=== PATIENT | male | born 1960 | race Caucasian/White ===

== ENCOUNTER 2017-08-19 10:26 | Emergency (ER) | payer OTHER ==
[2017-08-19] MEDS ORDERED: FENTANYL CITR 100 MCG/2 ML ONE (10:49)
[2017-08-19] MEDS ORDERED: ONDANSETRON 4 MG/2 ML VIAL ONE (10:49)
[2017-08-19 11:16] LABS: Absolute Lymphocytes (CBC) 3.3 K/uL (0.7-4.9); Absolute Monocytes 0.5 K/uL (0.1-1.3); Basophils % 1.3 % (0-1.3); Eosinophils % 0.5 % (0-4.4); Hematocrit 43.9 % (39.6-49.0); Lymphocytes % 37.1 % (15.3-44.8); MCH 33.6 pg (27.0-35.0); MCV 96.2 fL (80-100); MPV 9.9 fL (7.6-11.3); Monocytes % 5.8 % (3.3-12.3); RBC Red Blood Cell Count 4.57 M/uL (4.33-5.43)
--- NOTE | 2017-08-19 11:23 | RAD REPORT ---
EXAM DESCRIPTION: CT - Stone Protocol - 08/19/2017 11:12 am CLINICAL HISTORY: Flank pain. COMPARISON: 03/07/2017 TECHNIQUE: Axial images were obtained without oral or IV contrast. Lack of contrast limits solid org an and vascular assessment. The [id number] spans the entirety of the system partially obscuring uppermost abdomen and lung bases. Coronal reformatted images were obtained and reviewed. All CT scans are performed using dose optimization technique as appropriate and may include automated exposure control or mA/KV adjustment according to patient size. FINDINGS: The lower lung araujo are clear. Cholecystectomy clips. Mildly prominent liver size. No biliary dilatation. The spleen is normal The pancreas and adrenal gla nds are normal. No pathologic lymphadenopathy in the abdomen or pelvis. No urinary tract stones or obstructive uropathy. No bowel obstruction, free air, free fluid or abscess. Normal appendix noted. Moderate spondylosis at L4-5 and L5-S1. IMPRESSION: No urinary tract stones or obstructive uropathy. Moderate lower lumbar spondylosis.
[2017-08-19 11:31] LABS: Potassium 3.3 mEq/L (3.6-5.0)
[2017-08-19 11:37] LABS: Albumin 3.8 g/dL (3.2-5.5); Bilirubin Direct 0.7 mg/dL (0-0.2); Bilirubin Total 3.1 mg/dL (0.3-1.2); Protein, Total 7.6 g/dL (6.0-8.3)
[2017-08-19] MEDS ORDERED: NA CHLORIDE 0.9% 1,000 ML ONE (12:02)
--- NOTE | 2017-08-19 13:12 | ER ---
Nurse's Notes [facility] Name: Melchor Cisse III Age: 57 yrs Sex: Male : 1960 Arrival Date: 08/19/2017 Time: 10:28 Bed 5 Private MD: out of town, doctor Diagnosis: Generalized abdominal pain;Vomiting Presentation: 08/19 10:46 Presenting complaint: Patient states: abd cramping, vomiting and diarrhea that started iw yesterday, pt also states he is too weak to walk. Transition of care: patient was not received from another setting of care. Onset of symptoms was August 18, 2017. Risk Assessment: Do you want to hurt yourself or someone else? Patient reports no desire to harm self or others. Initial Sepsis Screen: Does the patient meet any 2 criteria? No. Patient's initial sepsis screen is negative. Does the patient have a suspected source of infection? No. Patient's initial sepsis screen is negative. Care prior to arrival: None. 10:46 Method Of Arrival: Wheelchair iw 10:46 Acuity: ANTONIA 2 iw Historical: - Allergies: 10:56 Iodine; ae1 10:56 Morphine; ae1 - Home Meds: 12:52 Descovy 200-25 mg Oral tab 1 tab once daily [Active]; Evotaz 300-150 mg Oral tab 1 tab ae1 once daily [Active]; - PMHx: 10:56 Hepatitis; HIV; ae1 - Immunization history:: Adult Immunizations not up to date. - Social history:: The patient lives at home, Smoking status: Patient uses tobacco products, smokes one-half pack cigarettes per day. Screenin:42 Nutritional screening: No deficits noted. ae1 12:51 Abuse screen: Denies threats or abuse. Tuberculosis screening: No symptoms or risk ae1 factors identified. Fall Risk None identified. Assessment: 10:58 General: Appears distressed, uncomfortable, unkempt, malnourished, Behavior is ae1 agitated, anxious, restless, Patient is yelling. Pain: Complains of pain in abdomen Pain currently is 10 out of 10 on a pain scale. Neuro: Level of Consciousness is awake, alert, Oriented to person, place, situation. Cardiovascular: skin cool and dry. Respiratory: Airway is patent Respiratory effort is even, unlabored, shallow, Respiratory pattern is regular, symmetrical. GI: Bowel sounds present X 4 quads. Abd is soft Abdomen is tender to palpation X 4 quads. in suprapubic area Reports constipation, nausea, vomiting. : No signs and/or symptoms were reported regarding the genitourinary system. Derm: Skin is pale, Patient has a dorado tint to his skin. 10:58 General:. Pain: Noted to be agitated, crying, grimacing, guarding, moaning, restless. ae1 11:32 Reassessment: Patient is more relaxed, still reports pain, is no longer restless. ae1 Patient states feeling better. Patient states symptoms have improved. 11:56 Reassessment: Patient and/or family updated on plan of care and expected duration. Pain ae1 level reassessed. Patient still report a "burning pain " to the suprapubic area of his abdomen and states it has improved. An additional warm blanket was provided. Patient states symptoms have improved. 12:47 Reassessment: Patient appears in no apparent distress at this time. Patient and/or ae1 family updated on plan of care and expected duration. Pain level reassessed. Patient is resting with eyes closed, respirations even and unlabored. Vital Signs: 10:47 BP 121 / 97; Pulse 84; Resp 18 S; Pulse Ox 100% on R/A; Weight 77.11 kg; Height 5 ft. iw 10 in. (177.80 cm); Pain 10/10; 11:37 BP 129 / 76; Pulse 70; Resp 19 S; Temp 97.8(O); Pulse Ox 100% on R/A; ae1 12:51 BP 111 / 79; Pulse 52; Resp 16; Pulse Ox 100% on R/A; ae1 13:15 BP 123 / 81; Pulse 62; Resp 17; Pulse Ox 100% on R/A; ae1 10:47 Body Mass Index 24.39 (77.11 kg, 177.80 cm) ED Course: 10:28 Patient arrived in ED. mr 10:28 out of town, doctor is Private Physician. mr 10:40 Karthikeyan Hill MD is Attending Physician. gs 10:46 Wilson Alexander, MARISELA is Primary Nurse. ae1 10:47 Triage completed. iw 10:56 Arm band placed on right wrist. ae1 10:56 Placed in gown. Bed in low position. Side rails up X 1. Pulse ox on. NIBP on. Warm ae1 blanket given. 10:58 Inserted saline lock: 20 gauge in right antecubital area, using aseptic technique. ag Blood collected. 11:12 CT Stone Protocol In Process Unspecified. EDMS 13:30 No provider procedures requiring assistance completed. IV discontinued, intact, ae1 bleeding controlled, No redness/swelling at site. Pressure dressing applied. Administered Medications: 10:48 Drug: Zofran 4 mg Route: IVP; Site: right antecubital; ae1 11:34 Follow up: Response: Nausea is decreased ae1 10:54 Drug: fentaNYL (PF) 50 mcg Route: IVP; Site: right antecubital; ae1 11:36 Follow up: Response: Pain is decreased ae1 12:05 Drug: NS 0.9% 1000 ml Route: IV; Rate: 1 bolus; Site: right antecubital; ae1 13:32 Follow up: IV Status: Completed infusion ae1 Outcome: 13:11 Discharge ordered by . 13:30 Discharged to home via wheelchair, with family. ae1 13:30 Condition: stable 13:30 Discharge instructions given to patient, Instructed on discharge instructions, follow up and referral plans. medication usage, Demonstrated understanding of instructions, Prescriptions given X 1. 13:31 Patient left the ED. ae1 Signatures: Dispatcher [employer] ANGECA Joyec Haas Irene, Tanvi Pires RN, Andrea, RN RN ae1 Karthikeyan Hill MD MD
--- NOTE | 2017-08-19 13:13 | EDPHYS ---
Physician Documentation [facility] Name: Melchor Cisse III Age: 57 yrs Sex: Male : 1960 Arrival Date: 08/19/2017 Time: 10:28 Bed 5 Private MD: out of town, doctor ED Physician Karthikeyan Hill HPI: 08/19 13:09 This 57 yrs old Male presents to ER via Wheelchair with complaints of gs Abdominal Pain, Vomiting. 13:09 The patient presents to the emergency department with nausea, vomiting, diarrhea, gs abdominal pain. Onset: The symptoms/episode began/occurred yesterday. Possible causes: unknown. The symptoms are aggravated by nothing. The symptoms are alleviated by nothing. Associated signs and symptoms: Pertinent negatives: GI bleeding. Severity of symptoms: At their worst the symptoms were moderate in the emergency department the symptoms are unchanged. The patient has experienced similar episodes in the past, a few times. The patient has not recently seen a physician. Historical: - Allergies: 10:56 Iodine; ae1 10:56 Morphine; ae1 - Home Meds: 12:52 Descovy 200-25 mg Oral tab 1 tab once daily [Active]; Evotaz 300-150 mg Oral tab 1 tab ae1 once daily [Active]; - PMHx: 10:56 Hepatitis; HIV; ae1 - Immunization history:: Adult Immunizations not up to date. - Social history:: The patient lives at home, Smoking status: Patient uses tobacco products, smokes one-half pack cigarettes per day. ROS: 13:09 All other systems are negative. gs Exam: 13:09 Head/Face: Normocephalic, atraumatic. Eyes: Pupils equal round and reactive to light, gs extra-ocular motions intact. Lids and lashes normal. Conjunctiva and sclera are non-icteric and not injected. Cornea within normal limits. Periorbital areas with no swelling, redness, or edema. ENT: Nares patent. No nasal discharge, no septal abnormalities noted. Tympanic membranes are normal and external auditory canals are clear. Oropharynx with no redness, swelling, or masses, exudates, or evidence of obstruction, uvula midline. Mucous membranes moist. Neck: Trachea midline, no thyromegaly or masses palpated, and no cervical lymphadenopathy. Supple, full range of motion without nuchal rigidity, or vertebral point tenderness. No Meningismus. Chest/axilla: Normal chest wall appearance and motion. Nontender with no deformity. No lesions are appreciated. Cardiovascular: Regular rate and rhythm with a normal S1 and S2. No gallops, murmurs, or rubs. Normal PMI, no JVD. No pulse deficits. Respiratory: Lungs have equal breath sounds bilaterally, clear to auscultation and percussion. No rales, rhonchi or wheezes noted. No increased work of breathing, no retractions or nasal flaring. Back: No spinal tenderness. No costovertebral tenderness. Full range of motion. Skin: Warm, dry with normal turgor. Normal color with no rashes, no lesions, and no evidence of cellulitis. MS/ Extremity: Pulses equal, no cyanosis. Neurovascular intact. Full, normal range of motion. Neuro: Awake and alert, GCS 15, oriented to person, place, time, and situation. Cranial nerves II-XII grossly intact. Motor strength 5/5 in all extremities. Sensory grossly intact. Cerebellar exam normal. Normal gait. 13:09 Constitutional: The patient appears alert, awake, uncomfortable. 13:09 Abdomen/GI: Palpation: moderate abdominal tenderness, in all quadrants, rebound tenderness, is not appreciated. Vital Signs: 10:47 BP 121 / 97; Pulse 84; Resp 18 S; Pulse Ox 100% on R/A; Weight 77.11 kg; Height 5 ft. iw 10 in. (177.80 cm); Pain 10/10; 11:37 BP 129 / 76; Pulse 70; Resp 19 S; Temp 97.8(O); Pulse Ox 100% on R/A; ae1 12:51 BP 111 / 79; Pulse 52; Resp 16; Pulse Ox 100% on R/A; ae1 13:15 BP 123 / 81; Pulse 62; Resp 17; Pulse Ox 100% on R/A; ae1 10:47 Body Mass Index 24.39 (77.11 kg, 177.80 cm) iw MDM: 10:44 Patient medically screened. gs 13:09 Differential diagnosis: Nonspecific abd pain, pancreatitis, diverticulitis, viral gs gastroenteritis. Data reviewed: vital signs, nurses notes. Response to treatment: the patient's symptoms have markedly improved after treatment, patient is well hydrated. and as a result, I will discharge patient. 08/19 10:45 Order name: Basic Metabolic Panel; Complete Time: 12:00 08/19 10:45 Order name: CBC with Diff; Complete Time: 11:26 08/19 10:45 Order name: Hepatic Function; Complete Time: 12:00 08/19 10:45 Order name: Lipase; Complete Time: 12:00 08/19 10:45 Order name: CT Stone Protocol; Complete Time: 11:26 08/19 10:45 Order name: IV Saline Lock; Complete Time: 10:47 08/19 10:45 Order name: Labs collected and sent; Complete Time: 10:58 08/19 10:45 Order name: Urine Dipstick-Ancillary (obtain specimen) Administered Medications: 10:48 Drug: Zofran 4 mg Route: IVP; Site: right antecubital; ae1 11:34 Follow up: Response: Nausea is decreased ae1 10:54 Drug: fentaNYL (PF) 50 mcg Route: IVP; Site: right antecubital; ae1 11:36 Follow up: Response: Pain is decreased ae1 12:05 Drug: NS 0.9% 1000 ml Route: IV; Rate: 1 bolus; Site: right antecubital; ae1 13:32 Follow up: IV Status: Completed infusion ae1 Disposition: 08/19/17 13:11 Discharged to Home. Impression: Generalized abdominal pain, Vomiting. - Condition is Stable. - Discharge Instructions: Abdominal Pain, Adult, Nausea and Vomiting. - Prescriptions for Zofran 4 mg Oral Tablet - take 1 tablet by ORAL route every 12 hours As needed; 10 tablet. - Medication Reconciliation Form, Thank You Letter, Antibiotic Education, Prescription Opioid Use form. - Follow up: Private Physician; When: 1 - 2 days; Reason: Re-evaluation by your physician. Signatures: Dispatcher [employer] EDWilson Lazo RN RN ae1 Karthikeyan Hill MD MD gs Corrections: (The following items were deleted from the chart) 13:31 13:11 08/19/2017 13:11 Discharged to Home. Impression: Generalized abdominal pain; ae1 Vomiting. Condition is Stable. Forms are Medication Reconciliation Form, Thank You Letter, Antibiotic Education, Prescription Opioid Use. Follow up: Private Physician; When: 1 - 2 days; Reason: Re-evaluation by your physician. 13:31 13:31 08/19/2017 13:11 Discharged to Home. Impression: Generalized abdominal pain; ae1 Vomiting. Condition is Stable. Discharge Instructions: Abdominal Pain, Adult, Nausea and Vomiting. Prescriptions for Zofran 4 mg Oral Tablet - take 1 tablet by ORAL route every 12 hours As needed; 10 tablet. and Forms are Medication Reconciliation Form, Thank You Letter, Antibiotic Education, Prescription Opioid Use. Follow up: Private Physician; When: 1 - 2 days; Reason: Re-evaluation by your physician. ae1
== END 2017-08-19 13:31 | disposition home or self-care (01) ==
LOC: ER 10:26
DX: R11.10 Vomiting, unspecified (principal); Z21 Asymptomatic human immunodeficiency virus [HIV] infection status; F17.210 Nicotine dependence, cigarettes, uncomplicated; Z88.5 Allergy status to narcotic agent; Z91.048 Other nonmedicinal substance allergy status
CPT/HCPCS: 36415; 74176; 76377; 80048; 80076; 83690; 85025; J2405; J3010; J7030; 96361; 96374; 96375; 99284

== ENCOUNTER 2017-09-13 09:37 | Emergency (ER) | payer OTHER ==
[2017-09-13] MEDS ORDERED: FENTANYL CITR 100 MCG/2 ML ONE (10:38)
[2017-09-13] MEDS ORDERED: ONDANSETRON 4 MG/2 ML VIAL ONE (10:38)
[2017-09-13] MEDS ORDERED: NA CHLORIDE 0.9% 1,000 ML ONE (10:38)
[2017-09-13 10:47] LABS: Absolute Lymphocytes (CBC) 1.4 K/uL (0.7-4.9); Absolute Monocytes 0.3 K/uL (0.1-1.3); Absolute Neutrophil 3.1 K/uL (1.8-8.0); Basophils % 1.2 % (0-1.3); Eosinophils % 0.5 % (0-4.4); Hematocrit 41.8 % (39.6-49.0); Lymphocytes % 28.4 % (15.3-44.8); MCH 33.4 pg (27.0-35.0); MCV 96.8 fL (80-100); MPV 9.8 fL (7.6-11.3); Monocytes % 6.2 % (3.3-12.3); RBC Red Blood Cell Count 4.31 M/uL (4.33-5.43)
[2017-09-13 10:59] LABS: Potassium 3.3 mEq/L (3.6-5.0)
[2017-09-13 11:08] LABS: Albumin 3.6 g/dL (3.2-5.5); Bilirubin Direct 0.6 mg/dL (0-0.2); Protein, Total 7.1 g/dL (6.0-8.3)
--- NOTE | 2017-09-13 11:18 | RAD REPORT ---
EXAM DESCRIPTION: CT - Stone Protocol - 09/13/2017 11:03 am CLINICAL HISTORY: Abdominal pain. COMPARISON: July 2017 TECHNIQUE: Computed axial tomography of the abdomen pelvis was obtained without oral or IV contrast. Lack of IV and oral contrast limits evaluation of solid organs, bowel, and vessels. Coronal reformat williams images were obtained and reviewed. All CT scans are performed using dose optimization technique as appropriate and may include automated exposure control or mA/KV adjustment according to patient size. FINDINGS: A renal calculus is not seen. An ureteral calculus is not noted. A bladder calculus is not present. The liver, spleen, pancreas and adrenals appear grossly normal There is no evidence of diverticulitis. The wall of most of the left and transverse colon appears mil dly thickened. The appendix is normal IMPRESSION: Negative for a genitourinary calculus The wall of the left and transverse colon appears mildly thickened. This may simply be secondary to i ncomplete distention. A mild colitis can also have this appearance
[2017-09-13 11:35] LABS: Blood Morphology Comment NOT SEEN (NOT SEEN); Platelet Estimate DECR; Urine White Blood Cell Casts OK
[2017-09-13] MEDS ORDERED: HALOPERIDOL LACT 5 MG/ML INJ ONE (11:46)
--- NOTE | 2017-09-13 12:17 | ER ---
Nurse's Notes [facility] Name: Melchor Cisse III Age: 57 yrs Sex: Male : 1960 Arrival Date: 09/13/2017 Time: 09:38 Bed 19 Private MD: Diagnosis: Generalized abdominal pain;Chronic pain syndrome Presentation: 09/13 09:45 Presenting complaint: Patient states: abd pain, N/V/D x "months" pt reports he was seen multiple times for this, but hasn't followed up with specialist. Transition of care: patient was not received from another setting of care. Onset of symptoms is unknown. Risk Assessment: Do you want to hurt yourself or someone else? Patient reports no desire to harm self or others. Initial Sepsis Screen: Does the patient meet any 2 criteria? No. Patient's initial sepsis screen is negative. Does the patient have a suspected source of infection? No. Patient's initial sepsis screen is negative. Note Sister reports, "It's his liver". Care prior to arrival: None. 09:45 Method Of Arrival: Wheelchair 09:45 Acuity: ANTONIA 3 Triage Assessment: 10:03 General: Appears in no apparent distress. uncomfortable, Behavior is cooperative, hj appropriate for age, anxious. Pain: Complains of pain in abdomen. GI: Reports lower abdominal pain, upper abdominal pain, nausea, vomiting. Historical: - Allergies: 09:47 Iodine; ss 09:47 Morphine; ss - Home Meds: 10:05 Descovy 200-25 mg Oral tab 1 tab once daily [Active]; Evotaz 300-150 mg Oral tab 1 tab hj once daily [Active]; - PMHx: 09:57 Hepatitis; HIV; ulcerative colitis; Crohn's; IBS; ss - PSHx: 10:05 Unable to obtain; hj - Immunization history:: Adult Immunizations up to date. - Social history:: Smoking status: Patient uses tobacco products, smokes one-half pack cigarettes per day. - Ebola Screening: : Patient negative for fever greater than or equal to 101.5 degrees Fahrenheit, and additional compatible Ebola Virus Disease symptoms Patient denies exposure to infectious person Patient denies travel to an Ebola-affected area in the 21 days before illness onset. Screenin:01 Abuse screen: Denies threats or abuse. Denies injuries from another. Nutritional hj screening: No deficits noted. Tuberculosis screening: No symptoms or risk factors identified. Fall Risk None identified. Assessment: 10:04 GI: Bowel sounds present X 4 quads. Abdomen is tender to palpation. hj 10:04 General: Appears in no apparent distress. uncomfortable, Behavior is cooperative, hj appropriate for age, anxious. Pain: Complains of pain in abdomen. Neuro: Level of Consciousness is awake, alert, obeys commands, Oriented to person, place, time, situation, Appropriate for age. Cardiovascular: Capillary refill < 3 seconds Patient's skin is warm and dry. Respiratory: Airway is patent Respiratory effort is even, unlabored, Respiratory pattern is regular, symmetrical. : No signs and/or symptoms were reported regarding the genitourinary system. EENT: No signs and/or symptoms were reported regarding the EENT system. Derm: No signs and/or symptoms reported regarding the dermatologic system. Musculoskeletal: No signs and/or symptoms reported regarding the musculoskeletal system. 11:05 Reassessment: Patient and/or family updated on plan of care and expected duration. Pain hj level reassessed. Patient is alert, oriented x 3, equal unlabored respirations, skin warm/dry/pink. awaiting results;. 12:23 Reassessment: Patient and/or family updated on plan of care and expected duration. Pain hj level reassessed. Patient is alert, oriented x 3, equal unlabored respirations, skin warm/dry/pink. awaiting POC;. Vital Signs: 09:55 BP 140 / 86; Pulse 88; Resp 30; Temp 97.4(TE); Pulse Ox 100% on R/A; Height 5 ft. 11 ss in. (180.34 cm); Pain 8/10; 10:30 BP 138 / 85; Pulse 84; Resp 18; Pulse Ox 100% on R/A; hj 11:30 BP 140 / 84; Pulse 85; Resp 18; Pulse Ox 100% on R/A; hj 12:25 BP 139 / 85; Pulse 89; Resp 18; Pulse Ox 100% on R/A; hj ED Course: 09:38 Patient arrived in ED. as 09:47 Triage completed. ss 09:47 Arm band placed on right wrist. ss 09:52 Karthikeyan Hill MD is Attending Physician. gs 10:01 Charles, Bienvenido, RN is Primary Nurse. hj 10:04 Patient has correct armband on for positive identification. Placed in gown. Bed in low hj position. Call light in reach. Side rails up X 1. 10:22 Initial lab(s) drawn, by me. Inserted saline lock: 22 gauge in left antecubital area, hj using aseptic technique. Blood collected. 11:03 CT Stone Protocol In Process Unspecified. EDMS 12:14 Immanuel Guerrero MD is Referral Physician. gs 13:15 No provider procedures requiring assistance completed. IV discontinued, intact, em bleeding controlled, No redness/swelling at site. Pressure dressing applied. Administered Medications: 10:29 Drug: NS 0.9% 1000 ml Route: IV; Rate: 1 bolus; Site: left antecubital; hj 10:29 Drug: Zofran 4 mg Route: IVP; Site: left antecubital; hj 11:38 Follow up: Response: No adverse reaction hj 10:29 Drug: fentaNYL (PF) 50 mcg Route: IVP; Site: left antecubital; hj 11:38 Follow up: Response: No adverse reaction; Pain is decreased hj 11:36 Drug: HALdol 2.5 mg Route: IVP; Site: left antecubital; hj 11:46 Follow up: Response: No adverse reaction hj Outcome: 12:16 Discharge ordered by . gs 13:16 Discharged to home ambulatory. em 13:16 Condition: good 13:16 Discharge instructions given to patient, Instructed on discharge instructions, follow up and referral plans. Demonstrated understanding of instructions, follow-up care. 13:16 Patient left the ED. em Signatures: Dispatcher [employer] EDTX Kofi Medina, DRAPERY ROD ASSEMBLER DRAPERY ROD ASSEMBLER Josselny Lemon Shelby, MARISELA ANTONIO ss Bienvenido Soto, Karthikeyan Montes RN, MD MD gs
--- NOTE | 2017-09-13 12:17 | EDPHYS ---
Physician Documentation [facility] Name: Melchor Cisse III Age: 57 yrs Sex: Male : 1960 Arrival Date: 09/13/2017 Time: 09:38 Bed 19 Private MD: ED Physician Karthikeyan Hill HPI: 09/13 12:08 This 57 yrs old Male presents to ER via Wheelchair with complaints of gs Abdominal Pain, Vomiting. 12:08 The patient presents to the emergency department with vomiting. Onset: The gs symptoms/episode began/occurred yesterday. Possible causes: flare up of bowel problem. The symptoms are aggravated by nothing. The symptoms are alleviated by nothing. Associated signs and symptoms: Pertinent negatives: constipation, dysuria, fever, GI bleeding, hematuria. Severity of symptoms: At their worst the symptoms were moderate in the emergency department the symptoms have improved mildly. The patient has experienced similar episodes in the past, chronically, and the symptoms today are exactly the same. Historical: - Allergies: 09:47 Iodine; ss 09:47 Morphine; ss - Home Meds: 10:05 Descovy 200-25 mg Oral tab 1 tab once daily [Active]; Evotaz 300-150 mg Oral tab 1 tab hj once daily [Active]; - PMHx: 09:57 Hepatitis; HIV; ulcerative colitis; Crohn's; IBS; ss - PSHx: 10:05 Unable to obtain; hj - Immunization history:: Adult Immunizations up to date. - Social history:: Smoking status: Patient uses tobacco products, smokes one-half pack cigarettes per day. - Ebola Screening: : Patient negative for fever greater than or equal to 101.5 degrees Fahrenheit, and additional compatible Ebola Virus Disease symptoms Patient denies exposure to infectious person Patient denies travel to an Ebola-affected area in the 21 days before illness onset. ROS: 12:08 All other systems are negative. gs Exam: 12:08 Head/Face: Normocephalic, atraumatic. Eyes: Pupils equal round and reactive to light, gs extra-ocular motions intact. Lids and lashes normal. Conjunctiva and sclera are non-icteric and not injected. Cornea within normal limits. Periorbital areas with no swelling, redness, or edema. ENT: Nares patent. No nasal discharge, no septal abnormalities noted. Tympanic membranes are normal and external auditory canals are clear. Oropharynx with no redness, swelling, or masses, exudates, or evidence of obstruction, uvula midline. Mucous membranes moist. Neck: Trachea midline, no thyromegaly or masses palpated, and no cervical lymphadenopathy. Supple, full range of motion without nuchal rigidity, or vertebral point tenderness. No Meningismus. Chest/axilla: Normal chest wall appearance and motion. Nontender with no deformity. No lesions are appreciated. Cardiovascular: Regular rate and rhythm with a normal S1 and S2. No gallops, murmurs, or rubs. Normal PMI, no JVD. No pulse deficits. Respiratory: Lungs have equal breath sounds bilaterally, clear to auscultation and percussion. No rales, rhonchi or wheezes noted. No increased work of breathing, no retractions or nasal flaring. Back: No spinal tenderness. No costovertebral tenderness. Full range of motion. Male : Normal genitalia with no discharge or lesions. Skin: Warm, dry with normal turgor. Normal color with no rashes, no lesions, and no evidence of cellulitis. MS/ Extremity: Pulses equal, no cyanosis. Neurovascular intact. Full, normal range of motion. Neuro: Awake and alert, GCS 15, oriented to person, place, time, and situation. Cranial nerves II-XII grossly intact. Motor strength 5/5 in all extremities. Sensory grossly intact. Cerebellar exam normal. Normal gait. 12:08 Constitutional: The patient appears alert, awake. 12:08 Abdomen/GI: Palpation: moderate abdominal tenderness, in all quadrants, rebound tenderness, is not appreciated. Vital Signs: 09:55 BP 140 / 86; Pulse 88; Resp 30; Temp 97.4(TE); Pulse Ox 100% on R/A; Height 5 ft. 11 ss in. (180.34 cm); Pain 8/10; 10:30 BP 138 / 85; Pulse 84; Resp 18; Pulse Ox 100% on R/A; hj 11:30 BP 140 / 84; Pulse 85; Resp 18; Pulse Ox 100% on R/A; hj 12:25 BP 139 / 85; Pulse 89; Resp 18; Pulse Ox 100% on R/A; hj MDM: 10:26 Patient medically screened. 12:08 Differential diagnosis: Nonspecific abd pain, pancreatitis, diverticulitis, gs gastroenteritis. Data reviewed: vital signs, nurses notes. Response to treatment: the patient's symptoms have markedly improved after treatment, and as a result, I will discharge patient. ED course: discussed chronic abdominal pain issues encouraged pt to follow up with dr schwartz. 09/13 10:29 Order name: Basic Metabolic Panel; Complete Time: 12:54 gs 09/13 10:29 Order name: CBC with Diff; Complete Time: 11:37 09/13 10:29 Order name: Hepatic Function; Complete Time: 12:54 09/13 10:29 Order name: Lipase; Complete Time: 12:54 09/13 10:50 Order name: CBC Smear Scan; Complete Time: 11:37 EDMS 09/13 10:29 Order name: IV Saline Lock; Complete Time: 10:33 09/13 10:29 Order name: Labs collected and sent; Complete Time: 10:43 gs 09/13 10:29 Order name: CT Stone Protocol; Complete Time: 11:22 gs Administered Medications: 10:29 Drug: NS 0.9% 1000 ml Route: IV; Rate: 1 bolus; Site: left antecubital; hj 10:29 Drug: Zofran 4 mg Route: IVP; Site: left antecubital; hj 11:38 Follow up: Response: No adverse reaction hj 10:29 Drug: fentaNYL (PF) 50 mcg Route: IVP; Site: left antecubital; hj 11:38 Follow up: Response: No adverse reaction; Pain is decreased hj 11:36 Drug: HALdol 2.5 mg Route: IVP; Site: left antecubital; hj 11:46 Follow up: Response: No adverse reaction Disposition: 09/13/17 12:16 Discharged to Home. Impression: Generalized abdominal pain, Chronic pain syndrome. - Condition is Stable. - Discharge Instructions: Abdominal Pain, Adult, Chronic Pain. - Medication Reconciliation Form, Thank You Letter, Antibiotic Education, Prescription Opioid Use form. - Follow up: Immanuel Schwartz MD; When: 2 - 3 days; Reason: Re-evaluation by your physician. Signatures: Dispatcher [employer] EDKofi Stafford, ACID DIPPER ACID DIPPER Baylee Dorado RN RN ss Joaquin, Henry, RN RN hj Starr, Gregory, MD MD Corrections: (The following items were deleted from the chart) 13:16 12:16 09/13/2017 12:16 Discharged to Home. Impression: Generalized abdominal pain; em Chronic pain syndrome. Condition is Stable. Forms are Medication Reconciliation Form, Thank You Letter, Antibiotic Education, Prescription Opioid Use. Follow up: Immanuel Schwartz; When: 2 - 3 days; Reason: Re-evaluation by your physician. gs
== END 2017-09-13 13:16 | disposition home or self-care (01) ==
LOC: ER 09:37
DX: R10.84 Generalized abdominal pain (principal); G89.4 Chronic pain syndrome; F17.210 Nicotine dependence, cigarettes, uncomplicated; Z21 Asymptomatic human immunodeficiency virus [HIV] infection status; Z88.5 Allergy status to narcotic agent; Z91.048 Other nonmedicinal substance allergy status
CPT/HCPCS: 36415; 74176; 76377; 80048; 80076; 83690; 85025; 96374; 96375; 99284; J1630; J2405; J3010; J7030

== ENCOUNTER 2017-09-23 08:57 | Day surgery (SDC) | payer OTHER | END 2017-09-23 10:30 | disposition home or self-care (01) | LOC: ENDO 08:57 | PROVIDERS: ATTEND Internal Medicine Gastroenterology | DX: R10.11 Right upper quadrant pain (principal); K92.0 Hematemesis; R11.2 Nausea with vomiting, unspecified; R63.4 Abnormal weight loss; J45.909 Unspecified asthma, uncomplicated; K50.90 Crohn's disease, unspecified, without complications; Z86.010 Personal history of colon polyps; F17.210 Nicotine dependence, cigarettes, uncomplicated; B20 Human immunodeficiency virus [HIV] disease; B19.20 Unspecified viral hepatitis C without hepatic coma; K59.00 Constipation, unspecified; Z53.21 Procedure and treatment not carried out due to patient leaving prior to being seen by health care provider ==

== ENCOUNTER 2017-11-21 07:17 | Day surgery (SDC) | payer OTHER ==
[2017-11-21] MEDS ORDERED: Ringers Lactate 1,000 ML IV ONE (07:37)
[2017-11-21] MEDS ORDERED: CEFAZOLIN/SWI 1gm 1 GM/10 ML SYR ONE (08:18)
[2017-11-21] MEDS ORDERED: PROPOFOL 200 MG/20 ML VIAL IV ONE (08:20)
[2017-11-21] MEDS ORDERED: FENTANYL CITR 100 MCG/2 ML ONE ×2 (08:20→09:03)
[2017-11-21] MEDS ORDERED: ONDANSETRON HCL 40 MG/20 ML VIAL ONE (08:21)
[2017-11-21] MEDS: SILVER SULFADIAZINE 1% 25 GM TOP ONE ×2 (08:34→08:40)
[2017-11-21] MEDS: BUPIVACA 0.25%/EPI 0.0005% MDV 50 ML VIAL ONE ×2 (08:34→08:40)
[2017-11-21] MEDS ORDERED: LIDOCAINE 1% MPF 5 ML VIAL ONE (08:36)
[2017-11-21] MEDS ORDERED: MIDAZOLAM HCL 2 MG/2 ML INJ ONE (08:36)
--- NOTE | 2017-11-21 09:24 | P.OP ---
Preoperative diagnosis: Anal Condyloma and Hemorhoids Postoperative diagnosis: Anal Condyloma and Hemorhoids Primary procedure: Excision of External Anal Condyloma and Hemorhoids Anesthesia: Gen + Local Estimated blood loss: <10cc Specimen: Anal Tissue - hemorrhoids, condyloma Findings: external anal condyloma and external hemorrhoids Complications: None Transferred to: Recovery Room Condition: Good
[2017-11-21] MEDS: MEPERIDINE HCL 50 MG/ML AMP ONE ×3 (09:48→09:58)
[2017-11-21] MEDS ORDERED: HYDROCODONE/APAP 7.5/325 MG TAB ONE (10:31)
--- NOTE | 2017-11-21 14:11 | OP ---
Date of Procedure: 11/21/2017 Surgeon: Williams Ruvalcaba MD, Preoperative Diagnoses: Anal condyloma, external anal hemorrhoids. Postoperative Diagnoses: Anal condyloma, external anal hemorrhoids. Procedure Performed: Excision of external anal condyloma and external anal hemorrhoids. Anesthesia: General endotracheal plus local with 0.25% Marcaine with epinephrine. Estimated Blood Loss: Less than 10 cc. Specimen: Anal tissue, hemorrhoids, and condyloma. Findings: External anal condyloma and external anal hemorrhoids. Complications: None. Disposition: Transferred to recovery room in good condition. Procedure In Detail: After informed consent was obtained, the patient brought to the operating room, prepped and draped in the usual sterile fashion. After adequate anesthesia was achieved, the patien t was placed in lithotomy position, and I anesthetized the area of the perianal ring. I then made a linear incision around the area of the external anal condyloma circumferentially around the anal ring using a 15-blade down through subcutaneous tissues. I then used both blunt dissection as well as th e LigaSure device to dissect and excise these large external anal condyloma and hemorrhoids, which we re intimally involved with each other. After removing the hemorrhoids from both the right and left a reas of the anal ring, I then inspected the area for hemostasis. Minimal hemostatic maneuvers were r equired in the form of electrocautery. The muscle was still intact at this time, and I then reapprox imated the skin to mucosa using interrupted mattress sutures using 2-0 chromic gut suture in an inter rupted fashion as described. I did it circumferentially around to reapproximate the skin to mucosa a ll the way around after irrigating the area copiously. I then placed Gel-Foam into the anal canal an d placed Silvadene cream over the top and a sterile dressing was placed over top. The patient tolera williams the procedure well without evidence of complication, transferred to PACU in good condition. All counts were correct at the end of the case. GODFREY/MUSA Voice ID: [id number] Report ID: [id number]
== END 2017-11-21 10:49 | disposition home or self-care (01) ==
LOC: OR 07:17
PROVIDERS: ATTEND Surgery
PROC: 0DBQXZZ Excision of Anus, External Approach (ICD-10-PCS; 2017-11-21)
PROC: 0HBAXZZ Excision of Inguinal Skin, External Approach (ICD-10-PCS; principal; 2017-11-21 08:15)
DX: A63.0 Anogenital (venereal) warts (principal); K64.4 Residual hemorrhoidal skin tags; B19.20 Unspecified viral hepatitis C without hepatic coma; Z21 Asymptomatic human immunodeficiency virus [HIV] infection status; K50.90 Crohn's disease, unspecified, without complications; K58.9 Irritable bowel syndrome, unspecified; N53.9 Unspecified male sexual dysfunction; F17.210 Nicotine dependence, cigarettes, uncomplicated; Z88.3 Allergy status to other anti-infective agents; Z90.49 Acquired absence of other specified parts of digestive tract
CPT/HCPCS: 46230; 46922; 88305; J0690; J2175; J2250; J2405; J3010 ×2; 88304

== ENCOUNTER 2017-11-21 23:03 | Emergency (ER) | payer OTHER ==
[2017-11-21] MEDS ORDERED: ONDANSETRON 4 MG/2 ML VIAL ONE (23:53)
[2017-11-21] MEDS ORDERED: NA CHLORIDE 0.9% 500 ML ONE (23:54)
[2017-11-22 00:16] LABS: Absolute Lymphocytes (CBC) 2.5 K/uL (0.7-4.9); Absolute Monocytes 0.4 K/uL (0.1-1.3); Absolute Neutrophil 4.4 K/uL (1.8-8.0); Basophils % 0.7 % (0-1.3); Eosinophils % 1.4 % (0-4.4); Hematocrit 35.9 % (39.6-49.0); MCH 35.1 pg (27.0-35.0); MCV 100.5 fL (80-100); MPV 10.1 fL (7.6-11.3); RBC Red Blood Cell Count 3.57 M/uL (4.33-5.43)
[2017-11-22] MEDS ORDERED: NA CHLORIDE 0.9% 1,000 ML ONE (00:18)
[2017-11-22] MEDS ORDERED: FAMOTIDINE 20 MG/2 ML VIAL IV ONE (00:18)
[2017-11-22 00:32] LABS: BUN Blood Urea Nitrogen 8 mg/dL (7-18); Bicarbonate 26 mmol/L (21-32); Glucose Level 103 mg/dL (74-106); Potassium 3.7 mmol/L (3.5-5.1); Sodium Level 134 mmol/L (136-145)
--- NOTE | 2017-11-22 01:44 | EDPHYS ---
Physician Documentation [facility] Name: Melchor Cisse III Age: 57 yrs Sex: Male : 1960 Arrival Date: 11/21/2017 Time: 23:06 Bed 5 Private MD: Jeffery Ruvalcaba ED Physician Oliver Mehta HPI: 11/21 23:25 This 57 yrs old Male presents to ER via Ambulatory with complaints of Post cp Surgical Pain, Urinary Retention. 23:25 The patient presents with urinary symptoms, unable to void. cp 23:25 Onset: The symptoms/episode began/occurred today. Associated signs and symptoms: cp Pertinent negatives: abdominal pain, constipation, diarrhea, fever, hematuria, vomiting. Severity of symptoms: in the emergency department the symptoms are unchanged, despite home interventions. Patient reports having surgery for hemorrhoids this morning and being able to urinate after surgery. Patient reports he hasn't urinated since being at home today and feels the urge but unable. Historical: - Allergies: 23:21 Iodine; tl2 23:21 Morphine; tl2 - Home Meds: 23:21 Descovy 200-25 mg Oral tab 1 tab once daily [Active]; Evotaz 300-150 mg Oral tab 1 tab tl2 once daily [Active]; - PMHx: 23:21 Crohn's; Hepatitis; HIV; ibs; ulcerative colitis; HPV; tl2 - PSHx: 23:21 Cholecystectomy; hemrrhoid; tl2 - Immunization history:: Adult Immunizations up to date. - Social history:: Smoking status: Patient uses tobacco products, smokes one pack cigarettes per day. - Ebola Screening: : No symptoms or risks identified at this time. ROS: 23:30 Constitutional: Negative for body aches, chills, fever, poor PO intake. cp 23:30 : Positive for difficulty urinating, Negative for hematuria, testicular pain 23:30 All other systems are negative. Exam: 23:40 Constitutional: The patient appears in no acute distress, alert, awake, non-toxic, well cp developed, well nourished. 23:40 Head/Face: Normocephalic, atraumatic. cp 23:40 Eyes: Periorbital structures: appear normal, Conjunctiva: normal, no exudate, no injection, Sclera: no appreciated abnormality, Lids and lashes: appear normal, bilaterally. 23:40 ENT: External ear(s): are unremarkable, Nose: is normal, Mouth: Lips: moist, Oral mucosa: moist, Posterior pharynx: is normal, airway is patent, no erythema, no exudate. 23:40 Chest/axilla: Inspection: normal, Palpation: is normal, no crepitus, no tenderness. 23:40 Cardiovascular: Rate: normal, Rhythm: regular. 23:40 Respiratory: the patient does not display signs of respiratory distress, Respirations: normal, no use of accessory muscles, no retractions, no splinting, no tachypnea, Breath sounds: are clear throughout, no decreased breath sounds, no stridor, no wheezing. 23:40 Abdomen/GI: Inspection: abdomen appears normal, Bowel sounds: active, all quadrants, Palpation: abdomen is soft and non-tender, in all quadrants, involuntary guarding, is not appreciated. 23:40 Back: CVA tenderness, is absent. 23:40 Skin: cellulitis, is not appreciated, no rash present. 23:40 Neuro: Orientation: to person, place \T\ time. Mentation: lucid, able to follow commands, Cerebellar function: is grossly normal, Motor: moves all fours, strength is normal, Sensation: no obvious gross deficits, Gait: is steady, at a normal pace, without difficulty. Vital Signs: 23:21 BP 135 / 88; Pulse 80; Resp 20; Temp 97.9(O); Pulse Ox 99% on R/A; Weight 78.02 kg; tl2 Height 5 ft. 11 in. (180.34 cm); Pain 7/10; 11/22 01:00 BP 126 / 82; Pulse 71; Resp 16; Pulse Ox 100% ; bp 02:00 BP 125 / 92; Pulse 71; Resp 16; Pulse Ox 99% ; bp 11/21 23:21 Body Mass Index 23.99 (78.02 kg, 180.34 cm) tl2 MDM: 11/21 23:18 Patient medically screened. cp 11/22 00:00 Differential diagnosis: UTI, urinary retention, prostatitis, urethritis. cp 02:05 Data reviewed: vital signs, nurses notes, lab test result(s). cp 02:05 Counseling: I had a detailed discussion with the patient and/or guardian regarding: the cp historical points, exam findings, and any diagnostic results supporting the discharge/admit diagnosis, lab results. ED course: VSS. Patient able to void successfully after administration of IV fluids. Will discharge to home for continued monitoring. 11/21 23:48 Order name: BMP; Complete Time: 00:38 cp 11/21 23:48 Order name: CBC with Diff; Complete Time: 00:38 cp 11/22 00:39 Interpretation: Normal except: RBC 3.57; HGB 12.5; HCT 35.9; MCV 100.5; MCH 35.1; PLT cp 78. 11/22 02:18 Order name: Urine Dipstick--Ancillary (enter results) mw2 11/21 23:22 Order name: Bladder Scanner: pre and post void; Complete Time: 23:26 cp 11/21 23:48 Order name: IV; Complete Time: 00:01 cp 11/22 01:42 Order name: Urine Dipstick-Ancillary (obtain specimen); Complete Time: 02:19 cp Administered Medications: 00:00 Drug: NS 0.9% 1000 ml Route: IV; Rate: 100 ml/hr; Site: right forearm; bp 02:22 Follow up: IV Status: Completed infusion; IV Intake: 300ml bp 00:01 Drug: Zofran 4 mg Route: IVP; Site: right forearm; bp 00:18 Follow up: Response: Nausea is decreased bp 00:01 Drug: NS 0.9% 500 ml Route: IV; Rate: bolus; Site: right forearm; bp 02:21 Follow up: IV Status: Completed infusion; IV Intake: 500ml bp 00:05 Drug: Pepcid 20 mg Route: IVP; Site: right forearm; bp 00:18 Follow up: Response: Nausea is decreased bp Disposition: 03:00 Chart complete. cp Disposition: 11/22/17 02:07 Discharged to Home. Impression: Encounter for examination and observation for other specified reasons - Difficulty Urinating. - Condition is Stable. - Discharge Instructions: Acute Urinary Retention, Male. - Medication Reconciliation Form, Thank You Letter, Antibiotic Education, Prescription Opioid Use form. - Follow up: Emergency Department; When: As needed; Reason: Worsening of condition. - Problem is new. - Symptoms have worsened. Addendum: 11/24/2017 06:34 Co-signature as Attending Physician, Oliver Mehta MD I agree with the assessment and c lilly plan of care. Signatures: Dispatcher [employer] EDOliver Vasquez MD MD cha Page, Corey, PA PA cp Shellie Powell, RN RN tl2 Venu Youssef, RN RN bp Corrections: (The following items were deleted from the chart) 11/22 02:03 01:44 11/22/2017 01:44 Discharged to Home. Impression: Retention of urine, unspecified. cp Condition is Stable. Forms are Medication Reconciliation Form, Thank You Letter, Antibiotic Education, Prescription Opioid Use. Follow up: Michelle Garcia; When: 2 - 3 days; Reason: Recheck today's complaints. Problem is new. Symptoms have improved. cp 02:19 01:42 Leg Bag ordered. cp bp 02:22 02:07 11/22/2017 02:07 Discharged to Home. Impression: Encounter for examination and bp observation for other specified reasons - Difficulty Urinating. Condition is Stable. Forms are Medication Reconciliation Form, Thank You Letter, Antibiotic Education, Prescription Opioid Use. Follow up: Emergency Department; When: As needed; Reason: Worsening of condition. Problem is new. Symptoms have worsened. cp
--- NOTE | 2017-11-22 01:44 | ER ---
Nurse's Notes [facility] Name: Melchor Cisse III Age: 57 yrs Sex: Male : 1960 Arrival Date: 11/21/2017 Time: 23:06 Bed 5 Private MD: Jeffery Ruvalcaba Diagnosis: Encounter for examination and observation for other specified reasons-Difficulty Urinating Presentation: 11/21 23:18 Presenting complaint: Patient states: "I had hemorrhoid surgery this morning at 0830 tl2 and I haven't been able to pee since then. I feel like I have to but nothing comes out. Transition of care: patient was not received from another setting of care. Onset of symptoms was November 21, 2017 at 12:00. Risk Assessment: Do you want to hurt yourself or someone else? Patient reports no desire to harm self or others. Initial Sepsis Screen: Does the patient meet any 2 criteria? No. Patient's initial sepsis screen is negative. Does the patient have a suspected source of infection? No. Patient's initial sepsis screen is negative. Care prior to arrival: None. 23:18 Method Of Arrival: Ambulatory tl2 23:18 Acuity: ANTONIA 3 tl2 Triage Assessment: 23:21 General: Appears in no apparent distress. uncomfortable, Behavior is calm, cooperative, tl2 appropriate for age. Pain: Complains of pain in suprapubic area Pain currently is 10 out of 10 on a pain scale. : Reports inability to void, urgency. Historical: - Allergies: 23:21 Iodine; tl2 23:21 Morphine; tl2 - Home Meds: 23:21 Descovy 200-25 mg Oral tab 1 tab once daily [Active]; Evotaz 300-150 mg Oral tab 1 tab tl2 once daily [Active]; - PMHx: 23:21 Crohn's; Hepatitis; HIV; ibs; ulcerative colitis; HPV; tl2 - PSHx: 23:21 Cholecystectomy; hemrrhoid; tl2 - Immunization history:: Adult Immunizations up to date. - Social history:: Smoking status: Patient uses tobacco products, smokes one pack cigarettes per day. - Ebola Screening: : No symptoms or risks identified at this time. Screenin:25 Abuse screen: Denies threats or abuse. Nutritional screening: No deficits noted. tl2 Tuberculosis screening: No symptoms or risk factors identified. Fall Risk None identified. Assessment: 23:25 General: Appears in no apparent distress. uncomfortable, slender, Behavior is bp cooperative, appropriate for age, anxious. Pain: Complains of pain in pelvis. Neuro: Level of Consciousness is awake, alert, obeys commands, Oriented to person, place, time, situation, Appropriate for age. Cardiovascular: No deficits noted. Respiratory: Airway is patent is compromised Respiratory effort is even, unlabored, Respiratory pattern is regular, symmetrical. GI: Reports nausea, vomiting. : Reports inability to void, 32ML ON BLADDER SCAN. EENT: No signs and/or symptoms were reported regarding the EENT system. Derm: No signs and/or symptoms reported regarding the dermatologic system. Musculoskeletal: Circulation, motion, and sensation intact. Range of motion: intact in all extremities. 23:26 Reassessment: Bladder scanner: 32 mL. tl2 11/22 01:01 Reassessment: IVF INFUSING. PT STATES STILL UNABLE TO VOID. bp 02:20 Reassessment: PT D/C HOME AMBULATORY, TO F/U WITH [facility]RO IF S/S RECUR. bp Vital Signs: 11/21 23:21 BP 135 / 88; Pulse 80; Resp 20; Temp 97.9(O); Pulse Ox 99% on R/A; Weight 78.02 kg; tl2 Height 5 ft. 11 in. (180.34 cm); Pain 10/07; 11/22 01:00 BP 126 / 82; Pulse 71; Resp 16; Pulse Ox 100% ; bp 02:00 BP 125 / 92; Pulse 71; Resp 16; Pulse Ox 99% ; bp 11/21 23:21 Body Mass Index 23.99 (78.02 kg, 180.34 cm) tl2 ED Course: 11/21 23:06 Patient arrived in ED. al2 23:06 Jeffery Ruvalcaba MD is Private Physician. al2 23:18 Oliver Tucker PA is PHCP. cp 23:18 Oliver Mehta MD is Attending Physician. cp 23:18 Triage completed. tl2 23:21 Arm band placed on right wrist. tl2 23:25 Venu Youssef, MARISELA is Primary Nurse. bp 23:25 Patient has correct armband on for positive identification. Bed in low position. Call bp light in reach. Side rails up X2. 11/22 00:02 Inserted saline lock: 20 gauge in right forearm, using aseptic technique. Blood bp collected. 01:36 Bladder scan completed. 451 ml. fc 01:43 Michelle Garcia MD is Referral Physician. cp 02:20 No provider procedures requiring assistance completed. IV discontinued, intact, bp bleeding controlled, No redness/swelling at site. Pressure dressing applied. Administered Medications: 00:00 Drug: NS 0.9% 1000 ml Route: IV; Rate: 100 ml/hr; Site: right forearm; bp 02:22 Follow up: IV Status: Completed infusion; IV Intake: 300ml bp 00:01 Drug: Zofran 4 mg Route: IVP; Site: right forearm; bp 00:18 Follow up: Response: Nausea is decreased bp 00:01 Drug: NS 0.9% 500 ml Route: IV; Rate: bolus; Site: right forearm; bp 02:21 Follow up: IV Status: Completed infusion; IV Intake: 500ml bp 00:05 Drug: Pepcid 20 mg Route: IVP; Site: right forearm; bp 00:18 Follow up: Response: Nausea is decreased bp Intake: 02:21 IV: 500ml; Total: 500ml. bp 02:22 IV: 300ml; Total: 800ml. bp Outcome: 01:44 Discharge ordered by MD. cp 02:07 Discharge ordered by MD. cp 02:21 Discharged to home ambulatory. bp 02:21 Condition: stable 02:21 Discharge instructions given to patient, Instructed on discharge instructions, follow up and referral plans. Demonstrated understanding of instructions, follow-up care. 02:22 Patient left the ED. bp Signatures: Afia Arellano RN RN fc Page, Corey, PA PA cp Knox, Taylor, RN RN tl2 Venu Youssef RN RN bp Love, Angelica al2
[2017-11-22 04:15] LABS: Urine Blood NEGATIVE (NEG); Urine Glucose NEGATIVE (NEG); Urine Protein NEGATIVE (NEG); Urine Specific Gravity 1.015 (1.005-1.030)
== END 2017-11-22 02:22 | disposition home or self-care (01) ==
LOC: ER 23:03
DX: R33.9 Retention of urine, unspecified (principal); Z88.5 Allergy status to narcotic agent; Z91.041 Radiographic dye allergy status; F17.210 Nicotine dependence, cigarettes, uncomplicated; Z21 Asymptomatic human immunodeficiency virus [HIV] infection status; K73.9 Chronic hepatitis, unspecified; K58.9 Irritable bowel syndrome, unspecified; K51.90 Ulcerative colitis, unspecified, without complications
CPT/HCPCS: 36415; 80048; 81003; 85025; 96361; 96374; 96375; 99283; J2405; J7030

== ENCOUNTER 2017-11-26 07:53 | Emergency (ER) | payer OTHER ==
--- OUTSIDE RECORDS SUMMARY | 2017-11-26 07:56 | XMS REPORT ---
:1960 Author Organization [employer] Care Team Providers Name Role Phone Jeffery Ruvalcaba Provider Role Unavailable Allergies, Adverse Reactions, Alerts Substance Reaction Event Type MORPHINE Info Not Available Drug Allergy Iodine Info Not Available Drug Allergy Problems Problem Type Condition Code Onset Dates Condition Status Problem Condyloma acuminatum due to human A63.0 Active papillomavirus (HPV) Problem Condyloma acuminata A63.0 Active Assessment Condyloma acuminata A63.0 Active Assessment Condyloma acuminatum due to human A63.0 Active papillomavirus (HPV) Medications Medication Code Code Instructions Start End Status Dosage System Date Date Hydrocodone-Acet [facility] 69234296741 7.5-325 MG Active 1 tablet aminophen Orally every 6 as needed hrs Triumeq [facility] 67298270605 600-50-300 MG Active 1 tablet Orally Once a day Esomeprazole [facility] 45039027800 40 MG Orally Active 1 capsule Magnesium Once a day Clozapine [facility] [id number] 100 MG Orally Active 1 tablet Once a day Results No Known Results Summary Purpose [employer] Submission
--- OUTSIDE RECORDS SUMMARY | 2017-11-26 07:56 | XMS REPORT ---
:1960 Author Organization [employer] Care Team Providers Name Role Phone Jordon Jeffery Provider Role Unavailable Allergies No Known Allergies Problems Problem Type Condition Code Onset Dates Condition Status Problem Condyloma acuminatum due to human A63.0 Active papillomavirus (HPV) Problem Condyloma acuminata A63.0 Active Medications Medication Code System Code Instructions Start Date End Date Status Dosage Bactrim DS ND 63540548634 800-160 MG Orally Nov 25, Dec 05, Active 1 tablet Every 8 hours 2017 2017 Levaquin ND 54291399673 500 MG Orally Nov 25Dec 05, Active 1 tablet Once a day 2017 2017 Results No Known Results Summary Purpose [employer] Submission
[2017-11-26] MEDS ORDERED: FENTANYL CITR 100 MCG/2 ML ONE (08:29)
[2017-11-26] MEDS ORDERED: CLINDAMYCIN 600MG/D5W 600 MG/50 ML BAG IV ONE (08:30)
[2017-11-26] MEDS ORDERED: ONDANSETRON 4 MG/2 ML VIAL ONE (08:30)
[2017-11-26 08:47] LABS: Absolute Lymphocytes (CBC) 2.9 K/uL (0.7-4.9); Absolute Monocytes 0.5 K/uL (0.1-1.3); Absolute Neutrophil 3.5 K/uL (1.8-8.0); Basophils % 1.6 % (0-1.3); Eosinophils % 3.3 % (0-4.4); Lymphocytes % 40.1 % (15.3-44.8); MCH 35.2 pg (27.0-35.0); MCV 100.9 fL (80-100); MPV 10.2 fL (7.6-11.3); Monocytes % 6.7 % (3.3-12.3); RBC Red Blood Cell Count 3.86 M/uL (4.33-5.43)
[2017-11-26 08:49] LABS: BUN Blood Urea Nitrogen 10 mg/dL (7-18); Bicarbonate 31 mmol/L (21-32); Glucose Level 108 mg/dL (74-106); Sodium Level 141 mmol/L (136-145)
--- NOTE | 2017-11-26 09:26 | ER ---
Nurse's Notes [facility] Name: Melchor Cisse III Age: 57 yrs Sex: Male : 1960 Arrival Date: 11/26/2017 Time: 07:56 Bed 16 Private MD: out of town, doctor Diagnosis: Constipation;Rectal pain s/p hemorrhoidectomy Presentation: 11/26 08:05 Presenting complaint: Patient states: Pain and constipation after rectal surgery on aj Friday. Transition of care: patient was not received from another setting of care. Onset of symptoms was November 21, 2017. Risk Assessment: Do you want to hurt yourself or someone else? Patient reports no desire to harm self or others. Initial Sepsis Screen: Does the patient meet any 2 criteria? No. Patient's initial sepsis screen is negative. Does the patient have a suspected source of infection? No. Patient's initial sepsis screen is negative. Care prior to arrival: None. 08:05 Method Of Arrival: Ambulatory 08:05 Acuity: ANTONIA 3 aj Triage Assessment: 08:08 General: Appears in no apparent distress. uncomfortable, Behavior is calm, cooperative, aj appropriate for age. Pain: Complains of pain in anus. Neuro: Level of Consciousness is awake, alert, obeys commands, Oriented to person, place, time, situation, Appropriate for age. Respiratory: Airway is patent Respiratory effort is even, unlabored, Respiratory pattern is regular, symmetrical. GI: Abdomen is flat, non-distended, Reports Rectal pain. Derm: Skin is intact, is healthy with good turgor, Skin is pink, warm \T\ dry. normal. Historical: - Allergies: 08:08 Iodine; aj 08:08 Morphine; aj - Home Meds: 08:08 Descovy 200-25 mg Oral tab 1 tab once daily [Active]; Evotaz 300-150 mg Oral tab 1 tab aj once daily [Active]; hydrocodone-acetaminophen 7.5-325 mg Oral tab 1 tab every 6 hours [Active]; Colace oral oral [Active]; Acyclovir Oral [Active]; Nexium Oral [Active]; - PMHx: 08:08 Crohn's; Hepatitis; HIV; HPV; ibs; ulcerative colitis; Herpes; aj - PSHx: 08:08 hemorrhoidectomy; aj - Immunization history:: Adult Immunizations up to date. - Social history:: Smoking status: Patient uses tobacco products, smokes one pack cigarettes per day. - Ebola Screening: : Patient negative for fever greater than or equal to 101.5 degrees Fahrenheit, and additional compatible Ebola Virus Disease symptoms Patient denies exposure to infectious person Patient denies travel to an Ebola-affected area in the 21 days before illness onset No symptoms or risks identified at this time. Screenin:24 Abuse screen: Denies threats or abuse. Denies injuries from another. Nutritional ph screening: No deficits noted. Tuberculosis screening: No symptoms or risk factors identified. Fall Risk None identified. Assessment: 08:10 General: Appears in no apparent distress. uncomfortable, slender, Behavior is calm, ph cooperative, appropriate for age, Denies fever, feeling ill. Pain: Complains of pain in anus. Neuro: Level of Consciousness is awake, alert, obeys commands, Oriented to person, place. Cardiovascular: Capillary refill < 3 seconds in bilateral fingers Patient's skin is warm and dry. Respiratory: Airway is patent Respiratory effort is even, unlabored. GI: Bowel sounds present X 4 quads. Abd is soft X 4 quads Abdomen is tender to palpation in right lower quadrant and left lower quadrant Reports lower abdominal pain, constipation, Patient currently denies nausea, vomiting. Derm: Skin is healthy with good turgor, Skin is pink, warm \T\ dry. Wound noted anus. Musculoskeletal: Circulation, motion, and sensation intact. Range of motion: intact in all extremities. 09:55 Reassessment: Patient appears in no apparent distress at this time. Patient and/or ph family updated on plan of care and expected duration. Pain level reassessed. Patient is alert, oriented x 3, equal unlabored respirations, skin warm/dry/pink. Pt instructed to follow up w/ Dr Ruvalcaba and d/c home. Vital Signs: 08:08 BP 137 / 99; Pulse 106; Resp 20; Temp 97.6; Pulse Ox 98% on R/A; Weight 78.02 kg; aj Height 5 ft. 11 in. (180.34 cm); 08:09 BP 137 / 99; Pulse 87; Resp 18; Pulse Ox 99% on R/A; ph 09:00 BP 114 / 85; Pulse 72; Resp 16; Pulse Ox 98% on R/A; ph 09:56 BP 117 / 82; Pulse 74; Resp 18; Temp 97.5; Pulse Ox 99% on R/A; ph 08:08 Body Mass Index 23.99 (78.02 kg, 180.34 cm) aj ED Course: 07:56 Patient arrived in ED. sb2 07:56 out of town, doctor is Private Physician. sb2 07:58 Jesi Mike F[facility]-C [facility]. kb 07:58 Irineo Aquino MD is Attending Physician. kb 08:05 Nancy Sousa, MARISELA is Primary Nurse. ph 08:07 Triage completed. aj 08:08 Arm band placed on left wrist. Patient placed in an exam room. aj 08:20 Initial lab(s) drawn, by me, sent to lab. Wound culture swab sent to lab. Inserted ph saline lock: 20 gauge in left antecubital area, using aseptic technique. Blood collected. 09:24 Patient has correct armband on for positive identification. Placed in gown. Bed in low ph position. Call light in reach. Side rails up X 1. Pulse ox on. NIBP on. Warm blanket given. 09:25 Jeffery Ruvalcaba MD is Referral Physician. kb 09:57 No provider procedures requiring assistance completed. IV discontinued, intact, ph bleeding controlled, No redness/swelling at site. Pressure dressing applied. Administered Medications: 08:30 Drug: Zofran 4 mg Route: IVP; Site: left antecubital; ph 09:21 Follow up: Response: No adverse reaction ph 08:30 Drug: fentaNYL (PF) 50 mcg Route: IVP; Site: left antecubital; ph 09:21 Follow up: Response: No adverse reaction; Pain is decreased ph 08:30 Drug: Clindamycin 600 mg Route: IVPB; Infused Over: 30 mins; Site: left antecubital; ph 09:00 Follow up: Response: No adverse reaction; IV Status: Completed infusion ph Outcome: 09:25 Discharge ordered by . kb 09:57 Discharged to home ambulatory. ph 09:57 Condition: good 09:57 Discharge instructions given to patient, Instructed on discharge instructions, follow up and referral plans. Demonstrated understanding of instructions, follow-up care. 09:58 Patient left the ED. ph Addendum: 11/29/2017 17:29 Addendum: Culture Results: Positive wound culture. Patient was not prescribed i w antibiotics at discharge. Report given to ADINA for further evaluation and then to saturator operator for follow up with patient. Phone call Attempt #1 pt did not answer, left voice mail with call back number. Signatures: Jesi Mike, ZAC NUNEZ-Kelly Cain RN Briana Olivas RN RN Nancy Sousa RN RN Sugey Lyman sb2
--- NOTE | 2017-11-26 09:26 | EDPHYS ---
Physician Documentation [facility] Name: Melchor Cisse III Age: 57 yrs Sex: Male : 1960 Arrival Date: 11/26/2017 Time: 07:56 Bed 16 Private MD: out of town, doctor ED Physician Irineo Aquino HPI: 11/26 09:15 This 57 yrs old Male presents to ER via Ambulatory with complaints of kb Constipation, INFECTION. 09:15 The patient presents to the emergency department with pain in the rectal area, that is kb severe. Onset: The symptoms/episode began/occurred 2 day(s) ago. Context: the patient is post surgical, hemorrhoidectomy, on November 21, 2017. Modifying factors: The symptoms are alleviated by nothing, The symptoms are aggravated by bowel movement, movement. Associate signs and symptoms: Pertinent positives: constipation, bleeding and drainage s/p surgical procedure, Pertinent negatives: abdominal pain, diarrhea, dysuria, fever, lower GI bleeding, vomiting. The patient has not experienced similar symptoms in the past. The patient has been recently seen by a physician: Dr. Sanderson. Historical: - Allergies: 08:08 Iodine; aj 08:08 Morphine; aj - Home Meds: 08:08 Descovy 200-25 mg Oral tab 1 tab once daily [Active]; Evotaz 300-150 mg Oral tab 1 tab aj once daily [Active]; hydrocodone-acetaminophen 7.5-325 mg Oral tab 1 tab every 6 hours [Active]; Colace oral oral [Active]; Acyclovir Oral [Active]; Nexium Oral [Active]; - PMHx: 08:08 Crohn's; Hepatitis; HIV; HPV; ibs; ulcerative colitis; Herpes; aj - PSHx: 08:08 hemorrhoidectomy; aj - Immunization history:: Adult Immunizations up to date. - Social history:: Smoking status: Patient uses tobacco products, smokes one pack cigarettes per day. - Ebola Screening: : Patient negative for fever greater than or equal to 101.5 degrees Fahrenheit, and additional compatible Ebola Virus Disease symptoms Patient denies exposure to infectious person Patient denies travel to an Ebola-affected area in the 21 days before illness onset No symptoms or risks identified at this time. ROS: 09:13 Constitutional: Negative for fever, chills, and weight loss, Cardiovascular: Negative kb for chest pain, palpitations, and edema, Respiratory: Negative for shortness of breath, cough, wheezing, and pleuritic chest pain, Back: Negative for injury and pain, : Negative for injury, bleeding, discharge, and swelling, MS/Extremity: Negative for injury and deformity, Skin: Negative for injury, rash, and discoloration, Neuro: Negative for headache, weakness, numbness, tingling, and seizure. 09:13 Abdomen/GI: Positive for abdominal pain, constipation, rectal pain, pain and discharge from rectal area s/p hemorrhoidectomy. Exam: 09:13 Constitutional: This is a well developed, well nourished patient who is awake, alert, kb and in no acute distress. Head/Face: Normocephalic, atraumatic. Chest/axilla: Normal chest wall appearance and motion. Nontender with no deformity. No lesions are appreciated. Cardiovascular: Regular rate and rhythm with a normal S1 and S2. No gallops, murmurs, or rubs. Normal PMI, no JVD. No pulse deficits. Respiratory: Lungs have equal breath sounds bilaterally, clear to auscultation and percussion. No rales, rhonchi or wheezes noted. No increased work of breathing, no retractions or nasal flaring. Skin: Warm, dry with normal turgor. Normal color with no rashes, no lesions, and no evidence of cellulitis. MS/ Extremity: Pulses equal, no cyanosis. Neurovascular intact. Full, normal range of motion. Neuro: Awake and alert, GCS 15, oriented to person, place, time, and situation. Cranial nerves II-XII grossly intact. Motor strength 5/5 in all extremities. Sensory grossly intact. Cerebellar exam normal. Normal gait. 09:13 Abdomen/GI: Inspection: abdomen appears normal, Bowel sounds: normal, in all quadrants, Palpation: soft, in all quadrants, mild abdominal tenderness, in all quadrants, Rectal exam: tenderness, that is moderate, the exam is chaperoned by the nurse, open wound s/p surgical procedure, feces noted and pt cleaned. Vital Signs: 08:08 BP 137 / 99; Pulse 106; Resp 20; Temp 97.6; Pulse Ox 98% on R/A; Weight 78.02 kg; aj Height 5 ft. 11 in. (180.34 cm); 08:09 BP 137 / 99; Pulse 87; Resp 18; Pulse Ox 99% on R/A; ph 09:00 BP 114 / 85; Pulse 72; Resp 16; Pulse Ox 98% on R/A; ph 09:56 BP 117 / 82; Pulse 74; Resp 18; Temp 97.5; Pulse Ox 99% on R/A; ph 08:08 Body Mass Index 23.99 (78.02 kg, 180.34 cm) aj MDM: 07:58 Patient medically screened. kb 09:09 Data reviewed: vital signs, nurses notes. Data interpreted: Pulse oximetry: on room air kb is 99 %. Interpretation: normal. Counseling: I had a detailed discussion with the patient and/or guardian regarding: the historical points, exam findings, and any diagnostic results supporting the discharge/admit diagnosis, lab results, the need for outpatient follow up, a general surgeon, to return to the emergency department if symptoms worsen or persist or if there are any questions or concerns that arise at home. Physician consultation: Jeffery Sanderson MD was contacted at 09:10, regarding consult, patient's condition, . ED course: Pt educated to increase pain medication to 2 tabs every 6 hours instead of 1, to spanish moss picker and take antibiotics previously prescribed and do sitz baths 4-6 times per day with betadine per dr sanderson. Instructed to continue stool softeners and increase fiber in diet. Pt to follow up in the office with dr sanderson. 11/26 08:09 Order name: CBC with Diff; Complete Time: 08:56 kb 11/26 08:09 Order name: Basic Metabolic Panel; Complete Time: 08:50 kb 11/26 08:09 Order name: Wound Culture kb 11/26 08:09 Order name: IV Start; Complete Time: 09:20 kb Administered Medications: 08:30 Drug: Zofran 4 mg Route: IVP; Site: left antecubital; ph 09:21 Follow up: Response: No adverse reaction ph 08:30 Drug: fentaNYL (PF) 50 mcg Route: IVP; Site: left antecubital; ph 09:21 Follow up: Response: No adverse reaction; Pain is decreased ph 08:30 Drug: Clindamycin 600 mg Route: IVPB; Infused Over: 30 mins; Site: left antecubital; ph 09:00 Follow up: Response: No adverse reaction; IV Status: Completed infusion ph Disposition: 10:15 Co-signature as Attending Physician, Irineo Aquino MD. rn Disposition: 11/26/17 09:25 Discharged to Home. Impression: Constipation, Rectal pain s/p hemorrhoidectomy. - Condition is Stable. - Discharge Instructions: Constipation, Adult, [id number]. - Medication Reconciliation Form, Thank You Letter, Antibiotic Education, Prescription Opioid Use form. - Follow up: Emergency Department; When: As needed; Reason: Worsening of condition. Follow up: Jeffery Sanderson MD; When: 2 - 3 days; Reason: Recheck today's complaints, Continuance of care, Re-evaluation by your physician. - Notes: May take 2 norco every 6 hours as needed for pain Start antibiotic prescribed by Dr Sanderson Increase sitz baths to 4-6 times per day Follow up with Dr Sanderson in office for continued pain or any other concerns. Signatures: Dispatcher [employer] EDMS Jesi Mike, ENRIQUE-C ENRIQUE-Kelly Cain RN RN aj Nieto, Roman, MD MD rn Hall, Patricia, RN RN ph Corrections: (The following items were deleted from the chart) 09:24 09:09 ED course: Pt educated to increase pain medication to 2 tabs every 6 hours kb instead of 1 and do sitz baths 4-6 times per day with betadine per dr sanderson. Instructed to continue stool softeners and increase fiber in diet. Pt to follow up in the office with dr sanderson. kb 09:58 09:25 11/26/2017 09:25 Discharged to Home. Impression: Constipation; Rectal pain s/p ph hemorrhoidectomy. Condition is Stable. Forms are Medication Reconciliation Form, Thank You Letter, Antibiotic Education, Prescription Opioid Use. Follow up: Emergency Department; When: As needed; Reason: Worsening of condition. Follow up: Jeffery Sanderson; When: 2 - 3 days; Reason: Recheck today's complaints, Continuance of care, Re-evaluation by your physician. kb
== END 2017-11-26 09:58 | disposition home or self-care (01) ==
LOC: ER 07:53
DX: K59.00 Constipation, unspecified (principal); G89.18 Other acute postprocedural pain; B20 Human immunodeficiency virus [HIV] disease; K75.9 Inflammatory liver disease, unspecified; B00.9 Herpesviral infection, unspecified; F17.210 Nicotine dependence, cigarettes, uncomplicated; Z88.6 Allergy status to analgesic agent; Z91.048 Other nonmedicinal substance allergy status
CPT/HCPCS: 36415; 80048; 85025; 87070; 87077 ×2; 87186 ×2; 87205; 96365; 96375; 99284; J2405; J3010

== ENCOUNTER 2018-03-02 10:29 | Emergency (ER) | payer OTHER ==
--- OUTSIDE RECORDS SUMMARY | 2018-03-02 10:31 | XMS REPORT ---
:1960 Author Organization [employer] Care Team Providers Name Role Phone JordonJeffery Provider Role Unavailable Allergies, Adverse Reactions, Alerts Substance Reaction Event Type MORPHINE Info Not Available Drug Allergy Iodine Info Not Available Drug Allergy Problems Problem Type Condition Code Onset Dates Condition Status Assessment Condyloma acuminata A63.0 Active Problem Condyloma acuminatum due to human A63.0 Active papillomavirus (HPV) Assessment Condyloma acuminatum due to human A63.0 Active papillomavirus (HPV) Medications Medication Code Code Instructions Start End Status Dosage System Date Date Esomeprazole [facility] 03995426579 40 MG Orally Active 1 capsule Magnesium Once a day Hydrocodone-Jomar [facility] [id number] 7.5-325 MG Active 1 tablet as taminophen Orally every 6 needed hrs Triumeq [facility] 69849527873 600-50-300 MG Active 1 tablet Orally Once a day Silvadene [facility] 47062030429 1 % Externally Dec 23, Dec Active 1 application Every other day 2017, to affected 2018 area Clozapine [facility] [id number] 100 MG Orally Active 1 tablet Once a day Results No Known Results Summary Purpose [employer] Submission
--- OUTSIDE RECORDS SUMMARY | 2018-03-02 10:31 | XMS REPORT ---
[...] End Date Status Dosage Bactrim DS ND [id number] 800-160 MG Orally Nov 25, Dec 05, Active 1 tablet Every 8 hours 2017 2017 Levaquin ND 74376029840 500 MG Orally Nov 25Dec 05, Active 1 tablet Once a day 2017 2017 Results No Known Results Summary Purpose [employer]ClinicalWorks Submission
--- OUTSIDE RECORDS SUMMARY | 2018-03-02 10:31 | XMS REPORT ---
[...] End Status Dosage System Date Date Hydrocodone-Acet [facility] 38041063942 7.5-325 MG Active 1 tablet aminophen Orally every 6 as needed hrs Triumeq [facility] 78025323187 600-50-300 MG Active 1 tablet Orally Once a day Esomeprazole [facility] 83772759761 40 MG Orally Active 1 capsule Magnesium Once a day Clozapine [facility] 55510787176 100 MG Orally Active 1 tablet Once a day Results No Known Results Summary Purpose [employer]ClinicalWorks Submission
--- NOTE | 2018-03-02 12:22 | RAD REPORT ---
EXAM DESCRIPTION: US - Extremity Venous Uni Ltd - 03/02/2018 12:04 pm CLINICAL HISTORY: PAIN Leg swelling and edema. COMPARISON: No comparisons FINDINGS: Right lower extremity venous system was interrogated with Doppler technique. Normal flow, compressibility and augmentation was noted. There is no DVT present. IMPRESSION: No evidence of right lower extremity deep venous thrombosis.
--- NOTE | 2018-03-02 12:42 | ER ---
Nurse's Notes [facility] Name: Melchor Cisse III Age: 57 yrs Sex: Male : 1960 Arrival Date: 03/02/2018 Time: 10:30 Bed 20 Private MD: Deep Julien Diagnosis: Pain in right lower leg Presentation: 03/02 11:12 Presenting complaint: Patient states: pain to back of R leg that began 2 weeks ago and ss has gotten worse over the past 3 days. Pt reports streaking up R leg and itching. Denies fever. Transition of care: patient was not received from another setting of care. Onset of symptoms was January 2018. Risk Assessment: Do you want to hurt yourself or someone else? Patient reports no desire to harm self or others. Initial Sepsis Screen: Does the patient meet any 2 criteria? No. Patient's initial sepsis screen is negative. Does the patient have a suspected source of infection? No. Patient's initial sepsis screen is negative. Care prior to arrival: None. 11:12 Method Of Arrival: Ambulatory ss 11:12 Acuity: ANTONIA 3 ss Historical: - Allergies: 11:14 Iodine; ss 11:14 Morphine; ss 11:28 shrimp; tw2 - Home Meds: 11:28 Acyclovir Oral [Active]; Colace Oral [Active]; Descovy 200-25 mg Oral tab 1 tab once tw2 daily [Active]; Evotaz 300-150 mg Oral tab 1 tab once daily [Active]; hydrocodone-acetaminophen 7.5-325 mg Oral tab 1 tab every 6 hours [Active]; Nexium Oral [Active]; - PMHx: 11:14 Crohn's; Hepatitis; HERPES; HIV; HPV; ulcerative colitis; ibs; ss - PSHx: 11:14 hemorrhoidectomy; Cholecystectomy; ss - Immunization history:: Adult Immunizations up to date, Flu vaccine is not up to date. - Social history:: Smoking status: Patient uses tobacco products, smokes one pack cigarettes per day. - Ebola Screening: : Patient denies exposure to infectious person Patient denies travel to an Ebola-affected area in the 21 days before illness onset. Screenin:27 Abuse screen: Denies threats or abuse. Nutritional screening: No deficits noted. tw2 Tuberculosis screening: No symptoms or risk factors identified. Fall Risk None identified. Assessment: 11:28 General: Appears in no apparent distress. Behavior is calm, cooperative, appropriate tw2 for age. Pain: Complains of pain in right leg. Neuro: Level of Consciousness is awake, alert, obeys commands, Oriented to person, place, time, situation. Cardiovascular: Denies chest pain, shortness of breath, Heart tones S1 S2 Patient's skin is warm and dry. Respiratory: Airway is patent Respiratory effort is even, unlabored, Respiratory pattern is regular, symmetrical. GI: No signs and/or symptoms were reported involving the gastrointestinal system. : No signs and/or symptoms were reported regarding the genitourinary system. EENT: No signs and/or symptoms were reported regarding the EENT system. Derm: No signs and/or symptoms reported regarding the dermatologic system. Musculoskeletal: Circulation, motion, and sensation intact. Range of motion: intact in all extremities, Reports pain in right leg. Vital Signs: 11:14 BP 103 / 84; Pulse 73; Resp 16; Temp 98.1(TE); Pulse Ox 100% on R/A; Weight 78.02 kg; ss Height 5 ft. 11 in. (180.34 cm); Pain 6/10; 11:14 Body Mass Index 23.99 (78.02 kg, 180.34 cm) ss ED Course: 10:30 Patient arrived in ED. rg4 10:30 Deep Julien MD is Private Physician. rg4 11:13 Triage completed. ss 11:14 Arm band placed on left wrist. ss 11:18 Karthikeyan Hill MD is Attending Physician. gs 11:20 Nata Perez RN is Primary Nurse. tw2 11:27 Placed in gown. Bed in low position. Call light in reach. Pulse ox on. NIBP on. tw2 12:22 US Extremity Venous Unilateral Ltd In Process Unspecified. EDMS 12:51 No provider procedures requiring assistance completed. Patient did not have IV access tw2 during this emergency room visit. Administered Medications: No medications were administered Outcome: 12:42 Discharge ordered by . gs 12:51 Discharged to home ambulatory, left prior to signing discharge papers tw2 12:51 Condition: stable 12:51 Instructed on discharge instructions, follow up and referral plans. 12:52 Patient left the ED. tw2 Signatures: Dispatcher [employer] EDMS Baylee Miller RN RN ss Nata Perez RN RN tw2 Brandy Franklin rg4 Karthikeyan Hill MD MD
--- NOTE | 2018-03-02 12:42 | EDPHYS ---
Physician Documentation [facility] Name: Melchor Cisse III Age: 57 yrs Sex: Male : 1960 Arrival Date: 03/02/2018 Time: 10:30 Bed 20 Private MD: Deep Julien ED Physician Karthikeyan Hill HPI: 03/02 12:35 This 57 yrs old Male presents to ER via Ambulatory with complaints of Leg gs Pain, Foot Pain. 12:35 The patient presents with pain, that is acute. The complaints affect the right rojo. gs Onset: The symptoms/episode began/occurred 2 week(s) ago. Modifying factors: The symptoms are alleviated by nothing. the symptoms are aggravated by movement. Associated signs and symptoms: Pertinent negatives fever, erythema or warmth. Severity of symptoms: At their worst the symptoms were mild, in the emergency department the symptoms are unchanged. The patient has not experienced similar symptoms in the past. Historical: - Allergies: 11:14 Iodine; ss 11:14 Morphine; ss 11:28 shrimp; tw2 - Home Meds: 11:28 Acyclovir Oral [Active]; Colace Oral [Active]; Descovy 200-25 mg Oral tab 1 tab once tw2 daily [Active]; Evotaz 300-150 mg Oral tab 1 tab once daily [Active]; hydrocodone-acetaminophen 7.5-325 mg Oral tab 1 tab every 6 hours [Active]; Nexium Oral [Active]; - PMHx: 11:14 Crohn's; Hepatitis; HERPES; HIV; HPV; ulcerative colitis; ibs; ss - PSHx: 11:14 hemorrhoidectomy; Cholecystectomy; ss - Immunization history:: Adult Immunizations up to date, Flu vaccine is not up to date. - Social history:: Smoking status: Patient uses tobacco products, smokes one pack cigarettes per day. - Ebola Screening: : Patient denies exposure to infectious person Patient denies travel to an Ebola-affected area in the 21 days before illness onset. ROS: 12:35 All other systems are negative. gs Exam: 12:35 Cardiovascular: Regular rate and rhythm with a normal S1 and S2. No gallops, murmurs, gs or rubs. Normal PMI, no JVD. No pulse deficits. Respiratory: Lungs have equal breath sounds bilaterally, clear to auscultation and percussion. No rales, rhonchi or wheezes noted. No increased work of breathing, no retractions or nasal flaring. Abdomen/GI: Soft, non-tender, with normal bowel sounds. No distension or tympany. No guarding or rebound. No evidence of tenderness throughout. Back: No spinal tenderness. No costovertebral tenderness. Full range of motion. Skin: Warm, dry with normal turgor. Normal color with no rashes, no lesions, and no evidence of cellulitis. Neuro: Awake and alert, GCS 15, oriented to person, place, time, and situation. Cranial nerves II-XII grossly intact. Motor strength 5/5 in all extremities. Sensory grossly intact. Cerebellar exam normal. Normal gait. 12:35 Constitutional: The patient appears alert, awake. 12:35 Musculoskeletal/extremity: DVT Exam: no swelling, negative Homans' sign noted on exam, no appreciated bluish discoloration, no erythema, no increased warmth, tenderness, that is moderate, of the right leg. Vital Signs: 11:14 BP 103 / 84; Pulse 73; Resp 16; Temp 98.1(TE); Pulse Ox 100% on R/A; Weight 78.02 kg; ss Height 5 ft. 11 in. (180.34 cm); Pain 6/10; 11:14 Body Mass Index 23.99 (78.02 kg, 180.34 cm) ss MDM: 11:40 Patient medically screened. gs 12:35 Differential diagnosis: tendonitis, dvt,svt. Data reviewed: vital signs, nurses notes. gs Counseling: I had a detailed discussion with the patient and/or guardian regarding: the historical points, exam findings, and any diagnostic results supporting the discharge/admit diagnosis. Response to treatment: the patient's symptoms have mildly improved after treatment, and as a result, I will discharge patient. 03/02 11:44 Order name: Extremity Venous Unilateral Ltd; Complete Time: 12:35 gs Administered Medications: No medications were administered Disposition: 03/02/18 12:42 Discharged to Home. Impression: Pain in right lower leg. - Condition is Stable. - Discharge Instructions: Musculoskeletal Pain. - Medication Reconciliation Form, Thank You Letter, Antibiotic Education, Prescription Opioid Use form. - Follow up: Private Physician; When: 2 - 3 days; Reason: Re-evaluation by your physician. Signatures: Dispatcher Skipo EDMS Baylee Miller RN RN ss Nata Perez RN RN tw2 Karthikeyan Hill MD MD gs Corrections: (The following items were deleted from the chart) 12:52 12:42 03/02/2018 12:42 Discharged to Home. Impression: Pain in right lower leg. tw2 Condition is Stable. Forms are Medication Reconciliation Form, Thank You Letter, Antibiotic Education, Prescription Opioid Use. Follow up: Private Physician; When: 2 - 3 days; Reason: Re-evaluation by your physician. gs
== END 2018-03-02 12:52 | disposition home or self-care (01) ==
LOC: ER 10:29
DX: M79.661 Pain in right lower leg (principal); F17.210 Nicotine dependence, cigarettes, uncomplicated; Z21 Asymptomatic human immunodeficiency virus [HIV] infection status; Z88.5 Allergy status to narcotic agent; Z91.013 Allergy to seafood; Z91.048 Other nonmedicinal substance allergy status
CPT/HCPCS: 93971; 99283

== ENCOUNTER 2019-05-17 08:20 | Day surgery (SDC) | payer OTHER ==
--- OUTSIDE RECORDS SUMMARY | 2019-05-17 08:24 | XMS REPORT ---
[...] End Status Dosage System Date Date Hydrocodone-Acet [facility] 96724058234 7.5-325 MG Active 1 tablet aminophen Orally every 6 as needed hrs Triumeq [facility] 73893722321 600-50-300 MG Active 1 tablet Orally Once a day Esomeprazole [facility] 43649868631 40 MG Orally Active 1 capsule Magnesium Once a day Clozapine [facility] 02650267334 100 MG Orally Active 1 tablet Once a day Results No Known Results Summary Purpose eClinicalWorks Submission
--- OUTSIDE RECORDS SUMMARY | 2019-05-17 08:24 | XMS REPORT ---
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
--- OUTSIDE RECORDS SUMMARY | 2019-05-17 08:24 | XMS REPORT ---
[...] End Status Dosage System Date Date Esomeprazole [facility] 33449402088 40 MG Orally Active 1 capsule Magnesium Once a day Hydrocodone-Jomar [facility] 44282041626 7.5-325 MG Active 1 tablet as taminophen Orally every 6 needed hrs Triumeq [facility] 32018559097 600-50-300 MG Active 1 tablet Orally Once a day Silvadene [facility] 23164644687 1 % Externally Dec 23, Dec Active 1 application Every other day 2017, to affected 2018 area Clozapine [facility] 04856474971 100 MG Orally Active 1 tablet Once a day Results No Known Results Summary Purpose eClinicalWorks Submission
--- OUTSIDE RECORDS SUMMARY | 2019-05-17 08:24 | XMS REPORT ---
:1960 [facility] Address [address] [place] [address] Dr. Valerio [address] [place] [id number] Care Team Providers Name Role Phone SHASHA MAZARIEGOS Unavailable Unavailable Problems This patient has no known problems. Allergies, Adverse Reactions, Alerts This patient has no known allergies or adverse reactions. Medications This patient has no known medications. Results Test Description Test Time Test Comments Text Results Atomic Results Result Comments ANTI-NUCLEAR ANTIBODY (BAHMAN) 2019-02-01 11:23:00 Test Item Value Reference Range Comments ANTI-NUCLEAR ANTIBODY (BAHMAN) (BEAKER) (test wcxl=891) Positive Negative Test performed by IFA method.BAHMAN TITER AND [id number] 11:23:00 Test Item Value Reference Range Comments BAHMAN TITER (BEAKER) (test czql=9674) :160 BAHMAN PATTERN (BEAKER) (test dsek=9351) Speckled HEPATITIS C PCR, [id number] 12:50:00 Test Item Value Reference Range Comments HCV RESULT COMPONENT (BEAKER) HCV RNA not detected HCV RNA not detected (test wpll=8366) This test uses a Real-Time Polymerase Chain Reaction (RT-PCR) methodology and was performed using [employer] Ampliprep/CLOVER TaqMan HCV test kit version 2.0 ( [employer]Reportable range for this assay is 15 - 100,000, 000 IU per mL (1.18 - 8.00 Log IU/mL).[id number] 11:58:00 Test Item Value Reference Range Comments FERRITIN (BEAKER) (test ufbk=847) 179 ng/mL 5-275 HEPATITIS A ANTIBODY, [id number] 11:19:00 Test Item Value Reference Range Comments HEPATITIS A IGG ANTIBODY (BEAKER) (test sejl=4979) Reactive Nonreactive ALPHA FETOPROTEIN (AFP), TUMOR [id number] 11:16:00 Test Item Value Reference Range Comments ALPHA-FETOPROTEIN (BEAKER) (test jvcn=7260) 7.0 ng/mL <10.0 [id number] 11:07:00 Test Item Value Reference Range Comments ALPHA-1 ANTITRYPSIN (BEAKER) (test lkdx=554) 205.10 mg/dL 90.00-200.00 COMPREHENSIVE METABOLIC [id number] 11:06:00 Test Item Value Reference Range Comments TOTAL PROTEIN (BEAKER) 8.1 gm/dL 6.0-8.3 (test phne=486) ALBUMIN (BEAKER) (test 4.2 g/dL 3.5-5.0 ustg=3208) ALKALINE PHOSPHATASE 104 U/L 40-150 (BEAKER) (test ttzy=605) BILIRUBIN TOTAL (BEAKER) 1.2 mg/dL 0.2-1.2 (test mech=658) SODIUM (BEAKER) (test 138 meq/L 136-145 xuho=924) POTASSIUM (BEAKER) (test 3.9 meq/L 3.5-5.1 olgh=106) CHLORIDE (BEAKER) (test 103 meq/L 98-107 ylnw=725) CO2 (BEAKER) (test 28 meq/L 22-29 tawu=693) BLOOD UREA NITROGEN 12 mg/dL 7-21 (BEAKER) (test xekw=123) CREATININE (BEAKER) (test 0.93 mg/dL 0.57-1.25 ohqy=923) GLUCOSE RANDOM (BEAKER) 91 mg/dL 70-105 (test bkge=444) CALCIUM (BEAKER) (test 9.5 mg/dL 8.4-10.2 djod=952) AST (SGOT) (BEAKER) (test 24 U/L 5-34 ntfh=440) ALT (SGPT) (BEAKER) (test 16 U/L 6-55 uekt=850) EGFR (BEAKER) (test 84 mL/min/1.73 sq m ESTIMATED GFR IS NOT gtyy=5230) ACCURATE CREATININE CLEARANCE IN PREDICTING GLOMERULAR FILTRATION RATE. ESTIMATED GFR IS NOT APPLICABLE FOR DIALYSIS PATIENTS. BILIRUBIN, [id number] 11:06:00 Test Item Value Reference Range Comments BILIRUBIN DIRECT (BEAKER) (test rjcx=417) 0.5 mg/dL 0.1-0.5 IRON, TIBC, % SAT. (WITHOUT FERRITIN)2019-01-27 10:55:00 Test Item Value Reference Range Comments IRON (BEAKER) (test xjcw=385) 170.0 ug/dL 40.0-160.0 TOTAL IRON BINDING CAPACITY (BEAKER) (test 329 ug/dL 250-450 mxqg=174) IRON % SATURATION (2) (BEAKER) (test yexp=9646) 52 % 20-55 CBC W/PLT COUNT & AUTO [id number] 10:47:00 Test Item Value Reference Range Comments WHITE BLOOD CELL COUNT (BEAKER) (test ydzb=246) 7.8 K/ L 3.5-10.5 RED BLOOD CELL COUNT (BEAKER) (test xsdp=458) 5.07 M/ L 4.63-6.08 HEMOGLOBIN (BEAKER) (test phtl=890) 16.4 GM/DL 13.7-17.5 HEMATOCRIT (BEAKER) (test jowh=368) 46.3 % 40.1-51.0 MEAN CORPUSCULAR VOLUME (BEAKER) (test rore=505) 91.3 fL 79.0-92.2 MEAN CORPUSCULAR HEMOGLOBIN (BEAKER) (test 32.3 pg 25.7-32.2 rywy=850) MEAN CORPUSCULAR HEMOGLOBIN CONC (BEAKER) (test 35.4 GM/DL 32.3-36.5 judy=982) RED CELL DISTRIBUTION WIDTH (BEAKER) (test 13.5 % 11.6-14.4 ujtq=269) PLATELET COUNT (BEAKER) (test scxx=800) 91 K/CU MM 150-450 MEAN PLATELET VOLUME (BEAKER) (test neex=795) 11.2 fL 9.4-12.4 NUCLEATED RED BLOOD CELLS (BEAKER) (test 0 /100 WBC 0-0 icvw=016) NEUTROPHILS RELATIVE PERCENT (BEAKER) (test 45 % jamp=246) LYMPHOCYTES RELATIVE PERCENT (BEAKER) (test 45 % lbrs=716) MONOCYTES RELATIVE PERCENT (BEAKER) (test 6 % bfsi=571) EOSINOPHILS RELATIVE PERCENT (BEAKER) (test 4 % yyav=843) BASOPHILS RELATIVE PERCENT (BEAKER) (test 1 % yvkd=354) NEUTROPHILS ABSOLUTE COUNT (BEAKER) (test 3.52 K/ L 1.78-5.38 lhii=832) LYMPHOCYTES ABSOLUTE COUNT (BEAKER) (test 3.48 K/ L 1.32-3.57 yghx=186) MONOCYTES ABSOLUTE COUNT (BEAKER) (test wmwr=785) 0.44 K/ L 0.30-0.82 EOSINOPHILS ABSOLUTE COUNT (BEAKER) (test 0.28 K/ L 0.04-0.54 dyra=763) BASOPHILS ABSOLUTE COUNT (BEAKER) (test zhry=561) 0.09 K/ L 0.01-0.08 IMMATURE GRANULOCYTES-RELATIVE PERCENT (BEAKER) 0 % 0-1 (test jvwf=7524) PROTHROMBIN TIME/[id number] 10:44:00 Test Item Value Reference Range Comments PROTIME (BEAKER) (test uequ=127) 14.1 seconds 11.9-14.2 INR (BEAKER) (test asmn=840) 1.2 <=5.9 Effective 08/26/2018: PT Reference Range ChangeNew: 11.9-14.2 Previous: 11.7- 14.7RECOMMENDED COUMADIN/WARFARIN INR THERAPY RANGESSTANDARD DOSE: 2.0-3.0 Includes: PROPHYLAXIS for venous thrombosis, systemic embolization; TREATMENT for venous thrombosis and/or pulmonary embolus.HIGH RISK: Target INR is2.5-3.5 for patients wiht mechanical heart valves.
--- OUTSIDE RECORDS SUMMARY | 2019-05-17 08:24 | XMS REPORT ---
[...] End Date Status Dosage Bactrim DS ND [id number] 800-160 MG Orally Nov 25, Dec 05, Active 1 tablet Every 8 hours 2017 2017 Levaquin ND 13749815076 500 MG Orally Nov 25Dec 05, Active 1 tablet Once a day 2017 2017 Results No Known Results Summary Purpose eClinicalWorks Submission
[2019-05-17] MEDS ORDERED: Ringers Lactate 1,000 ML IV ONE (08:45)
[2019-05-17] MEDS ORDERED: MIDAZOLAM HCL 2 MG/2 ML INJ ONE ×2 (08:48→11:35)
[2019-05-17] MEDS ORDERED: propofoL 200 MG/20 ML VIAL IV ONE (11:33)
[2019-05-17] MEDS ORDERED: FENTANYL CITR 100 MCG/2 ML ONE ×2 (11:33→12:17)
[2019-05-17] MEDS ORDERED: LIDOCAINE 2% MPF 5 ML VIAL ONE (11:34)
[2019-05-17] MEDS ORDERED: ONDANSETRON 4 MG/2 ML VIAL ONE ×2 (11:34→13:35)
[2019-05-17] MEDS: CEFAZOLIN/SWI 1gm 1 GM/10 ML SYR ONE ×3 (11:47→12:05)
[2019-05-17] MEDS ORDERED: BUPIVACA 0.5%/EPI 0.0005%/PF 10 ML VIAL ONE (11:56)
--- NOTE | 2019-05-17 12:39 | P.OP ---
Preoperative diagnosis: Grade III internal Hemorrhiods, Anal Condyloma Postoperative diagnosis: Grade III internal Hemorrhiods, Anal Condyloma Primary procedure: Exicsion of Grade III internal Hemorrhiods, Anal Condyloma Secondary procedure: Exam under anesthesia Anesthesia: GETA + Local Estimated blood loss: <5cc Specimen: Hemmorrhoids, anal condyloma Findings: Grade III internal Hemorrhiods, Anal Condyloma Complications: None Transferred to: Recovery Room Condition: Good
[2019-05-17] MEDS: MEPERIDINE HCL 50 MG/ML ONE ×2 (13:00→13:10)
[2019-05-17 13:20] VITALS: O2SAT 96
[2019-05-17] MEDS ORDERED: HYDROCODONE/APAP 7.5/325 MG TAB ONE (13:35)
[2019-05-17 14:21] VITALS: BP 162/93; TEMP 97.5
--- NOTE | 2019-05-17 20:58 | OP ---
Date of Procedure: 05/17/2019 Surgeon: Jeffery Ruvalcaba MD, Preoperative Diagnoses: Grade 3 internal hemorrhoids and anal condylomata. Postoperative Diagnoses: Grade 3 internal hemorrhoids and anal condylomata. Procedure Performed: 1.Excision of grade 3 internal hemorrhoids. 2.Excision of anal condyloma. 3.Exam under anesthesia. Anesthesia: General endotracheal plus local 0.5% Marcaine with epinephrine. Estimated Blood Loss: Less than 5 mL. Specimen: 1.Hemorrhoids. 2.Anal condyloma. Findings: 1.Grade 3 internal hemorrhoids. 2.Anal condyloma extending both anteriorly/external. Complications: None. Transferred to recovery room in good condition. Procedure In Detail: After informed consent was obtained, patient prepped and draped in the usual st erile fashion. After adequate anesthesia was achieved, the patient was in the lithotomy position. I performed exam under anesthesia by sequentially dilating up the anal canal with the bullet retractor . At this point, I examined the anal canal and found there to be internal anal condylomata along wit h grade 3 internal hemorrhoids. These were scored using electrocautery and dissected and ligated usi ng the LigaSure device. The LigaSure device was adequate in sealing these and good hemostasis was en sured throughout the entire procedure. Anal condyloma was taken in a similar fashion that were along the anal rim using the LigaSure device. All were sent off for pathologic examination. Hemorrhoids included both the right anterior-posterior cushions as well as the left lateral cushion. These were medium to large size and were all removed without evidence of complication. After these were removed , the area was cleansed. A Gel-Foam was packed into the anus at this point. There was some external anal condyloma which were somewhat fungating in appearance and on the skin surrounding the anal tiss ue. There were approximately 2 cm from the anal verge, but in a circumferential starburst pattern an d as such I removed a few of these kiosk sales representative specimen to confirm the diagnosis of external anal condylomata. Three sections were taken, 2 from the left anterior anus from approximately the 1 o'sabine ck and 2 o'clock positions and another from approximately the 7 o'clock position. There were approxi mately 0.5 cm specimens sent off for pathologic examination. Hemostasis was achieved at these areas easily with electrocautery with simple touch and a sterile dressing was then placed on top and mesh u nderwear with appropriate dressing was placed as well. The patient tolerated the procedure well with out evidence complication, transferred to PACU in good condition. All counts were correct at the end of case. GODFREY/MUSA Voice ID: [id number] Report ID: [id number]
== END 2019-05-17 14:15 | disposition home or self-care (01) ==
LOC: OR 08:20
PROVIDERS: ATTEND Surgery
PROC: 0HBAXZZ Excision of Inguinal Skin, External Approach (ICD-10-PCS; 2019-05-17)
PROC: 06BY0ZC Excision of Hemorrhoidal Plexus, Open Approach (ICD-10-PCS; principal; 2019-05-17 10:30)
DX: K64.2 Third degree hemorrhoids (principal); A63.0 Anogenital (venereal) warts; B97.7 Papillomavirus as the cause of diseases classified elsewhere; Z21 Asymptomatic human immunodeficiency virus [HIV] infection status; J44.9 Chronic obstructive pulmonary disease, unspecified; K21.9 Gastro-esophageal reflux disease without esophagitis; B19.20 Unspecified viral hepatitis C without hepatic coma; K74.60 Unspecified cirrhosis of liver; F17.200 Nicotine dependence, unspecified, uncomplicated; Z88.6 Allergy status to analgesic agent
CPT/HCPCS: 46260; 46922; 88305 ×2; J2704; J2250; J3010 ×2; J2175; J0690; J7120; J2405 ×2; 88304

== ENCOUNTER 2020-02-03 14:42 | Emergency (ER) | payer OTHER ==
--- OUTSIDE RECORDS SUMMARY | 2020-02-03 14:46 | XMS REPORT | Continuity of Care Document ---
:[address] [facility] [place], [place] t Address [address] [place] [address] Care Team Providers Name Role Phone Farzad Primary Care Physician Jordan Reveles MD Attending Clinician Rebekah Barbosa Attending Clinician America Mike Attending Clinician Unavailable Terrence JUAREZ Attending Clinician Unavailable Bradly Sinha MD Attending Clinician Nicolas JUAREZ Attending Clinician Unavailable JORDAN REVELES Attending Clinician Unavailable Payers Payer Name Policy Type Policy Effective Date Expiration Date Sour ce Number MEDICAREMEDICARE A [id number] 1994 MIKAYLA S yovani Fox [id number] 1994-P 00:00:00 - Medical resentMedicare Center ONEIL [id number] 2016 [facility] MEDICAIDMEDICAID 00:00:00 - Medica l [id number]/ Ce nter 7-Present Problems Condition Condition Condition Status Onset Resolution Last Treating Co mments Source Name Details Category Date Date Treatment Clinician Date Immunity Immunity Disease Active 2018-03 Last [facility] status status 0-30 Assessmen Ruddy - testing testing 00:00: t & Plan: Medic al 00 CDC Center recommend s that all patients with chronic liver disease, regardles s of etiology, should be immunized to prevent hepatitis A and hepatitis B if they are not already immune. This should be done in addition to other age-appro priate vaccines. We will test for immunity to both hepatitis A and B viruses; vaccine recommend ations will follow. Cirrhosis Cirrhosis Disease Active Last [facility] t & Plan: Medical 00 Diagnosis Center based on the constella tion of clinical findings, laborator y parameter s and imaging. Etiology is most likely due to hepatitis C. His has features of portal hypertens ion. We will get labs today to calculate the MELD score and complete a comprehen sive evaluatio n for other causes of cirrhosis . Cirrhosis guideline s were reviewed. Hepatitis Hepatitis Disease Active Last [facility] 03[facility]: t & Plan: Medical Patient Center was treated with Mavyret and achieved SVR in 2019. We will check HCV RNA PCR today. 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 These significa ntly increase the risk of . Gastric Gastric Disease Active Last [facility] St [facility] & Plan: Medical Because Center of the risk for upper GI bleeding, all patients with portal hypertens ion should be screened for gastroeso pahgeal varices and/or portal hypertens rigoberto gastropat hy. Patient had non-bleed ing gastric varices (IGV1) during the EGD done on 9. We recommend repeating EGD in 6 months for follow up and further intervent ion of the gastric varices will be planned based on the findings of the repeat EGD. Patient is also taking propranol ol. Elevated Elevated Disease Active [facility] liver liver [facility] - enzymes enzymes Medical Center Allergies, Adverse Reactions, Alerts Allergy Allergy Status Severity Reaction(s) Onset Inactive Treating Comm ents Source Name Type Date Date Clinician Iodine Propensi Active Other (See Vomiting [facility] to Comments) 11-18 [facility] - adverse 00:00: Medical reaction 00 Center s Morphine Propensi Active Itching Itching [facility] ty to 11-18 [facility] - adverse 00:00: vomiting Medical reaction 00 Center s MORPHINE Adverse Active Info Not [facility] t Reaction Available [facility] Iodine Adverse Active Info Not [facility] Reaction Available [facility] Family History Family Member Diagnosis Comments Start Date Stop Date Source Natural father No Known Problem [facility] Natural mother Cancer [facility] Natural sister No Known Problem [facility] Social History Social Habit Start Date Stop Date Quantity Comments Source History SDOH [facility] - Alcohol Std Drinks [facility] History SDOH [facility] St kes - Alcohol Binge Medical [facility] ter Sex Assigned At [facility] Cigarettes smoked 2019-01-27 2019-01-27 [facility] - current (pack per 00:00:00 00:00:00 [facility] day) - Reported Cigarette 2019-01-27 2019-01-27 [facility] - pack-years 00:00:00 00:00:00 [facility] Tobacco use and 2019-01-27 2019-01-27 Never used [facility] - exposure 00:00:00 00:00:00 [facility] Alcohol intake 2019-01-27 2019-01-27 Current [facility] - [facility] 00:00:00 non-drinker of Medical Ce nter alcohol (finding) History [facility] 2019-01-27 2019-01-27 [address] [facility] [address] [facility] - Alcohol Frequency 00:00:00 00:00:00 [facility] Smoking Status Start Date Stop Date Source Current every day smoker 2019-01-27 00:00:00 [facility] Medications Ordered Filled Start Stop Current Ordering Indication Dosage Frequency Signature Comments Components Source Medication Medication Date Date Medication? Clinician (SIG) Name Name abacavir-do 2019-03 Yes [address] lutegravir- 0-07 daily [facility] - lamivudine 12:29: Medical (TRIUMEQ) [address] [place] [address] 600-50-300 mg Tab esomeprazol 2019-03 Yes [address] e (NEXIUM) 0-07 twice [facility] - 40 MG 12:29: daily Medical capsule 10 Center clonazePAM 2018-03 Yes 1mg Q.5D Take [address] (KLONOPIN) 0-14 by mouth 2 Sal es - 1 MG tablet 00:00: (two) Medic al 00 times Center daily. propranolol 2018-03 Yes 20mg Q.5D Take [address] (INDERAL) 0-10 by mouth 2 Luke s - 20 MG 00:00: (two) Medical tablet 00 times Center daily . HYDROcodone 2018-03 Yes 1{tbl} Take [address] -acetaminop 0-01 tablet by Sal es - hen (NORCO 00:00: mouth Medica l 7.5-325) 00 every 8 Center 7.5-325 mg (eight) per tablet hours as needed for Pain . cyclobenzap Yes 10mg Take [address] rine 8-26 by mouth 3 [facility] - (FLEXERIL) 00:00: (three) Medi agatha 10 MG 00 times Center tablet daily as needed for Muscle spasms . Esomeprazol Esomeprazol Yes Benjamin [address] e Magnesium e Magnesium Kovacev [facility] - Memoria l [facility] Clinics Hydrocodone Hydrocodone Yes Benjamin [address] -Acetaminop -Acetaminop Kovacev as needed [facility]ukes - hen val Memoria l [facility] ent Clinics Triumeq Triumeq Yes Benjamin 1 tablet [facility] t Kovacev [facility] - [facility] Clinics Clozapine Clozapine Yes Benjamin [address] Kovacev [facility] - [facility] Clinics Vital Signs Vital Name Observation Time Observation Value Comments Source Body height 2019-04-28 14:35:00 180.3 cm [facility] Body weight 2019-04-28 14:35:00 86.637 kg [facility] BMI 2019-04-28 14:35:00 26.64 kg/m2 [facility] Procedures Procedure Date / Time Performed Performing Clinician Sourc e MR ABDOMEN WITH & 2019-11-09 09:15:[address] [facility] - WITHOUT IV CONTRAST Medical Cent er HEPATITIS B CORE 2019-11-04 07:34:[address] [facility] - ANTIBODY, TOTAL [facility] HEPATITIS B SURFACE 2019-11-04 07:34:00 Mj Reveles [facility] - ANTIBODY [facility] HEPATITIS B SURFACE 2019-11-04 07:34:00 Mj Reveles [facility] ANTIGEN [facility] ALPHA FETOPROTEIN (AFP), 2019-11-04 07:34:00 Mj Reveles [facility] - TUMOR MARKER [facility] PROTHROMBIN TIME/INR 2019-11-04 07:34:00 Mj Reveles [facility] CBC W/PLT COUNT & AUTO 2019-11-04 07:34:00 Mj Reveles [facility] DIFFERENTIAL [facility] HEPATIC FUNCTION PANEL 2019-11-04 07:34:00 Mj Reveles [facility] BASIC METABOLIC PANEL 2019-11-04 07:34:00 Mj Reveles I [facility] (7) [facility] Plan of Care Planned Activity Planned Date Details Comments Source Future Scheduled 2019-11-30 INFLUENZA VACCINE (#1) [facility] - Test 00:00:00 [code = INFLUENZA Medical Ce nter VACCINE (#1)] Future Scheduled [address] [facility] - Test 00:00:00 (procedure) [code = [facility] 28431630] Future Scheduled 1995-12-[address] [facility] - Test 00:00:00 WELLNESS (YEAR 2 or Medical Center FIRST YEAR if no IPPE) [code = MEDICARE ANNUAL WELLNESS (YEAR 2 or FIRST YEAR if no IPPE)] Future Scheduled [address] [facility] - Test 00:00:00 0-64 YRS (1 of 1 - Medical C enter PPSV23) [code = PNEUMOCOCCAL VACCINE 0-64 YRS (1 of 1 - PPSV23)] Future Scheduled [address] [facility] - Test 00:00:00 malignant neoplasm of Medica l Center colon (procedure) [code = 688448172] Encounters Start End Encounter Admission Attending Care Care Encounter Source Date/Time Date/Time Type Type Clinicians Facility Department ID 2019-10-08 2019-10-08 SUZIE May [id number] 11 10:19:10 10:47:58 Visit Carlos Norman [id number] Bradly Sellers [id number] [facility] [id number] [address] 2018-03-17 2018-03-17 Outpatient Jas Garnett [id number] 09:00:00 09:00:00 t Specialty/U Ellie kes - Specialty rology Memori a /Urology Clinic l [facility] 2017-12-23 2017-12-23 Outpatient Jas Fernandezosport [id number] 09:15:00 09:15:00 t Specialty/U Ellie kes - Specialty rology Memori a /Urology Clinic l [facility] 2017-11-25 2017-11-25 Outpatient Jas Markt [id number] 14:20:00 14:20:00 t Specialty/U Ellie kes - Specialty rology Memori a /Urology Clinic l [facility] ent [facility] 2017-11-18 2017-11-18 Outpatient Jas Markt [id number] 10:15:00 10:15:00 t Specialty/U Ellie kes - Specialty rology Memori a /Urology Clinic l [facility] ent [facility] Results Test Description Test Time Test Comments Results Result [facility] e Comments MR, ABDOMEN, WITH 2019-10-30 REFERRING: FINAL REPORT PATIENT 1 CLAUDIA ID: [id number] EXAM: 15:36:00 CHENG MRI of the abdomen WITHOUT and WITH intravenous contrast. TECHNIQUE: Multiplanar and multisequence MR images of the abdomen were obtained before and after the administration of intravenous contrast. Dynamic contrast enhanced sequences were obtained. INDICATION: K74.69,K76.6,B19.20,I 86.4,K75.9,K74.60. COMPARISON: MRI from 02/16/2019. FINDINGS: LOWER THORAX: Unremarkable. LIVER: Cirrhosis with periportal fibrosis. There are several wedge-shaped areas of arterial phase hyperenhancement the periphery the liver which are most likely perfusional. A single focus of more rounded arterial phase hyperenhancement in segment III measures 0.7 cm on axial arterial phase image 54. LI-RADS 3 BILIARY: Prior cholecystectomy. No biliary ductal dilatation or filling defect. SPLEEN: The spleen is enlarged to 14.3 cm with Gamna-Chisana bodies. PANCREAS: No focal masses or ductal dilatation. ADRENALS: No adrenal nodules. KIDNEYS/URETERS: No hydronephrosis or solid mass lesions. A right upper pole nonenhancing renal lesion measures 0.6 cm and is consistent with a simple renal cyst. No routine follow-up imaging is recommended. PERITONEUM/RETROPERIT ONEUM: No free fluid. LYMPH NODES: No lymphadenopathy. 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 Splenorenal shunt. The main portal vein is patent and measures 0.9 cm in diameter. Conventional hepatic arterial anatomy. GI TRACT: No distention or wall thickening. BONES AND SOFT TISSUES: Mild multilevel degenerative changes in the spine. Schmorl's nodes of the upper lumbar and lower thoracic spine are similar the prior. IMPRESSION: 1.No suspicious liver masses. 2.A single arterially enhancing lesion without washout or pseudocapsule formation measures 0.7 cm in segment III. LI-RADS 3. A follow-up MRI of the abdomen with and without intravenous contrast is recommended in six months to document stability. 3.Cirrhosis with sequelae of portal hypertension including moderate sized paraesophageal and gastric fundal varices. Signed: Yoseph Burns MDReport Verified Date/Time: 11/09/2019 15:36:50 Reading Location: [address] Transitional Reading Room abdomen 2019-10-30 Interface, External [facility] without & with IV 1 Ris In - 11/09/2019 - Medical contrast 15:36:00 3:38 PM CDTFINAL Center REPORT EXAM: MRI of the abdomen WITHOUT and WITH intravenous contrast. TECHNIQUE: Multiplanar and multisequence MR images of the abdomen were obtained before and after the administration of intravenous contrast. Dynamic contrast enhanced sequences were obtained. INDICATION: K74.69,K76.6,B19.20,I 86.4,K75.9,K74.60. COMPARISON: MRI from 02/16/2019. FINDINGS: LOWER THORAX: Unremarkable. LIVER: Cirrhosis with periportal fibrosis. There are several wedge-shaped areas of arterial phase hyperenhancement the periphery the liver which are most likely perfusional. A single focus of more rounded arterial phase hyperenhancement in segment III measures 0.7 cm on axial arterial phase image 54. LI-RADS 3 BILIARY: Prior cholecystectomy. No biliary ductal dilatation or filling defect. SPLEEN: The spleen is enlarged to 14.3 cm with Gamna-Aleks bodies. PANCREAS: No focal masses or ductal dilatation. ADRENALS: No adrenal nodules. KIDNEYS/URETERS: No hydronephrosis or solid mass lesions. A right upper pole nonenhancing renal lesion measures 0.6 cm and is consistent with a simple renal cyst. No routine follow-up imaging is recommended. PERITONEUM/RETROPERIT ONEUM: No free fluid. LYMPH NODES: No lymphadenopathy. 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 Splenorenal shunt. The main portal vein is patent and measures 0.9 cm in diameter. Conventional hepatic arterial anatomy. GI TRACT: No distention or wall thickening. BONES AND SOFT TISSUES: Mild multilevel degenerative changes in the spine. Schmorl's nodes of the upper lumbar and lower thoracic spine are similar the prior. IMPRESSION: 1.No suspicious liver masses. 2.A single arterially enhancing lesion without washout or pseudocapsule formation measures 0.7 cm in segment III. LI-RADS 3. A follow-up MRI of the abdomen with and without intravenous contrast is recommended in six months to document stability. 3.Cirrhosis with sequelae of portal hypertension including moderate sized paraesophageal and gastric fundal varices. Signed: Yoseph Burns MDReport Verified Date/Time: 11/09/2019 15:36:50 Reading Location: [address] Transitional Reading Room Basic Metabolic Panel 2019-11-05 10:29:00 Test Item Value Reference Range Interpretation Comme nts Glucose (test code = 95 mg/dL 65-99 Fasting ) reference inter bobbi BUN (test code = 11 mg/dL 7-25 20100801) Creatinine (test 0.90 mg/dL 0.7-1.33 For patient s >49 years of code = 8671694) age, the ref erence limitfor Creati nine is approximately 1 3% higher for peopleident ified as -[place] n. eGFR If NonAfricn Am 94 > OR = 60 (test code = mL/min/1.73m2 ) eGFR If Africn Am 109 > OR = 60 (test code = mL/min/1.73m2 2279746) BUN/Creatinine Ratio NOT APPLICABLE 6- 22 (calc) (test code = ) Sodium (test code = 137 mmol/L 135-468 1739738) Potassium, Serum 4.1 mmol/L 3.5-5.3 (test code = 5748690) Chloride (test code 103 mmol/L 98-110 = 8245110) Carbon Dioxide, 27 mmol/L 20-32 Total (test code = ) Calcium, Serum (test 9.4 mg/dL 8.6-10.3 code = 9350407) VERNELL (test code = FASTING:YESFASTING: VERNELL) YES RAC (test code = Performing RAC) Organization Information: Site ID: RGA Name: [facility] Address: [address] [place] [phone] Director: Loc Barreto [facility] [id number] 10:29:00 Test Item Value Reference Range Interpretation Comments Protein, Total, 6.8 g/dL 6.1-8.1 Serum (test code = 20100805) Albumin (test code 3.8 g/dL 3.6-5.1 = ) GLOBULIN (QUEST) 3.0 1.9- 3.7 g/dL (test code = (calc) 0439456) Albumin Globulin 1.3 1.0- 2.5 (calc) Ratio (test code = 1759-0) Bilirubin, Total 0.5 mg/dL 0.2-1.2 (test code = 20100807) Bilirubin, Direct 0.1 mg/dL < OR = 0.2 (test code = 2292844) Bilirubin, Indirect 0.4 0.2- 1.2 mg/dL (test code = (calc) ) Alkaline 97 U/L 35-144 Phosphatase, S (test code = 6768-6) AST (SGOT) (test 21 U/L 10-35 code = 3994986) ALT (SGPT) (test 10 U/L 9-46 code = 0624360) VERNELL (test code = FASTING:YESFASTING: YES VERNELL) RAC (test code = Performing Organization RAC) Information: Site ID: RGA Name: [facility] Address: [address] [place] [phone] Director: Loc Barreto [facility] with platelet count + automated [id number] 10:29:00 Test Item Value Reference Range Interpretation Comments WBC (test code = 9.1 3.8- 10.8 ) Thousand/uL RBC (test code = 789-8) 4.83 4.20- 5.80 Million/uL Hemoglobin (test code = 15.2 g/dL 13.2-17.1 ) Hematocrit (test code = 44.0 % 38.5-50 ) MCV (test code = 91.1 fL 80-553 6957318) MCH (test code = 31.5 pg 27-33 ) MCHC (test code = 34.5 g/dL 32-36 ) RDW (test code = 13.4 % 11-15 ) Platelets (test code = 138 140- 400 L ) Thousand/uL MPV (test code = 11.3 fL 7.5-12.5 ) # Neutros (test code = 3959 1,500 - 7,828 1395172) cells/uL # Lymphs (test code = 4195 850- 3,900 H 731-0) cells/uL # Monos (test code = 510 200- 950 cells/uL ) # Eos (test code = 337 15- 500 cells/uL 711-2) # Baso (test code = 100 0- 200 cells/uL 4-7) % Neutros (test code = 43.5 % ) % Lymphs (test code = 46.1 % 20191021) % Monos (test code = 5.6 % ) % Eos (test code = 3.7 % 20191019) % Baso (test code = 1.1 % 20191020) VERNELL (test code = VERNELL) FASTING:YESFASTING: YES RAC (test code = RAC) Performing Organization Information: Site ID: RGA Name: [facility] Address: [address] [place] [phone] Director: Loc Barreto Lab Interpretation Abnormal (test code = 46593-7) [facility] CenterPro-time/[id number] 10:29:00 Test Item Value Reference Range Interpretation Comments INR (test 1.0 Reference Range code = 3977557) 0.9-1.1Moderate -inte nsity Warfarin Therapy 2.0-3.0Higher-i ntens ity Warfarin Th erapy 3.0-4.0 PT (test code 10.6 9.0- 11.5 sec For more = 6729248) information on this test, go to:http://educa tion. [facility] /faq/ZCU788 VERNELL (test FASTING:YESFASTING: code = VERNELL) YES RAC (test Performing code = RAC) Organization Information: Site ID: RGA Name: [facility] Address: [address] [place] [phone] Director: Loc Barreto [facility] CenterHepatitis B surface [id number] 10:29:00 Test Item Value Reference Range Interpretation Comments Hepatitis B Surface NON-REACTIVE NON-REACTIVE Ag (test code = 5687594) VERNELL (test code = VERNELL) FASTING:YESFASTING: YES RAC (test code = RAC) Performing Organization Information: Site ID: RGA Name: [facility] Address: [address] [place] [phone] Director: Loc Barreto [facility] CenterHecal[facility] B surface [id number] 10:29:00 Test Item Value Reference Range Interpretation Comments Hep B S Ab (test code <5 > OR = 10 L Patie nt does = 01454-8) mIU/mL not have immunity to hepatitis B virus. For additional information, please refer tohttp://educat i on.[employer]/faq/FAQ 1 05(This link is being provided for informational/e d ucational purposes only). VERNELL (test code = VERNELL) FASTING:YESFASTING : YES RAC (test code = RAC) Performing Organization Information: Site ID: IG Name: [facility] Address: [address] [place] [phone] Director: Dr. Loc Barreto Lab Interpretation Abnormal (test code = 38217-4) [facility] CenterHepatitis B core antibody, [id number] 10:29:00 Test Item Value Reference Range Interpretation Comments Hep B Core Total Ab NON-REACTIVE NON-REACTIVE (test code = 95570-9) VERNELL (test code = FASTING:YESFASTING: YES VERNELL) RAC (test code = Performing Organization RAC) Information: Site ID: RGA Name: [facility] Address: [address] [place] [address] Director: Loc Barreto [facility] CenterAlpha fetoprotein (AFP), tumor [id number] 10:29:00 Test Item Value Reference Interpretation Comments Range Alpha-Fetoprotein 6.3 ng/mL <6.1 H This test was performed (test code = using the Beckm an 1834-1) Coulterchemilum inescent method. Values obtained fromdifferent a ssay methods cannot be usedinterchange ably. AFP levels, regardl ess ofvalue, should not be interpreted as absoluteevidenc e of the presence or abs ence of disease. VERNELL (test code = FASTING:YESFAST VERNELL) ING: YES RAC (test code = Performing RAC) Organization Information: Site ID: IG Name: [facility] Address: [address] [place] [address] Director: Dr. Loc Barreto Lab Abnormal Interpretation (test code = 13414-6) [facility] CenterANTI-NUCLEAR ANTIBODY (BAHMAN)2019-02-01 11:23:00 Test Item Value Reference Range Interpretation Comments ANTI-NUCLEAR ANTIBODY (BAHMAN) (BEAKER) Positive Negative A (test code = 418) Test performed by IFA method.BAHMAN TITER AND [id number] 11:23:00 Test Item Value Reference Range Interpretation Comments BAHMAN TITER (BEAKER) (test code = :160 1541) BAHMAN PATTERN (BEAKER) (test code = Speckled 1781) HEPATITIS C PCR, [id number] 12:50:00 Test Item Value Reference Range Interpretation Comments HCV RESULT COMPONENT HCV RNA not detected HCV RNA not detected (BEAKER) (test code = 2699) This test uses a Real-Time Polymerase Chain Reaction (RT-PCR) methodology and was performed using CLOVER Ampliprep/CLOVER TaqMan HCV test kit version 2.0 ([employer]).Reportable range for this assay is 15 - 100,000,000 IU per mL (1.18 - 8.00 Log IU/mL).[id number] 11:58:00 Test Item Value Reference Range Interpretation Comments FERRITIN (BEAKER) (test code = 361) 179 ng/mL 5-275 HEPATITIS A ANTIBODY, [id number] 11:19:00 Test Item Value Reference Range Interpretation Comments HEPATITIS A IGG ANTIBODY (BEAKER) Reactive Nonreactive A (test code = 2797) ALPHA FETOPROTEIN (AFP), TUMOR [id number] 11:16:00 Test Item Value Reference Range Interpretation Comments ALPHA-FETOPROTEIN (BEAKER) (test 7.0 ng/mL <10.0 code = 1094) [id number] 11:07:00 Test Item Value Reference Range Interpretation Comments ALPHA-1 ANTITRYPSIN (BEAKER) 205.10 mg/dL 90.00-200.00 H (test code = 502) COMPREHENSIVE METABOLIC [id number] 11:06:00 Test Item Value Reference Range Interpretation Comments TOTAL PROTEIN 8.1 gm/dL 6.0-8.3 (BEAKER) (test code = 770) ALBUMIN (BEAKER) 4.2 g/dL 3.5-5.0 (test code = 1145) ALKALINE PHOSPHATASE 104 U/L 40-150 (BEAKER) (test code = 346) BILIRUBIN TOTAL 1.2 mg/dL 0.2-1.2 (BEAKER) (test code = 377) SODIUM (BEAKER) (test 138 meq/L 136-145 code = 381) POTASSIUM (BEAKER) 3.9 meq/L 3.5-5.1 (test code = 379) CHLORIDE (BEAKER) 103 meq/L 98-107 (test code = 382) CO2 (BEAKER) (test 28 meq/L 22-29 code = 355) BLOOD UREA NITROGEN 12 mg/dL 7-21 (BEAKER) (test code = 354) CREATININE (BEAKER) 0.93 mg/dL 0.57-1.25 (test code = 358) GLUCOSE RANDOM 91 mg/dL 70-105 (BEAKER) (test code = 652) CALCIUM (BEAKER) 9.5 mg/dL 8.4-10.2 (test code = 697) AST (SGOT) (BEAKER) 24 U/L 5-34 (test code = 353) ALT (SGPT) (BEAKER) 16 U/L 6-55 (test code = 347) EGFR (BEAKER) (test 84 mL/min/1.73 ESTIMA BENJAMIN GFR IS code = 1092) sq m NOT ACCURATE CREATININE CLEARANCE IN PREDICTING GLOMERULAR FILTRATION RATE . ESTIMATED GFR I S NOT APPLICABLE FOR DIALYSIS PATIEN TS. BILIRUBIN, [id number] 11:06:00 Test Item Value Reference Range Interpretation Comments BILIRUBIN DIRECT (BEAKER) (test 0.5 mg/dL 0.1-0.5 code = 706) IRON, TIBC, % SAT. (WITHOUT FERRITIN)2019-01-27 10:55:00 Test Item Value Reference Range Interpretation Comments IRON (BEAKER) (test code = 547) 170.0 ug/dL 40.0-160.0 H TOTAL IRON BINDING CAPACITY 329 ug/dL 250-450 (BEAKER) (test code = 769) IRON % SATURATION (2) (BEAKER) 52 % 20-55 (test code = 2590) CBC W/PLT COUNT & AUTO [id number] 10:47:00 Test Item Value Reference Range Interpretation Comments WHITE BLOOD CELL COUNT (BEAKER) 7.8 K/ L 3.5-10.5 (test code = 775) RED BLOOD CELL COUNT (BEAKER) 5.07 M/ L 4.63-6.08 (test code = 761) HEMOGLOBIN (BEAKER) (test code = 16.4 GM/DL 13.7-17.5 410) HEMATOCRIT (BEAKER) (test code = 46.3 % 40.1-51.0 411) MEAN CORPUSCULAR VOLUME (BEAKER) 91.3 fL 79.0-92.2 (test code = 753) MEAN CORPUSCULAR HEMOGLOBIN 32.3 pg 25.7-32.2 H (BEAKER) (test code = 751) MEAN CORPUSCULAR HEMOGLOBIN CONC 35.4 GM/DL 32.3-36.5 (BEAKER) (test code = 752) RED CELL DISTRIBUTION WIDTH 13.5 % 11.6-14.4 (BEAKER) (test code = 412) PLATELET COUNT (BEAKER) (test code 91 K/CU MM 150-450 L = 756) MEAN PLATELET VOLUME (BEAKER) 11.2 fL 9.4-12.4 (test code = 754) NUCLEATED RED BLOOD CELLS (BEAKER) 0 /100 WBC 0-0 (test code = 413) NEUTROPHILS RELATIVE PERCENT 45 % (BEAKER) (test code = 429) LYMPHOCYTES RELATIVE PERCENT 45 % (BEAKER) (test code = 430) MONOCYTES RELATIVE PERCENT 6 % (BEAKER) (test code = 431) EOSINOPHILS RELATIVE PERCENT 4 % (BEAKER) (test code = 432) BASOPHILS RELATIVE PERCENT 1 % (BEAKER) (test code = 437) NEUTROPHILS ABSOLUTE COUNT 3.52 K/ L 1.78-5.38 (BEAKER) (test code = 670) LYMPHOCYTES ABSOLUTE COUNT 3.48 K/ L 1.32-3.57 (BEAKER) (test code = 414) MONOCYTES ABSOLUTE COUNT (BEAKER) 0.44 K/ L 0.30-0.82 (test code = 415) EOSINOPHILS ABSOLUTE COUNT 0.28 K/ L 0.04-0.54 (BEAKER) (test code = 416) BASOPHILS ABSOLUTE COUNT (BEAKER) 0.09 K/ L 0.01-0.08 H (test code = 417) IMMATURE GRANULOCYTES-RELATIVE 0 % 0-1 PERCENT (BEAKER) (test code = 2801) PROTHROMBIN [id number] 10:44:00 Test Item Value Reference Range Interpretation Comments PROTIME (BEAKER) (test code = 14.1 seconds 11.9-14.2 759) INR (BEAKER) (test code = 370) 1.2 <=5.9 Effective 08/26/2018: PT Reference Range ChangeNew: 11.9-14.2 Previous: 11.7- 14.7RECOMMENDED COUMADIN/WARFARIN INR THERAPY RANGESSTANDARD DOSE: 2.0-3.0 Includes: PROPHYLAXIS for venous thrombosis, systemic embolization; TREATMENT for venous thrombosis and/or pulmonary embolus.HIGH RISK: Target INR is2.5-3.5 for patients wiht mechanical heart valves.
--- OUTSIDE RECORDS SUMMARY | 2020-02-03 14:46 | XMS REPORT | Clinical Summary ---
:1960 Author Organization [facility] Address [address] [place] [address] Care Team Providers Name Role Phone Farzad Primary Care Provider Allergies Active Allergy Reactions Severity Noted Date Comments Iodine Other (See Comments) Medium 11/18/2017 Vomitin g Morphine Itching Medium 11/18/2017 Itching and vom iting Medications Medication Sig Dispensed Refills Start Date End Date Status wwrxacxn-jrbxiqclywig-cm 1 tablet daily 0 Active mivudine (TRIUMEQ) 600-50-300 mg Tab clonazePAM (KLONOPIN) 1 Take 1 mg by 0 01/11/2019 Active MG tablet mouth 2 (two) times daily. cyclobenzaprine Take 10 mg by 2 11/23/2018 Active (FLEXERIL) 10 MG tablet mouth 3 (three) times daily as needed for Muscle spasms . esomeprazole (NEXIUM) 40 1 capsule twice 0 Active MG capsule daily HYDROcodone-acetaminophe Take 1 tablet by 0 12/30/19 19 Active n (NORCO 7.5-325) mouth every 8 7.5-325 mg per tablet (eight) hours as needed for Pain . propranolol (INDERAL) 20 Take 20 mg by 0 01/07/2019 Active MG tablet mouth 2 (two) times daily . Active Problems Problem Noted Date Screening for malignant neoplasm 01/27/2019 Last Assessment & Plan: Cirrhosis, regardless of etiology, is a risk factor for development of hepatocellular carcinoma. Thus, we recommend surveillan ce imaging and alphafetoprotein every 6 months. We will get MRI abdomen with con trast and AFP. Immunity status testing 01/27/2019 Last Assessment & Plan: CDC recommends that all patients with ch ronic liver disease, regardless of etiology, should be immunized to prevent hepatitis A and hepatitis B if they are not already immune. This should be done in addition to other age-appropriate vaccines. We will test for immunity to both hepatitis A an d B viruses; vaccine recommendations will follow. Cirrhosis 03/31/2015 Last Assessment & Plan: Diagnosis based on the constellation of clinical findings, laboratory parameters and imaging. Etiology is most likely due to hepatitis C. His has features of portal hypertension. We will get labs today to calculate the MELD score and complete a comprehensive evaluation for other cause s of cirrhosis. Cirrhosis guidelines were reviewed. Hepatitis C 03/31/1998 Last Assessment & Plan: Patient was treated with Mavyret and ach ieved SVR in 2019. We will check HCV RNA PCR today. Portal hypertension Last Assessment & Plan: Complications of portal venous hypertens ion include gastroesophageal varices and hypersplenism indicate decompensation of cirrhosis. These significantly increase the risk of . Gastric varices Last Assessment & Plan: Because of the risk for upper GI bleedin g, all patients with portal hypertension should be screened for gastroesopahgeal varices and/or portal hypertensive gastropathy. Patient had non-bleeding ga stric varices (IGV1) during the EGD done on 01/07/2019. We recommend repeating EGD i n 6 months for follow up and further intervention of the gastric varices will be planned based on the findings of the repeat EGD. Patient is also taking propr anolol. Elevated liver enzymes Encounters Date Type Specialty Care Team Description 01/05/2020 Audio - Telemedicine Hepatology Mj Reveles Other cirrhosis of liver (HCC) (Primary Dx); MD Jordan Portal hypertension (HCC); Anastasia Arteaga Gastric varic es; [place], [employer]CH [employer]PARTMENT CHIEF LIBRARIAN Screening for m alignant neoplasm 01/05/2020 Documentation Hepatology Anastasia Arteaga [place], [employer]AN[employer] OR DEPARTMENT CHIEF LIBRARIAN 11/09/2019 Hospital Encounter Radiology Mj Reveles Other ci rrhosis of liver (HCC); MD Jordan Portal hyperten jay (HCC); Hepatitis C vir us infection without hepatic coma, unspecified chronicity; Gastric varices ; Radiation hepat itis 11/09/2019 Telephone Hepatology Natalia Mike Procedure ( EGD/TIVA) 11/09/2019 Outside Orders Mj Reveles Other cirrho sis of liver (HCC) (Primary Dx); MD Jordan Portal hyperten jay (HCC); Hepatitis C vir us infection without hepatic coma, unspecified chronicity; Gastric varices ; Radiation hepat itis 11/04/2019 Telephone Hepatology Natalia Mike Appointment (1st attempt to schedule) 11/03/2019 Audio - Telemedicine Hepatology Mj Reveles Other cirrhosis of liver (HCC) (Primary Dx); MD Jordan Portal hyperten jay (HCC); Hepatitis C vir us infection without hepatic coma, unspecified chronicity; Gastric varices ; Hepatitis; Screening for m alignant neoplasm 11/02/2019 Telephone Hepatology Raquel Ocampo MA Appointme nt 09/28/2019 Telephone Hepatology Swetha Valenzuela MA no answer 05/20/2019 Documentation Hepatology Swetha Valenzuela MA 04/28/2019 Office Visit Hepatology Mj Reveles Other cirrhosi s of liver (HCC) (Primary Dx); MD Jordan Portal hyperten jay (HCC); Hepatitis C vir us infection without hepatic coma, unspecified chronicity; Gastric varices after 02/02/2019 Family History Medical History Relation Name Comments No Known Problem Father Cancer Mother lung cancer No Known Problem Sister Relation Name Status Comments Father Alive Mother Sister Alive Social History Tobacco Use Types Packs/Day Years Used Date Current Every Day Smoker 1.5 30 Smokeless Tobacco: Never Used Alcohol Use Drinks/Week oz/Week Comments No Alcohol Habits Answer Date Recorded How often do you have a drink containing alcohol? Never 01/27/2019 How many drinks containing alcohol do you have on a typical Not asked day when you are drinking? How often do you have six or more drinks on one occasion? 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 Height 180.3 cm (5' 11") 04/28/2019 2:35 PM ETHANOL OPERATOR Body Mass Index 26.64 04/28/2019 2:35 PM ETHANOL OPERATOR Plan of Treatment Health Maintenance Due Date Last Done Comments COLON CANCER SCREENING COLONOSCOPY 1960 PNEUMOCOCCAL VACCINE 0-64 YRS (1 of 1 - PPSV23) 1968 MEDICARE ANNUAL WELLNESS (YEAR 2 or FIRST YEAR if no 12/01/1995 IPPE) LIPID PANEL 1997 INFLUENZA VACCINE (#1) 2019 Procedures Procedure Name Priority Date/Time Associated Diagnosis Comme nts MR ABDOMEN WITH & Routine 11/09/2019 9:15 Other cirrhosis of Results for this WITHOUT IV CONTRAST AM CDT liver (HCC) procedure are in Portal hypertension the resu lts (HCC) section. Hepatitis C virus infection without hepatic coma, unspecified chronicity Gastric varices Radiation hepatitis BASIC METABOLIC PANEL Routine 11/04/2019 7:34 Other cirrhosis of Results for this (7) AM CDT liver (HCC) procedure are in Portal hypertension the resu lts (HCC) section. Hepatitis C virus infection without hepatic coma, unspecified chronicity Gastric varices Hepatitis HEPATIC FUNCTION Routine 11/04/2019 7:34 Other cirrhosis of R esults for this PANEL AM CDT liver (HCC) procedure are in Portal hypertension the resu lts (HCC) section. Hepatitis C virus infection without hepatic coma, unspecified chronicity Gastric varices Hepatitis CBC W/PLT COUNT & Routine 11/04/2019 7:34 Other cirrhosis of Results for this AUTO DIFFERENTIAL AM CDT liver (HCC) procedure are in Portal hypertension the resu lts (HCC) section. Hepatitis C virus infection without hepatic coma, unspecified chronicity Gastric varices Hepatitis PROTHROMBIN TIME/INR Routine 11/04/2019 7:34 Other cirrhosis of Results for this AM CDT liver (HCC) procedure are in Portal hypertension the resu lts (HCC) section. Hepatitis C virus infection without hepatic coma, unspecified chronicity Gastric varices Hepatitis ALPHA FETOPROTEIN Routine 11/04/2019 7:34 Other cirrhosis of Results for this (AFP), TUMOR MARKER AM CDT liver (HCC) procedure are in Portal hypertension the resu lts (HCC) section. Hepatitis C virus infection without hepatic coma, unspecified chronicity Gastric varices Hepatitis HEPATITIS B SURFACE Routine 11/04/2019 7:34 Other cirrhosis o f Results for this ANTIGEN AM CDT liver (HCC) procedure are in Portal hypertension the resu lts (HCC) section. Hepatitis C virus infection without hepatic coma, unspecified chronicity Gastric varices Hepatitis HEPATITIS B SURFACE Routine 11/04/2019 7:34 Other cirrhosis o f Results for this ANTIBODY AM CDT liver (HCC) procedure are in Portal hypertension the resu lts (HCC) section. Hepatitis C virus infection without hepatic coma, unspecified chronicity Gastric varices Hepatitis HEPATITIS B CORE Routine 11/04/2019 7:34 Other cirrhosis of R esults for this ANTIBODY, TOTAL AM CDT liver (HCC) procedure are in Portal hypertension the resu lts (HCC) section. Hepatitis C virus infection without hepatic coma, unspecified chronicity Gastric varices Hepatitis after 02/02/2019 Results MR abdomen without & with IV contrast (11/09/2019 9:15 AM CDT) Specimen Narrative Performed At FINAL REPORT [facility] EXAM: MRI of the abdomen WITHOUT and WIT H intravenous contrast. TECHNIQUE: Multiplanar and multisequence MR images of the abdomen were obtained before and after the admin istration of intravenous contrast. Dynamic contrast enhanced sequ ences were obtained. INDICATION: K74.69,K76.6,B19.20,I86.4,K7 5.9,K74.60. COMPARISON: MRI from 02/16/2019. FINDINGS: LOWER THORAX: Unremarkable. LIVER: Cirrhosis with periportal fibrosi s. There are several wedge-shaped areas of arterial phase hyp erenhancement the periphery the liver which are most likely perfusio nal. A single focus of more rounded arterial phase hyperenhancement in segment III measures 0.7 cm on axial arterial phase image 54. LI- RADS 3 BILIARY: Prior cholecystectomy. No bilia ry ductal dilatation or filling defect. SPLEEN: The spleen is enlarged to 14.3 c m with Gamna-Aleks bodies. PANCREAS: No focal masses or ductal dila tation. ADRENALS: No adrenal nodules. KIDNEYS/URETERS: No hydronephrosis or so lid mass lesions. A right upper pole nonenhancing renal lesion antonio sures 0.6 cm and is consistent with a simple renal cyst. No routine follow-up imaging is recommended. PERITONEUM/RETROPERITONEUM: No free flui d. LYMPH NODES: No lymphadenopathy. VESSELS: Moderate sized paraesophageal a nd gastric fundal varices. Splenorenal shunt. The main portal vein is patent and measures 0.9 cm in diameter. Conventional hepatic arteri al anatomy. GI TRACT: No distention or wall thickeni ng. BONES AND SOFT TISSUES: Mild multilevel degenerative changes in the spine. Schmorl's nodes of the upper lumb ar and lower thoracic spine are similar the prior. IMPRESSION: 1.No suspicious liver masses. 2.A single arterially enhancing lesion w ithout washout or pseudocapsule formation measures 0.7 cm in segment III. LI-RADS 3. A follow-up MRI of the abdomen with and wi thout intravenous contrast is recommended in six months to document st ability. 3.Cirrhosis with sequelae of portal hype rtension including moderate sized paraesophageal and gastric fundal varices. Signed: Ysoeph Burns MD Report Verified Date/Time: 11/09/2019 15:36:50 Reading Location: [address] Reading Room Procedure Note Interface, External Ris In - 11/09/2019 3:38 PM CDT FINAL REPORT EXAM: MRI of the abdomen WITHOUT and WIT H intravenous contrast. TECHNIQUE: Multiplanar and multisequence MR images of the abdomen were obtained before and after the admin istration of intravenous contrast. Dynamic contrast enhanced sequ ences were obtained. INDICATION: K74.69,K76.6,B19.20,I86.4,K7 5.9,K74.60. COMPARISON: MRI from 02/16/2019. FINDINGS: LOWER THORAX: Unremarkable. LIVER: Cirrhosis with periportal fibrosi s. There are several wedge-shaped areas of arterial phase hyp erenhancement the periphery the liver which are most likely perfusio nal. A single focus of more rounded arterial phase hyperenhancement in segment III measures 0.7 cm on axial arterial phase image 54. LI- RADS 3 BILIARY: Prior cholecystectomy. No bilia ry ductal dilatation or filling defect. SPLEEN: The spleen is enlarged to 14.3 c m with [place] bodies. PANCREAS: No focal masses or ductal dila tation. ADRENALS: No adrenal nodules. KIDNEYS/URETERS: No hydronephrosis or so lid mass lesions. A right upper pole nonenhancing renal lesion antonio sures 0.6 cm and is consistent with a simple renal cyst. No routine follow-up imaging is recommended. PERITONEUM/RETROPERITONEUM: No free flui d. LYMPH NODES: No lymphadenopathy. VESSELS: Moderate sized paraesophageal a nd gastric fundal varices. Splenorenal shunt. The main portal vein is patent and measures 0.9 cm in diameter. Conventional hepatic arteri al anatomy. GI TRACT: No distention or wall thickeni ng. BONES AND SOFT TISSUES: Mild multilevel degenerative changes in the spine. Schmorl's nodes of the upper lumb ar and lower thoracic spine are similar the prior. IMPRESSION: 1.No suspicious liver masses. 2.A single arterially enhancing lesion w ithout washout or pseudocapsule formation measures 0.7 cm in segment III. LI-RADS 3. A follow-up MRI of the abdomen with and wi thout intravenous contrast is recommended in six months to document st ability. 3.Cirrhosis with sequelae of portal hype rtension including moderate sized paraesophageal and gastric fundal varices. Signed: Yoseph Burns MD Report Verified Date/Time: 11/09/2019 1 5:36:50 Reading Location: [address] Reading Room Performing Organization Address [facility] Phone Number [facility] Alpha fetoprotein (AFP), tumor marker (11/04/2019 7:34 AM CDT) Alpha-Fetoprotein 6.3 (H) <6.1 ng/mL [facility] Comment: This test was performed using the [place] chemiluminescent method. Values obtained from different assay methods cannot be used interchangeably. AFP levels, regardless of value, should not be interpreted as absolute evidence of the presence or absence of disease. Specimen Blood Narrative Performed At FASTING:YES [facility] FASTING: YES Resulting Agency Comment Performing Organization Information: Site ID: [id number] Name: [facility] Address: [address] [place] [phone] Director: Dr. Loc villanueva Performing Organization Address [facility] Phone Number [facility] [address] [place] [address] [facility] Hepatitis B core antibody, total (11/04/2019 7:34 AM CDT) Pathologist Sig nature Hep B Core Total Ab NON-REACTIVE NON-REACTIVE [facility] Specimen Blood Narrative Performed At FASTING:YES [facility] FASTING: YES Resulting Agency Comment Performing Organization Information: Site ID: RGA Name: [facility] Address: [address] [place] [address], [place] [address] Director: Loc Barreto Performing Organization Address [facility] Phone Number [facility] [address] [place] [address] [facility] Hepatitis B surface antibody (11/04/2019 7:34 AM CDT) Pathologist Sig nature Hep B S Ab <5 (L) > OR = 10 mIU/mL [facility] Comment: Patient does not have immunity to hepatitis B virus. For additional information, please refer to http://iPinYou.Postcron/faq/BUV846 (This link is being provided for informational/ educational purposes only). Specimen Blood Narrative Performed At FASTING:YES [facility] FASTING: YES Resulting Agency Comment Performing Organization Information: Site ID: IG Name: [facility] Address: [address] [place] [phone] Director: Dr. Loc villanueva Performing Organization Address [facility] Phone Number [place] [phone] [place] [address] [facility] Hepatitis B surface antigen (11/04/2019 7:34 AM CDT) Pathologist Sig [facility] Hepatitis B Surface Ag NON-REACTIVE NON-REACTIVE [facility] Specimen Blood Narrative Performed At FASTING:YES [facility] FASTING: YES Resulting Agency Comment Performing Organization Information: Site ID: RGA Name: [facility] Address: [address] [place] [phone] Director: oLc Barreto Performing Organization Address [facility] Phone Number [facility] [address] [place] [address] [facility] Pro-time/INR (11/04/2019 7:34 AM CDT) Pathologist Sig [facility] INR 1.0 [facility] Comment: Reference Range 0.9-1.1 Moderate-intensity Warfarin Therapy 2.0-3.0 Higher-intensity Warfarin Therapy 3.0-4.0 PT 10.6 9.0 - 11.5 sec [facility] Comment: For more information on this test, go to: http://education.Postcron/faq/ANT940 Specimen Blood Narrative Performed At FASTING:YES [facility] FASTING: YES Resulting Agency Comment Performing Organization Information: Site ID: RGA Name: [facility] Address: [address] [place] [phone] Director: Loc Barreto Performing Organization Address City/[facility]/Zipcode Phone Number [facility] [address] [place] [address] [facility] CBC with platelet count + automated diff (11/04/2019 7:34 AM CDT) Pathologist Sig nature WBC 9.1 3.8 - 10.8 Thousand/uL [facility] RBC 4.83 4.20 - 5.80 Million/uL [facility] Hemoglobin 15.2 13.2 - 17.1 g/dL [facility] Hematocrit 44.0 38.5 - 50.0 % [facility] MCV 91.1 80.0 - 100.0 fL [facility] MCH 31.5 27.0 - 33.0 pg [facility] MCHC 34.5 32.0 - 36.0 g/dL [facility] RDW 13.4 11.0 - 15.0 % [facility] Platelets 138 (L) 140 - 400 Thousand/uL [facility] MPV 11.3 7.5 - 12.5 fL [facility] # Neutros 3,959 1,500 - 7,800 cells/uL [facility] # Lymphs 4,195 (H) 850 - 3,900 cells/uL [facility] # Monos 510 200 - 950 cells/uL [facility] # Eos 337 15 - 500 cells/uL [facility] # Baso 100 0 - 200 cells/uL [facility] % Neutros 43.5 % [facility] % Lymphs 46.1 % [facility] % Monos 5.6 % [facility] % Eos 3.7 % [facility] % Baso 1.1 % [facility] Specimen Blood Narrative Performed At FASTING:YES [facility] FASTING: YES Resulting Agency Comment Performing Organization Information: Site ID: RGA Name: [facility] Address: [address] [place] [address], [place] [address] Director: Loc Barreto Performing Organization Address City/[facility]/Zipcode Phone Number [facility] [address] [place] [address] [facility] Hepatic function panel (11/04/2019 7:34 AM CDT) Pathologist Sig nature Protein, Total, Serum 6.8 6.1 - 8.1 g/dL [facility] Albumin 3.8 3.6 - 5.1 g/dL [facility] GLOBULIN ([facility]) 3.0 1.9 - 3.7 g/dL [facility] (calc) Albumin Globulin Ratio 1.3 1.0 - 2.5 (calc) [facility] Bilirubin, Total 0.5 0.2 - 1.2 mg/dL [facility] Bilirubin, Direct 0.1 < OR = 0.2 mg/dL [facility] Bilirubin, Indirect 0.4 0.2 - 1.2 mg/dL [facility] (calc) Alkaline Phosphatase, S 97 35 - 144 U/L [facility] AST (SGOT) 21 10 - 35 U/L [facility] ALT (SGPT) 10 9 - 46 U/L [facility] Specimen Blood Narrative Performed At FASTING:YES [facility] FASTING: YES Resulting Agency Comment Performing Organization Information: Site ID: RGA Name: [facility] Address: [address] [place] [phone] Director: Loc Barreto Performing Organization Address City/State/Zipcode Phone Number [facility] [address] [place] [address] [facility] Basic Metabolic Panel (11/04/2019 7:34 AM CDT) [facility] Signature Glucose 95 65 - 99 mg/dL [facility] Comment: Fasting reference interval BUN 11 7 - 25 mg/dL [facility] Creatinine 0.90 0.70 - 1.33 [facility] Comment: mg/dL For patients >49 years of age, the reference limit for Creatinine is approximately 13% higher for people identified as -[place]. eGFR If NonAfricn 94 > OR = 60 [facility] Am mL/min/1.73m2 eGFR If Africn Am 109 > OR = 60 [facility] mL/min/1.73m2 BUN/Creatinine NOT APPLICABLE 6 - 22 (calc) [facility] Ratio Sodium 137 135 - 146 [facility] mmol/L Potassium, Serum 4.1 3.5 - 5.3 [facility] mmol/L Chloride 103 98 - 110 [facility] mmol/L Carbon Dioxide, 27 20 - 32 [facility] Total mmol/L Calcium, Serum 9.4 8.6 - 10.3 [facility] mg/dL Specimen Blood Narrative Performed At FASTING:YES [facility] FASTING: YES Resulting Agency Comment Performing Organization Information: Site ID: RGA Name: [facility] Address: [address] [facility] [address] Director: Loc Barreto Performing Organization Address City/State/Zipcode Phone Number [facility] [address] [place] [address] [facility] after 02/02/2019 Insurance Payer Benefit Plan / Subscriber ID Effective Dates Phone Addre ss Type Group MEDICARE MEDICARE A B [id number] 1994-Present Medicare [place] MED[place] MED[place] [id number] 2016-Present (Home) [address] [place] [address] [address] [place] [address]
[2020-02-03] MEDS ORDERED: KETOROLAC 30 MG/ML INJ ONE (15:36)
[2020-02-03] MEDS ORDERED: ASPIRIN 81 MG CHEWABLE TABLET ONE (15:36)
[2020-02-03 16:00] LABS: Absolute Lymphocytes (CBC) 3.3 K/uL (0.7-4.9); Basophils % 0.9 % (0-1.3); Hematocrit 46.7 % (39.6-49.0); Lymphocytes % 27.7 % (15.3-44.8); MPV 9.2 fL (7.6-11.3); Protime INR 1.15; RBC Red Blood Cell Count 5.23 M/uL (4.33-5.43)
[2020-02-03 16:14] LABS: ALT/SGPT 20 U/L (12-78); AST/SGOT 20 U/L (15-37); Albumin 4.2 g/dL (3.4-5.0); Alkaline Phosphatase 101 U/L (45-117); BUN Blood Urea Nitrogen 6 mg/dL (7-18); Bicarbonate 27 mmol/L (21-32); Bilirubin Direct 0.2 mg/dL (0-0.2); Bilirubin Total 0.8 mg/dL (0.2-1.0); Glucose Level 98 mg/dL (74-106); Magnesium 2.2 mg/dL (1.8-2.4); NT PRO-BNP 123 pg/mL (<125); Potassium 3.5 mmol/L (3.5-5.1); Protein, Total 8.5 g/dL (6.4-8.2); Sodium Level 142 mmol/L (136-145); Troponin (Emerg Dept Use Only) < 0.02 ng/mL (0.0-0.045)
--- NOTE | 2020-02-03 16:35 | RAD REPORT ---
EXAM DESCRIPTION: RAD - Chest Single View - 02/03/2020 3:52 pm CLINICAL HISTORY: CHEST PAIN Chest pain. COMPARISON: CHEST PA AND LAT 2 VIEW dated 03/12/2013; CHEST SINGLE VIEW dated 09/10/2006 FINDINGS: Portable technique limits examination quality. The lungs are grossly clear. The heart is normal in size. No displaced fractures. IMPRESSION: No acute intrathoracic process suspected.
[2020-02-03] MEDS ORDERED: NA CHLORIDE 0.9% 1,000 ML ONE (16:51)
--- NOTE | 2020-02-03 19:39 | EDPHYS ---
Physician Documentation [facility] Name: Melchor Cisse III Age: 59 yrs Sex: Male : 1960 Arrival Date: 02/03/2020 Time: 14:44 Bed 17 Private MD: ED Physician Omar Iniguez HPI: 02/02 15:20 This 59 yrs old Male presents to ER via Ambulatory with complaints of Chest cp Pain, Neck Pain, <24hrs Old, Blood Pressure Problem. 15:20 The patient or guardian reports chest pain that is located primarily in the anterior cp chest wall, right. 15:20 The pain radiates to right back. Associated signs and symptoms: Pertinent negatives: cp cough, diaphoresis, lower extremity pain, lower extremity swelling, syncope, fever. 15:20 Duration: The patient or guardian reports a single episode, that is still ongoing, and cp unchanged. 15:20 Onset: 3 day(s) ago. The chest pain is described as sharp. Modifying factors: the cp symptoms are aggravated by deep breath, movement, palpation of area. Historical: - Allergies: 14:49 Iodine; jd3 14:49 Morphine; jd3 14:49 shrimp; jd3 - PMHx: 14:49 HERPES; Crohn's; Hepatitis; HIV; HPV; ibs; ulcerative colitis; Cirrhosis; jd3 - PSHx: 14:49 hemorrhoidectomy; Cholecystectomy; jd3 - Immunization history:: Adult Immunizations up to date. - Social history:: Smoking status: Patient reports the use of cigarette tobacco products, smokes one pack cigarettes per day. ROS: 15:25 Eyes: Negative for injury, pain, redness, and discharge. cp 15:25 Constitutional: Negative for body aches, chills, fever, poor PO intake. 15:25 ENT: Negative for drainage from ear(s), ear pain, sore throat, difficulty swallowing, cp difficulty handling secretions. 15:25 Cardiovascular: Positive for chest pain, Negative for edema, palpitations. 15:25 Respiratory: Negative for cough, shortness of breath, wheezing. 15:25 Abdomen/GI: Negative for abdominal pain, nausea, vomiting, and diarrhea. 15:25 Back: Positive for pain at rest, pain with movement, of the right trapezius and right scapular area. 15:25 Skin: Negative for cellulitis, rash. cp 15:25 Neuro: Negative for altered mental status, headache, syncope, weakness. 15:25 All other systems are negative. Exam: 15:05 ECG was reviewed by the Attending Physician. cp 15:30 Constitutional: The patient appears in no acute distress, alert, awake, comfortable, cp non-diaphoretic, non-toxic, well developed, well nourished. 15:30 Head/Face: Normocephalic, atraumatic. cp 15:30 Eyes: Periorbital structures: appear normal, Conjunctiva: normal, no exudate, no injection, Sclera: no appreciated abnormality, Lids and lashes: appear normal, bilaterally. 15:30 ENT: External ear(s): are unremarkable, Nose: is normal, Mouth: Lips: moist, Oral mucosa: moist, Posterior pharynx: Airway: no evidence of obstruction, patent. 15:30 Neck: C-spine: vertebral tenderness, is not appreciated, crepitus, is not appreciated, ROM/movement: is normal, is supple, without pain, no range of motions limitations. 15:30 Chest/axilla: Inspection: normal, Palpation: crepitus, is not appreciated, tenderness, that is moderate, of the anterior aspect of right upper chest, right lateral anterior chest and right breast, that partially reproduces the patient's complaints. 15:30 Cardiovascular: Rate: normal, Rhythm: regular, Edema: is not appreciated, JVD: is not appreciated. 15:30 Respiratory: the patient does not display signs of respiratory distress, Respirations: normal, no use of accessory muscles, no retractions, labored breathing, is not present, Breath sounds: are clear throughout, no decreased breath sounds, no stridor, no wheezing. 15:30 Abdomen/GI: Inspection: abdomen appears normal, Bowel sounds: active, all quadrants, Palpation: abdomen is soft and non-tender, in all quadrants. 15:30 Back: pain, that is moderate, of the right scapular area and right subscapular area. 15:30 Musculoskeletal/extremity: Extremities: grossly normal except: noted in the anterior aspect of right upper chest and right upper back: pain with ROM of right arm. 15:30 Skin: no rash present. 15:30 Neuro: Orientation: to person, place \T\ time. Mentation: is normal, Motor: moves all fours, strength is normal, Sensation: is normal. Vital Signs: 14:49 BP 140 / 100; Pulse 109; Resp 17 S; Temp 98.2(O); Pulse Ox 97% on R/A; Weight 78.93 kg jd3 (R); Height 5 ft. 11 in. (180.34 cm) (R); Pain 3/10; 16:44 BP 146 / 99; Pulse 92; Resp 17; Pulse Ox 98% ; rb3 17:30 BP 132 / 108; Pulse 78; Resp 19; Pulse Ox 99% ; rb3 18:30 BP 152 / 109; Pulse 75; Resp 18; Pulse Ox 97% ; rb3 19:50 BP 141 / 70; Pulse 70; Resp 19; Pulse Ox 99% ; rr5 14:49 Body Mass Index 24.27 (78.93 kg, 180.34 cm) jd3 MDM: 15:20 Patient medically screened. cp 16:00 Differential diagnosis: abnormal EKG, acute myocardial infarction, acute pericarditis, cp chest wall pain, cholecystitis, Cholelithiasis costochondritis, pneumonia, pneumothorax, pulmonary embolus, stable angina, unstable angina. 19:35 The patient was given aspirin in the Emergency Department. cp 19:35 Data reviewed: vital signs, nurses notes, lab test result(s), EKG, radiologic studies, cp plain films, and as a result, I will discharge patient. Special discussion: Based on the patient's history, exam, and Dx evaluation, there is no indication for emergent intervention or inpatient Tx. It is understood by the patient/guardian that if the Sx's persist or worsen they need to return immediately for re-evaluation. 02/02 15:20 Order name: Basic Metabolic Panel cp 02/02 15:20 Order name: CBC with Diff; Complete Time: 16:06 cp 02/02 16:06 Interpretation: Normal except: WBC 11.8; MCV 89.5; MCH 32.0. cp 02/02 15:20 Order name: LFT's; Complete Time: 16:18 cp 02/02 16:21 Interpretation: Normal except: TP 8.5; GLOB 4.3; A/G 1.0. cp 02/02 15:20 Order name: Magnesium; Complete Time: 16:18 cp 02/02 15:20 Order name: NT PRO-BNP; Complete Time: 16:18 cp 02/02 15:20 Order name: PT-INR; Complete Time: 16:06 cp 02/02 15:20 Order name: Troponin (emerg Dept Use Only); Complete Time: 16:18 cp 02/02 16:19 Interpretation: Within normal limits: TROPED < 0.02. 02/02 15:20 Order name: XRAY Chest (1 view); Complete Time: 16:38 02/02 16:38 Interpretation: Report review. 02/02 15:20 Order name: EKG; Complete Time: 15:21 02/02 15:20 Order name: Basic Metabolic Panel; Complete Time: 16:18 EDMS 02/02 16:18 Interpretation: Normal except: CL 108; BUN 6; GFR 76. 02/02 18:00 Order name: Troponin I 02/02 15:20 Order name: Cardiac monitoring; Complete Time: 15:35 02/02 15:20 Order name: EKG - Nurse/Tech; Complete Time: 15:35 02/02 15:20 Order name: IV Saline Lock; Complete Time: 15:35 02/02 15:20 Order name: Labs collected and sent; Complete Time: 15:35 02/02 15:20 Order name: O2 Per Protocol; Complete Time: 15:35 02/02 15:20 Order name: O2 Sat Monitoring; Complete Time: 15:35 cp EC:05 Rate is 104 beats/min. Rhythm is regular. IL interval is normal. QRS interval is cp normal. QT interval is normal. T waves are Inverted in lead aVL. Interpreted by me. Reviewed by me. Administered Medications: 15:23 Drug: Aspirin Chewable Tablet 324 mg Route: PO; rb3 15:40 Follow up: Response: No adverse reaction rb3 15:32 Drug: TORadol - Ketorolac 15 mg Route: IVP; Site: left antecubital; rb3 15:40 Follow up: Response: No adverse reaction rb3 16:43 Drug: NS 0.9% 1000 ml Route: IV; Rate: 1 bolus; Site: left antecubital; rb3 Disposition: 02/03 07:14 Co-signature as Attending Physician, Omar Iniguez MD I agree with the assessment and kdr plan of care. Disposition: 02/03/20 19:38 Discharged to Home. Impression: Chest pain, unspecified, Elevated blood-pressure reading, without diagnosis of hypertension. - Condition is Stable. - Discharge Instructions: Nonspecific Chest Pain, How to Take Your Blood Pressure, Zjof-gv-Nium, Aspirin and Your Heart, DASH Eating Plan, Form - Blood Pressure Record Sheet. - Prescriptions for Diclofenac Sodium 75 mg Oral Tablet, Delayed Release (E.C.) - take 1 tablet by ORAL route 2 times per day; 20 tablet. Pepcid 20 mg Oral Tablet - take 1 tablet by ORAL route every 12 hours for 10 days; 20 tablet. - Medication Reconciliation Form, Thank You Letter, Antibiotic Education, Prescription Opioid Use form. - Follow up: Javier Shirley MD; When: 1 - 2 days; Reason: Recheck today's complaints. - Problem is new. - Symptoms have improved. Signatures: Dispatcher [employer] EDMS Omar Iniguez MD MD kdr Oliver Tucker PA PA Osvaldo Connelly RN RN jd3 Bimal Pizarro RN RN rr5 Elma De Oliveira, RN RN rb3 Corrections: (The following items were deleted from the chart) 02/02 19:59 19:38 02/03/2020 19:38 Discharged to Home. Impression: Chest pain, unspecified; rr5 Elevated blood-pressure reading, without diagnosis of hypertension. Condition is Stable. Forms are Medication Reconciliation Form, Thank You Letter, Antibiotic Education, Prescription Opioid Use. Follow up: Javier Shirley; When: 1 - 2 days; Reason: Recheck today's complaints. Problem is new. Symptoms have improved. cp
--- NOTE | 2020-02-03 19:39 | ER ---
Nurse's Notes [facility] Name: Melchor Cisse III Age: 59 yrs Sex: Male : 1960 Arrival Date: 02/03/2020 Time: 14:44 Bed 17 Private MD: Diagnosis: Chest pain, unspecified;Elevated blood-pressure reading, without diagnosis of hypertension Presentation: 02/02 14:45 Chief complaint: Patient states: "I was trying to get a GP setup and I have been having jd3 chest pain and right should pain a right neck pain. the doctor over there told me to come to the ER because of my chest discomfort.". Coronavirus screen: At this time, the client does not indicate any symptoms associated with coronavirus-19. Ebola Screen: Patient negative for fever greater than or equal to 101.5 degrees Fahrenheit, and additional compatible Ebola Virus Disease symptoms. Initial Sepsis Screen: Does the patient meet any 2 criteria? No. Patient's initial sepsis screen is negative. Does the patient have a suspected source of infection? No. Patient's initial sepsis screen is negative. Risk Assessment: Do you want to hurt yourself or someone else? Patient reports no desire to harm self or others. Onset of symptoms was February 01, 2020. 14:45 Method Of Arrival: Ambulatory jd3 14:45 Acuity: ANTONIA 3 jd3 Historical: - Allergies: 14:49 Iodine; jd3 14:49 Morphine; jd3 14:49 shrimp; jd3 - PMHx: 14:49 HERPES; Crohn's; Hepatitis; HIV; HPV; ibs; ulcerative colitis; Cirrhosis; jd3 - PSHx: 14:49 hemorrhoidectomy; Cholecystectomy; jd3 - Immunization history:: Adult Immunizations up to date. - Social history:: Smoking status: Patient reports the use of cigarette tobacco products, smokes one pack cigarettes per day. Screenin:36 Abuse screen: Denies threats or abuse. Nutritional screening: No deficits noted. rb3 Tuberculosis screening: No symptoms or risk factors identified. Fall Risk None identified. Assessment: 15:36 General: Appears in no apparent distress. comfortable, Behavior is calm, cooperative, rb3 Denies fever. Pain: Complains of pain in anterior aspect of right upper chest Pain radiates to right neck Pain currently is 3 out of 10 on a pain scale. at worst was 6 out of 10 on a pain scale. Pain began x 3 days. Neuro: Level of Consciousness is awake, alert, obeys commands, Oriented to person, place, time, situation. Cardiovascular: Capillary refill < 3 seconds Patient's skin is warm and dry. Respiratory: Airway is patent Respiratory effort is even, unlabored, Respiratory pattern is regular, symmetrical. GI: No signs and/or symptoms were reported involving the gastrointestinal system. : No signs and/or symptoms were reported regarding the genitourinary system. 16:30 Reassessment: Patient appears in no apparent distress at this time. No changes from rb3 previously documented assessment. 17:30 Reassessment: Patient appears in no apparent distress at this time. Patient and/or rb3 family updated on plan of care and expected duration. Pain level reassessed. Patient is alert, oriented x 3, equal unlabored respirations, skin warm/dry/pink. 18:30 Reassessment: Patient appears in no apparent distress at this time. No changes from rb3 previously documented assessment. 19:55 Reassessment: Patient appears in no apparent distress at this time. Patient is alert, rr5 oriented x 3, equal unlabored respirations, skin warm/dry/pink. discharge instruction given and explained without complaints made. Patient states feeling better. Patient states symptoms have improved. Vital Signs: 14:49 BP 140 / 100; Pulse 109; Resp 17 S; Temp 98.2(O); Pulse Ox 97% on R/A; Weight 78.93 kg jd3 (R); Height 5 ft. 11 in. (180.34 cm) (R); Pain 3/10; 16:44 BP 146 / 99; Pulse 92; Resp 17; Pulse Ox 98% ; rb3 17:30 BP 132 / 108; Pulse 78; Resp 19; Pulse Ox 99% ; rb3 18:30 BP 152 / 109; Pulse 75; Resp 18; Pulse Ox 97% ; rb3 19:50 BP 141 / 70; Pulse 70; Resp 19; Pulse Ox 99% ; rr5 14:49 Body Mass Index 24.27 (78.93 kg, 180.34 cm) d3 ED Course: 14:44 Patient arrived in ED. ag5 14:47 Triage completed. jd3 14:57 Oliver Tucker PA is PHCP. cp 14:57 Omar Iniguez MD is Attending Physician. cp 14:57 Arm band placed on. jd3 15:01 EKG completed in triage. Results shown to MD. jd3 15:32 Inserted saline lock: 20 gauge in left antecubital area, using aseptic technique. Blood rb3 collected. Patient maintains SpO2 saturation greater than 95% on room air. 15:36 Patient has correct armband on for positive identification. Bed in low position. Call rb3 light in reach. Side rails up X 1. hospital monitor on. Pulse ox on. NIBP on. 15:52 XRAY Chest (1 view) In Process Unspecified. EDMS 19:37 Javier Shirley MD is Referral Physician. cp 19:50 No provider procedures requiring assistance completed. IV discontinued, intact, rr5 bleeding controlled, No redness/swelling at site. Pressure dressing applied. Administered Medications: 15:23 Drug: Aspirin Chewable Tablet 324 mg Route: PO; rb3 15:40 Follow up: Response: No adverse reaction rb3 15:32 Drug: TORadol - Ketorolac 15 mg Route: IVP; Site: left antecubital; rb3 15:40 Follow up: Response: No adverse reaction rb3 16:43 Drug: NS 0.9% 1000 ml Route: IV; Rate: 1 bolus; Site: left antecubital; rb3 Outcome: 19:38 Discharge ordered by MD. cp 19:50 Discharged to home ambulatory. rr5 19:50 Condition: stable 19:50 Discharge instructions given to patient, Instructed on discharge instructions, follow up and referral plans. medication usage, Demonstrated understanding of instructions, follow-up care, medications, Prescriptions given X 2. 19:59 Patient left the ED. rr5 Signatures: Dispatcher [employer] EDAZ Oliver Tucker PA PA cp Davies, Jonathon, RN RN jd3 Bimal Pizarro RN RN rr5 Beth Davidson Rebecca, RN RN rb3
[2020-02-03 22:41] VITALS: TEMP 98.2
[2020-02-03 22:57] VITALS: BP 152/109; O2SAT 97
== END 2020-02-03 19:59 | disposition home or self-care (01) ==
LOC: ER 14:42
DX: R03.0 Elevated blood-pressure reading, without diagnosis of hypertension (principal); F17.210 Nicotine dependence, cigarettes, uncomplicated; Z21 Asymptomatic human immunodeficiency virus [HIV] infection status; Z88.5 Allergy status to narcotic agent; Z91.013 Allergy to seafood; Z91.048 Other nonmedicinal substance allergy status
CPT/HCPCS: 93005; 85025; 80048; 36415; 83735; 85610; 80076; 84484 ×2; 83880; 71045; 96374; 99285; J7030

== ENCOUNTER 2020-02-07 01:17 | Emergency (ER) | payer OTHER ==
--- OUTSIDE RECORDS SUMMARY | 2020-02-07 01:19 | XMS REPORT | Clinical Summary ---
:1960 Author Organization [facility] Address [address] [place] [address] Care Team Providers Name Role Phone Farzad Primary Care Provider Allergies Active Allergy Reactions Severity Noted Date Comments Iodine Other (See Comments) Medium 11/18/2017 Vomitin g Morphine Itching Medium 11/18/2017 Itching and vom iting Medications Medication Sig Dispensed Refills Start Date End Date Status bdchhyxn-lfardygapcwo-uh 1 tablet daily 0 Active mivudine (TRIUMEQ) [...] (HCC); Anastasia Arteaga Gastric varic es; Kastrup, GLOBAL IMPLEMENTATION MANAGER Screening for m alignant neoplasm 01/05/2020 Documentation Hepatology Anastasia Arteaga Kastrup, GLOBAL IMPLEMENTATION MANAGER 11/09/2019 Hospital Encounter Radiology Mj Reveles Other [...] hepatic coma, unspecified chronicity; Gastric varices after 02/06/2019 Family History Medical History Relation Name Comments [...] 86.6 kg (191 lb) 04/28/2019 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 Height 180.3 cm (5' 11") 04/28/2019 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 Body Mass Index 26.64 04/28/2019 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 Plan of Treatment Health Maintenance Due Date [...] coma, unspecified chronicity Gastric varices Hepatitis after 02/06/2019 Results MR abdomen without & with IV contrast (11/09/2019 9:15 AM CDT) Specimen Narrative Performed At FINAL REPORT [facility] EXAM: MRI of the abdomen WITHOUT [...] Yoseph Burns MD Report Verified Date/Time: 11/09/2019 15:36:50 Reading Location: [address] Reading Room Procedure Note Interface, External [...] is enlarged to 14.3 c m with Gamna-Mangum bodies. PANCREAS: No focal masses or ductal [...] Verified Date/Time: 11/09/2019 1 5:36:50 Reading Location: [address] Reading Room Performing Organization Address [facility] Phone Number [facility] Alpha fetoprotein (AFP), tumor marker (11/04/2019 [...] Performing Organization Information: Site ID: [id number] Name: [facility] Address: [address] [place] [id number] Director: Dr. Loc villanueva Performing Organization Address [facility] Phone Number [facility] [address] [place] [address] [facility] Hepatitis B core antibody, total (11/04/2019 7:34 AM CDT) Pathologist Sig nature Hep B Core Total Ab NON-REACTIVE NON-REACTIVE [facility] Specimen Blood Narrative Performed At FASTING:YES [facility] FASTING: YES Resulting Agency Comment Performing Organization Information: Site ID: RGA Name: [facility] Address: [address] [place] [address], [place] [address] Director: Loc Barreto Performing Organization Address [facility] Phone Number [facility] [address] [place] [address] [facility] Hepatitis B surface antibody (11/04/2019 7:34 AM CDT) Pathologist Sig nature Hep B S Ab <5 (L) > OR = 10 mIU/mL [facility] Comment: Patient does not have immunity to hepatitis B virus. For additional information, please refer to http://[employer].SENSIMED/faq/ANE304 (This link is being provided for informational/ educational purposes only). Specimen Blood Narrative Performed At FASTING:YES [facility] FASTING: YES Resulting Agency Comment Performing Organization Information: Site ID: [id number] Name: [facility] Address: [address] [place] [phone] Director: Dr. Loc villanueva Performing Organization Address [facility] Phone Number [place] [phone] [place] [address] [facility] Hepatitis B surface antigen (11/04/2019 7:34 AM CDT) Pathologist Sig count includes the [facility] Hepatitis B Surface Ag NON-REACTIVE NON-REACTIVE [facility] Specimen Blood Narrative Performed At FASTING:YES [facility] FASTING: YES Resulting Agency Comment Performing Organization Information: Site ID: [id number] [facility]: [facility] Address: [address] [place] [phone] Director: Loc Barreto Performing Organization Address [facility] Phone Number [facility] [address] [place] [address] [facility] Pro-time/INR (11/04/2019 7:34 AM CDT) Pathologist Sig count includes the [facility] INR 1.0 [facility] Comment: Reference Range 0.9-1.1 Moderate-intensity Warfarin Therapy 2.0-3.0 Higher-intensity Warfarin Therapy 3.0-4.0 PT 10.6 9.0 - 11.5 sec [facility] Comment: For more information on this test, go to: http://education.SENSIMED/faq/MAZ601 Specimen Blood Narrative Performed At FASTING:YES [facility] FASTING: YES Resulting Agency Comment Performing Organization Information: Site ID: [id number] Name: [facility] Address: [address] [place] [phone] Director: Loc Barreto Performing Organization Address City/[facility]/Zipcode Phone Number [facility] [address] [place] [address] [facility] CBC with platelet count + automated [...] Performing Organization Information: Site ID: [facility]GA [facility]: [facility] Address: [address] [place] [address], [place] [address] Director: Loc Barreto Performing Organization Address City/[facility]/Zipcode Phone Number [facility] [address] [place] [address] [facility] Hepatic function panel (11/04/2019 7:34 AM [...] Performing Organization Information: Site ID: RGA Name: [facility] Address: [address] [place] [phone] Director: Loc Barreto Performing Organization Address City/State/Zipcode Phone Number [facility] [address] [place] [address] [facility] Basic Metabolic Panel (11/04/2019 7:34 AM CDT) [facility] Signature Glucose 95 65 - 99 mg/dL [facility] Comment: Fasting reference interval BUN 11 7 - 25 mg/dL [facility] Creatinine 0.90 0.70 - 1.33 [facility] Comment: mg/dL For patients >49 years of age, the reference limit for Creatinine is approximately 13% higher for people identified as -Monegasque. eGFR If NonAfricn 94 > OR = [...] RGA Name: [facility] Address: [address] [facility] [place] [address] Director: Loc Barreto Performing Organization Address City/State/Zipcode Phone Number [facility] [address] [place] [address] [facility] after 02/06/2019 Insurance Payer Benefit Plan / Subscriber ID Effective Dates Phone Addre ss Type Group MEDICARE MEDICARE A B [id number] 1994-Present Medicare [place] MED[place] MED[place]ID [place] [id number] 2016-Present (Home) [address] [facility] [address] [place] [address]
--- OUTSIDE RECORDS SUMMARY | 2020-02-07 01:21 | XMS REPORT | Continuity of Care Document ---
:[address] [facility] t Address [address] [place] [address] Care Team Providers Name Role Phone Farzad Primary Care Physician Jordan Reveles MD Attending Clinician Rebekah Barbosa Attending Clinician Unavailable America Mike Attending Clinician Unavailable Terrence JUAREZ Attending Clinician Unavailable Bradly Sinha MD Attending Clinician Nicolas JUAREZ Attending Clinician Unavailable JORDAN REVELES Attending Clinician Unavailable Payers Payer Name Policy Type Policy Effective Date Expiration Date Sour ce Number MEDICAREMEDICARE A [id number] 1994 MIKAYLA Fox [id number] 1994-P 00:00:00 - [facility] ONE[facility] [id number] 2016 [facility] MEDICAIDMEDICAID 00:00:00 - Medica l [id number] Ce nter 7-Present Problems Condition Condition Condition Status Onset Resolution Last Treating Co mments Source Name Details Category Date Date Treatment Clinician Date Immunity Immunity Disease Active 2018-03 [facility] status status 0-30 [facility] [place] - testing testing 00:00: t & Plan: [...] Cirrhosis Disease [facility] 00 [facility] [...] were reviewed. Hepatitis Hepatitis Disease Active [facility] & Plan[facility] Patient [facility] was [...] ent Clinics Portal Portal Disease Active Last [facility] on t & Plan: Medical Complicat Center ions of portal venous hypertens ion include gastroeso phageal varices and hypersple nism indicate decompens ation of cirrhosis . These significa ntly increase the risk of . Gastric Gastric Disease Active Last [facility] St varices varices [facility] & Plan: Medical [...] Info Not [facility] Reaction Available [facility] Clinics Iodine Adverse Active Info Not [facility] Reaction Available [facility] Family History Family Member Diagnosis Comments Start Date Stop Date Source Natural father No Known Problem [facility] Natural mother Cancer [facility] Natural sister No Known Problem [facility] Social History Social Habit Start Date Stop Date Quantity Comments Source History SDOH [facility] - Alcohol Std Drinks [facility] Binge Medical [facility] ter Sex Assigned At [facility] Cigarettes smoked 2019-01-27 2019-01-27 [facility] - current (pack per 00:00:00 00:00:00 [facility] day) - Reported Cigarette 2019-01-27 2019-01-27 [facility] - pack-years 00:00:00 00:00:00 [facility] Tobacco use and 2019-01-27 2019-01-27 Never used [facility] - exposure 00:00:00 00:00:00 [facility] Alcohol intake 2019-01-27 2019-01-[address] [facility] [address] Sal es - 00:00:00 00:00:00 non-drinker of Medical Ce nter alcohol (finding) History [facility] 2019-01-27 2019-01-[address] [facility] - Alcohol Frequency 00:00:00 00:00:00 [facility] Smoking Status Start Date Stop Date Source Current every day smoker 2019-01-27 00:00:00 [facility] Medications Ordered Filled Start Stop Current Ordering Indication Dosage Frequency Signature Comments Components Source Medication Medication Date Date Medication? Clinician (SIG) Name Name abacavir-do 2019-03 Yes [address] lutegravir- 0-07 daily [facility] - lamivudine 12:29: Medical (TRIUMEQ) [address] [place] [address] [id number] mg Tab esomeprazol 2019-03 Yes 1 [...] e Magnesium Kovacev [facility] Hydrocodone Hydrocodone Yes Benjamin [address] -Acetaminop -Acetaminop Kovacev as needed [facility] Triumeq Triumeq Yes Benjamin 1 tablet [facility] Kovacev [facility] Clinics Clozapine Clozapine Yes Benjamin [address] Kovacev [facility] Clinics Vital Signs Vital Name Observation Time Observation Value Comments Source Body height 2019-04-28 14:35:00 180.3 cm [facility] Body weight 2019-04-28 14:35:00 86.637 kg [facility] BMI 2019-04-28 14:35:00 26.64 kg/m2 [facility] Procedures Procedure Date / Time Performed Performing Clinician Sour e MR ABDOMEN WITH & 2019-11-09 09:15:[address] [facility] - WITHOUT IV CONTRAST Medical Cent er HEPATITIS B CORE 2019-11-04 07:34:[address] [facility] - ANTIBODY, TOTAL [facility] HEPATITIS B SURFACE 2019-11-04 07:34:00 Mj Reveles [facility] ANTIBODY [facility] HEPATITIS B SURFACE 2019-11-04 07:34:[address] [facility] ANTIGEN [facility] ALPHA FETOPROTEIN (AFP), 2019-11-04 07:34:00 Mj Reveles [facility] TUMOR MARKER [facility] PROTHROMBIN TIME/INR 2019-11-04 07:34:00 Mj Reveles [facility] CBC W/PLT COUNT & AUTO 2019-11-04 07:34:[address] [facility] DIFFERENTIAL [facility] HEPATIC FUNCTION PANEL 2019-11-04 07:34:00 Mj Reveles [facility] BASIC METABOLIC PANEL 2019-11-04 07:34:00 M[address] Revel[address] [facility] (7) [facility] Plan of Care Planned Activity Planned Date Details Comments Source Future Scheduled 2019-11-30 INFLUENZA VACCINE (#1) [facility] Test 00:00:00 [code = INFLUENZA Medical Ce nter VACCINE (#1)] Future Scheduled [address] [facility] Test 00:00:00 (procedure) [code = [facility] 86373642] Future Scheduled 1995-12-[address] [...] Medica l Center colon (procedure) [code = 484708233] Encounters Start End Encounter Admission Attending Care Care Encounter Source Date/Time Date/Time Type Type Clinicians Facility Department ID 2019-10-08 2019-10-08 Office SUZIE Sinha [id number] 11 10:19:10 10:47:58 Visit Carlos Norman [id number] Bradly Sellers [id number] [facility] [id number] [address] 2018-03-17 2018-03-17 Outpatient Jas Markt [id number] 09:00:00 09:00:00 t Specialty/U Ellie kes - Specialty rology Memori a /Urology Clinic l [facility] 2017-12-23 2017-12-23 Outpatient [facility] [id number] 09:15:00 09:15:00 t Specialty/U Ellie kes - Specialty rology Memori a /Urology Clinic l [facility] 2017-11-25 2017-11-25 Outpatient [facility] [id number] 14:20:00 14:20:00 t Specialty/U Ellie kes - Specialty rology Memori a /Urology Clinic l [facility] 2017-11-18 2017-11-18 Outpatient [facility] [id number] 10:15:00 10:15:00 t Specialty/U Ellie kes - Specialty rology Memori a /Urology Clinic l [facility] Results Test Description Test Time Test Comments Results Result [facility] e Comments MR, ABDOMEN, WITH 2019-10-30 REFERRING: FINAL REPORT PATIENT 1 CLAUDIA ID: [id number] EXAM: 15:36:00 CHENG MRI of the abdomen [...] spleen is enlarged to 14.3 cm with [place] bodies. PANCREAS: No focal masses or ductal [...] MDReport Verified Date/Time: 11/09/2019 15:36:50 Reading Location: [address] Transitional Reading Room abdomen 1 Interface, External [facility] & with IV 1 Ris In - 11/09/2019 - Medical contrast 15:36:00 3:38 PM [facility]AL Center REPORT EXAM: MRI of the abdomen [...] spleen is enlarged to 14.3 cm with [place] bodies. PANCREAS: No focal masses or ductal [...] MDReport Verified Date/Time: 11/09/2019 15:36:50 Reading Location: [address] Transitional Reading Room Basic Metabolic Panel 2019-11-05 10:29:00 Test Item Value Reference Range Interpretation Comme nts Glucose (test code = 95 mg/dL 65-99 Fasting ) reference inter bobbi BUN (test code = 11 mg/dL 7-25 20100801) Creatinine (test 0.90 mg/dL 0.7-1.33 For patient s >49 years of code = 7893155) age, the ref erence limitfor Creati nine is approximately 1 3% higher for peopleident ified as -[place] n. eGFR If NonAfricn Am 94 > OR = 60 (test code = mL/min/1.73m2 ) eGFR If Africn Am 109 > OR = 60 (test code = mL/min/1.73m2 3930378) BUN/Creatinine Ratio NOT APPLICABLE 6- 22 (calc) (test code = ) Sodium (test code = 137 mmol/L 135-302 7897525) Potassium, Serum 4.1 mmol/L 3.5-5.3 (test code = 7930432) Chloride (test code 103 mmol/L 98-110 = 9902667) Carbon Dioxide, 27 mmol/L 20-32 Total (test code = ) Calcium, Serum (test 9.4 mg/dL 8.6-10.3 code = 0020344) VERNELL (test code = FASTING:YESFASTING: VERNELL) YES RAC (test code = Performing RAC) Organization Information: Site ID: RGA Name: [facility] Address: [address] [place] [phone] Director: Loc Barreto [facility] [id number] 10:29:00 Test Item Value Reference Range Interpretation Comments Protein, Total, 6.8 g/dL 6.1-8.1 Serum (test code = 20100805) Albumin (test code 3.8 g/dL 3.6-5.1 = ) GLOBULIN (QUEST) 3.0 1.9- 3.7 g/dL (test code = (calc) 3858956) Albumin Globulin 1.3 1.0- 2.5 (calc) Ratio (test code = 1759-0) Bilirubin, Total 0.5 mg/dL 0.2-1.2 (test code = 20100807) Bilirubin, Direct 0.1 mg/dL < OR = 0.2 (test code = 1716147) Bilirubin, Indirect 0.4 0.2- 1.2 mg/dL (test code = (calc) ) Alkaline 97 U/L 35-144 Phosphatase, S (test code = 6768-6) AST (SGOT) (test 21 U/L 10-35 code = 20100811) ALT (SGPT) (test 10 U/L 9-46 code = ) VERNELL (test code = FASTING:YESFASTING: YES VERNELL) RAC (test code = Performing Organization RAC) Information: Site ID: RGA Name: [facility] Address: [address] [place] [phone] Director: Loc Barreto [facility] + automated [id number] 10:29:00 Test Item Value Reference Range Interpretation Comments WBC (test code = 9.1 3.8- 10.8 ) Thousand/uL RBC (test code = 789-8) 4.83 4.20- 5.80 Million/uL Hemoglobin (test code = 15.2 g/dL 13.2-17.1 ) Hematocrit (test code = 44.0 % 38.5-50 ) MCV (test code = 91.1 fL 80-540 4461010) MCH (test code = 31.5 pg 27-33 ) MCHC (test code = 34.5 g/dL 32-36 ) RDW (test code = 13.4 % 11-15 ) Platelets (test code = 138 140- 400 L ) Thousand/uL MPV (test code = 11.3 fL 7.5-12.5 ) # Neutros (test code = 3959 1,500 - 7,289 1327780) cells/uL # Lymphs (test code = 4195 850- 3,900 H 731-0) cells/uL # Monos (test code = 510 200- 950 cells/uL ) # Eos (test code = 337 15- 500 cells/uL 711-2) # Baso (test code = 100 0- 200 cells/uL 704-7) % Neutros (test code = 43.5 % ) % Lymphs (test code = 46.1 % 20191021) % Monos (test code = 5.6 % ) % Eos (test code = 3.7 % 20191019) % Baso (test code = 1.1 % 20191020) VERNELL (test code = VERNELL) FASTING:YESFASTING: YES RAC (test code = RAC) Performing Organization Information: Site ID: RGA [facility]: [facility] Address: [address] [place] [address] Director: Loc Barreto Lab Interpretation Abnormal (test code = 92804-6) [facility]-time/[id number] 10:29:00 Test Item Value Reference Range Interpretation Comments INR (test 1.0 Reference Range code = 6767443) 0.9-1.1Moderate -inte nsity Warfarin Therapy 2.0-3.0Higher-i ntens ity Warfarin Th erapy 3.0-4.0 PT (test code 10.6 9.0- 11.5 sec For more = 5503687) information on this test, go to:http://educa tion. [employer] /faq/QGZ758 VERNELL (test FASTING:YESFASTING: code = VERNELL) YES RAC (test Performing code = RAC) Organization Information: Site ID: RGA [facility]: [facility] Address: [address] [place] [phone] Director: Loc Barreto [facility] B surface [id number] 10:29:00 Test Item Value Reference Range Interpretation Comments Hepatitis B Surface NON-REACTIVE NON-REACTIVE Ag (test code = 0619577) VERNELL (test code = VERNELL) FASTING:YESFASTING: YES RAC (test code = RAC) Performing Organization Information: Site ID: RGA [facility]: [facility] Address: [address] [place] [phone] Director: Loc Barreto [facility] B surface [id number] 10:29:00 Test Item Value Reference Range Interpretation Comments Hep B S Ab (test code <5 > OR = 10 L Patie nt does = 94285-1) mIU/mL not have immunity to hepatitis B virus. For additional information, please refer tohttp://educat i on.[employer]/faq/FAQ 1 05(This link is being provided for informational/e d ucational purposes only). VERNELL (test code = VERNELL) FASTING:YESFASTING : YES RAC (test code = RAC) Performing Organization Information: Site ID: IG [facility]: [facility] Address: [address] [place] [address] Director: Dr. Loc Barreto Lab Interpretation Abnormal (test code = 16819-9) [facility] B core antibody, [id number] 10:29:00 Test Item Value Reference Range Interpretation Comments Hep B Core Total Ab NON-REACTIVE NON-REACTIVE (test code = 47420-2) VERNELL (test code = FASTING:YESFASTING: YES VERNELL) RAC (test code = Performing Organization RAC) Information: Site ID: RGA [facility]: [facility] Address: [address] [place] [address] Director: Loc Barreto [facility] Hospital[facility] fetoprotein (AFP), tumor [id number] 10:29:00 Test Item Value Reference Interpretation Comments [...] RAC) Organization Information: Site ID: IG [facility]: [facility] Address: [address] [place] [address] Director: Dr. Loc Barreto Lab Abnormal Interpretation (test code = 69186-6) [facility] Hospital[facility]I-NUCLEAR ANTIBODY (BAHMAN)2019-02-01 11:23:00 Test Item Value Reference Range Interpretation Comments ANTI-NUCLEAR ANTIBODY (BAHMAN) (BEAKER) Positive Negative A (test code = 418) Test performed by IFA method.BAHMAN TITER AND [id number] 11:23:00 Test Item Value Reference Range Interpretation Comments BAHMAN TITER (BEAKER) (test code = :160 1541) BAHMAN PATTERN (BEAKER) (test code = Speckled 1781) HEPATITIS C PCR, [id number] 12:50:00 Test Item Value Reference Range Interpretation Comments HCV RESULT COMPONENT HCV RNA not detected HCV RNA not detected (BEAKER) (test code = 2699) This test uses a Real-Time Polymerase Chain Reaction (RT-PCR) methodology and was performed using CLOVER Ampliprep/CLOVER TaqMan HCV test kit version 2.0 ([employer]).Reportable range for this assay is 15 - 100,000,000 IU per mL (1.18 - 8.00 Log IU/mL).[id number] 11:58:00 Test Item Value Reference Range Interpretation Comments FERRITIN (BEAKER) (test code = 361) 179 ng/mL 5-275 HEPATITIS A ANTIBODY, [id number] 11:19:00 Test Item Value Reference Range Interpretation Comments HEPATITIS A IGG ANTIBODY (BEAKER) Reactive Nonreactive A (test code = 2797) ALPHA FETOPROTEIN (AFP), TUMOR [id number] 11:16:00 Test Item Value Reference Range Interpretation Comments ALPHA-FETOPROTEIN (BEAKER) (test 7.0 ng/mL <10.0 code = 1094) [id number] 11:07:00 Test Item Value Reference Range Interpretation Comments ALPHA-1 ANTITRYPSIN (BEAKER) 205.10 mg/dL 90.00-200.00 H (test code = 502) COMPREHENSIVE METABOLIC [id number] 11:06:00 Test Item Value Reference Range Interpretation [...] NOT APPLICABLE FOR DIALYSIS PATIEN TS. BILIRUBIN, [id number] 11:06:00 Test Item Value Reference Range Interpretation [...] = 2590) CBC W/PLT COUNT & AUTO [id number] 10:47:00 Test Item Value Reference Range Interpretation [...] PERCENT (BEAKER) (test code = 2801) PROTHROMBIN TIME/[id number] 10:44:00 Test Item Value Reference Range Interpretation [...]
[2020-02-07] MEDS ORDERED: KETOROLAC 30 MG/ML INJ ONE (02:05)
[2020-02-07 02:06] LABS: Absolute Lymphocytes (CBC) 3.9 K/uL (0.7-4.9); Basophils % 1.2 % (0-1.3); Hematocrit 43.7 % (39.6-49.0); MPV 8.8 fL (7.6-11.3); RBC Red Blood Cell Count 4.82 M/uL (4.33-5.43)
[2020-02-07 02:08] LABS: Protime INR 0.97
[2020-02-07] MEDS ORDERED: METHYLPREDNISOLONE 125 MG INJ ONE (02:16)
[2020-02-07] MEDS ORDERED: FAMOTIDINE 20 MG/2 ML VIAL IV ONE (02:16)
[2020-02-07] MEDS ORDERED: DIPHENHYDRAMINE 50 MG/ML VIAL ONE (02:16)
[2020-02-07] MEDS ORDERED: ONDANSETRON 4 MG/2 ML VIAL ONE (02:16)
[2020-02-07 02:26] LABS: ALT/SGPT 24 U/L (12-78); AST/SGOT 25 U/L (15-37); Albumin 3.7 g/dL (3.4-5.0); Alkaline Phosphatase 116 U/L (45-117); BUN Blood Urea Nitrogen 7 mg/dL (7-18); Bicarbonate 28 mmol/L (21-32); Bilirubin Direct 0.2 mg/dL (0-0.2); Bilirubin Total 0.5 mg/dL (0.2-1.0); Ferritin 142.6 ng/mL (26-388); Glucose Level 96 mg/dL (74-106); Lipase 348 U/L (73-393); Potassium 3.4 mmol/L (3.5-5.1); Sodium Level 140 mmol/L (136-145); Troponin (Emerg Dept Use Only) < 0.02 ng/mL (0.0-0.045)
[2020-02-07 02:30] LABS: C-Reactive Protein < 2.90 mg/L (<3.00)
[2020-02-07 03:40] LABS: Urine Blood NEGATIVE (NEG); Urine Glucose NEGATIVE (NEG); Urine Protein NEGATIVE (NEG); Urine Specific Gravity 1.015 (1.005-1.030); Urine pH 6.5 (5.0-7.0)
[2020-02-07 03:44] LABS: Urine Bacteria <20 /HPF (NONE SEEN); Urine Culture Reflex Order NOT NEEDED; Urine RBC NONE SEEN /HPF (NONE SEEN)
--- NOTE | 2020-02-07 06:41 | ER ---
Nurse's Notes [facility] Name: Melchor Cisse III Age: 59 yrs Sex: Male : 1960 Arrival Date: 02/07/2020 Time: 01:18 Bed 3 Private MD: Diagnosis: Other chest pain Presentation: 02/06 01:30 Chief complaint: Patient states: I am having chest pain that has been going on for a jb4 week. I was here on Friday and told to follow up with the configuration management consultant. It hurts when I take a deep breath and when I cough. 01:30 Coronavirus screen: Client denies travel out of the [place] in the last 14 days. Client jb4 presents with at least one sign or symptom that may indicate coronavirus-19. Ebola Screen: No symptoms or risks identified at this time. Initial Sepsis Screen: Does the patient meet any 2 criteria? No. Patient's initial sepsis screen is negative. Does the patient have a suspected source of infection? No. Patient's initial sepsis screen is negative. Risk Assessment: Do you want to hurt yourself or someone else? Patient reports no desire to harm self or others. Onset of symptoms was January 31, 2020. Transition of care: patient was not received from another setting of care. 01:30 Method Of Arrival: Wheelchair jb4 01:30 Acuity: ANTONIA 2 jb4 Historical: - Allergies: 01:30 Iodine; jb4 01:30 Morphine; jb4 01:30 shrimp; jb4 - Home Meds: 01:30 Acyclovir Oral [Active]; Colace Oral [Active]; Evotaz 300-150 mg Oral tab 1 tab once jb4 daily [Active]; Descovy 200-25 mg Oral tab 1 tab once daily [Active]; hydrocodone-acetaminophen 7.5-325 mg Oral tab 1 tab every 6 hours [Active]; Nexium Oral [Active]; - PMHx: 01:30 Cirrhosis; Crohn's; Hepatitis; HERPES; HIV; HPV; ibs; ulcerative colitis; jb4 - PSHx: 01:30 hemorrhoidectomy; Cholecystectomy; jb4 - Immunization history:: Adult Immunizations up to date. - Social history:: Smoking status: Patient reports the use of cigarette tobacco products, smokes one pack cigarettes per day. Patient/guardian denies using alcohol, street drugs. Screenin:30 Abuse screen: Denies threats or abuse. Nutritional screening: No deficits noted. jb4 Tuberculosis screening: No symptoms or risk factors identified. Fall Risk None identified. Assessment: 01:35 General: Appears distressed, uncomfortable, Behavior is cooperative, anxious. Pain: jb4 Complains of pain in chest Pain does not radiate. Pain currently is 7 out of 10 on a pain scale. Quality of pain is described as stabbing, Pain began 1 week ago Is continuous. Neuro: Level of Consciousness is awake, alert, obeys commands, Oriented to person, place, time, situation. Cardiovascular: Patient's skin is warm and dry. Respiratory: Airway is patent Respiratory effort is even, labored, Respiratory pattern is regular, symmetrical, Breath sounds are clear bilaterally. GI: No signs and/or symptoms were reported involving the gastrointestinal system. : No signs and/or symptoms were reported regarding the genitourinary system. EENT: No signs and/or symptoms were reported regarding the EENT system. Derm: Skin is intact, Skin is pink, warm \T\ dry. Musculoskeletal: Circulation, motion, and sensation intact. Range of motion: intact in all extremities. 02:30 Reassessment: Patient appears in no apparent distress at this time. Patient and/or jb4 family updated on plan of care and expected duration. Pain level reassessed. Patient is alert, oriented x 3, equal unlabored respirations, skin warm/dry/pink. Patient states feeling better. 03:32 Reassessment: Patient appears in no apparent distress at this time. Patient and/or jb4 family updated on plan of care and expected duration. Pain level reassessed. Patient is alert, oriented x 3, equal unlabored respirations, skin warm/dry/pink. 04:30 Reassessment: Patient appears in no apparent distress at this time. Patient and/or jb4 family updated on plan of care and expected duration. Pain level reassessed. Patient is alert, oriented x 3, equal unlabored respirations, skin warm/dry/pink. 05:30 Reassessment: Patient appears in no apparent distress at this time. Patient and/or jb4 family updated on plan of care and expected duration. Pain level reassessed. PT resting in bed with eyes closed, respirations even and unlabored. No s/s of pain or distress noted. 06:30 Reassessment: Patient appears in no apparent distress at this time. No changes from jb4 previously documented assessment. Patient and/or family updated on plan of care and expected duration. Pain level reassessed. Vital Signs: 01:30 BP 178 / 117; Pulse 87; Resp 14; Temp 98.5(TE); Pulse Ox 100% on R/A; Weight 78.02 kg jb4 (R); Height 5 ft. 11 in. (180.34 cm) (R); Pain 7/10; 02:30 BP 174 / 98; Pulse 70; Resp 16; Pulse Ox 100% on R/A; jb4 03:30 BP 159 / 89; Pulse 58; Resp 15; Pulse Ox 98% on R/A; jb4 04:45 BP 149 / 108; Pulse 55; Resp 16; Pulse Ox 98% on R/A; jb4 05:30 BP 140 / 92; Pulse 55; Resp 16; Pulse Ox 98% on R/A; jb4 06:30 BP 149 / 98; Pulse 63; Resp 16; Pulse Ox 99% on R/A; jb4 01:30 Body Mass Index 23.99 (78.02 kg, 180.34 cm) jb4 ED Course: 01:18 Patient arrived in ED. cl3 01:27 Edwin Felix MD is Attending Physician. tw4 01:30 Arm band placed on right wrist. jb4 01:30 Patient has correct armband on for positive identification. youth nutritional monitor on. Pulse jb4 ox on. NIBP on. 01:33 Cecelia Olivarez is Primary Nurse. wh 01:46 Chon Barclay, RN is Primary Nurse. jb4 01:47 Inserted saline lock: 18 gauge in right antecubital area, using aseptic technique. rv Blood collected. 01:47 Initial lab(s) drawn, by oh, sent to lab. First set of blood cultures drawn by me. rv 01:49 Triage completed. jb4 02:00 CXR XRAY In Process Unspecified. EDMS 02:00 Second set of blood cultures drawn by me. Patient maintains SpO2 saturation greater rv than 95% on room air. 02:19 Notified ED physician of a critical lab result(s). D-dimer 877. lp1 02:46 CT Chest For PE Angio In Process Unspecified. EDMS 07:09 No provider procedures requiring assistance completed. IV discontinued, intact, jb4 bleeding controlled, No redness/swelling at site. Pressure dressing applied. Administered Medications: 01:55 Drug: TORadol 30 mg Route: IVP; Site: right antecubital; jb4 02:30 Follow up: Response: No adverse reaction; Pain is decreased jb4 02:06 Drug: Benadryl 25 mg Route: IVP; Site: right antecubital; jb4 02:40 Follow up: Response: No adverse reaction jb4 02:06 Drug: Pepcid 20 mg Route: IVP; Site: right antecubital; jb4 02:40 Follow up: Response: No adverse reaction jb4 02:07 Drug: SOLU-Medrol 125 mg Route: IVP; Site: right antecubital; jb4 02:40 Follow up: Response: No adverse reaction jb4 02:10 Drug: Zofran (Ondansetron) 4 mg Route: IVP; Site: right antecubital; jb4 02:40 Follow up: Response: No adverse reaction jb4 Outcome: 06:40 Discharge ordered by . tw4 07:09 Discharged to home ambulatory. jb4 07:09 Condition: stable 07:09 Discharge instructions given to patient, Instructed on discharge instructions, follow up and referral plans. medication usage, Demonstrated understanding of instructions, follow-up care, medications, Prescriptions given X 2. 07:09 Patient left the ED. jb4 Addendum: 02/10/2020 12:36 Addendum: COVID-19 Result: Negative result given to RN to notify pt. Attempted to k l contact pt regarding negative COVID-19 swab results. Signatures: Dispatcher [employer] EDMS Yulisa Moore RN Jo Ann Sutton RN RN lp1 Chon Barclay RN RN jb4 Cecelia Oilvarez Terrence, MD MD tw4 John Paul Jeffers RN Marcie Paul cl3
--- NOTE | 2020-02-07 06:41 | EDPHYS ---
Physician Documentation [facility] Name: Melchor Cisse III Age: 59 yrs Sex: Male : 1960 Arrival Date: 02/07/2020 Time: 01:18 Bed 3 Private MD: ED Physician Edwin Felix HPI: 02/06 01:36 This 59 yrs old Male presents to ER via Unassigned with complaints of Chest tw4 Pain, Shortness Of Breath. 01:36 The patient or guardian reports chest pain that is located primarily in the anterior tw4 chest wall, right. Onset: 2 day(s) ago. The pain does not radiate. Associated signs and symptoms: The patient has no apparent associated signs or symptoms. The chest pain is described as dull. Duration: The patient or guardian reports a single episode. Severity of pain: At its worst the pain was moderate in the emergency department the pain is unchanged. Historical: - Allergies: 01:30 Iodine; jb4 01:30 Morphine; jb4 01:30 shrimp; jb4 - Home Meds: 01:30 Acyclovir Oral [Active]; Colace Oral [Active]; Evotaz 300-150 mg Oral tab 1 tab once jb4 daily [Active]; Descovy 200-25 mg Oral tab 1 tab once daily [Active]; hydrocodone-acetaminophen 7.5-325 mg Oral tab 1 tab every 6 hours [Active]; Nexium Oral [Active]; - PMHx: 01:30 Cirrhosis; Crohn's; Hepatitis; HERPES; HIV; HPV; ibs; ulcerative colitis; jb4 - PSHx: 01:30 hemorrhoidectomy; Cholecystectomy; jb4 - Immunization history:: Adult Immunizations up to date. - Social history:: Smoking status: Patient reports the use of cigarette tobacco products, smokes one pack cigarettes per day. Patient/guardian denies using alcohol, street drugs. ROS: 01:36 Constitutional: Negative for fever, chills, and weight loss, Eyes: Negative for injury, tw4 pain, redness, and discharge, Neck: Negative for injury, pain, and swelling, Respiratory: Negative for shortness of breath, cough, wheezing, and pleuritic chest pain, Abdomen/GI: Negative for abdominal pain, nausea, vomiting, diarrhea, and constipation, Back: Negative for injury and pain, MS/Extremity: Negative for injury and deformity, Skin: Negative for injury, rash, and discoloration, Neuro: Negative for headache, weakness, numbness, tingling, and seizure. 01:36 Cardiovascular: Positive for chest pain. Exam: 01:36 Constitutional: This is a well developed, well nourished patient who is awake, alert, tw4 and in no acute distress. Head/Face: Normocephalic, atraumatic. Chest/axilla: Normal chest wall appearance and motion. Nontender with no deformity. No lesions are appreciated. Cardiovascular: Regular rate and rhythm with a normal S1 and S2. No gallops, murmurs, or rubs. Normal PMI, no JVD. No pulse deficits. Respiratory: Lungs have equal breath sounds bilaterally, clear to auscultation and percussion. No rales, rhonchi or wheezes noted. No increased work of breathing, no retractions or nasal flaring. Abdomen/GI: Soft, non-tender, with normal bowel sounds. No distension or tympany. No guarding or rebound. No evidence of tenderness throughout. Back: No spinal tenderness. No costovertebral tenderness. Full range of motion. MS/ Extremity: Pulses equal, no cyanosis. Neurovascular intact. Full, normal range of motion. Neuro: Awake and alert, GCS 15, oriented to person, place, time, and situation. Cranial nerves II-XII grossly intact. Motor strength 5/5 in all extremities. Sensory grossly intact. Cerebellar exam normal. Normal gait. Vital Signs: 01:30 BP 178 / 117; Pulse 87; Resp 14; Temp 98.5(TE); Pulse Ox 100% on R/A; Weight 78.02 kg jb4 (R); Height 5 ft. 11 in. (180.34 cm) (R); Pain 7/10; 02:30 BP 174 / 98; Pulse 70; Resp 16; Pulse Ox 100% on R/A; jb4 03:30 BP 159 / 89; Pulse 58; Resp 15; Pulse Ox 98% on R/A; jb4 04:45 BP 149 / 108; Pulse 55; Resp 16; Pulse Ox 98% on R/A; jb4 05:30 BP 140 / 92; Pulse 55; Resp 16; Pulse Ox 98% on R/A; jb4 06:30 BP 149 / 98; Pulse 63; Resp 16; Pulse Ox 99% on R/A; jb4 01:30 Body Mass Index 23.99 (78.02 kg, 180.34 cm) jb4 MDM: 01:32 Patient medically screened. tw4 06:29 Differential diagnosis: costochondritis, pancreatitis, peptic ulcer disease, tw4 pericarditis, pulmonary embolus. Data reviewed: vital signs, nurses notes. Data reviewed: lab test result(s), CBC, electrolytes, radiologic studies, CT scan. Data interpreted: Pulse oximetry: Interpretation:. Counseling: I had a detailed discussion with the patient and/or guardian regarding: the historical points, exam findings, and any diagnostic results supporting the discharge/admit diagnosis, lab results, radiology results. Medical screen evaluation completed. EMTALA emergency medical condition absent. Medication response: Toradol relieved patient's pain. The symptoms have resolved. Response to treatment: and as a result, I will discharge patient. Special discussion: I discussed with the patient/guardian in detail that at this point there is no indication for admission to the hospital. It is understood, however, that if the symptoms persist or worsen the patient needs to return immediately for re-evaluation. 02/06 01:32 Order name: Blood Culture Adult (2) 02/06 01:32 Order name: BMP 02/06 01:32 Order name: C-Reactive Protein 02/06 01:32 Order name: CBC with Diff 02/06 01:32 Order name: COVID-19 02/06 01:32 Order name: D-Dimer 02/06 01:32 Order name: Ferritin 02/06 01:32 Order name: Flu; Complete Time: 06:19 02/06 06:21 Interpretation: Within normal limits. 02/06 01:32 Order name: Lactate; Complete Time: 06:19 02/06 06:21 Interpretation: Within normal limits: LAC 1.7. 02/06 01:32 Order name: LFT's; Complete Time: 06:19 02/06 06:20 Interpretation: Normal except: GLOB 4.3; A/G 0.9. 02/06 01:32 Order name: Lipase; Complete Time: 06:19 02/06 06:21 Interpretation: Within normal limits: LIP 348. tw4 02/06 01:32 Order name: Procalcitonin; Complete Time: 06:19 rust 02/06 06:21 Interpretation: Within normal limits: Procalcitonin < 0.05. tw4 02/06 01:32 Order name: PT-INR; Complete Time: 06:19 rust 02/06 06:22 Interpretation: Within normal limits: PT 11.4. tw 02/06 01:32 Order name: Ptt, Activated; Complete Time: 06:19 rust 02/06 06:22 Interpretation: Within normal limits: PTT 31.1. tw4 02/06 01:32 Order name: Strep; Complete Time: 06:19 rust 02/06 01:32 Order name: Troponin (emerg Dept Use Only); Complete Time: 06:19 rust 02/06 01:32 Order name: Urine Microscopic Only; Complete Time: 06:19 rust 02/06 01:32 Order name: CXR XRAY rust 02/06 01:32 Order name: Blood Culture [facility] 02/06 01:32 Order name: Basic Metabolic Panel; Complete Time: 06:19 [facility] 02/06 06:20 Interpretation: Normal except: K 3.4; GFR 80. tw 02/06 01:32 Order name: C-Reactive Protein; Complete Time: 06:19 [facility] 02/06 01:32 Order name: CBC with Automated Diff; Complete Time: 06:19 [facility] 02/06 06:21 Interpretation: Normal except: WBC 8.8; PLT 147. rust 02/06 01:32 Order name: D-Dimer; Complete Time: 06:19 [facility] 02/06 06:21 Interpretation: Abnormal: D-DIMER 877. tw 02/06 01:32 Order name: Ferritin; Complete Time: 06:19 EDAK 02/06 01:37 Order name: CT Chest For PE Angio 4 02/06 03:27 Order name: Urine Dipstick--Ancillary (enter results); Complete Time: 06:19 tt3 02/06 04:54 Order name: Troponin (emerg Dept Use Only); Complete Time: 06:19 tw4 02/06 05:54 Order name: Throat Culture EDAK 02/06 01:32 Order name: EKG; Complete Time: 01:33 tw4 02/06 01:32 Order name: Cardiac monitoring; Complete Time: 02:51 02/06 01:32 Order name: Document PUI#; Complete Time: 02:51 02/06 01:32 Order name: Droplet/Contact Precautions; Complete Time: :53 02/06 01:32 Order name: EKG - Nurse/Tech; Complete Time: 01:53 02/06 01:32 Order name: IV Start; Complete Time: :53 02/06 01:32 Order name: Labs collected and sent; Complete Time: 02:00 02/06 01:32 Order name: Notify Health Dept [phone]/ ; Complete Time: :53 02/06 01:32 Order name: O2 Per Protocol; Complete Time: :53 02/06 01:32 Order name: O2 Sat Monitoring; Complete Time: :53 02/06 01:32 Order name: Urine Dipstick-Ancillary (obtain specimen); Complete Time: 03:57 EC:05 Rate is 62 beats/min. Rhythm is regular, Sinus arrythmia. QRS [place] is Normal. HI tw4 interval is normal. QRS interval is normal. QT interval is normal. No Q waves. T waves are Normal. No ST changes noted. Clinical impression: Sinus arrythmia. Interpreted by me. Reviewed by me. Administered Medications: 01:55 Drug: TORadol 30 mg Route: IVP; Site: right antecubital; jb4 02:30 Follow up: Response: No adverse reaction; Pain is decreased jb4 02:06 Drug: Benadryl 25 mg Route: IVP; Site: right antecubital; jb4 02:40 Follow up: Response: No adverse reaction jb4 02:06 Drug: Pepcid 20 mg Route: IVP; Site: right antecubital; jb4 02:40 Follow up: Response: No adverse reaction jb4 02:07 Drug: SOLU-Medrol 125 mg Route: IVP; Site: right antecubital; jb4 02:40 Follow up: Response: No adverse reaction jb4 02:10 Drug: Zofran (Ondansetron) 4 mg Route: IVP; Site: right antecubital; jb4 02:40 Follow up: Response: No adverse reaction jb4 Disposition: 02/07/20 06:40 Discharged to Home. Impression: Other chest pain. - Condition is Stable. - Discharge Instructions: Nonspecific Chest Pain, Chest Pain Observation. - Prescriptions for Ibuprofen 800 mg Oral Tablet - take 1 tablet by ORAL route every 12 hours As needed take with food; 20 tablet. Tramadol 50 mg Oral Tablet - take 1 tablet by ORAL route every 8 hours as needed; 12 tablet. - Medication Reconciliation Form, Thank You Letter, Antibiotic Education, Prescription Opioid Use form. - Follow up: Private Physician; When: Upon discharge from the Emergency Department; Reason: Recheck today's complaints, Continuance of care, Re-evaluation by your physician. - Problem is new. - Symptoms have improved. Signatures: Dispatcher [employer] [facility] Chon Barclay RN RN jb4 Edwin Felix MD MD tw4 Corrections: (The following items were deleted from the chart) 02:51 01:32 Rendon ordered. tw4 jb4 05:39 01:32 CORONAVIRUS ordered. EDAK EDAK 07:09 06:40 02/07/2020 06:40 Discharged to Home. Impression: Other chest pain. Condition is jb4 Stable. Forms are Medication Reconciliation Form, Thank You Letter, Antibiotic Education, Prescription Opioid Use. Follow up: Private Physician; When: Upon discharge from the Emergency Department; Reason: Recheck today's complaints, Continuance of care, Re-evaluation by your physician. Problem is new. Symptoms have improved. tw4
[2020-02-07 07:17] VITALS: TEMP 98.5
--- NOTE | 2020-02-07 07:23 | EKG ---
Test Date: 2020-02-07 Test Time: 01:26:57 Long Term Care Phlebotomist: DONNELL MEASUREMENT RESULTS: Intervals: Rate: 62 AR: 162 QRSD: 84 QT: 422 QTc: 428 [place]: P: 68 AR: 162 QRS: 83 T: 70 INTERPRETIVE STATEMENTS: Normal sinus rhythm with sinus arrhythmia Normal ECG Compared to ECG 02/03/2020 14:53:26 Sinus tachycardia no longer present Atrial abnormality no longer present Right-axis deviation no longer present Electronically Signed On 02-07-20 07:22:19 [employer]ERN [employer]ANCER by Javier Shirley
[2020-02-07 07:24] VITALS: BP 149/98; O2SAT 99
--- NOTE | 2020-02-07 07:54 | RAD REPORT ---
EXAM DESCRIPTION: Nicholas Single View02/07/2020 1:59 am CLINICAL HISTORY: Chest pain COMPARISON: February 03, 2020 FINDINGS: Lungs are hyperaerated. The lungs appear clear of acute infiltrate. The heart is normal size IMPRESSION: No acute abnormalities displayed
--- NOTE | 2020-02-07 11:48 | RAD REPORT ---
EXAM DESCRIPTION: CT - Chest For Pe Angio - 02/07/2020 5:00 am CLINICAL HISTORY: The patient is 59 years old and is Male; CHEST PAIN TECHNIQUE: Axial computed tomographic angiography images of the chest with intravenous contrast. S agittal and coronal reformatted images were created and reviewed. This CT exam was performed using one or more of the following dose reduction techniques: automated exposure control, adjustment of t he mA and/or kV according to patient size, and/or use of iterative reconstruction technique. MIP reconstructed images were created and reviewed. COMPARISON: No relevant prior studies available. FINDINGS: PULMONARY ARTERIES: There are no obvious filling defects identified within the pulmonary arteries to suggest pulmonary embolism. AORTA: No acute findings. No thoracic aortic aneurysm. LUNGS: Unremarkable. No mass. No consolidation. PLEURAL SPACE: Unremarkable. No significant effusion. No pneumothorax. HEART: Unremarkable. No cardiomegaly. No significant pericardial effusion. No evidence of RV dysfunction. BONES/JOINTS: Minimal degenerative change of the spine is present. Schmorl's node at the superio r endplate of T11 is noted. No acute fracture. No dislocation. SOFT TISSUES: Unremarkable. LYMPH NODES: Unremarkable. No enlarged lymph nodes. LIVER: The liver has a slightly lobular contour. LIVER: The liver has a slightly lobular contour. IMPRESSION: No evidence of pulmonary embolism. Electronically signed by: Phyllis Wilburn MD 02/07/2020 2:57 AM EXPORT AGENT Due to temporary technical issues with the PACS/Fluency reporting system, reports are being signed by the in house radiologist without review as a courtesy to ensure prompt reporting. The interpreting r adiologist is fully responsible for the content of the report.
== END 2020-02-07 07:09 | disposition home or self-care (01) ==
LOC: ER 01:17
DX: R07.89 Other chest pain (principal); Z20.828 Contact with and (suspected) exposure to other viral communicable diseases; K74.60 Unspecified cirrhosis of liver; F17.210 Nicotine dependence, cigarettes, uncomplicated; Z21 Asymptomatic human immunodeficiency virus [HIV] infection status; Z88.5 Allergy status to narcotic agent; Z91.013 Allergy to seafood; Z91.048 Other nonmedicinal substance allergy status
CPT/HCPCS: 93005; 87040 ×2; 87070; 85025; 80048; 36415; 85610; 85379; 80076; 87081; 83605; 85730; 84484 ×2; 82728; 83690; 84145; 86140; 87804 ×2; 71275; 71045; 96375; 96374; 99285; U0002; Q9967; J1200; J2930; J2405; 81003; 81015

== ENCOUNTER 2021-06-30 07:34 | Emergency (ER) | payer OTHER ==
--- OUTSIDE RECORDS SUMMARY | 2021-06-30 07:36 | XMS REPORT | Continuity of Care Document ---
:1960 Author Organization [facility] t Address [address] [place] [address] Care Team Providers Name Role Phone ISABEL Primary Care Physician Unavailable NESTOR REVELES Attending Clinician Unavailable KRIS GUPTA Attending Clinician Unavailable BRADLY DORANTES Attending Clinician Unavailable Bradly Dorantes MD Attending Clinician NESTOR REVELES Admitting Clinician Unavailable Payers Payer Name Policy Type Policy Number Effective Date Expiration Date S khalif MEDICARE A B [id number] 1994 00:00:00 [place]ICAID [place] [id number] 2020 00:00:00 MEDICAID [place] [id number] 2016 00:00:00 MEDICARE PART A \\T\\ [id number] 1994 B 00:00:00 [facility] [id number] 2016 MEDICAID 00:00:00 Problems Condition Condition Condition Status Onset Resolution Last Treating Co mments Source Name Details Category Date Date Treatment Clinician Date Condyloma Condyloma Problem Active [facility] Ellie kes - due to due to [facility] 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 11-18 00:00: 00 MORPHINE Allergy Active Med Itching [facility] 11-18 00:00: 00 MORPHINE Adverse Active Info Not [facility] Reaction Available [facility] Iodine Adverse Active Info Not [facility] Reaction Available [facility] NO KNOWN Drug Active Univers ALLERGIE Class [facility] Social History Social Habit Start Date Stop Date Quantity Comments Source Sex [facility] to SARS-CoV-2 Not sure [facility] Smoking Status Start Date Stop Date Source Unknown if ever smoked [facility] Medications Ordered Filled Start Stop Current Ordering Indication Dosage Frequency Signature Comments Components Source Medication Medication Date Date Medication? Clinician (SIG) Name Name Esomeprazol Esomeprazol Yes Benjamin [address] [facility] Magnesium e Magnesium Kov[facility]v [facility] Hydrocodone Hydrocodone Yes Benjamin [address] [facility] -Acetaminop -Acetaminop Kovacev as needed [facility] Triumeq Triumeq Yes Benjamin 1 tablet [facility] Clozapine Clozapine Yes Benjamin [address] Kovacev [facility] No known No Univers medications [facility] No known No Univers medications [facility] Vital Signs Vital Name Observation Time Observation Value Comments Source HEIGHT 2020-11-02 13:16:00 180.3 cm WEIGHT 2020-11-02 13:16:00 84.278 kg HEIGHT 2020-11-02 13:16:00 180.3 cm WEIGHT 2020-11-02 13:16:00 84.278 kg Body weight 2019-10-08 15:26:00 83.371 kg [facility] Systolic blood 2019-10-08 15:26:00 144 mm[Hg] Univer sity [facility] Diastolic blood 2019-10-08 15:26:00 96 mm[Hg] [facility] Heart rate 2019-10-08 15:26:00 88 /min [facility] Body temperature 2019-10-08 15:26:00 36.5 Flor [facility] Respiratory rate 2019-10-08 15:26:00 18 /min [facility] Body weight 2019-10-08 15:26:00 83.371 kg [facility] Systolic blood 2019-10-08 15:26:00 144 mm[Hg] Univer sity of pressure [facility] Diastolic blood 2019-10-08 15:26:00 96 mm[Hg] Unive rsity of pressure [facility] Heart rate 2019-10-08 15:26:00 88 /min [facility] Body temperature 2019-10-08 15:26:00 36.5 Flor Univ [facility] Respiratory rate 2019-10-08 15:26:00 18 /min [facility] Procedures This patient has no known procedures. Encounters Start End Encounter Admission Attending Care Care Encounter Source Date/Time Date/Time Type Type Clinicians Facility Department ID 2021-04-25 Outpatient [facility] [id number] [facility] 12:05:40 [id number] 2021-04-25 [facility] [id number] [facility] 12:03:07 [id number] 2021-01-07 Outpatient EL TACOL, [facility] Surgery [id number] [facility] 14:40:44 [facility] 2021-01-04 Outpatient TACOL, [facility] Surgery [id number] [facility] 11:57:49 PRASUN 2021-05-07 2021-05-07 Outpatient EL [facility] [id number] [facility] 00:00:00 00:00:00 2020-11-24 2020-11-24 Outpatient LEENA ALONSO [facility] [id number] [facility] 00:00:00 00:00:00 LINE 2020-11-14 2020-11-14 Outpatient LEENA ALONSO [facility] [id number] [facility] 00:00:00 00:00:00 LINE 2020-11-02 2020-11-02 Outpatient EL [facility] [id number] [facility] 00:00:00 00:00:00 2020-04-07 2020-04-07 Outpatient Ana DORANTES [facility] [id number] Univers 09:30:00 09:30:00 SACHIN [id number] [facility] 2020-04-07 2020-04-07 Outpatient Ana DORANTES, [facility] [id number] Univers 09:30:00 09:30:00 SACHIN alvarado [facility] 2020-01-14 2020-01-14 Outpatient Ana DORANTES, [facility] [id number] [facility] 09:30:00 09:30:00 SACHIN [id number] [facility] 2020-01-14 2020-01-14 Outpatient Ana DORANTES, [facility] [id number] Univers 09:30:00 09:30:00 SACHIN paulino [facility] 2020-01-05 2020-01-05 Outpatient EL [facility] [id number] [facility] 00:00:00 00:00:00 2019-11-09 2019-11-09 Outpatient EL JALAL, [facility] [id number] [facility] 00:00:00 00:00:00 PRASUN 2019-11-03 2019-11-03 Outpatient EL LUCIANOLAL, [facility] [id number] [facility] 00:00:00 00:00:00 PRASUN 2019-10-08 2019-10-08 [facility] [id number] 10:19:10 10:47:58 Visit Sachin Norman [id number] Bradly Sellers [id number] Professio [id number] 2019-10-08 2019-10-08 [facility] [id number] [facility] 10:19:10 10:47:58 Visit Sachin Norman [id number] i ty of [place]ly [place] [id number] Profess[place] [id number] Me dical [address] 2019-10-08 2019-10-08 Outpatient Ana DORANTES, [facility] [id number] Univers 10:45:00 10:45:00 SACHIN paulino [facility] 2019-09-29 2019-09-29 Outpatient [facility] [id number] [facility] 00:00:00 00:00:00 [id number] 2019-09-29 2019-09-29 Outpatient EL TACOL, [facility] [id number] [facility] 00:00:00 00:00:00 MJ 2019-07-29 2019-07-29 Outpatient [facility] [id number] SLE 00:00:00 00:00:00 [id number] 2018-03-17 2018-03-17 Outpatient Jas Garnett [id number] 09:00:00 09:00:00 t Specialty/U Ellie kes - Specialty rology [facility] 2017-12-23 2017-12-23 Outpatient Jas Markt [id number] 09:15:00 09:15:00 t Specialty/U Ellie kes - Specialty rology Mem[facility]Urology Clinic l [facility] 2017-11-25 2017-11-25 Outpatient Jas Markt [id number] [facility] 14:20:00 14:20:00 t Specialty/U Ellie kes - Specialty rology Memori [facility]Urology Clinic l [facility] 2017-11-18 2017-11-18 Outpatient Jas Markt [id number] 10:15:00 10:15:00 t Specialty/U Ellie kes - Specialty rology [facility] Results Test Description Test Time Test Comments Results Result Comments Source TISSUE EXAM 2021-05-15 Surgical Pathology 18:28:39 Report Case: [id number] Authorizing Provider: Mj Reveles MD Collected: 05/14/2021 11:10 AM Ordering Location: [facility] Endoscopy Received: 05/14/2021 02:17 PM Services Pathologist: Zulay Castro MD Specimen: Biopsy, Gastric, random biopsies A. STOMACH, SITE NOT SPECIFIED, BIOPSY: - ANTRAL AND OXYNTIC MUCOSA WITH NO PATHOLOGIC ALTERATION - NEGATIVE FOR HELICOBACTER MICROORGANISMS ON ROUTINE STAINS Signing Pathologist Direct Phone Line: [phone] rimma signed by Zulay Castro MD on 05/15/2021 at 6:28 [id number] varicesA. Biopsy, gastric, randomA. Received in formalin labeled with the patient's name, medical record number and "gastric BX" and consists of 3 pieces of allison-white soft tissue ranging in size from 0.3 x 0.2 x 0.1 cm to 0.5 x 0.3 x 0.2 cm. The specimen measures 0.9 x 0.4 x 0.2 cm aggregate. The specimen is submitted in toto in A1.KHHNo significant inflammation, intestinal metaplasia, dysplasia or malignancy is seen. No Helicobacter microorganisms are seen on routine stains. [facility], Department of Pathology, [address] [place] [id number], [facility], Department of Pathology, [address] [place] [address] 28[address], [facility], Department of Pathology, [address] [place] [address], ALPHA FETOPROTEIN (AFP), TUMOR MARKER 2020-11-02 14:50:00 Test Item Value Reference Range Interpretation Comme nts ALPHA-FETOPROTEIN (BEAKER) (test code = 1094) 5.6 ng/mL <10.0 Double Reamer Operator ID - BETH MPROTHROMBIN TIME/[id number] 14:30:00 Test Item Value Reference Range Interpretation Comments PROTIME (BEAKER) 13.8 seconds 11.9-14.2 (test code = 759) INR (BEAKER) (test 1.08 See_Comment [Automat ed message] code = 370) The system Darby Smart generated this result transmitted ref erence range: <=5.90. The reference range was not used to int erpret this result as normal/abnormal . RECOMMENDED COUMADIN/WARFARIN INR THERAPY RANGESSTANDARD DOSE: 2.0 - 3.0 Includes: PROPHYLAXIS forvenous thrombosis, systemic embolization; TREATMENT for venous thrombosis and/or pulmonary embolus.HIGH RISK: Target INR is 2.5-3.5 for patients with mechanical heart valves.MR, ABDOMEN, [id number] 15:36:00 REFERRING: DR CLAUDIA BOURNEINAL REPORT EXAM: MRI of the abdomen WITHOUT and WITH intravenous contrast. TECHNIQUE: Multiplanar and multisequence MR images of the abdomen were obtained before and after the a dministration of intravenous contrast. Dynamic contrast enhanced sequences were obtained. INDICATION: K74.69,K76.6,B19.20,I86.4,K75.9,K74.60. COMPARISON: MRI from 02/16/2019. FINDINGS: LOWER THORAX: Unremarkable. LIVER: Cirrhosis with periportal fibrosis. There are several wedge-shaped areas of arterial phase hyperenhancement the periphery the liver which are most likely perfusional. A single focusof more rounded arterial phase hyperenhancement in segment III measures 0.7 cm on axial arterial phase image 54. LI-RADS 3 BILIARY: Prior cholecystectomy. No biliary ductal dilatation or filling defect. SPLEEN: The spleen is enlarged to 14.3 cm with [place] bodies. PANCREAS: No focal masses or ductal dilatation. ADRENALS: No adrenal nodules. KIDNEYS/URETERS: No hydronephrosis or solid mass lesions. A right upper pole nonenhancing renal lesion measures 0.6 cm and is consistent with a simple renalcyst. No routine follow-up imaging is recommended. PERITONEUM/RETROPERITONEUM: No free fluid. LYMPH NODES: No lymphadenopathy. 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 Splenorenal shunt. The main portal vein is patent and measures 0.9 cm in diameter. Conventional hepatic arterial anatomy. GI TRACT: No distention or wall thickening. BONES AND SOFT TISSUES: Mild multilevel dege nerative changes in the spine. Schmorl's nodes of the upper lumbar and lower thoracic spine are similar the prior. IMPRESSION: 1.No suspicious liver masses. 2.A single arterially enhancing lesion without washout or pseudocapsule formation measures 0.7 cm in segment III. LI-RADS 3. A follow-up MRI of the abdomen with and without intravenous contrast is recommended in six months to document stability.3.Cirrhosis with sequelae of portal hypertension including moderate sized paraesophageal and gastricfundal varices. Signed: Yoseph Burns MDReport Verified Date/Time: 11/09/2019 15:36:50 Reading Location: [facility] C0[facility] Transitional Reading Room ANTI-NUCLEAR ANTIBODY (BAHMAN)2019-02-01 11:23:00 Test Item Value Reference Range Interpretation Comments ANTI-NUCLEAR ANTIBODY (BAHMAN) (BEAKER) Positive Negative A (test code = 418) Test performed by IFA method.BAHMAN TITER AND [id number] 11:23:00 Test Item Value Reference Range Interpretation Comments BAHMAN TITER (BEAKER) (test code = :160 1541) BAHMAN PATTERN (BEAKER) (test code = Speckled 1781) HEPATITIS C PCR, [id number] 12:50:00 Test Item Value Reference Range Interpretation Comments HCV RESULT COMPONENT HCV RNA not detected HCV RNA not detected (BEAKER) (test code = 2699) This test uses a Real-Time Polymerase Chain Reaction (RT-PCR) methodology and was performed using [employer] Ampliprep/CLOVER TaqMan HCV test kit version 2.0 ([employer] Inc).Reportable range for this assay is 15 - 100,000,000 IU per mL (1.18 - 8.00 Log IU/mL).[id number] 11:58:00 Test Item Value Reference Range Interpretation Comments FERRITIN (BEAKER) (test code = 361) 179 ng/mL 5-275 HEPATITIS A ANTIBODY, [id number] 11:19:00 Test Item Value Reference Range Interpretation Comments HEPATITIS A IGG ANTIBODY (BEAKER) Reactive Nonreactive A (test code = 2797) ALPHA FETOPROTEIN (AFP), TUMOR [id number] 11:16:00 Test Item Value Reference Range Interpretation Comments ALPHA-FETOPROTEIN (BEAKER) (test 7.0 ng/mL <10.0 code = 1094) [id number] 11:07:00 Test Item Value Reference Range Interpretation Comments ALPHA-1 ANTITRYPSIN (BEAKER) 205.10 mg/dL 90.00-200.00 H (test code = 502) COMPREHENSIVE METABOLIC [id number] 11:06:00 Test Item Value Reference Range Interpretation [...] NOT APPLICABLE FOR DIALYSIS PATIEN TS. BILIRUBIN, [id number] 11:06:00 Test Item Value Reference Range Interpretation [...] = 2590) CBC W/PLT COUNT & AUTO [id number] 10:47:00 Test Item Value Reference Range Interpretation [...] PERCENT (BEAKER) (test code = 2801) PROTHROMBIN [id number] 10:44:00 Test Item Value Reference Range Interpretation [...]
[2021-06-30 08:04] LABS: Absolute Lymphocytes (CBC) 3.7 K/uL (0.7-4.9); Hematocrit 50.3 % (39.6-49.0); Lymphocytes % 43.6 % (15.3-44.8); MPV 8.2 fL (7.6-11.3); RBC Red Blood Cell Count 5.72 M/uL (4.33-5.43)
[2021-06-30] MEDS ORDERED: NA CHLORIDE 0.9% 1,000 ML ONE (08:04)
[2021-06-30] MEDS ORDERED: MAGNESIUM SULFATE 1 gm IVPB 1 GM/100 ML BAG IV ONE (08:04)
[2021-06-30] MEDS ORDERED: METOPROLOL TARTRATE 5 MG/5 ML INJ IV ONE (08:04)
[2021-06-30 08:22] LABS: Potassium 3.7 mmol/L (3.5-5.1); Troponin High Sensitivity 10.3 pg/mL (<58.9)
--- NOTE | 2021-06-30 08:52 | EDPHYS ---
Physician Documentation [facility] Name: Melchor Cisse III Age: 61 yrs Sex: Male : 1960 Arrival Date: 06/30/2021 Time: 07:35 Bed 20 Private MD: Alf Cam ED Physician Irineo Aquino HPI: 06/30 08:11 This 61 yrs old Male presents to ER via Ambulatory with complaints of heart racing, rn Dizziness, General Weakness. 08:11 The patient presents with a history of irregular heart beat, heart racing. Context: The rn symptoms occur with light activity. Onset: The symptoms/episode began/occurred just prior to arrival. Duration: The patient or guardian reports a single episode, that is still ongoing. Modifying factors: The symptoms are aggravated by nothing. The symptoms are alleviated by nothing. Severity of symptoms: At their worst the symptoms were moderate in the emergency department the symptoms are unchanged. The patient has experienced similar episodes in the past. The patient has not recently seen a physician. Pt reports at [facility] [place], felt palpitations and heart racing, has hx of tachycardia but never defined beyond that. NO fever. No vomiting/diarrhea/chest pain. Takes metoprolol. No blood thinners. . Historical: - Allergies: 07:44 Iodine; ss 07:44 Morphine; ss 07:44 shrimp; ss - PMHx: 07:44 Cirrhosis; Crohn's; Hepatitis; HERPES; HIV; HPV; ibs; ulcerative colitis; ss - Immunization history:: Client reports receiving the 2nd dose of the Covid vaccine. - Social history:: Smoking status: Patient reports the use of cigarette tobacco products, smokes one pack cigarettes per day. - Family history:: not pertinent. - Hospitalizations: : No recent hospitalization is reported. ROS: 08:11 Constitutional: Negative for fever, chills, and weight loss, Eyes: Negative for injury, rn pain, redness, and discharge, ENT: Negative for injury, pain, and discharge, Neck: Negative for injury, pain, and swelling, Cardiovascular: + palpitations, negative for chest pain Respiratory: Negative for shortness of breath, cough, wheezing, and pleuritic chest pain, Abdomen/GI: Negative for abdominal pain, nausea, vomiting, diarrhea, and constipation, Back: Negative for injury and pain, MS/Extremity: Negative for injury and deformity, Skin: Negative for injury, rash, and discoloration, Neuro: Negative for weakness, numbness, tingling, and seizure. Exam: 08:11 Constitutional: This is a well developed, well nourished patient who is awake, alert, rn appears anxious Head/Face: Normocephalic, atraumatic. Eyes: Periorbital areas with no swelling, redness, or edema. Cardiovascular: Tachycardic, irregular Respiratory: No increased work of breathing, no retractions or nasal flaring. Abdomen/GI: soft, non-tender Skin: Warm, dry MS/ Extremity: Pulses equal, no cyanosis. Neuro: Awake and alert, GCS 15, oriented to person, place, time, and situation. Cranial nerves II-XII grossly intact. Motor strength 5/5 in all extremities. Sensory grossly intact. Cerebellar exam normal. Normal gait. 08:44 ECG was reviewed by the Attending Physician. rn Vital Signs: 07:42 Pulse 154; Resp 18; Temp 98.4(TE); Pulse Ox 98% on R/A; Weight 82.55 kg; Height 5 ft. ss 11 in. (180.34 cm); Pain 0/10; 07:44 BP 129 / 93; ss 08:20 BP 117 / 87; Pulse 85; Resp 18 S; Pulse Ox 98% on R/A; jd3 08:52 BP 127 / 96; Pulse 77; Resp 17 S; Pulse Ox 100% on R/A; jd3 07:42 Body Mass Index 25.38 (82.55 kg, 180.34 cm) MDM: 07:45 Patient medically screened. rn 08:44 ED course: Pt now in sinus rhythm, asymptomatic, normal vitals. Already on metoprolol, rn trop neg, no ischemia on ecg, will dc home with continuation of metoprolol and aspirin with cardiology f/u. . 08:50 Differential diagnosis: arrythmia, dehydration, stress disorder. Data reviewed: vital rn signs, nurses notes, lab test result(s), EKG, radiologic studies, plain films, and as a result, I will discharge patient. Data interpreted: night monitor: rate is 85 beats/min, rhythm is normal sinus rhythm, regular, with no ectopy, Interpretation: normal rate, normal rhythm. Counseling: I had a detailed discussion with the patient and/or guardian regarding: the historical points, exam findings, and any diagnostic results supporting the discharge/admit diagnosis, lab results, radiology results, the need for outpatient follow up, to return to the emergency department if symptoms worsen or persist or if there are any questions or concerns that arise at home. Response to treatment: the patient's symptoms have markedly improved after treatment, the patient's symptoms have resolved after treatment, the patient's condition has returned to base line, the patient is now symptom free, and as a result, I will discharge patient. Special discussion: I discussed with the patient/guardian in detail that at this point there is no indication for admission to the hospital. It is understood, however, that if the symptoms persist or worsen the patient needs to return immediately for re-evaluation. 06/30 07:53 Order name: Basic Metabolic Panel; Complete Time: 08:26 06/30 07:53 Order name: CBC with Diff 06/30 07:53 Order name: NT PRO-BNP; Complete Time: 08:06/30 07:53 Order name: Troponin HS; Complete Time: 08:06/30 07:53 Order name: XRAY Chest (1 view) 06/30 07:53 Order name: EKG; Complete Time: 07:53 06/30 07:53 Order name: Cardiac monitoring; Complete Time: 07:58 06/30 07:53 Order name: EKG - Nurse/Tech; Complete Time: 07:58 06/30 07:53 Order name: IV Saline Lock; Complete Time: 07:58 06/30 07:53 Order name: Labs collected and sent; Complete Time: 07:58 06/30 07:53 Order name: O2 Per Protocol; Complete Time: 07:06/30 07:53 Order name: O2 Sat Monitoring; Complete Time: 07:59 rn EC:44 Rate is 132 beats/min. Rhythm is irregular. QRS [place] is Normal. QRS interval is normal. rn QT interval is normal. No Q waves. T waves are Normal. No ST changes noted. Clinical impression: Atrial Flutter. Interpreted by me. Reviewed by me. Administered Medications: 08:10 Drug: Metoprolol 5 mg Route: IVP; Site: left forearm; jd3 08:52 Follow up: Response: No adverse reaction jd3 08:10 Drug: NS 0.9% 1000 ml Route: IV; Rate: 1000 ml; Site: left forearm; jd3 09:12 Follow up: Response: No adverse reaction; IV Status: Completed infusion; IV Intake: jd3 1000ml 08:11 Drug: Magnesium Sulfate 1 grams Route: IVPB; Infused Over: 1 hrs; Site: left forearm; jd3 09:12 Follow up: Response: No adverse reaction; IV Status: Completed infusion; IV Intake: jd3 100ml Disposition Summary: 06/30/21 08:51 Discharge Ordered Location: Home rn Problem: an acute exacerbation rn Symptoms: have improved rn Condition: Stable rn Diagnosis - Unspecified atrial flutter rn - Paroxysmal tachycardia, unspecified rn Followup: rn - With: Javier Shirley MD - When: As needed - Reason: Recheck today's complaints, Re-evaluation by your physician Discharge Instructions: - Discharge Summary Sheet rn - Atrial Flutter rn Forms: - Medication Reconciliation Form rn - Thank You Letter rn - Antibiotic professor of journalism - Prescription Opioid Use rn Signatures: Dispatcher [employer] Irineo Larios MD MD rn Smirch, Shelby, RN RN ss Davies, Jonathon, RN RN jd3
--- NOTE | 2021-06-30 08:52 | ER ---
Nurse's Notes [facility] Name: Melchor Cisse III Age: 61 yrs Sex: Male : 1960 Arrival Date: 06/30/2021 Time: 07:35 Bed 20 Private MD: Alf Cam Diagnosis: Unspecified atrial flutter;Paroxysmal tachycardia, unspecified Presentation: 06/30 07:42 Chief complaint: Patient states: heart racing, dizziness and headache that began 30-45 ss minutes ago. Pt reports this happened in the past, was told it was tachycardia and was given a beta isaac which helped. Coronavirus screen: Client denies travel out of the [place] in the last 14 days. Ebola Screen: Patient denies exposure to infectious person. Patient denies travel to an Ebola-affected area in the 21 days before illness onset. Initial Sepsis Screen: Does the patient meet any 2 criteria? HR > 90 bpm. Does the patient have a suspected source of infection? No. Patient's initial sepsis screen is negative. Risk Assessment: Do you want to hurt yourself or someone else? Patient reports no desire to harm self or others. Onset of symptoms was June 30, 2021. 07:42 Method Of Arrival: Ambulatory ss 07:42 Acuity: ANTONIA 2 ss Triage Assessment: 07:44 General: Appears in no apparent distress. comfortable, Behavior is calm, cooperative. ss Neuro: Level of Consciousness is awake, alert. Historical: - Allergies: 07:44 Iodine; ss 07:44 Morphine; ss 07:44 shrimp; ss - PMHx: 07:44 Cirrhosis; Crohn's; Hepatitis; HERPES; HIV; HPV; ibs; ulcerative colitis; ss - Immunization history:: Client reports receiving the 2nd dose of the Covid vaccine. - Social history:: Smoking status: Patient reports the use of cigarette tobacco products, smokes one pack cigarettes per day. - Family history:: not pertinent. - Hospitalizations: : No recent hospitalization is reported. Screenin:20 Abuse screen: Denies threats or abuse. Nutritional screening: No deficits noted. jd3 Tuberculosis screening: No symptoms or risk factors identified. Fall Risk Ambulatory Aid- None/Bed Rest/Nurse Assist (0 pts). Gait- Normal/Bed Rest/Wheelchair (0 pts) Mental Status- Oriented to own ability (0 pts). Total Berger Fall Scale indicates No Risk (0-24 pts). Assessment: 08:00 General: Appears in no apparent distress. comfortable, Behavior is calm, cooperative, jd3 appropriate for age, anxious. Pain: Complains of pain in head Quality of pain is described as aching, pressure. Neuro: Level of Consciousness is awake, alert, obeys commands, Oriented to person, place, time, situation. Cardiovascular: Denies chest pain, Capillary refill < 3 seconds Patient's skin is warm and dry. Rhythm is irregular. Respiratory: Airway is patent Respiratory effort is even, unlabored, Respiratory pattern is regular, symmetrical, Denies cough, shortness of breath. GI: No signs and/or symptoms were reported involving the gastrointestinal system. : No signs and/or symptoms were reported regarding the genitourinary system. EENT: No signs and/or symptoms were reported regarding the EENT system. Derm: Skin is intact, Skin is dry, Skin is normal, Skin temperature is warm. Musculoskeletal: Circulation, motion, and sensation intact. Range of motion: intact in all extremities. 08:15 Cardiovascular: Rhythm is sinus rhythm. jd3 08:51 Reassessment: Patient appears in no apparent distress at this time. Patient and/or jd3 family updated on plan of care and expected duration. Pain level reassessed. Patient is alert, oriented x 3, equal unlabored respirations, skin warm/dry/pink. Patient states feeling better. Vital Signs: 07:42 Pulse 154; Resp 18; Temp 98.4(TE); Pulse Ox 98% on R/A; Weight 82.55 kg; Height 5 ft. ss 11 in. (180.34 cm); Pain 0/10; 07:44 BP 129 / 93; ss 08:20 BP 117 / 87; Pulse 85; Resp 18 S; Pulse Ox 98% on R/A; jd3 08:52 BP 127 / 96; Pulse 77; Resp 17 S; Pulse Ox 100% on R/A; jd3 07:42 Body Mass Index 25.38 (82.55 kg, 180.34 cm) ED Course: 07:35 Patient arrived in ED. am2 07:35 Alf Cam MD is Private Physician. am2 07:44 Triage completed. ss 07:44 Arm band placed on right wrist. ss 07:45 Irineo Aquino MD is Attending Physician. rn 07:48 Osvaldo Song RN is Primary Nurse. jd3 07:52 EKG done, by ED staff, reviewed by Irineo Aquino MD. 3 08:20 Patient has correct armband on for positive identification. Placed in gown. Bed in low jd3 position. Call light in reach. Side rails up X 1. vehicle monitor technician on. Pulse ox on. NIBP on. 08:51 Javier Shirley MD is Referral Physician. rn 08:56 XRAY Chest (1 view) In Process Unspecified. EDMS 09:12 No provider procedures requiring assistance completed. IV discontinued, intact, jd3 bleeding controlled, No redness/swelling at site. Pressure dressing applied. Administered Medications: 08:10 Drug: Metoprolol 5 mg Route: IVP; Site: left forearm; jd3 08:52 Follow up: Response: No adverse reaction jd3 08:10 Drug: NS 0.9% 1000 ml Route: IV; Rate: 1000 ml; Site: left forearm; jd3 09:12 Follow up: Response: No adverse reaction; IV Status: Completed infusion; IV Intake: jd3 1000ml 08:11 Drug: Magnesium Sulfate 1 grams Route: IVPB; Infused Over: 1 hrs; Site: left forearm; jd3 09:12 Follow up: Response: No adverse reaction; IV Status: Completed infusion; IV Intake: jd3 100ml Intake: 09:12 IV: 1000ml; Total: 1000ml. jd3 09:12 IV: 100ml; Total: 1100ml. jd3 Outcome: 08:51 Discharge ordered by . rn 09:12 Discharged to home ambulatory. jd3 09:12 Condition: stable 09:12 Discharge instructions given to patient, Instructed on discharge instructions, follow up and referral plans. Demonstrated understanding of instructions, follow-up care. 09:13 Patient left the ED. jd3 Signatures: Dispatcher [employer] EDNE Irineo Aquino MD MD rn Smirch, Shelby, RN RN ss Moreno, Amanda am2 Herrera, Deanna [facility] Osvaldo Song RN RN jd3
--- NOTE | 2021-06-30 09:01 | RAD REPORT ---
EXAM DESCRIPTION: RAD - Chest Single View - 06/30/2021 8:54 am CLINICAL HISTORY: PALPITATIONS COMPARISON: Portable 02/07/2020 TECHNIQUE: AP portable chest image was obtained 06/30/2021 8:54 am . FINDINGS: Lungs are clear. Interstitial pattern matches comparison. No failure or volume overload fi ndings. Heart and vasculature are normal. Hilar regions are similar to comparison. No measurable pleural effu jay and no pneumothorax. No acute bony abnormality seen. No acute aortic findings suspected. IMPRESSION: No acute cardiopulmonary process.
[2021-06-30 09:21] VITALS: TEMP 98.4
[2021-06-30 09:24] VITALS: BP 127/96; O2SAT 100
[2021-06-30 10:42] LABS: Blood Morphology Comment NOT SEEN (NOT SEEN); Platelet Estimate ADEQ
--- NOTE | 2021-07-02 11:17 | EKG ---
Test Date: 2021-06-30 Test Time: 07:46:57 [employer] Manufacturing Tech: HINA MEASUREMENT RESULTS: Intervals: Rate: 132 MD: QRSD: 78 QT: 304 QTc: 450 [place]: P: MD: QRS: 83 T: 65 INTERPRETIVE STATEMENTS: Atrial flutter with variable AV block Abnormal ECG Compared to ECG 02/07/2020 01:26:57 Sinus rhythm no longer present Sinus arrhythmia no longer present Electronically Signed On 07-02-21 11:12:55 CDT by Javier Shirley
--- NOTE | 2021-07-03 08:34 | EKG ---
Test Date: 2021-06-30 Test Time: 08:10:16 Access Services Librarian: KELLY MEASUREMENT RESULTS: Intervals: Rate: 81 CT: 190 QRSD: 86 QT: 380 QTc: 441 [place]: P: 66 CT: 190 QRS: 78 T: 69 INTERPRETIVE STATEMENTS: Normal sinus rhythm Normal ECG Compared to ECG 06/30/2021 07:46:57 Atrial flutter no longer present Electronically Signed On 07-03-21 08:28:29 CDT by Javier Shirley
== END 2021-06-30 09:13 | disposition home or self-care (01) ==
LOC: ER 07:34
DX: I48.92 Unspecified atrial flutter (principal); I47.9 Paroxysmal tachycardia, unspecified; F17.210 Nicotine dependence, cigarettes, uncomplicated; Z21 Asymptomatic human immunodeficiency virus [HIV] infection status; K74.60 Unspecified cirrhosis of liver; K50.90 Crohn's disease, unspecified, without complications; Z88.5 Allergy status to narcotic agent; Z91.013 Allergy to seafood; Z91.048 Other nonmedicinal substance allergy status
CPT/HCPCS: 96365; 93005 ×2; 85025; 80048; 36415; 84484; 83880; 71045; 96375; 99284; J3475; J7030

== ENCOUNTER 2022-05-08 16:17 | Emergency (ER) | payer OTHER ==
--- OUTSIDE RECORDS SUMMARY | 2022-05-08 16:19 | XMS REPORT | Continuity of Care Document ---
:1960 Author Organization [facility] t Address [address] [place] [address] Dr. [address]. [address] [place] [address] Care Team Providers Name Role Phone ISABEL ASIF Primary Care Physician Unavailable MJ REVELES Attending Clinician Unavailable Mj Reveles MD Attending Clinician Jeaneth Darby MD Attending Clinician [phone] Saba Avina CRNA Attending Clinician QUETA GUPTA Attending Clinician Unavailable SACHIN SINHA Attending Clinician Unavailable Sachin Sinha MD Attending Clinician MJ REVELES Admitting Clinician Unavailable Payers Payer Name Policy Type Policy Number Effective Date Expiration Date S khalif MEDICARE A B [id number] 1994 00:00:00 [place] [id number] 2020 00:00:00 [place] [id number] 2016 00:00:00 MEDICARE PART A \\T\\ [id number] 1994 B 00:00:00 [facility] [id number] 2016 MEDICAID 00:00:00 Problems Condition Condition Condition Status Onset Resolution Last Treating Co mments Source Name Details Category Date Date Treatment Clinician Date Screening Screening Disease Active 2018-[address] [facility] [facility] malignant malignant 00:[facility]: t & Plan: M edical neoplasm neoplasm 00 [facility] g of this note might be different from the original. Cirrhosis , regardles s of etiology, is a risk factor for developme nt of hepatocel lular carcinoma . Thus, we recommend surveilla nce imaging and alphafeto protein every 6 months. We will get MRI abdomen with contrast and AFP. Cirrhosis Cirrhosis Disease Active [facility] St 03-31 [facility] 00:[facility]: t & Plan: [address] g of this note might be different from the original. Diagnosis based on the constella tion of clinical findings, laborator y parameter s and imaging. Etiology is most likely due to hepatitis C. His has features of portal hypertens ion. We will get labs today to calculate the MELD score and complete a comprehen sive evaluatio n for other causes of cirrhosis . Cirrhosis guideline s were reviewed. Hepatitis Hepatitis Disease Active [facility] C C 03-31 [facility] 00:[facility]: t & Plan: [address] g of this note might be different from the original. Patient was treated with Mavyret and achieved SVR in 2019. We will check HCV RNA PCR today. Portal Portal Disease Active Last [facility] hypertensi hypertensi [facility] on on t & Plan: [facility] g of this note might be different from the original. Complicat ions of portal venous hypertens ion include gastroeso phageal varices and hypersple nism indicate decompens ation of cirrhosis . These significa ntly increase the risk of . Gastric Gastric Disease Active Last [facility] varices varices [facility] t & Plan: [facility] g of this note might be different from the original. Because of the risk for upper GI bleeding, [...] Disease Active [facility] liver liver [facility] enzymes enzymes [facility] Condyloma Condyloma Problem Active Com mon acuminatum acuminatum Sp ger due to due to - [facility] papillomav papillomav Ellie kes irus (HPV) irus (HPV) [facility] Follow up [facility] Allergies, Adverse Reactions, Alerts Allergy Allergy Status Severity Reaction(s) Onset Inactive Treating Comm ents Source Name Type Date Date Clinician Iodine Propensi Active Other (See Vomiting [facility] to Comments) 11-18 [facility] adverse 00:00: Medical reaction 00 [place] Morphine Propensi Active Itching Itching [facility] to 11-18 and [facility] adverse 00:00: vomiting Medical reaction 00 [place] IODINE Allergy Active Med Other [facility] 11-18 00:00: 00 MORPHINE Allergy Active Med Itching SLE 11-18 00:00: 00 MORPHINE Adverse Active Info Not Commo n Reaction Available [facility] Iodine Adverse Active Info Not Common Reaction Available [facility] NO KNOWN Drug Active Univers ALLERGIE Class ity of S [facility] Family History Family Member Diagnosis Comments Start Date Stop Date Source Natural mother Cancer [facility] Social History Social Habit Start Date Stop Date Quantity Comments Source History SDOH [facility] Alcohol Std Drinks Medica l Center History SDOH [facility] Alcohol Binge Medical Rianna [facility] History SDOH [facility] Alcohol Comment Medical C enter Exposure to Not sure University of SARS-CoV-2 (event) [facility] Alcohol intake 2021-05-14 2021-05-[address] [facility] es 00:00:00 00:00:00 non-drinker of Medical Ce nter alcohol (finding) Cigarette 2019-01-27 2019-01-[address] [facility] pack-years 00:00:00 00:00:00 [facility] Tobacco use and 2019-01-27 2019-01-[address] Ellie kes exposure 00:00:00 00:00:00 [facility] History SDOH 2019-01-27 2019-01-[address] [facility] Alcohol Frequency 00:00:00 00:00:00 [facility] Cigarettes smoked 2019-01-27 2019-01-[address] [facility] current (pack per 00:00:00 00:00:00 Medical Center day) - Reported Sex Assigned At [birth year] [facility] rayo 00:00:00 00:00:00 Medical Center Smoking Status Start Date Stop Date Source Unknown if ever smoked [facility] Current every day smoker 2019-01-27 00:00:00 [facility] Medications Ordered Filled Start Stop Current Ordering Indication Dosage Frequency Signature Comments Components Source Medication Medication Date Date Medication? Clinician (SIG) Name Name abacavir-do Yes [address] lutegravir- 2-14 daily [facility] lamivudine 12:05: Medical (TRIUMEQ) 24 Center 600-50-300 mg Tab esomeprazol Yes [address] e (NEXIUM) 2-14 twice [facility] 40 MG 12:05: daily Medical capsule 24 Center clonazePAM 2018-03 Yes 1mg Q.5D Take [address] (KLONOPIN) 0-14 by mouth 2 Sal es 1 MG tablet 00:00: (two) Medic al 00 times Center daily. propranolol 2018-03 Yes 20mg Q.5D Take [address] (INDERAL) 0-10 by mouth 2 Luke s 20 MG 00:00: (two) Medical tablet 00 times Center daily . HYDROcodone 2018-03 Yes 1{tbl} Take [address] -acetaminop 0-01 tablet by Sal es hen (NORCO 00:00: mouth Medica l 7.5-325) 00 every 8 Center 7.5-325 mg (eight) per tablet hours as needed for Pain . cyclobenzap Yes 10mg Take [address] rine 8-26 by mouth 3 [facility] (FLEXERIL) 00:00: (three) Medi agatha 10 MG 00 times Center tablet daily as needed for Muscle spasms . Esomeprazol Esomeprazol Yes Benjamin 1 capsule Common e Magnesium e Magnesium Kovacev [facility] Hydrocodone Hydrocodone Yes Benjamin 1 tablet Common -Acetaminop -Acetaminop Kovacev as needed Spirit hen hen [facility] Triumeq Triumeq Yes Benjamin 1 tablet Commo n Kovacev [facility] Clozapine Clozapine Yes Benjamin 1 tablet C abdulaziz Lujuan Spirit - [facility] No known No Univers medications ity of [facility] No known No Univers medications it of [facility] Vital Signs Vital Name Observation Time Observation Value Comments Source HEIGHT 2020-11-02 13:16:00 180.3 cm WEIGHT 2020-11-02 13:16:00 84.278 kg HEIGHT 2020-11-02 13:16:00 180.3 cm WEIGHT 2020-11-02 13:16:00 84.278 kg Systolic blood 2019-10-08 15:26:00 144 mm[Hg] Univer sity of pressure [facility] Diastolic blood 2019-10-08 15:26:00 96 mm[Hg] Unive rsity of [facility] Heart rate 2019-10-08 15:26:00 88 /min Universi ty of [facility] Body temperature 2019-10-08 15:26:00 36.5 Flor Univ ersity of [facility] Respiratory rate 2019-10-08 15:26:00 18 /min Univ ersity [facility] Body weight 2019-10-08 15:26:00 83.371 kg Universi ty of [facility] Systolic blood 2019-10-08 15:26:00 144 mm[Hg] Univer sity of pressure [facility] Diastolic blood 2019-10-08 15:26:00 96 mm[Hg] Unive rsity of pressure [facility] Heart rate 2019-10-08 15:26:00 88 /min [facility]i [facility] Body temperature 2019-10-08 15:26:00 36.5 Flor Univ ersity of [facility] Respiratory rate 2019-10-08 15:26:00 18 /min Univ [facility] Body weight 2019-10-08 15:26:00 83.371 kg Universi ty of [facility] Systolic blood 2021-05-14 11:47:00 133 mm[Hg] [facility] Diastolic blood 2021-05-14 11:47:00 81 mm[Hg] [facility] Heart rate 2021-05-14 11:47:00 66 /min [facility] Body temperature 2021-05-14 11:47:00 36.67 Flor [facility] Respiratory rate 2021-05-14 11:47:00 17 /min [facility] Oxygen saturation in 2021-05-14 11:47:00 99 /min [facility] Arterial blood by Medical Ce nter Pulse oximetry Body height 2021-05-14 09:15:00 180.3 cm [facility] Body weight 2021-05-14 09:15:00 77.701 kg [facility] BMI 2021-05-14 09:15:00 23.89 kg/m2 [facility] Procedures Procedure Date / Time Performed Performing Clinician [facility] e REPORT OF PROCEDURE - 2021-05-14 11:18:23 Mj Reveles [facility] ENDOSCOPY [facility] Center TISSUE EXAM 2021-05-14 11:10:00 Mj Reveles [facility] EGD, WITH VARICEAL 2021-05-14 10:46:00 Mj Reveles [facility] Plan of Care Planned Activity Planned Date Details Comments Source Future Scheduled 2022-03-[address] [facility] Test 00:00:00 (12+) [code = [facility] DEPRESSION SCREENING (12+)] Future Scheduled 2021-11-29 INFLUENZA VACCINE (#1) [facility] Test 00:00:00 [code = INFLUENZA Medical Ce nter VACCINE (#1)] Future Scheduled 2012 Screening for malignant [facility] Test 00:00:00 neoplasm of lung Medical Rianna ter (procedure) [code = 762996768] Future Scheduled 2012 SHINGLES VACCINES ([address] [facility] Test 00:00:00 2) [code = SHINGLES [facility] VACCINES (1 of 2)] Future Scheduled 1997 Lipid panel (procedure) [facility] Test 00:00:00 [code = 99767119] Medical Ce nter Future Scheduled 1995-12-[address] [facility] Test 00:00:00 WELLNESS (YEAR 2 or Medical Center FIRST YEAR if no IPPE) [code = MEDICARE ANNUAL WELLNESS (YEAR 2 or FIRST YEAR if no IPPE)] Future Scheduled 1981 DTAP/TDAP/TD VACCINES [facility] Test 00:00:00 (1 - Tdap) [code = Medical C enter DTAP/TDAP/TD VACCINES (1 - Tdap)] Future Scheduled [address] [facility] Test 00:00:00 Counseling and Medical Cente r Screening (12+) [code = Tobacco Cessation Counseling and Screening (12+)] Future Scheduled [address] [facility] Test 00:00:00 0-64 YRS (1 - PCV) Medical C enter [code = PNEUMOCOCCAL VACCINE 0-64 YRS (1 - PCV)] Future Scheduled 1960 COVID-19 VACCINE (#1) [facility] Test 00:00:00 [code = COVID-[address] VACCINE (#1)] Future Scheduled 1962 CT Colonography (combo) [facility] Test 00:00:00 [code = CT Colonography [facility] (combo)] Future Scheduled 1962 Screening for malignant [facility] Test 00:00:00 neoplasm of colon Medical Ce nter (procedure) [code = 930833327] Future Scheduled 1962 Screening for malignant [facility] Test 00:00:00 neoplasm of colon Medical Ce nter (procedure) [code = 339598446] Future Scheduled 1962 Screening for malignant [facility] Test 00:00:00 neoplasm of colon Medical Ce nter (procedure) [code = 627202260] Future Scheduled 1962 Screening for malignant [facility] Test 00:00:00 neoplasm of colon Medical Ce nter (procedure) [code = 580953986] Future Scheduled 1960 Sigmoidoscopy [code = [facility] Test 00:00:00 Sigmoidoscopy] Medical Cente r Encounters Start End Encounter Admission Attending Care Care Encounter Source Date/Time Date/Time Type Type Clinicians Facility Department ID 2021-04-25 [facility] [id number] Common 12:05:40 [id number] [facility] 2021-04-25 [facility] [id number] Common 12:03:07 [id number] [facility] 2021-01-07 Outpatient LEENA REVELES [facility] Surgery [id number] [facility] 14:40:44 PRASUN 2021-01-04 Outpatient VAIBHAV REVELES Surgery [id number] [facility] 11:57:49 [facility] 2021-05-14 2021-05-14 Hospital Abdirizak [facility] [id number] 08:51:00 12:04:[address] [facility] 2021-05-14 2021-05-14 Anesthesia Jeaneth Darby [facility] [id number] [facility] 10:51:00 11:22:00 Event Saba Avina [facility] 2021-05-14 2021-05-14 Surgery Abdirizak, [facility] [id number] 10:00:00 10:30:00 [facility] 2021-05-14 2021-05-14 Travel [facility] [id number] [facility] 00:[facility]00 00:00:00 [facility] 2021-05-07 2021-05-07 Outpatient EL [facility] [id number] [facility] 00:00:00 00:00:00 2020-11-24 2020-11-24 Outpatient LEENA GUPTA, [facility] SLE [id number] [facility] 00:00:00 00:00:00 LINE 2020-11-14 2020-11-14 Outpatient EL ALONSO, [facility] SLE [id number] [facility] 00:00:00 00:00:00 LINE 2020-11-02 2020-11-02 Outpatient EL [facility] [id number] [facility] 00:00:00 00:00:00 2020-04-07 2020-04-07 Outpatient Ana SINHA [facility] [id number] Univers 09:30:00 09:30:00 [facility] 2020-01-14 2020-01-14 Outpatient Ana SINHA [facility] [id number] Univers 09:30:00 09:30:00 [facility] 2020-01-05 2020-01-05 Outpatient LEENA [facility] [id number] [facility] 00:00:00 00:00:00 2019-11-09 2019-11-09 Outpatient LEENA REVELES [facility] SLE [id number] [facility] 00:00:00 00:00:00 [facility] 2019-11-03 2019-11-03 Outpatient VAIBHAV ANGEL [facility] [id number] [facility] 00:00:00 00:00:00 [facility] 2019-10-08 2019-10-08 [facility] [id number] 10:19:10 10:47:58 Visit Sachin Norman [id number] Bradly Sellers [id number] Professio [phone] [address] 2019-10-08 2019-10-08 [facility] [id number] Univers 10:19:10 10:47:58 Visit Sachin Norman [id number] i ty of [place] [id number] [phone] Me dical [address] 2019-10-08 2019-10-08 [facility] [id number] Univers 10:45:00 10:45:00 SACHIN reyespaulino [facility] 2019-09-29 2019-09-29 Outpatient SLE SLE [id number] [facility] 00:00:00 00:00:00 [id number] 2019-09-29 2019-09-29 Outpatient LEENA REVELES [facility] [id number] [facility] 00:00:00 00:00:00 [facility] 2019-07-29 2019-07-29 Outpatient [facility] [id number] [facility] 00:00:00 00:00:00 [id number] 2018-03-17 2018-03-17 [facility] [id number] Common 09:00:00 09:00:00 t Specialty/U Sp ger Specialty rology - [facility]rology Clinic [facility] 2017-12-23 2017-12-23 [facility] [id number] Common 09:15:00 09:15:00 t Specialty/U Sp ger Specialty rology - [facility]I [facility]rology Clinic [facility] 2017-11-25 2017-11-25 [facility] [id number] Common 14:20:00 14:20:00 t Specialty/U Sp ger Specialty rology - [facility]Urology Clinic [facility] 2017-11-18 2017-11-18 Outpatient Jas Garnett [id number] Common 10:15:00 10:15:00 t Specialty/U Sp ger Specialty rology - [facility] Clinic [facility] Results Test Description Test Time Test Comments Results Result Comments Source Tissue Exam 2021-05-15 18:28:39 Test Item Value Reference Range Interpretation Comme nts Case Report (test code = 104) Surgical Pathology Report Case: [id number] Authorizing Provider: Mj Reveles MD Collected: 05/14/2021 11:10 AM Ordering Location: [facility] Endoscopy Received: 05/14/2021 02:17 PM Services Pathologist: Zulay Castro MD Specimen: Biopsy, Gastric, random biopsies DIAGNOSIS (test code = 3220) d4hlxFEkZEYgr7jfJUKtoCTsPgQcEmYnPiPhGv p cdWMxIHtccnRmMVxlcGljOTYwMVxhbnNpXHNwbH AdA6ViyllfSTqxZW5oBO7naUihtAOubZEgBKAuL kEhr1lhe907qVRxe1zhQRVZlqbzvNt8mMbeI80b t9G9NxzxL87eeSPhVHM7WWYzUJDtvXSyFWEzDTC 9UAWujGKrB4krXEWgIH8iejlmZAnhFJfeNAGgzU V0EWQrlFKyU4CvZGVlXCghBOOrpcm2SkKgTg0yz TBiaDsdHEmnEBPgRPPlJUoqNFQwWaSmSA7uS3JG FKORHHwlS1vIXERUU1CcR0YYW8fAIPQRMUYZKB3 QX5f5WDZghud7YFWvXCIOMkAWZZveBW3NTD5IIP 4ICPDgRGIMB1AMUVcKYRxzXf5cPTPXKG9IX5nLG mGPQCABJvBLQR5QGGLnxky8HPEwNROSOJjLACgU LNGJF3OkPFGAZZJFZlDWOMJFMD6CE7IHQ5RLZO3 OG02OSC1ASBXJKVNCQmNiW3UVIW7OPSvzEWZ4g5 xydGYxXHNzdGUxODAwMFxhbnNpXGRlZmxhbmcxM HKpHWZ1suTtAJBoVXooXTIkBIcxEq5qwYCkaHtl HfJgFZFkj9rpmjCIrgbjhBa8s9djFPQuHcR9yGN nOFoeK3hbvbKcrXRxBGDfMDf3sS59RKYfcK6bfJ YbVHbfrzTnUzR1GWhzNORuYtH5HJOykFTqIGBfY 9txMIYhWOqwUKNfYLowbJPfTVL9mMcqw4U8eKFk zZLmgInrEtMeTfNuOcLYp8KoIBq1gWuiL4VsUXO aUuC0xUToOYBhBYtgHDLwPRBqynZ6zH62UVcfkp R8nCCad6Ipi01xr917eA7cwJAyESZ0NZAkYZIfv AKdPDXuKVR6ZMDezJUwH4xbHASxWI2azjpnFPsu VWlfPTFnbMF3CAHbcZEwX3DkOOMtYEuiWVCquxj 4WbOrBu1svMSmnJqvTZcui0ppp6iluUYaFgj0ZV ZqDwEuKcciJNowa5Bib1btUOHtlz7yJYI9jVRyc Kiet9N8fENjUTFjkIPpNBXcDX0rsFBpXZOsgO8c hbomZKAqZjQosxntZKZofYwlstKaMq9jzXqrZNF 6XPuzS3lkdQ5eUfB8FYntO1uofX1uQAt8SGbvCN JxcFH0gzZ5QNYorYXqP8DtuI0mMBAmHR4eikb6z 8kdSLU0BRgxCRFaQrE1sjE5AKBecEVfPNPiqCcg WIjrv538EVC4DzDrFAEup4HpS5CnmZlkE58xzXl uA66cAAUcwUhetT2viDlelG5rKcHpQwAkEQxkoZ sjQB8pWZPjH1fswBQkHVUoOUHvY9xkWgIrgW4cg LdeDLaiwlCsBNZxQmo0ISLnyZXpGQVwFop4MMDo TOTzZ63uvfcdFBV0cC5wh6tzq9PnPEguLXG2UHI dp81mBBtjfeD0TGvpSh59BJyvJMV8ZOmrTND7qC == CPT Code(s) (test code = 3357) x8bfkDOxEZZyuJN1AwLyFPWpz8ulm2XfhVYg cGF qBZeljFIejdDlkq65rOL0pJ69OO9mQCWrVhC5UH CccnB7Lxw2SIEvYFDejTLmP667o3zxy2uzsaQkk IM4kDkcMOSetgatQeJ0THknUAHfmufrUEz9HJij EPKoqND9JGPduVGpI9CpQHFqUQ5cpzj3JMK6NGr vNWJcFzC1TZIqzOHpJZGcqAgfHYifd263NJH7Dt OpSYXlfxOehPjcyE5cPeDfMWA3RVWkUJmqFDB5 CLINICAL HISTORY (test code = 3356) z5edsKBqMNKikKF2NlNkECDqs3bkq6F sdHBncGF eMAzauKHnecFcdj91wYZ6hX56HM0vKOHsGhI2LJ UcngS6Msm4BBJrTSPruKHxC226o1uku3shvtIad CR5jZovKCJtytwxSfI7LSzgKNYphmkxZQq2RZyf OJEzwWY3GKMtzFRoN7MhEMNhWK1tqcw0MXX4DFk pFZHzVrG8CSVlzDEeGEKarLugUFfvx388XBO5Ac YcNJVdwjLcqLgglY3cTpHfJPDRGTJ6grzpPMUev mljZXNccGFyfQ== SPECIMEN SOURCE (test code = 3377) p1xlhTDfCVEcmYM7TeIbQHXzd1zlm3Oz dHBncGF pBBlbvQGljcMkqs68wGG8xU51VV1gRUKgCmS6KJ GslfI6Ugl9SDObEDUolUPtG318u4fuc1gybsCgh IP2cIucDBNolmwsXvJ0ONakCXBoqlaiBPj7LEik MIRqlPU4MVUwzOUsX7MbMAQcOS9gekk9SLG0EVo wFFKzLtF6OMNqtDBlWKNwtQqjREmdt985KZM0Ww SuJDJatcEftCzfxX2pZhXqHEBBRoYyNtastHG3Z WOdVST7dfcvVKCvDN1af50paMWjpA== GROSS DESCRIPTION (test code = 3366) z7ulrAWjPSDnsCM0DbHrSIZil0htw2 BsdHBncGF yGKesoZJuhpUwxb09lKH0fN44LO0vABFaEwO2GW RejhC0Tei6DYYzAAIweUMaX694r2srs4uyxvWag VC1xKelTSCnbbkqVlJ8NFofDRIjqftcVFf1XBgw GTHckAH3OZThsVSnY2XhBBQjDB0rtjr7OOZ4YXe cMHDtKtC9XVYcaYSmKEQcsCviDSgza262RXT0Pw YeHCMvrmHfzRbfsW2oUkTsRQSXJqLTZXTdlZPjQ ZGiptJew3MkWIutfeMpWAJafKNzHOavlOgyxMei YZNcsKyowzQgJ4C7akVmQN7pUAHcRKGvQ5QyJPQ mE24pEIIwvX6mWKGrAB3fNSZyNEU1rqdmLQEMYe WmbzBaN88qm6nlqSUqf5JgByVdtHVmSZMpi5Hoa HXnJKrwnHVfFDJpBwCjfJbxi5HxOZPbfgagtrdr vJ6jl4v2GVJpvq5rUQFnYqB3SEInSiE1BZGdJWS trIK8kzOoYiXejQMiGdXsdNJbSxRzG37fJAVYwE Mrp2ZjL7ylTM1xmHSmu2WfCHWsOY92RYxoGC63U MtiDD9nDPAqKAPcW6GxZ7B3WP8lRUizIERgSVTy fYGiHMomFWX4Jh9lgDWgXSKvjiS6b0ZeXNhdCZM eGfrayM1lVMdeqzShM6qMQCKxoh2= MICROSCOPIC DESCRIPTION (test code = b0ftnKPkQISwgQC4YoBjXVLrs3yuf9 [facility] [address]) hRLtxmXWiqqJjie92tDY6oF00JR8jDNClPjR8OR KqzmL1Shx6MCQaNLFkoEZgU242i2lbx9daxbKlh UJ6iSyvSMYnljzeByZ4TNltBLGlokgqLBy6JKzp HQNkfTQ5EGWjiREsP6JxQDVkZK4dllf3SNZ3YFl rZLUhOfL8UUKuuLUxNKAfgKswGOwjs529VEZ4Zd XkSIWmxpHvnFmvhZ0pDaMnWUOCtlMsuEqqbLCyM 3NksSAidkCvLQ7qDHLeb60zSGaxkAFrxTpdTIri yUI8CSZaCTIhNEccGUerfEglv3ztTE3kCS7lvMw xkaFuF4myhXRah7Prav3xLg8qKFTigAVoZxQjrJ WqLD4eR2Nql2RoEM3yk80jGRVlKQCqQQNyPQ9pY LJjeIJnrzChq5HkuJ0wJdGqXHDaqn8= Gross assessment was performed at (test [facility] C enter, code = 2777) Department of Pathology, [address] [place] [address], Technical component was performed at [facility] er, (test code = 2778) Department of Pathology, [address] [place] [address], Professional component was performed at [facility] enter, (test code = 2779) Department of Pathology, [address] [place] [address], [id number] 18:28:39Surgical Pathology Report Case: [id number] Authorizing Provider: Mj Reveles MD Collected: 05/14/2021 11:10 AM Ordering Location: [facility] Endoscopy Received: 05/14/2021 02:17 PM Services Pathologist: Zulay Castro MD Specimen: Biopsy, Gastric, random biopsies A. STOMACH, SITE NOT SPECIFIED, BIOPSY: - ANTRAL AND OXYNTIC MUCOSA WITH NO PATHOLOGIC ALTERATION - NEGATIVE FOR HELICOBACTER MICROORGANISMS ON ROUTINE STAINS Signing Pathologist Direct Phone Line: [phone] signed by Zulay Castro MD on 05/15/2021 at 6:28 [id number] varicesA. Biopsy, gastric, randomA. Received in formalin labeled with the patient's name, medical record number and "gastric BX" and consists of 3 pieces of allison-white soft tissue ranging in size from 0.3 x 0.2 x 0.1 cm to 0.5 x 0.3 x 0.2 cm.The specimen measures 0.9 x 0.4 x 0.2 cm aggregate. The specimen is submitted in toto in A1.KHHNo significant inflammation, intestinal metaplasia, dysplasia or malignancy is seen. No Helicobacter microorganisms are seen on routine stains. [facility], Department of Pathology, [address] [place] [id number], [facility], [facility] of [facility]ology, [address] [place] [address], [facility], Department of Pathology, [address] [place] [address], [place] [address], PYKJO FETOPROTEIN (AFP), TUMOR [id number] 14:50:00 Test Item Value Reference Range Interpretation Comments ALPHA-FETOPROTEIN (BEAKER) (test 5.6 ng/mL <10.0 code = 1094) Tank Worker ID - BETH MPROTHROMBIN TIME/[id number] 14:30:00 Test Item Value Reference Range Interpretation Comments PROTIME (BEAKER) 13.8 seconds 11.9-14.2 (test code = 759) INR (BEAKER) (test 1.08 See_Comment [Automat ed message] code = 370) The system [employer] generated this result transmitted ref erence range: <=5.90. The reference range was not used to int erpret this result as normal/abnormal . RECOMMENDED COUMADIN/WARFARIN INR THERAPY RANGESSTANDARD DOSE: 2.0 - 3.0 Includes: PROPHYLAXIS for venous thrombosis, systemic embolization; TREATMENT for venous thrombosis and/or pulmonary embolus.HIGH RISK: Target INR is 2.5-3.5 for patients with mechanical heart valves.MR, ABDOMEN, [id number] 15:36:00 REFERRING: DR CLAUDIA LOPEZ REPORT EXAM: MRI of the abdomen WITHOUT and WITH intravenous contrast. TECHNIQUE: Multiplanar and multisequence MR images of the abdomen were obtained before and after the adm inistration of intravenous contrast. Dynamic contrast enhanced sequences were obtained. INDICATION: K74.69,K76.6,B19.20,I86.4,K75.9,K74.60. COMPARISON: MRI from 02/16/2019. FINDINGS: LOWER THORAX: Unremarkable. LIVER: Cirrhosis with periportal fibrosis. There are several wedge-shaped areas of arterialphase hyperenhancement the periphery the liver which are [...] KIDNEYS/URETERS: No hydronephrosis or solid mass lesions. Aright upper pole nonenhancing renal lesion measures 0.6 cm and is consistent with a simple renal cyst. No routine follow-up imaging is recommended. PERITONEUM/RETROPERITONEUM: No free fluid. LYMPH NODES: No lymphadenopathy. 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 Splenorenalshunt. The main portal vein is patent and measures 0.9 cm in diameter. Conventional hepatic arterialanatomy. GI TRACT: No distention or wall thickening. BONES AND SOFT TISSUES: Mild multilevel degenera tive changes in the spine. Schmorl's nodes of the upper lumbar and lower thoracic spine are similar the prior. IMPRESSION: 1.No suspicious liver masses. 2.A single arterially enhancing lesion without washout or pseudocapsule formation measures 0.7 cm in segment III. LI-RADS 3. A follow-up MRI of the ab domen with and without intravenous contrast is recommended in six months to document stability. 3.Cirrhosis with sequelae of portal hypertension including moderate sized paraesophageal and gastric fundal varices. Signed: Yoseph Burns MDReport Verified Date/Time: 11/09/2019 15:36:50 Reading Location: [address] Reading Room ANTI-NUCLEAR ANTIBODY (BAHMAN)2019-02-01 11:23:00 Test Item Value Reference Range Interpretation Comments ANTI-NUCLEAR ANTIBODY (BAHMAN) (BEAKER) Positive Negative A (test code = 418) Test performed by IFA method.BAHMAN TITER AND [id number] 11:23:00 Test Item Value Reference Range Interpretation Comments BAHMAN TITER (BEAKER) (test code = :160 1541) BAHMAN PATTERN (BEAKER) (test code = Speckled 1781) HEPATITIS C PCR, [id number] 12:50:00 Test Item Value Reference Range Interpretation Comments HCV RESULT COMPONENT HCV RNA not detected HCV RNA not detected (BEAKER) (test code = 2699) This test uses a Real-Time Polymerase Chain Reaction (RT-PCR) methodology and was performed using [employer]OVER Ampliprep/CLOVER TaqMan HCV test kit version 2.0 ([employer]).Reportable range for this assay is 15 - 100,000,000 IU per mL (1.18 - 8.00 Log IU/mL).[id number] 11:58:00 Test Item Value Reference Range Interpretation Comments FERRITIN (BEAKER) (test code = 361) 179 ng/mL 5-275 HEPATITIS A ANTIBODY, [id number] 11:19:00 Test Item Value Reference Range Interpretation Comments HEPATITIS A IGG ANTIBODY (BEAKER) Reactive Nonreactive A (test code = 2797) ALPHA FETOPROTEIN (AFP), TUMOR [id number] 11:16:00 Test Item Value Reference Range Interpretation Comments ALPHA-FETOPROTEIN (BEAKER) (test 7.0 ng/mL <10.0 code = 1094) [id number] 11:07:00 Test Item Value Reference Range Interpretation Comments ALPHA-1 ANTITRYPSIN (BEAKER) 205.10 mg/dL 90.00-200.00 H (test code = 502) COMPREHENSIVE METABOLIC [id number] 11:06:00 Test Item Value Reference Range Interpretation [...] NOT APPLICABLE FOR DIALYSIS PATIEN TS. BILIRUBIN, [id number] 11:06:00 Test Item Value Reference Range Interpretation [...] = 2590) CBC W/PLT COUNT & AUTO [id number] 10:47:00 Test Item Value Reference Range Interpretation [...] PERCENT (BEAKER) (test code = 2801) PROTHROMBIN TIME/[id number] 10:44:00 Test Item Value Reference Range Interpretation Comments PROTIME (BEAKER) (test code = 14.1 seconds 11.9-14.2 759) INR (BEAKER) (test code = 370) 1.2 <=5.9 Effective 08/26/2018: PT Reference Range ChangeNew: 11.9-14.2 Previous: 11.7- 14.7RECOMMENDED COUMADIN/WARFARIN INR THERAPY RANGESSTANDARD DOSE: 2.0-3.0 Includes: PROPHYLAXIS for venous thrombosis, systemic embolization; TREATMENT for venous thrombosis and/or pulmonary embolus.HIGH RISK: Target INR is 2.5-3.5 for patients wiht mechanical heart valves.
[2022-05-08] MEDS ORDERED: ONDANSETRON 4 MG/2 ML VIAL ONE ×2 (17:17→20:28)
[2022-05-08] MEDS ORDERED: PANTOPRAZOLE 40 MG INJ ONE (17:17)
[2022-05-08 17:31] LABS: Absolute Lymphocytes (CBC) 1.3 K/uL (0.7-4.9); Hematocrit 48.3 % (39.6-49.0); Lymphocytes % 17.9 % (15.3-44.8); MCV 89.7 fL (80-100); MPV 8.2 fL (7.6-11.3); RBC Red Blood Cell Count 5.38 M/uL (4.33-5.43)
[2022-05-08 17:38] LABS: Bilirubin Total 1.4 mg/dL (0.2-1.0); Potassium 3.7 mmol/L (3.5-5.1); Protein, Total 8.4 g/dL (6.4-8.2)
[2022-05-08] MEDS ORDERED: PANTOPRAZOLE INJ 80 MG in NA CHLORIDE 0.9% 250 ML IV SCH (18:00)
[2022-05-08] MEDS ORDERED: OCTREOTIDE 500 MCG in NA CHLORIDE 0.9% 500 ML IV SCH (18:00)
--- NOTE | 2022-05-08 18:21 | EDPHYS ---
Physician Documentation [facility] Name: Melchor Cisse III Age: 62 yrs Sex: Male : 1960 Arrival Date: 05/08/2022 Time: 16:17 Bed 13 Private MD: Alf Cam ED Physician Oliver Mehta HPI: 05/08 18:21 This 62 yrs old Male presents to ER via Ambulatory with complaints of Abdominal Pain, ms3 Vomiting - blood, Fever, Cough. 18:21 62-year-old male with past medical history of cirrhosis, Crohn's, hepatitis, herpes, ms3 HIV, ulcerative colitis presents with his for hematemesis to begin at 9 AM. Patient states his abdominal pain is a 7/10. Patient denies alleviating or inciting factors.. Historical: - Allergies: 16:36 Iodine; aa5 16:36 Morphine; aa5 16:36 shrimp; aa5 - PMHx: 16:36 Cirrhosis; Crohn's; Hepatitis; HERPES; HIV; HPV; ibs; ulcerative colitis; aa5 - PSHx: 16:36 Cholecystectomy; aa5 - Immunization history:: Adult Immunizations unknown. - Social history:: Smoking status: Patient reports the use of cigarette tobacco products. ROS: 18:21 Constitutional: Negative for fever, and chills. Neck: Negative for injury, pain, and ms3 swelling, Cardiovascular: Negative for chest pain, and palpitations. Respiratory: Negative for shortness of breath, cough, wheezing, and pleuritic chest pain. 18:21 Abdomen/GI: Positive for abdominal pain, nausea and vomiting, hematemesis. 18:21 All other systems are negative. Exam: 18:21 Constitutional: This is a well developed, well nourished patient who is awake, alert, ms3 and in no acute distress. Head/Face: Normocephalic, atraumatic. Neck: Trachea midline, no cervical lymphadenopathy. Supple, full range of motion without nuchal rigidity, or vertebral point tenderness. No Meningismus. Chest/axilla: Normal chest wall appearance and motion. Nontender with no deformity. Cardiovascular: Regular rate and rhythm with a normal S1 and S2. No gallops, murmurs, or rubs. Normal PMI, no JVD. No pulse deficits. Respiratory: Lungs have equal breath sounds bilaterally, clear to auscultation and percussion. No rales, rhonchi or wheezes noted. No increased work of breathing, no retractions or nasal flaring. Skin: Warm, dry with normal turgor. Normal color with no rashes, no lesions, and no evidence of cellulitis. MS/ Extremity: Pulses equal, no cyanosis. Neurovascular intact. Full, normal range of motion. 18:21 Abdomen/GI: Inspection: abdomen appears normal, Bowel sounds: normal, Palpation: soft, nontender. Vital Signs: 16:34 BP 169 / 103; Pulse 64; Resp 20 S; Pulse Ox 100% on R/A; Weight 81.65 kg (R); Height 5 aa5 ft. 11 in. (180.34 cm) (R); 17:00 BP 169 / 108; Pulse 49; Resp 18; Pulse Ox 98% ; ko1 17:30 BP 186 / 106; Pulse 56; Pulse Ox 99% ; ko1 17:45 BP 183 / 97; Pulse 54; Pulse Ox 98% ; ko1 18:00 BP 163 / 88; Pulse 50; Resp 16; Pulse Ox 99% ; ko1 18:15 BP 179 / 87; Pulse 52; Pulse Ox 98% ; ko1 20:00 BP 174 / 98; Pulse 82; Resp 18; Temp 98.7(TE); Pulse Ox 100% on R/A; jb4 21:00 BP 102 / 77; Pulse 81; Resp 16; Pulse Ox 97% on R/A; jb4 16:34 Body Mass Index 25.10 (81.65 kg, 180.34 cm) aa5 MDM: 16:49 Patient medically screened. ms3 17:42 Management of patient was discussed with the following: Duplex Trimmer: Discussed case with ms3 AUTO [employer] CONDITION[employer] APPRENTICE with Dr Kaminski and either Dr Kaminski or she will call me back.. 18:21 Differential diagnosis: Nonspecific abd pain, gastritis, Esophageal varices. ms3 18:23 Management of patient was discussed with the following: Duplex Trimmer: Discussed case with ms3 [employer] CONDITIONING APPRENTICE for for Dr Kaminski and patient will require transfer to [facility]. Patient see's Dr Reveles at [facility] for his liver.. 18:25 Data reviewed: vital signs, nurses notes, lab test result(s), and as a result, I will ms3 transfer. Consideration of Admission/Observation Patient to be transferred. I considered the following discharge prescriptions or medication management in the emergency department Medications were administered in the Emergency Department. See MAR. Care significantly affected by the following chronic conditions: Liver Disease. Counseling: I had a detailed discussion with the patient and/or guardian regarding: the historical points, exam findings, and any diagnostic results supporting the discharge/admit diagnosis, lab results, the need to transfer to another facility. 19:30 ED course: Discussed case with Dr Joseph at [facility]. He will consult on patient.. ms3 05/08 16:50 Order name: CBC with Diff; Complete Time: 17:41 ms3 05/08 16:50 Order name: CMP; Complete Time: 17:38 ms3 05/08 16:50 Order name: Lipase; Complete Time: 17:38 ms3 05/08 16:50 Order name: Urine Microscopic Only; Complete Time: 19:25 ms3 05/08 16:50 Order name: Type And Screen ms3 05/08 18:29 Order name: SARS-COV-2 Antigen Rapid; Complete Time: 19:38 bd 05/08 19:04 Order name: Urine Dipstick-Ancillary; Complete Time: 19:25 EDMS 05/08 19:30 Order name: PT-INR ms3 05/08 16:50 Order name: IV Saline Lock; Complete Time: 17:11 ms3 05/08 16:50 Order name: Labs collected and sent; Complete Time: 17:13 ms3 05/08 16:50 Order name: Urine Dipstick-Ancillary (obtain specimen); Complete Time: 18:49 ms3 05/08 17:19 Order name: Labs - recollect needed: recollect type and screen; Complete Time: 20:11 bd Administered Medications: 17:19 Drug: Zofran (Ondansetron) 4 mg Route: IVP; Site: left antecubital; ko1 17:19 Drug: ProTONIX (pantoprazole) 80 mg Route: IVP; Site: left antecubital; ko1 17:41 Drug: ProTONIX (pantoprazole) 8 mg/hr Route: IV; Rate: 25 ml/hr; Site: left antecubital;ko1 21:38 Follow up: Response: No adverse reaction; IV Status: Infusion continued upon transfer jb4 17:41 Drug: Octreotide Infusion (50 mcg/hr) - (Octreotide 500 mcg, NS 0.9% 500 ml) Route: IV; ko1 Rate: 50 ml/hr; Site: left antecubital; 21:37 Follow up: Response: No adverse reaction; IV Status: Infusion continued upon transfer jb4 20:19 Drug: Rocephin (cefTRIAXone) 1 grams Route: IV; Rate: per protocol; Site: left jb4 antecubital; 21:37 Follow up: Response: No adverse reaction; IV Status: Completed infusion jb4 20:33 Drug: Dilaudid (HYDROmorphone) 1 mg Route: IVP; Site: left antecubital; jb4 21:37 Follow up: Response: No adverse reaction; Marked relief of symptoms jb4 20:33 Drug: Zofran (Ondansetron) 4 mg Route: IVP; Site: left antecubital; jb4 21:37 Follow up: Response: No adverse reaction; Marked relief of symptoms jb4 Disposition Summary: 05/08/22 18:21 Transfer Ordered Transfer Location: [facility] ms3 Reason: Higher level of care ms3 Condition: Stable ms3 Problem: new ms3 Symptoms: are unchanged ms3 Accepting Physician: (05/08/22 21:38) jb4 Diagnosis - Upper GI bleed ms3 - Hematemesis ms3 - Unspecified cirrhosis of liver ms3 Forms: - Medication Reconciliation Form ms3 - SBAR form ms3 Critical care time excluding procedures: 18:25 Critical care time: Bedside Care: 40 minutes, Consultation: 10 minutes, Family ms3 Intervention: 10 minutes. Total time: 60 minutes Signatures: Dispatcher [employer] Karen James Corey, MD MD cha Calderon, Audri, RN RN aa5 Chon Barclay RN RN jb4 Akshat Benton DO DO ms3 Grecia Choi, RN RN ko1 Corrections: (The following items were deleted from the chart) 21:38 18:21 Dr [email or web address] jb4
--- NOTE | 2022-05-08 18:21 | ER ---
Nurse's Notes [facility] Name: Melchor Cisse III Age: 62 yrs Sex: Male : 1960 Arrival Date: 05/08/2022 Time: 16:17 Bed 13 Private MD: Alf Cam Diagnosis: Upper GI bleed;Hematemesis;Unspecified cirrhosis of liver Presentation: 05/08 16:34 Chief complaint: Patient states: abd pain, vomiting dark blood, and chills that began aa5 this morning. Pt also reports cough. Pt actively vomiting in triage. Coronavirus screen: cough unrelated to allergies. Ebola Screen: No symptoms or risks identified at this time. Initial Sepsis Screen: Does the patient meet any 2 criteria? No. Patient's initial sepsis screen is negative. Does the patient have a suspected source of infection? No. Patient's initial sepsis screen is negative. Risk Assessment: Do you want to hurt yourself or someone else? Patient reports no desire to harm self or others. Onset of symptoms was May 08, 2022. 16:34 Method Of Arrival: Ambulatory aa5 16:34 Acuity: ANTONIA 3 aa5 Historical: - Allergies: 16:36 Iodine; aa5 16:36 Morphine; aa5 16:36 shrimp; aa5 - PMHx: 16:36 Cirrhosis; Crohn's; Hepatitis; HERPES; HIV; HPV; ibs; ulcerative colitis; aa5 - PSHx: 16:36 Cholecystectomy; aa5 - Immunization history:: Adult Immunizations unknown. - Social history:: Smoking status: Patient reports the use of cigarette tobacco products. Screenin:15 [facility] ED Fall Risk Assessment (Adult) History of falling in the last 3 months, ko1 including since admission No falls in past 3 months (0 pts) Confusion or Disorientation No (0 pts) Intoxicated or Sedated No (0 pts) Impaired Gait No (0 pts) Mobility Assist Device Used No (0 pt) Altered Elimination No (0 pt) Score/Fall Risk Level 0 - 2 = Low Risk Oriented to surroundings, Maintained a safe environment, Educated pt \T\ family on fall prevention, incl call for assistance when getting out of bed, Assessed \T\ reinforced patient's understanding of fall precautions, Provided non-skid footwear, Hourly rounding (assess needs \T\ fall precautionary measures) done, Used ambulatory aids as needed (educated on \T\ assisted with), Used gait belt as appropriate. Abuse screen: Denies threats or abuse. Denies injuries from another. Nutritional screening: No deficits noted. Tuberculosis screening: No symptoms or risk factors identified. Assessment: 17:00 General: Appears distressed, uncomfortable, ill, Behavior is cooperative, appropriate ko1 for age, anxious, restless. Pain: Complains of pain in abdomen. Neuro: No deficits noted. Cardiovascular: No deficits noted. Respiratory: No deficits noted. GI: Pt is actively vomiting Bowel sounds present X 4 quads. Abd is soft X 4 quads Abdomen is tender to palpation X 4 quads. : No deficits noted. EENT: No deficits noted. Derm: No deficits noted. Musculoskeletal: No deficits noted. 19:00 Reassessment: Patient appears in no apparent distress at this time. Patient and/or jb4 family updated on plan of care and expected duration. Pain level reassessed. Patient is alert, oriented x 3, equal unlabored respirations, skin warm/dry/pink. 20:00 Reassessment: Patient appears in no apparent distress at this time. Patient and/or jb4 family updated on plan of care and expected duration. Pain level reassessed. Patient is alert, oriented x 3, equal unlabored respirations, skin warm/dry/pink. 21:00 Reassessment: Patient appears in no apparent distress at this time. Patient and/or jb4 family updated on plan of care and expected duration. Pain level reassessed. Patient is alert, oriented x 3, equal unlabored respirations, skin warm/dry/pink. Vital Signs: 16:34 BP 169 / 103; Pulse 64; Resp 20 S; Pulse Ox 100% on R/A; Weight 81.65 kg (R); Height 5 aa5 ft. 11 in. (180.34 cm) (R); 17:00 BP 169 / 108; Pulse 49; Resp 18; Pulse Ox 98% ; ko1 17:30 BP 186 / 106; Pulse 56; Pulse Ox 99% ; ko1 17:45 BP 183 / 97; Pulse 54; Pulse Ox 98% ; ko1 18:00 BP 163 / 88; Pulse 50; Resp 16; Pulse Ox 99% ; ko1 18:15 BP 179 / 87; Pulse 52; Pulse Ox 98% ; ko1 20:00 BP 174 / 98; Pulse 82; Resp 18; Temp 98.7(TE); Pulse Ox 100% on R/A; jb4 21:00 BP 102 / 77; Pulse 81; Resp 16; Pulse Ox 97% on R/A; jb4 16:34 Body Mass Index 25.10 (81.65 kg, 180.34 cm) aa5 ED Course: 16:17 Patient arrived in ED. am2 16:18 Alf Cam MD is Private Physician. am2 16:34 Arm band placed on. aa5 16:35 Triage completed. aa5 16:43 Akshat Benton DO is Attending Physician. ms3 16:55 Grecia Choi, MARISELA is Primary Nurse. ko1 17:00 Inserted saline lock: 20 gauge in left antecubital area, using aseptic technique. Blood ko1 collected. 17:11 CBC with Diff Sent. ko1 17:11 CMP Sent. ko1 17:11 Lipase Sent. ko1 17:11 Type And Screen Sent. ko1 18:15 Patient has correct armband on for positive identification. Placed in gown. Bed in low ko1 position. Call light in reach. Side rails up X 1. Pulse ox on. NIBP on. Door closed. Noise minimized. Lights dimmed. Warm blanket given. Pillow given. 18:20 attempted to contact transfer center to initiated transfer to [facility], bd phone rang for 3 min then hung up. 18:22 2nd attempt to contact transfer center. bd 18:23 pt denied at [facility] by JERSEY Wong due to no tele beds at [facility]. bd 18:27 initiated transfer to [facility]. bd 18:49 SARS-COV-2 Antigen Rapid Sent. ko1 18:49 Urine Microscopic Only Sent. ko1 19:37 Attending Physician role handed off by Akshat Benton DO shawn 19:37 Oliver Mehta MD is Attending Physician. shawn 21:36 No provider procedures requiring assistance completed. Patient transferred, IV remains jb4 in place. Administered Medications: 17:19 Drug: Zofran (Ondansetron) 4 mg Route: IVP; Site: left antecubital; ko1 17:19 Drug: ProTONIX (pantoprazole) 80 mg Route: IVP; Site: left antecubital; ko1 17:41 Drug: ProTONIX (pantoprazole) 8 mg/hr Route: IV; Rate: 25 ml/hr; Site: left antecubital;ko1 21:38 Follow up: Response: No adverse reaction; IV Status: Infusion continued upon transfer jb4 17:41 Drug: Octreotide Infusion (50 mcg/hr) - (Octreotide 500 mcg, NS 0.9% 500 ml) Route: IV; ko1 Rate: 50 ml/hr; Site: left antecubital; 21:37 Follow up: Response: No adverse reaction; IV Status: Infusion continued upon transfer jb4 20:19 Drug: Rocephin (cefTRIAXone) 1 grams Route: IV; Rate: per protocol; Site: left jb4 antecubital; 21:37 Follow up: Response: No adverse reaction; IV Status: Completed infusion jb4 20:33 Drug: Dilaudid (HYDROmorphone) 1 mg Route: IVP; Site: left antecubital; jb4 21:37 Follow up: Response: No adverse reaction; Marked relief of symptoms jb4 20:33 Drug: Zofran (Ondansetron) 4 mg Route: IVP; Site: left antecubital; jb4 21:37 Follow up: Response: No adverse reaction; Marked relief of symptoms jb4 Outcome: 18:21 ER care complete, transfer ordered by ms3 21:36 Transferred by [facility] to [facility], Transfer form completed. jb4 X-rays sent w/ patient. 21:36 Condition: stable 21:36 Discharge instructions given to patient, family, Instructed on the need for transfer, Demonstrated understanding of instructions. 21:38 Patient left the ED. jb4 Signatures: Karen Pettit Corey, MD MD cha Calderon, Audri, RN RN aa5 Chon Barclay, RN RN jb4 Kelly Mosqueda am2 Akshat Benton DO DO ms3 Grecia Choi, MARISELA RN ko1 Corrections: (The following items were deleted from the chart) 16:36 16:34 Chief complaint: Patient states: abd pain, vomiting dark blood, and chills that aa5 began this morning. Pt also reports cough. aa5 16:36 16:34 Acuity: ANTONIA 3 aa5 aa5
[2022-05-08 19:03] LABS: Urine Blood Trace-intact (Negative); Urine Glucose Negative (Negative); Urine Protein 2+ (Negative); Urine Specific Gravity 1.015 (1.005-1.030); Urine pH 7.5 (5.0-7.0)
[2022-05-08 19:13] LABS: Urine Bacteria <20 /HPF (<20); Urine Mucus Slight /HPF (None Seen); Urine Sperm Present (None Seen)
[2022-05-08 19:30] LABS: SARS-CoV-2 Antigen Rapid Res Negative (Negative)
[2022-05-08] MEDS ORDERED: CEFTRIAXONE 1000 MG/VIAL ONE (19:55)
[2022-05-08] MEDS ORDERED: HYDROMORPHONE HCL 1 MG/ML INJ ONE (20:28)
[2022-05-08 20:30] LABS: Protime INR 1.2
[2022-05-08 22:09] VITALS: TEMP 98.7
[2022-05-08 22:10] VITALS: BP 102/77; O2SAT 97
== END 2022-05-08 21:38 | disposition short-term general hospital (02) ==
LOC: ER 16:17
DX: K92.0 Hematemesis (principal); K74.60 Unspecified cirrhosis of liver; Z20.822 Contact with and (suspected) exposure to COVID-19; Z21 Asymptomatic human immunodeficiency virus [HIV] infection status; Z88.5 Allergy status to narcotic agent; Z91.013 Allergy to seafood; Z91.048 Other nonmedicinal substance allergy status; Z72.0 Tobacco use
CPT/HCPCS: 85025; 36415; 86900; 86850; 85610; 86901; 83690; 80053; 87811; J2354; C9113; J1170; J7050; J7040; J2405 ×2; 81003; 81015

== ENCOUNTER 2022-08-01 09:28 | Inpatient (IN) | payer OTHER ==
--- OUTSIDE RECORDS SUMMARY | 2022-08-01 09:35 | XMS REPORT | Continuity of Care Document ---
:1960 Author Organization [facility] t Address [address] [place] [address]. [address] [place] [address] Care Team Providers Name Role Phone ISABEL ASIF Primary Care Physician Unavailable CHERYL KRUEGER Attending Clinician Unavailable SHASHA REVELES Attending Clinician Unavailable Irais Vo MD Attending Clinician Derek Donaldson MD Attending Clinician Cheryl Krueger MD Attending Clinician Chasidy HUNTLEY, Jeremie Lanza Attending Clinician Caleb Harris MD Attending Clinician IRAIS VO Attending Clinician Unavailable Shasha Reveles MD Attending Clinician Jeaneth Darby MD Attending Clinician [phone] Saba Avina CRNA Attending Clinician QUETA GUPTA Attending Clinician Unavailable SACHIN SINHA Attending Clinician Unavailable Sachin Sinha MD Attending Clinician IRAIS VO Admitting Clinician Unavailable SHASHA REVELES Admitting Clinician Unavailable Payers Payer Name Policy Type Policy Number Effective Date Expiration Date S khalif MEDICARE A B [id number] 1994 00:00:00 MEDICAID [facility] [id number] 2020 00:00:00 MEDICAID THAD [id number] 2016 00:00:00 MEDICARE PART A \\T\\ [id number] 1994 B 00:00:00 [facility] [id number] 2016 MEDICAID 00:00:00 Problems Condition Condition Condition Status Onset Resolution Last Treating Co mments Source Name Details Category Date Date Treatment Clinician Date Asymptomat Asymptomat Disease Recurre [facility] infection, infection, 00:00: Me dical with no with no 00 Center history of history of HIV-relate HIV-relate d illness d illness GIB GIB Disease Active [facility] (gastroint (gastroint 2-08 Ellie kes estinal estinal 00:00: Medical bleeding) bleeding) 00 Cent er Screening Screening Disease Active 2018-03 Last [facility] St for for 0-30 [facility] malignant malignant 00:00: t & Plan: M edical neoplasm neoplasm [address] g of this note might be different from the original. Cirrhosis , regardles s of etiology, is a risk factor for developme nt of hepatocel lular carcinoma . Thus, we recommend surveilla nce imaging and alphafeto protein every 6 months. We will get MRI abdomen with contrast and AFP. Cirrhosis Cirrhosis Disease Recurre Last I St nce 03-31 [facility]men [facility] 00:00: t & Plan: Medical 00 Formattin Center g of this note might be different [...] were reviewed. Hepatitis Hepatitis Disease Active Last [facility] St C C 03-31 [facility]men [facility] 00:00: t & Plan: Medical 00 Formattin Center g of this note might be different from the original. Patient was treated with Mavyret and achieved SVR in 2019. We will check HCV RNA PCR today. Portal Portal Disease Recurre Last [facility] & Plan: [facility] g of this note might be different from the original. Complicat ions of portal venous hypertens ion include gastroeso phageal varices and hypersple nism indicate decompens ation of cirrhosis . These significa ntly increase the risk of . Gastric Gastric Disease Active Last [facility] St varices [facility]ices [facility] t & Plan[facility] g of this note might be different [...] Disease Active [facility] t liver liver [facility] enzymes enzymes [facility] Condyloma Condyloma Problem Active Com mon acuminatum acuminatum Sp ger due to due to - [facility] human human St papillomav papillomav [facility] irus (HPV) irus (HPV) [facility] Follow up Follow up Diagnosis Active [facility] Allergies, Adverse Reactions, Alerts Allergy Allergy Status Severity Reaction(s) Onset Inactive Treating Comm ents Source Name Type Date Date Clinician Iodine Propensi Active Other (See Vomiting [facility] ty to Comments) 11-18 [facility] adverse 00:00: Medical reaction 00 [place] [facility] Morphine Propensi Active Itching Itching [facility] ty to 11-18 and [facility] adverse 00:00: vomiting Medical reaction 00 [place] IODINE Allergy Active Med Other [facility] 11-18 00:00: 00 MORPHINE Allergy Active Med Itching [facility] 11-18 00:00: 00 MORPHINE Adverse Active Info Not Commo n Reaction Available [facility] Iodine Adverse Active Info Not Common Reaction Available [facility] NO KNOWN Drug Active Univers ALLERGIE Class ity of S [facility] Family History Family Member Diagnosis Comments Start Date Stop Date Source Natural father Hearing loss [facility] Natural father Stroke [facility] Natural mother Cancer [facility] Natural sister Heart disease [facility] Natural sister Hypertension [facility] Social History Social Habit Start Date Stop Date Quantity Comments Source Exposure to Not sure University of SARS-CoV-2 (event) [facility] History of tobacco Cigarette Smoker [facility] use Medical Center History [facility] Alcohol Std Drinks Medica l Center History SDAR [facility] Alcohol Binge Medical Rianna ter History [facility] Transport Non-Med Medical Center Alcohol intake 2022-05-10 2022-05-[address] [facility] es 00:00:00 00:00:00 non-drinker of Medical Ce nter alcohol (finding) Cigarettes smoked 2022-05-09 2022-05-[address] [facility] current (pack per 00:00:00 00:00:00 Medical Center day) - Reported Cigarette 2022-05-09 2022-05-[address] [facility] pack-years 00:00:00 00:00:00 Medical Center Tobacco use and 2022-05-09 2022-05-[address] Ellie kes exposure 00:00:00 00:00:00 tobacco non-user Medical Center History [facility] 2022-05-09 2022-05-[address] Transport Med 00:00:00 00:00:[address] [facility] 2022-05-09 2022-05-[address] [facility] Housing Unable to 00:00:00 00:00:00 Medical Center Pay History [facility] 2022-05-09 2022-05-[address] [facility] Housing Places 00:00:00 00:00:00 Medical Ce nter Lived History [facility] 2022-05-09 2022-05-[address] [facility] Housing Homeless 00:00:00 00:00:00 Medical Center Last Year Tobacco Comment 2022-05-09 2022-05-09 tapered 2-3mos; [facility] 00:00:00 00:00:00 totally stopped Medical C enter smoking 1 week ago Alcohol Comment 2022-05-09 2022-05-09 quit drinking [facility] 00:00:00 00:00:00 1995 Medical Center History SDOH 2019-01-27 2019-01-[address] [facility] Alcohol Frequency 00:00:00 00:00:00 [facility] Center Sex Assigned At [birth year] [facility] St Ellie cade 00:00:00 00:00:00 Medical Center Smoking Status Start Date Stop Date Source Unknown if ever smoked [facility] Smokes tobacco daily 2022-05-09 00:00:00 [facility] Medications Ordered Filled Start Stop Current Ordering Indication Dosage Frequency Signature Comments Components Source Medication Medication Date Date Medication? Clinician (SIG) Name Name abacavir-do Yes [address] lutegravir- 2-10 daily [facility] lamivudine 16:02: Medical (TRIUMEQ) 51 Center 600-50-300 mg Tab metoprolol 2022- No 50mg Q.5D Take [address] tartrate 2-10 02-10 by mouth 2 Luke s (LOPRESSOR) 09:21: 00:00 (two) Medi agatha 50 MG 50 :00 times Center tablet daily. esomeprazol 2022- No [address] e (NEXIUM) 2-10 02-10 twice [facility]ukes 40 MG 09:16: 00:00 daily Medical capsule 37 :00 Center propranoloL Yes 20mg Q.5D Take [address] (INDERAL) 2-10 tablet (20 Luke s 20 MG 00:00: mg total) Medical tablet 00 by mouth 2 Center (two) times daily. ondansetron Yes 4mg Take [address] (ZOFRAN-ODT 2-10 tablet (4 Sal es ) 4 MG 00:00: mg total) Medica l disintegrat 00 by mouth Cent er ing tablet every 8 (eight) hours as needed for Nausea. pantoprazol Yes 40mg QD Take [address] e 2-10 tablet (40 [facility] (PROTONIX) 00:00: mg total) Me dical 40 MG 00 by mouth Center tablet daily. abacavir-do Yes [address] [...] (two) Medic al 00 times Center daily. clonazePAM 2018-03 No 1mg Q.5D Take [address] (KLONOPIN) 0-14 02-10 by mouth 2 Ellie kes 1 MG tablet 00:00: 00:00 (two) Medi agatha 00 :00 times Center daily. propranolol 2018-03 Yes 20mg Q.5D Take [address] (INDERAL) 0-10 by mouth 2 Luke s 20 MG 00:00: (two) Medical tablet 00 times Center daily . propranolol 2018-03 No 20mg Q.5D Take [address] (INDERAL) 0-10 02-10 by mouth 2 Sal es 20 MG 00:00: 00:00 (two) Medical tablet 00 :00 times Center daily . HYDROcodone 2018-03 Yes 1{tbl} Take [address] -acetaminop 0-01 tablet by Sal es hen (NORCO 00:00: mouth Medica l 7.5-325) 00 every 8 Center 7.5-325 mg (eight) per tablet hours as needed for Pain . HYDROcodone 2018-03- No 1{tbl} Take [address] -acetaminop 0-01 02-10 tablet by Ellie kes hen (NORCO 00:00: 00:00 mouth Medic al 7.5-325) 00 :00 every 8 Center 7.5-325 mg (eight) per tablet hours as needed for Pain . cyclobenzap Yes 10mg Take [address] rine 8-26 by mouth 3 [facility] (FLEXERIL) 00:00: (three) Medi agatha 10 MG 00 times Center tablet daily as needed for Muscle spasms . cyclobenzap 2022- No 10mg Take [address] rine 8-26 02-10 by mouth 3 [facility] (FLEXERIL) 00:00: 00:00 (three) Med ical 10 MG 00 :00 times Center tablet daily as needed for Muscle spasms . No known No Univers medications ity [facility] No known No Univers medications [facility] Esomeprazol Esomeprazol Yes Williams 1 capsule Common e Magnesium e Magnesium Alyvacev [facility] Hydrocodone Hydrocodone Yes Williams 1 tablet Common -Acetaminop -Acetaminop Kovacev as needed [facility] Triumeq Triumeq Yes Williams 1 tablet [facility] n [facility] Clozapine Clozapine Yes Williams 1 tablet C ommon [facility] Vital Signs Vital Name Observation Time Observation Value Comments Source HEIGHT 2022-05-08 23:00:00 180.3 cm WEIGHT 2022-05-08 23:00:00 80.1 kg HEIGHT 2022-05-08 23:00:00 180.3 cm WEIGHT 2022-05-08 23:00:00 80.1 kg HEIGHT 2022-05-08 23:00:00 180.3 cm WEIGHT 2022-05-08 23:00:00 80.1 kg HEIGHT 2020-11-02 13:16:00 180.3 cm WEIGHT 2020-11-02 13:16:00 84.278 kg HEIGHT 2020-11-02 13:16:00 180.3 cm WEIGHT 2020-11-02 13:16:00 84.278 kg Systolic blood 2019-10-08 15:26:00 144 mm[Hg] [facility] Diastolic blood 2019-10-08 15:26:00 96 mm[Hg] [facility] Heart rate 2019-10-08 15:26:00 88 /min [facility] Body temperature 2019-10-08 15:26:00 36.5 Flor [facility] Respiratory rate 2019-10-08 15:26:00 18 /min [facility] Body weight 2019-10-08 15:26:00 83.371 kg [facility] Systolic blood 2019-10-08 15:26:00 144 mm[Hg] Univer [facility]ity [facility] Diastolic blood 2019-10-08 15:26:00 96 mm[Hg] [facility] Heart rate 2019-10-08 15:26:00 88 /min [facility] Body temperature 2019-10-08 15:26:00 36.5 Flor [facility] Respiratory rate 2019-10-08 15:26:00 18 /min [facility] Body weight 2019-10-08 15:26:00 83.371 kg [facility] Heart rate 2022-05-10 09:00:00 74 /min [facility] Respiratory rate 2022-05-10 09:00:00 18 /min [facility] Oxygen saturation in 2022-05-10 09:00:00 96 /min [facility] Arterial blood by Medical Ce nter Pulse oximetry Systolic blood 2022-05-10 08:40:00 134 mm[Hg] [facility] Diastolic blood 2022-05-10 08:40:00 84 mm[Hg] [facility] Body temperature 2022-05-10 08:40:00 35.72 Flor [facility] Body weight 2022-05-10 05:35:00 81.012 kg [facility] BMI 2022-05-10 05:35:00 24.91 kg/m2 [facility] Body height 2022-05-08 23:00:00 180.3 cm [facility] Systolic blood 2021-05-14 11:47:00 133 mm[Hg] [facility] Diastolic blood 2021-05-14 11:47:00 81 mm[Hg] [facility] Heart rate 2021-05-14 11:47:00 66 /min [facility] Body temperature 2021-05-14 11:47:00 36.67 Flor [facility] Respiratory rate 2021-05-14 11:47:00 17 /min [facility] Oxygen saturation in 2021-05-14 11:47:00 99 /min [facility] Arterial blood by Medical Ce nter Pulse oximetry Body height 2021-05-14 09:15:00 180.3 cm [facility] Body weight 2021-05-14 09:15:00 77.701 kg [facility] BMI 2021-05-14 09:15:00 23.89 kg/m2 [facility] Procedures Procedure Date / Time Performed Performing Clinician Souroneida e POCT-GLUCOSE METER 2022-05-10 07:47:00 Cheryl Krueger [facility] CBC W/PLT COUNT & AUTO 2022-05-10 02:54:00 Escudero [facility] COMPREHENSIVE METABOLIC 2022-05-10 02:54[facility] 2022-05-10 02:54:00 [facility]OS[facility]US 2022-05-10 02:54:00 [facility] CBC W/PLT COUNT & AUTO 2022-05-10 02:54:00 Escudero [facility] POCT-GLUCOSE METER 2022-05-09 21:17:00 Cheryl Krueger [facility] EGD 2022-05-09 13:29:00 Jeremie Umaña [facility] (ESOPHAGOGASTRODUODENOSCO [facility]) HEMOGLOBIN AND HEMATOCRIT 2022-05-09 11:34:00 [facility] HEMOGLOBIN AND HEMATOCRIT 2022-05-09 09:15:00 Zachary reggie [facility] COMPREHENSIVE METABOLIC 2022-05-09 03:22:00 Escudero, [facility] MAGNESIUM 2022-05-09 03:22:00 [facility] [place] PHOSPH[facility]US 2022-05-09 03:22:00 [facility] [place] CALCIUM, IONIZED 2022-05-09 03:22:00 Zachary [facility]VA [facility] PT/APTT 2022-05-09 03:22:00 [facility] ABORH, MANUAL 2022-05-09 03:22:00 Josephine Blakely [facility] SARS-COV2/RT-PCR ([facility] & 2022-05-09 00:47:00 Afaq, [facility] Tasneem alexis [facility] REF LABS) Medical Center HEPATITIS C PCR, 2022-05-08 23:56:00 Afaq, [facility] QUANTITATIVE [facility] HIV-1 PCR, QUANTITATIVE 2022-05-08 23:56:00 Afaq, [facility] Tasneemkay figueroa [facility] TYPE AND SCREEN, 2022-05-08 23:55:00 Afaq, [facility] AUTOMATED [facility] POCT-GLUCOSE METER 2022-05-08 23:50:00 Afaq, [facility] BASIC METABOLIC PANEL 2022-05-08 23:27:00 Afaq, [facility] CBC W/PLT COUNT & AUTO 2022-05-08 23:27:00 Afaq, [facility] PROTHROMBIN TIME/INR 2022-05-08 23:27:00 Afaq, [facility] Jonah C [facility] APTT 2022-05-08 23:27:00 Afaq, [facility] FIBRINOGEN 2022-05-08 23:27:00 Afaq, [facility] HEPATIC FUNCTION PANEL 2022-05-08 23:27:00 Afaq, [facility] CBC W/PLT COUNT & AUTO 2022-05-08 23:27:00 Afaq, [facility] REPORT OF PROCEDURE - 2021-05-14 11:18:[address] [facility] ENDOSCOPY [facility] TISSUE EXAM 2021-05-14 11:10:00 Shasha Reveles [facility] EGD, WITH VARICEAL 2021-05-14 10:46:00 Shasha Reveles [facility] BANDING [facility] Plan of Care Planned Activity Planned Date Details Comments Source Future Scheduled 2023-05-[address] [facility] Test 00:00:00 Counseling and Medical Cente r Screening (12+) [code = Tobacco Cessation Counseling and Screening (12+)] Future Scheduled 2022-11-[address] [facility] Test 00:00:00 (Season Ended) [code = Medic fl Center INFLUENZA VACCINE (Season Ended)] Future Scheduled 2022-03-[address] [facility] Test 00:00:00 (12+) [code = Medical Center DEPRESSION SCREENING (12+)] Future Scheduled 2022-03-[address] [facility] Test 00:00:00 (12+) [code = Medical Center DEPRESSION SCREENING (12+)] Future Scheduled 2021-11-29 INFLUENZA VACCINE (#1) [facility] 00:00:00 [code = INFLUENZA Medical Ce nter VACCINE (#1)] Future Scheduled 2012 Screening for malignant [facility] Test 00:00:00 neoplasm of lung Medical Rianna ter (procedure) [code = 763049728] Future Scheduled 2012 SHINGLES VACCINES ([address] [facility] Test 00:00:00 2) [code = SHINGLES Medical Center VACCINES (1 of 2)] Future Scheduled 2012 Screening for malignant [facility] Test 00:00:00 neoplasm of lung Medical Rianna ter (procedure) [code = 547767153] Future Scheduled 1997 Lipid panel (procedure) [facility] Test 00:00:00 [code = 30348389] Medical Ce nter Future Scheduled 1997 Lipid panel (procedure) [facility] Test 00:00:00 [code = 98581436] Medical Ce nter Future Scheduled 1995-12-[address] [facility] Test 00:00:00 WELLNESS (YEAR 2 or Medical Center FIRST YEAR if no IPPE) [code = MEDICARE ANNUAL WELLNESS (YEAR 2 or FIRST YEAR if no IPPE)] Future Scheduled 1995-12-[address] [facility] Test 00:00:00 WELLNESS (YEAR 2 or Medical Center FIRST YEAR if no IPPE) [code = MEDICARE ANNUAL WELLNESS (YEAR 2 or FIRST YEAR if no IPPE)] Future Scheduled 1981 DTAP/TDAP/TD VACCINES [facility] 00:00:00 (1 - Tdap) [code = Medical C enter DTAP/TDAP/TD VACCINES (1 - Tdap)] Future Scheduled 1981 SHINGLES VACCINES ([address] [facility] Test 00:00:00 2) [code = [facility] VACCINES (1 of 2)] Future Scheduled 1981 DTAP/TDAP/TD VACCINES CH I [...] 0-64 YRS (1 - PCV)] Future Scheduled [address] [facility] Test 00:00:00 0-64 YRS (1 - PCV) Medical C enter [code = PNEUMOCOCCAL VACCINE 0-64 YRS (1 - PCV)] Future Scheduled 1960 COVID-19 VACCINE (#1) [facility] 00:00:00 [code = COVID-[address] VACCINE (#1)] Future Scheduled 1960 COVID-19 VACCINE (#1) [facility] 00:00:00 [code = COVID-[address] VACCINE (#1)] Future Scheduled 1962 CT Colonography (combo) [facility] Test 00:00:00 [code = CT Colonography [facility] (combo)] Future Scheduled 1962 Screening for malignant [facility] Test 00:00:00 neoplasm of colon Medical Ce nter (procedure) [code = 658956418] Future Scheduled 1962 Screening for malignant [facility] Test 00:00:00 neoplasm of colon Medical Ce nter (procedure) [code = 393893643] Future Scheduled 1962 Screening for malignant [facility] Test 00:00:00 neoplasm of colon Medical Ce nter (procedure) [code = 397150477] Future Scheduled 1962 Screening for malignant [facility] Test 00:00:00 neoplasm of colon Medical Ce nter (procedure) [code = 356257510] Future Scheduled 1960 Sigmoidoscopy [code = [facility] Test 00:00:00 Sigmoidoscopy] Medical Cente r Future Scheduled 1962 CT Colonography (combo) [facility] Test 00:00:00 [code = CT Colonography [facility] (combo)] Future Scheduled 1962 Screening for malignant [facility] Test 00:00:00 neoplasm of colon Medical Ce nter (procedure) [code = 557067314] Future Scheduled 1962 Screening for malignant [facility] Test 00:00:00 neoplasm of colon Medical Ce nter (procedure) [code = 450826757] Future Scheduled 1962 Screening for malignant [facility] Test 00:00:00 neoplasm of colon Medical Ce nter (procedure) [code = 350171373] Future Scheduled 1962 Screening for malignant [facility] Test 00:00:00 neoplasm of colon Medical Ce nter (procedure) [code = 961942500] Future Scheduled 1960 Sigmoidoscopy [code = [facility] Test 00:00:00 Sigmoidoscopy] Medical Cente r Encounters Start End Encounter Admission Attending Care Care Encounter Source Date/Time Date/Time Type Type Clinicians Facility Department ID 2022-05-08 Inpatient ER PAGE KRUEGER Medical ICU [id number] [facility] 22:52:00 CHERYL 2021-04-25 Outpatient [facility] [id number] Common 12:05:40 [id number] [facility] 2021-04-25 Outpatient [facility] [id number] Common 12:03:07 [id number] [facility] 2021-01-07 Outpatient EL TACOL, [facility] Surgery [id number] SLE 14:40:44 PRASUN 2021-01-04 Outpatient JALAL, SLE Surgery [id number] [facility] 11:57:49 PRASUN 2022-05-08 2022-05-10 [facility] [id number] 22:52:00 16:02:00 Encounter Derek Donaldson [facility] 2022-05-09 2022-05-09 Surgery Chasidy, [facility] [id number] 13:30:00 14:00:00 [facility] 2022-05-09 2022-05-09 Anesthesia Caleb Harris [facility] [id number] [facility] 13:31:00 13:53:00 Event Mendez [facility] 2022-05-09 2022-05-09 Travel [facility] [id number] [facility] 00:[facility]:00 00:00:00 [facility] 2021-05-14 2021-05-14 Hospital EL Abdirizak, [facility] [id number] 08:51:00 12:04:00 Encounter [facility] 2021-05-14 2021-05-14 Anesthesia MarioJeaneth childers [facility] [id number] [facility] 10:51:00 11:22:00 Event Saba Avina [facility] 2021-05-14 2021-05-14 [facility] [id number] 10:00:00 10:30:00 [facility] 2021-05-14 2021-05-14 Travel [facility] [id number] [facility] 00:[facility]:00 00:00:00 [facility] 2021-05-07 2021-05-07 [id number] [facility] 00:00:00 00:00:00 2020-11-24 2020-11-24 Outpatient EL GUPTA, SLE SLE [id number] [facility] 00:00:00 00:00:00 LINE 2020-11-14 2020-11-14 Outpatient EL GUPTA, [facility]H SLE [id number] [facility] 00:00:00 00:00:00 LINE 2020-11-02 2020-11-02 Outpatient EL SLE SLE [id number] [facility] 00:00:00 00:00:00 2020-04-07 2020-04-07 Outpatient Ana SINHA [facility] [id number] Univers 09:30:00 09:30:00 SACHIN paulino [facility] 2020-01-14 2020-01-14 Outpatient Ana SINHA, [facility] [id number] Univers 09:30:00 09:30:00 SACHIN paulino [facility] 2020-01-05 2020-01-05 Outpatient LEENA [facility] SLE [id number] [facility] 00:00:00 00:00:00 2019-11-09 2019-11-09 Outpatient LEENA REVELES [facility] [id number] [facility] 00:00:00 00:00:00 PRASUN 2019-11-03 2019-11-03 Outpatient LEENA REVELES SLE SLE [id number] [facility] 00:00:00 00:00:00 [facility] 2019-10-08 2019-10-08 [facility] [id number] 10:19:10 10:47:58 Visit Sachin Norman [id number] Bradly Sellers [id number] Professio [id number] [address] 2019-10-08 2019-10-08 [facility] [id number] [facility] 10:19:10 10:47:58 Visit Sachin Norman [id number] i ty of Bradly S[place] [id number] [place] Profess[place] [id number] Me dical [address] 2019-10-08 2019-10-08 Outpatient Ana JAYNA [facility] [id number] Univers 10:45:00 10:45:00 SACHIN alvarado [facility] 2019-09-29 2019-09-29 Outpatient SLEH [facility] [id number] SLEH 00:00:00 00:00:00 [id number] 2019-09-29 2019-09-29 Outpatient LEENA REVELES [facility] [id number] [facility] 00:00:00 00:00:00 PRASUN 2019-07-29 2019-07-29 Outpatient SLEH [facility] [id number] [facility] 00:00:00 00:00:00 [id number] 2018-03-17 2018-03-17 Out[facility] [id number] Common 09:00:00 09:00:00 t Specialty/U Sp ger Specialty rology - [facility]Urology Clinic [facility] 2017-12-23 2017-12-23 Outpatient Jas Garnett [id number] Common 09:15:00 09:15:00 t Specialty/U Sp ger Specialty rology - [facility]I [facility]Urology Clinic [facility] 2017-11-25 2017-11-25 Outpatient Jas Garnett [id number] Common 14:20:00 14:20:00 t Specialty/U Sp ger Specialty rology - [facility] /Urology Clinic [facility] 2017-11-18 2017-11-18 Outpatient Jas Garnett 15 [id number] Common 10:15:00 10:15:00 t Specialty/U Sp ger Specialty rology - [facility] Results Test Description Test Time Test Comments Results Result Comments Source HIV-1 PCR, QUANTITATIVE 2022-05-10 15:54:56 Test Item Value Reference Range Interpretation Comme nts HIV-1 NUMERIC RESULT (RADHA) (test code = 2704) 157 Cp/mL <20 H This test uses a Real-Time Polymerase Chain Reaction (RT-PCR) methodology to detect a highly conserved region of the HIV-1 gag gene and was performed using the CLOVER AmpliPrep/CLOVER TaqMan HIV-1 test kit version 2.0 ([employer]Reportable range for this assay is 20 - 10,000,000 copies per mL (1.3 - 7.0 Log copies/mL).HEPATITIS C PCR, [id number] 11:12:02 Test Item Value Reference Range Interpretation Comments HCV RESULT COMPONENT HCV RNA not detected HCV RNA not detected (RADHA) (test code = 2699) This test uses a Real-Time Polymerase Chain Reaction (RT-PCR) methodology and was performed using CLOVER Ampliprep/CLOVER TaqMan HCV test kit version 2.0 ([employer]Reportable range for this assay is 15 - 100,000,000 IU per mL (1.18 - 8.00 Log IU/mL).POC-Glucose [id number] 07:59:18 Test Item Value Reference Range Interpretation Comments POC-Glucose Meter (test 72 mg/dL 70-110 : TE STED AT [facility] code = 1538) [address], [facility] [place] [address]: Cooky Machine Operator/Techni nirav ID = [id number] for Andrew Babb Lab Interpretation (test Normal code = 23236-4) [id number] 07:59:18 Test Item Value Reference Range Interpretation Comments POC-GLUCOSE METER 72 mg/dL 70-110 : TESTED A T [facility] [address] (BEAKER) (test code = [address], [address]) [facility] [place] [address]: Cooky Machine Operator/Techni nirav ID = [id number] for Kym Jordan COMPREHENSIVE METABOLIC [id number] 04:42:58 Test Item Value Reference Range Interpretation Comments TOTAL PROTEIN 6.4 gm/dL 6.0-8.5 (BEAKER) (test code = 770) ALBUMIN (BEAKER) 3.6 g/dL 3.5-5.0 (test code = 1145) ALKALINE 55 U/L 30-115 PHOSPHATASE (BEAKER) (test code = 346) BILIRUBIN TOTAL 0.9 mg/dL 0.1-1.2 (BEAKER) (test code = 377) SODIUM (BEAKER) 136 meq/L 135-148 (test code = 381) POTASSIUM (BEAKER) 4.0 meq/L 3.6-5.5 (test code = 379) CHLORIDE (BEAKER) 106 meq/L 98-106 (test code = 382) CO2 (BEAKER) (test 21 meq/L 20-29 code = 355) BLOOD UREA 17 mg/dL 10-26 NITROGEN (BEAKER) (test code = 354) CREATININE 0.90 mg/dL 0.50-1.20 (BEAKER) (test code = 358) GLUCOSE RANDOM 74 mg/dL 70-110 (BEAKER) (test code = 652) CALCIUM (BEAKER) 8.4 mg/dL 8.5-10.5 L (test code = 697) AST (SGOT) 47 U/L 5-40 H (BEAKER) (test code = 353) ALT (SGPT) 23 U/L 5-50 (BEAKER) (test code = 347) EGFR (BEAKER) 99 Interpretatio n of eGFR (test code = 1092) mL/min/1.[address] age Description sq m Result G1 Norm al or high >=90 G2 Mildly decreased 60-89 G3a Mildl y to moderately 45-5 9 G3b Moderately to s everely 30-44 G4 Severl y decreased 15-29 G5 Kidney failure <15Reported eGF R is based on the CKD-EPI 2020 equation that d oes not use a race coefficientEsti mated GFR is not as accur ate as Creatinine Kimmie veronique in predicting glom erular filtration rate . Estimated GFR is not appl icable for dialysis patien ts Cooky Machine Operator ID - LITOOperator ID - LITOOperator ID - LITOOperator ID - LITOOperator ID - LITOOperator ID - LITOOperator ID - LITOOperator ID - LITOOperator ID - LITOOperator ID - LITOOperator ID - LITOOperator ID - LITOOperator ID - LITOOperator ID - LITOOperator ID - LITOOperator ID - [id number] 04:42:58 Test Item Value Reference Range Interpretation Comments MAGNESIUM (BEAKER) (test code = 1.9 mg/dL 1.5-3.0 627) Cooky Machine Operator ID - LITOOperator ID - LITOOperator ID - LITOOperator ID - LEONELA [id number] 04:39:15 Test Item Value Reference Range Interpretation Comments PHOSPHORUS (BEAKER) (test code = 2.6 mg/dL 2.5-4.5 604) Cooky Machine Operator ID - LITOCBC W/PLT COUNT & AUTO [id number] 04:20:03 Test Item Value Reference Range Interpretation Comments WHITE BLOOD CELL COUNT (BEAKER) 7.3 K/ L 4.0-10.0 (test code = 775) RED BLOOD CELL COUNT (BEAKER) 4.95 M/ L 4.20-5.80 (test code = 761) HEMOGLOBIN (BEAKER) (test code = 15.5 GM/DL 13.0-16.8 410) HEMATOCRIT (BEAKER) (test code = 44.0 % 36.0-50.0 411) MEAN CORPUSCULAR VOLUME (BEAKER) 89 fL 82-99 (test code = 753) MEAN CORPUSCULAR HEMOGLOBIN 31.3 pg 27.0-33.0 (BEAKER) (test code = 751) MEAN CORPUSCULAR HEMOGLOBIN CONC 35.2 GM/DL 32.0-36.0 (BEAKER) (test code = 752) RED CELL DISTRIBUTION WIDTH 12.6 % 12.0-15.0 (BEAKER) (test code = 412) PLATELET COUNT (BEAKER) (test 134 K/CU MM 150-430 L code = 756) MEAN PLATELET VOLUME (BEAKER) 10.3 fL 6.0-11.5 (test code = 754) NUCLEATED RED BLOOD CELLS 0 /100 WBC 0-0 (BEAKER) (test code = 413) NEUTROPHILS RELATIVE PERCENT 53 % (BEAKER) (test code = 429) LYMPHOCYTES RELATIVE PERCENT 33 % (BEAKER) (test code = 430) MONOCYTES RELATIVE PERCENT 10 % (BEAKER) (test code = 431) EOSINOPHILS RELATIVE PERCENT 4 % (BEAKER) (test code = 432) BASOPHILS RELATIVE PERCENT 1 % (BEAKER) (test code = 437) NEUTROPHILS ABSOLUTE COUNT 3.87 K/ L 1.80-8.00 (BEAKER) (test code = 670) LYMPHOCYTES ABSOLUTE COUNT 2.40 K/ L 1.48-4.50 (BEAKER) (test code = 414) MONOCYTES ABSOLUTE COUNT (BEAKER) 0.69 K/ L 0.00-1.30 (test code = 415) EOSINOPHILS ABSOLUTE COUNT 0.27 K/ L 0.00-0.50 (BEAKER) (test code = 416) BASOPHILS ABSOLUTE COUNT (BEAKER) 0.06 K/ L 0.00-0.20 (test code = 417) IMMATURE GRANULOCYTES-RELATIVE 0.10 % 0.00-0.00 H PERCENT (BEAKER) (test code = 2801) POCT-GLUCOSE [id number] 21:29:36 Test Item Value Reference Range Interpretation Comments POC-GLUCOSE METER 94 mg/dL 70-110 : TESTED A T [facility] (BEAKER) (test code = [address], [address]) [facility] [address]: Cooky Machine Operator/Techni nirav ID = [id number] for Gracia Melendez HEMOGLOBIN AND [id number] 12:03:22 Test Item Value Reference Range Interpretation Comments HEMOGLOBIN (BEAKER) (test code = 14.4 GM/DL 13.0-16.8 410) HEMATOCRIT (BEAKER) (test code = 40.9 % 36.0-50.0 411) HEMOGLOBIN AND [id number] 09:30:37 Test Item Value Reference Range Interpretation Comments HEMOGLOBIN (BEAKER) (test code = 14.5 GM/DL 13.0-16.8 410) HEMATOCRIT (BEAKER) (test code = 40.8 % 36.0-50.0 411) COMPREHENSIVE METABOLIC [id number] 04:41:38 Test Item Value Reference Range Interpretation Comments TOTAL PROTEIN 6.7 gm/dL 6.0-8.5 (BEAKER) (test code = 770) ALBUMIN (BEAKER) 3.7 g/dL 3.5-5.0 (test code = 1145) ALKALINE 61 U/L 30-115 PHOSPHATASE (BEAKER) (test code = 346) BILIRUBIN TOTAL 0.7 mg/dL 0.1-1.2 (BEAKER) (test code = 377) SODIUM (BEAKER) 138 meq/L 135-148 (test code = 381) POTASSIUM (BEAKER) 4.0 meq/L 3.6-5.5 (test code = 379) CHLORIDE (BEAKER) 105 meq/L 98-106 (test code = 382) CO2 (BEAKER) (test 23 meq/L 20-29 code = 355) BLOOD UREA 15 mg/dL 10-26 NITROGEN (BEAKER) (test code = 354) CREATININE 0.95 mg/dL 0.50-1.20 (BEAKER) (test code = 358) GLUCOSE RANDOM 138 mg/dL 70-110 H (BEAKER) (test code = 652) CALCIUM (BEAKER) 8.8 mg/dL 8.5-10.5 (test code = 697) AST (SGOT) 21 U/L 5-40 (BEAKER) (test code = 353) ALT (SGPT) 14 U/L 5-50 (BEAKER) (test code = 347) EGFR (BEAKER) 93 Interpretatio n of eGFR (test code = 1092) mL/min/1.[address] age Description sq m Result G1 Bree l or high >=90 G2 Mildly decreased 60-89 G3a Mildl y to moderately 45-5 9 G3b Moderately to s everely 30-44 G4 Severl y decreased 15-29 G5 Kidney failure <15Reported eGF R is based on the CKD-EPI 2020 equation that d oes not use a race coefficientEsti mated GFR is not as accur ate as Creatinine Kimmie veronique in predicting glom erular filtration rate . Estimated GFR is not appl icable for dialysis patien ts Cooky Machine Operator ID - [id number] ID - LPGJ98Nxtjhysh ID - FNCN96Pdfrvtat ID - QICW97Uspwxxca ID - YSDO33Veexksbe ID - XQVU60Pctfwrqn ID - DRYJ72Vaeqbhej ID - HPAW47Fkjpwglt ID - XPMO57Tkhberex ID - KOHC10Ninmgzjd ID - ORZF28Zegbsibq ID - EBVP78Pewoatxs ID - AEXY93Xmeprfvl ID - KEQT18Fzmykcgx ID - VSOF12Tghyohuj ID - [id number] 04:25:13 Test Item Value Reference Range Interpretation Comments MAGNESIUM (BEAKER) (test code = 1.9 mg/dL 1.5-3.0 627) Cooky Machine Operator ID - VSUK63Ocauiban ID - WVXD78Tgcscrsb ID - BTHH53Meyldlfi ID - [id number] 04:21:54 Test Item Value Reference Range Interpretation Comments PHOSPHORUS (BEAKER) (test code = 4.4 mg/dL 2.5-4.5 604) Cooky Machine Operator ID - [id number]/[id number] 03:45:10 Test Item Value Reference Range Interpretation Comments PROTIME (BEAKER) (test code = 11.1 seconds 9.3-12.0 759) INR (BEAKER) (test code = 370) 1.01 <=5.90 PARTIAL THROMBOPLASTIN TIME 27.6 seconds 23.0-35.0 (BEAKER) (test code = 760) RECOMMENDED COUMADIN/WARFARIN INR THERAPY RANGESSTANDARD DOSE: 2.0 - 3.0 Includes: PROPHYLAXIS for venous thrombosis, systemic embolization; TREATMENT for venous thrombosis and/or pulmonary embolus.HIGH RISK: Target INR is 2.5-3.5 for patients with mechanical heart valves.CALCIUM, [id number] 03:29:37 Test Item Value Reference Range Interpretation Comments CALCIUM IONIZED (BEAKER) (test 1.15 mmol/L 1.12-1.27 code = 698) PH, BLOOD (BEAKER) (test code = 7.37 1810) SARS-CoV2/RT-PCR (Asymptomatic ONLY)2022-05-09 01:35:46 Test Item Value Reference Interpretation Comments Range SARS-COV2/RT-PCR Negative Negative The SARS-Co V-2 (test code = target nucleic 71635-7) acids are not detected in thi s specimen. Negat rigoberto results do not preclude SARS-C oV-2 infection and should not be u sed as the sole bas is for patient management decisions. Nega tive results must be combined with clinical observations, patient history , and epidemiolog ical information. A false negative result may occu r if a specimen is improperly collected, transported or handled. This S ARS CoV-2 test is a rapid, real-duke e RT-PCR test intended for th e qualitative detection of nucleic acid fr om SARS-CoV-2 in a nasopharyngeal swab specimen collec williams from individual s suspected of COVID-19 by the ir healthcare provider. VERNELL (test code = This test has been VERNELL) authorized by FDA under an EUA for use by authorized laboratories. This test is only authorized for the duration of the declaration that circumstances exist justifying the authorization of emergency use of in vitro diagnostic tests for detection and/or diagnosis of COVID-19 under Section 564(b)(1) of the Federal Food, Drug and Cosmetic Act, 21 U.S.C. 360bbb-3(b)(1), unless the authorization is terminated or revoked sooner. Fact Sheet for Healthcare Providers: https://www.[employer]/Documents/Xp ert%20Xpress%20SAR S%20CoV-2/Fact%20S heets/3023802%20S ARS-COV-2%20HEALTH CARE%20PROVIDERS%2 0FACT%20SHEET.pdf Fact Sheet for Healthcare Patients: https://www.[employer]/Documents/Xp ert%20Xpress%20SAR S%20CoV-2/Fact%20S heets/3023801%20S ARS-COV-2%20PATIEN T%20FACT%20SHEET.p df Lab Interpretation Normal (test code = 81291-8) [facility])2022-05-09 01:35:46 Test Item Value Reference Range Interpretation Comments SARS-COV2/RT-PCR Negative Negative The SARS-Co V-2 target (test code = nucleic acids a re not 3634470) detected in thi s specimen. Negative result s do not preclude SARS-C oV-2 infection and s hould not be used as the fabiola e basis for patient managem ent decisions. Nega tive results must be combine d with clinical observ ations, patient history , and epidemiological information. A false negativ e result may occur if a spec imen is improperly amandeep ected, transported or handled. This SARS CoV-2 test is a rapid, real-time RT-PC R test intended for th e qualitative detection of nu cleic acid from SARS-CoV-2 in a nasopharyngeal swab specimen collected from individuals suspected of CO VID-19 by their healthcar e provider. This test has been authorized by FDA under an EUA for use by authorized laboratories. This test is only authorized for the duration of the declaration that circumstances exist justifying the authorization of emergency use of in vitro diagnostic tests for detection and/or diagnosis of COVID-19 under Section 564(b)(1) of the Federal Food, Drug and Cosmetic Act, 21 U.S.C. 360bbb-3(b)(1), unless the authorization is terminated or revoked sooner. Fact Sheet for Healthcare Providers: https://www.[employer].co m/Documents/Xpert%20Xpress%20SARS%20CoV-2/Fact%20Sheets/302-0222%62ZJQA-MXC-2%20 HEALTHCARE%20PROVIDERS%20FACT%20SHEET.pdf Fact Sheet for Healthcare Patients: https://www.[employer]/Documents/Xpert%20Xp ress%20SARS%20CoV-2/Fact%20Sheets/302-6211%54BEXV-CBL-3%20PATIENT%20FACT%20SHEET .pdfHEPATIC FUNCTION [id number] 00:28:50 Test Item Value Reference Range Interpretation Comments TOTAL PROTEIN (BEAKER) (test code = 7.7 gm/dL 6.0-8.5 770) ALBUMIN (BEAKER) (test code = 1145) 4.2 g/dL 3.5-5.0 BILIRUBIN TOTAL (BEAKER) (test code 0.9 mg/dL 0.1-1.2 = 377) BILIRUBIN DIRECT (BEAKER) (test 0.4 mg/dL 0.0-0.4 code = 706) ALKALINE PHOSPHATASE (BEAKER) (test 69 U/L 30-115 code = 346) AST (SGOT) (BEAKER) (test code = 20 U/L 5-40 353) ALT (SGPT) (BEAKER) (test code = 15 U/L 5-50 347) Cooky Machine Operator ID - PUIW15Wexrneil ID - FOPU57Wavrmwhe ID - FWSK71Vttpwuwn ID - YVUQ41Zdroeyem ID - BTIM86Yctyytyq ID - QMYY16Hgwatdid ID - SGDC82Zjsasbcz ID - VXKB16Dalpyykl ID - JCMF39Cpsfbpdh ID - [id number] METABOLIC [id number] 00:28:45 Test Item Value Reference Range Interpretation Comments SODIUM (BEAKER) 139 meq/L 135-148 (test code = 381) POTASSIUM 4.2 meq/L 3.6-5.5 (BEAKER) (test code = 379) CHLORIDE (BEAKER) 106 meq/L 98-106 (test code = 382) CO2 (BEAKER) 19 meq/L 20-29 L (test code = 355) BLOOD UREA 15 mg/dL 10-26 NITROGEN (BEAKER) (test code = 354) CREATININE 1.01 mg/dL 0.50-1.20 (BEAKER) (test code = 358) GLUCOSE RANDOM 136 mg/dL 70-110 H (BEAKER) (test code = 652) CALCIUM (BEAKER) 9.1 mg/dL 8.5-10.5 (test code = 697) EGFR (BEAKER) 86 Interpretatio n of eGFR (test code = mL/min/1.73 values Stage D escription 1092) sq m Result G1 Bree l or high >=90 G2 Mildly decreased 60-89 G3a Mildl y to moderately 45-5 9 G3b Moderately to s everely 30-44 G4 Severl y decreased 15-29 G5 Kidney failure <15Reported eGF R is based on the CKD-EPI 2021 equation that d oes not use a race coefficientEsti mated GFR is not as accur ate as Creatinine Kimmie piper in predicting glom erular filtration rate . Estimated GFR is not appl icable for dialysis patien ts Cooky Machine Operator ID - [id number] ID - NRNY91Mjylitmm ID - SZTU95Rfduwrjv ID - UEMK80Gxvjkjca ID - LCGP98Ktjxattg ID - HDMK56Uyqvzpgz ID - DMTW06Ylmownty ID - WPVE76Rnxonryf ID - GDSQ38Eqispira ID - [id number] 00:07:06 Test Item Value Reference Range Interpretation Comments FIBRINOGEN LEVEL 325 mg/dl 200-400 Final Infor mation (BEAKER) (test code = (Auto Output) 658) PROTHROMBIN TIME/[id number] 00:07:06 Test Item Value Reference Range Interpretation Comments PROTIME (BEAKER) 11.9 seconds 9.3-12.0 Final Infor mation (test code = 759) (Auto Outp ut) INR (BEAKER) (test 1.09 <=5.90 Final Inf ormation code = 370) (Auto Output) RECOMMENDED COUMADIN/WARFARIN INR THERAPY RANGESSTANDARD DOSE: 2.0 - 3.0 Includes: PROPHYLAXIS for venous thrombosis, systemic embolization; TREATMENT for venous thrombosis and/or pulmonary embolus.HIGH RISK: Target INR is 2.5-3.5 for patients with mechanical heart valves.[id number] 00:07:06 Test Item Value Reference Range Interpretation Comments PARTIAL THROMBOPLASTIN 28.8 seconds 23.0-35.0 Final Information TIME (BEAKER) (test (Auto Ou tput) code = 760) POCT-GLUCOSE [id number] 00:02:28 Test Item Value Reference Range Interpretation Comments POC-GLUCOSE METER 156 mg/dL 70-110 H : TESTED A T [facility]17 (BEAKER) (test code [facility] [address], = 15[address]) [facility] [address]: Cooky Machine Operator/Techni nirav ID = [id number] for Davidson zurita Ryan CBC W/PLT COUNT & AUTO [id number] 23:32:44 Test Item Value Reference Range Interpretation Comments WHITE BLOOD CELL COUNT (BEAKER) 6.4 K/ L 4.0-10.0 (test code = 775) RED BLOOD CELL COUNT (BEAKER) 5.09 M/ L 4.20-5.80 (test code = 761) HEMOGLOBIN (BEAKER) (test code = 16.0 GM/DL 13.0-16.8 410) HEMATOCRIT (BEAKER) (test code = 44.8 % 36.0-50.0 411) MEAN CORPUSCULAR VOLUME (BEAKER) 88 fL 82-99 (test code = 753) MEAN CORPUSCULAR HEMOGLOBIN 31.4 pg 27.0-33.0 (BEAKER) (test code = 751) MEAN CORPUSCULAR HEMOGLOBIN CONC 35.7 GM/DL 32.0-36.0 (BEAKER) (test code = 752) RED CELL DISTRIBUTION WIDTH 12.4 % 12.0-15.0 (BEAKER) (test code = 412) PLATELET COUNT (BEAKER) (test 145 K/CU MM 150-430 L code = 756) MEAN PLATELET VOLUME (BEAKER) 10.0 fL 6.0-11.5 (test code = 754) NUCLEATED RED BLOOD CELLS 0 /100 WBC 0-0 (BEAKER) (test code = 413) NEUTROPHILS RELATIVE PERCENT 73 % (BEAKER) (test code = 429) LYMPHOCYTES RELATIVE PERCENT 21 % (BEAKER) (test code = 430) MONOCYTES RELATIVE PERCENT 5 % (BEAKER) (test code = 431) EOSINOPHILS RELATIVE PERCENT 0 % (BEAKER) (test code = 432) BASOPHILS RELATIVE PERCENT 1 % (BEAKER) (test code = 437) NEUTROPHILS ABSOLUTE COUNT 4.65 K/ L 1.80-8.00 (BEAKER) (test code = 670) LYMPHOCYTES ABSOLUTE COUNT 1.35 K/ L 1.48-4.50 L (BEAKER) (test code = 414) MONOCYTES ABSOLUTE COUNT (BEAKER) 0.31 K/ L 0.00-1.30 (test code = 415) EOSINOPHILS ABSOLUTE COUNT 0.01 K/ L 0.00-0.50 (BEAKER) (test code = 416) BASOPHILS ABSOLUTE COUNT (BEAKER) 0.03 K/ L 0.00-0.20 (test code = 417) IMMATURE GRANULOCYTES-RELATIVE 0.30 % 0.00-0.00 H PERCENT (BEAKER) (test code = 2801) Tissue [id number] 18:28:39 Test Item Value Reference Range Interpretation Comments Case Report (test code Surgical Pathology = 104) Report Case: [id number] Authorizing Provider: Shasha Reveles MD Collected: 05/14/2021 11:10 AM Ordering Location: [facility] Endoscopy Received: 05/14/2021 02:17 PM Services Pathologist: Zulay Castro MD Specimen: Biopsy, Gastric, random biopsies DIAGNOSIS (test code = [id number] 3220) FuZzEwMzNcZnRuYmpcdWMx IHtccnRmMVxlcGljOTYwMV ufnkLqSLPjrPNdB9Dpssur IBcwIM8uMP7gjSukcKTseD PxKPNjQoJli8idz637lKUj l6pmWUUPtdecdZi9qEzuH4 7et7V5QrknL22gqWNrAEP2 HZGgWLMscEFtEQWoXIE9JX ZbpCUhN2pvMGCsPH0vzkce LXvzASicVAUrhYD2ZTGphN NrH9DoXGDkIExzTZDxklz3 JoDyHu6ynJMvsIrzXVjjIV PqYTWvAOngGGDnJcEqJI0o V0KGSIAVZMtyX1qPGSSPJ6 WqK8NXK3jGVIZDVUCPXS3Z V9k4CZJwmxi0OMVbCJMUYs ARHBmfHP1FAH2HUS9OJMUc KOUJO3CELNrQJYspBk7lBZ GONE3JA2eVRcCJAAKZOiXJ VP5SOEMncni8IBEjMIKQYB qKKYbBHDLEX8MaTAONVXON DbNXNBQZFG5MW1WGH0FUKR 0XB06ZTF9NQCMVBGJMSoRt Q9ZRXC9KYErnKEC5k9owhX YxXHNzdGUxODAwMFxhbnNp UDSvKtdtriaxSAHyHUY9vx EzKBQoBVoiGWAlOVtyCa6g eDOnjPdeEjFgKBJwj4balq PGensppIn2j7gaSFXlCtX6 aHKuFPzhD6bfxbJuvEYaQX BfAOi1zC20GCVhcD3woQBf RWzwdfPnFvE0APugIDXwMw J7XHKkeBPbLVDvH9klDHGg TYddYVVxTEifhFIsOZV6nL zdy9S8gZIfnKFhwCqiLfDa RbUfUhKMx2JiXRd9uQdgH6 YuZINkQfU9xEAeNGQvBHst STKsHCGuvzB4jO32PSgbbo D7kALyk4Fkz82rm016vV6i fENpDLU1YPQoPNSpuRStGE UgPVQ2ARPhfJWvY4hvPWJg SG1biianVEduUOcsMQLutN D9EYPqoXGmF3XdACIhPUry SCGdrsx0XiQmQd1vkIQixW otZMqrt2xse3qzeXXyAmb1 UUBmRkYrVkoaKCxvh7Hdp1 nrMUHuxd7yHHX5mIWuzHak d1G1aBDePDRwyWZpSDIsOY 7faIVeHQKtqI5lboypLQFs YnJkcmhlYWRccGdicmRyZm 5xlAnrOYB2IGfeP3hucL3x TgW4VOwrG7exdO1pSQo0KH yxIEJipOY5etK6VRCsyKJa T1ZlaJ8sZVGtDN3spga9k8 qwGKY6DPtnPPOaSyN3cnK5 NDBcaGVhZGVyeTcyMFxmb2 21EWC9IuFvOZJod3RxZ0Mn zHunR81wlRgoH05eZEZxeE qigC2hlWbmoR2yVoHfDqSb ZCmlpFenVC6bKKGdO5kseJ IoUDOqHVKoZ0asCcXmcT4l pTvlEIlxpyKxROCeMgm0YF LleAWbPTIsKau1OPXaQYXp D10kswloHXE5zI3mt4yyw0 UuHTyoUFY7AJDkk28vXQws agX7VMheWv10MKviJFV5OG mjIDK5aN== CPT Code(s) (test code f1msnGNiVYMiyNL1QnOvGJ = 3357) Azd8cxn5RwcLBcrPYxDYcv eBJcoeZeni04tGJ0wI31PI 1eASAbJqN3OECtubW3Dst4 LLPkENFgkDOeH587i1icl4 hwzySogZT9tYhoEAItccdn SuO3JUfsAIKifiatEBb9TQ cdFBBeqUF6QSEcfONpO7Vh YBLtDV2dymr4UXW3BQjfTL XfYcL6UTOpkJTqIKOrfHqa FYpus314GKL1PdQpISWuod FhyLnvdT1rXyVaBSJ6PNXn NVxwYXJ9 CLINICAL HISTORY (test v5kmzEJqKZXklZR9BvSsBN code = 3356) Ijk8eup9DvlIWzdREwUOwd tWYwouGxtv12rLL5bB95OK 4uDZPzGtX8ILNpizK6Bbo6 MBHlKFEwpYGfQ026o3hib7 oapqXxxTE7zGyeSQLpsujp TaT1KPuvHOSqavkyPXi2QZ osUGOmxIY8UAHcnWSgL7Uw PJVtOW0pfpo3OTG0TUrwSA LyNjF2DGSuyPUuEOOsiZyz OGfrc674QUR8AdOtNSSdwn BksPijmU1tJgDtHMQXQKF7 cmljIHZhcmljZXNccGFyfQ == SPECIMEN SOURCE (test q8ygbXSmFMVnjZH8IhIaJU code = 3377) Vus4bjf1PhtGWhkBKpNKio wEQbdfCgaw06nAV5aP06ON 1vVDPwJzZ8CFLghjT8Ipv7 ZAIwPARriBUkC132n1riw4 vmnbHpyQF2wCgrINHpfgvq OdY9MNlmFKJgbxadYZh6OQ emGXEdpTG6RWAkwVCnZ2Ul QCBlCF3jrkv1OHE3CNfeJH EzLhY0UXXeyGRfWAUmlCix QKedu063XDB1JfObPIDgkt OryLzguP6nQbNiEASUXfCs HypmhUH8NXEdQOR3dqhxWM ArTC6hp22paVHtxZ== GROSS DESCRIPTION (test x6hsjFXdGXNtqOE1BgFvVY code = 3366) Myd9njg9KbaSEgkJFjBEem cVTjjlCblv88xNP4iD87KS 9iAMYxSdN6LKSfxvO6Upo3 VVXhIOXndCBzG191a0xcn4 zhjlIzeAN2jEcuWPKgdtbx HbR0IOobJZIqkbvwSMz5UY jrMWLmcSP3XJSaoPLsA8Wz NALlPJ1hpgw3VEX3OJjpDA TqEnB2LGQddAEwCNNzbNbe TFsag139WZH1LjAzPJLdsn GenRnusR8hUhPnCKWGIlFY XDBhkPSsBAFatbYll9LfZP xpbiBsYWJlbGVkIHdpdGgg zKohSKWviRtthfFxS2F7wt PhTF6lAKDwMVXfY2IsWZJr I58pJMMdgK9nASYtXG5zOD HlZTB1cgrtCQWBBxKlzwNx D66oz1epjISme0RjNfKigE XvJTYpu6IvpCBpTZihjQPj RFFlGmEvfLzsv0XcKIJaxc hyaurhwU8zv3c0NJPrnr7t OLPgGhZ1JDDyAhW1EIPpCO AduKY4hjVxExPufHOyZiNg dWEmUxYsU37aFCQMqYUru9 SzT7qlPV7bkPRrq7XkRPWa GZ54LZucVI93VIkaRI4lMD HxCWQkV8OwX0Z9YX2jLUtk UGSeBLOnoYXgGCqbJHZ5Ua 1qjXVaRUKbnpZ1m4TgHJmr HALnMbhgsJ3oXMbfehZgG7 hIXHBhcn0= MICROSCOPIC DESCRIPTION q1jddFWfCEStnJN6OfDcCE (test code = 3371) Niz2tfs0MrsARgaPEuPDqj pKZhncYhjo57dIE9tQ63QF 7tQOHcSsS4POFwfhD3Jdf9 DWRzQIQnaBVzS376t7fwx0 jgfxXquER9gNqsZFIpcabi LtL7IGysWBWrbddeEXo0BO ybDOFnjAY8HNYeuJIbL3Ez ROSwIL9byac2ZNX3NFeuZD ZdPvP8QZYvcOUyQWQnrBko MOcxk744CDS1KeBqXTNfuy FmtJaozO9wFmTlCQEIhzLc bQfogZXtB9GtsPLsrnOrMK 0qTJNnr95iJEhkcBRfkLpe KIcxyML4OBKiSXNwMUssGQ emjAajq2fsZO8hFN4kpGyy vhWbT3kugLOxc4Msdr4tRz 9uGDBftRInBzZhdZDbNH0a B3Hpk7HzHE5gj46xJHBxLN YxQTTlFY7pPRHgrLHnvnXn v3GwaQ4cHzSiHVIhhl0= Gross assessment was [facility] performed at ([facility], = 2777) Department of Pathology, [address] [place] [id number], Technical component was [facility] performed at ([facility], = 2778) Department of Pathology, [address] [place] [id number], Professional component [facility] was performed at ([facility], code = 2779) Department of Pathology, [address] [place] [id number], [id number] 18:28:39Surgical Pathology Report Case: [id number] Authorizing Provider: Shasha Reveles MD Collected: 05/14/2021 11:10 AM Ordering Location: [facility] Endoscopy Received: 05/14/2021 02:17 PM Services Pathologist: Zulay Castro MD Specimen: Biopsy, Gastric, random biopsies A. STOMACH, SITE NOT SPECIFIED, BIOPSY: - ANTRAL AND OXYNTIC MUCOSA WITH NO PATHOLOGIC ALTERATION - NEGATIVE FOR HELICOBACTER MICROORGANISMS ON ROUTINE STAINS Signing Pathologist Direct Phone Line: [phone] signed by Zulay Castro MD on 05/15/2021 at 6:28 [id number] varicesA. Biopsy, gastric, randomA. Received in formalin labeled with the patient's name, medical record number and "gastric BX" and consistsof 3 pieces of allison-white soft tissue ranging in size from 0.3 x 0.2 x 0.1 cm to 0.5 x 0.3 x 0.2 cm. The specimen measures 0.9 x 0.4 x 0.2 cm aggregate. The specimen is submitted in toto in A1.KHHNo significant inflammation, intestinal metaplasia, dysplasia or malignancy is seen. No Helicobacter microorganisms are seen on routine stains. [facility], Department of Pathology, [address] [place] [id number], [facility], [facility], [address] [place] [id number], [facility], Department of [facility], [address] [place] [id number], ZWFON FETOPROTEIN (AFP), TUMOR [id number] 14:50:00 Test Item Value Reference Range Interpretation Comments ALPHA-FETOPROTEIN (BEAKER) (test 5.6 ng/mL <10.0 code = 1094) Cooky Machine Operator ID - BETH MPROTHROMBIN [id number] 14:30:00 Test Item Value Reference Range Interpretation Comments PROTIME (BEAKER) 13.8 seconds 11.9-14.2 (test code = 759) INR (BEAKER) (test 1.08 See_Comment [Automat ed message] code = 370) The system [employer] generated this result transmitted ref erence range: <=5.90. The reference range was not used to int erpret this result as normal/abnormal . RECOMMENDED COUMADIN/WARFARIN INR THERAPY RANGESSTANDARD DOSE: 2.0 - 3.0 Includes: PROPHYLAXIS for venous thrombosis, systemic embolization; TREATMENT for venous thrombosis and/or pulmonary embolus.HIGH RISK: Target INR is 2.5-3.5 for patients with mechanical heart valves.MR, ABDOMEN, [id number] 15:36:00 [facility]FERRING[facility]: MRI of the abdomen WITHOUT [...] sized paraesophageal and gastric fundal varices. Signed: Heather Burns MDReport Verified Date/Time: 11/09/2019 15:36:50 Reading Location: [address] Transitional Reading Room ANTI-NUCLEAR ANTIBODY (BAHMAN)2019-02-01 11:23:00 Test Item Value Reference Range Interpretation Comments ANTI-NUCLEAR ANTIBODY (BAHMAN) (BEAKER) Positive Negative A (test code = 418) Test performed by IFA method.BAHMAN TITER AND [id number] 11:23:00 Test Item Value Reference Range Interpretation Comments BAHMAN TITER (BEAKER) (test code = :160 1541) BAHMAN PATTERN (BEAKER) (test code = Speckled 1781) HEPATITIS C PCR, [id number] 12:50:00 Test Item Value Reference Range Interpretation Comments HCV RESULT COMPONENT HCV RNA not detected HCV RNA not detected (BEAKER) (test code = 2699) This test uses a Real-Time Polymerase Chain Reaction (RT-PCR) methodology and was performed using CLOVER Ampliprep/CLOVER TaqMan HCV test kit version 2.0 ([employer]).Reportable range for this assay is 15 - 100,000,000 IU per mL (1.18 - 8.00 Log IU/mL).[id number] 11:58:00 Test Item Value Reference Range Interpretation Comments FERRITIN (BEAKER) (test code = 361) 179 ng/mL 5-275 HEPATITIS A ANTIBODY, [id number] 11:19:00 Test Item Value Reference Range Interpretation Comments HEPATITIS A IGG ANTIBODY (BEAKER) Reactive Nonreactive A (test code = 2797) ALPHA FETOPROTEIN (AFP), TUMOR [id number] 11:16:00 Test Item Value Reference Range Interpretation Comments ALPHA-FETOPROTEIN (BEAKER) (test 7.0 ng/mL <10.0 code = 1094) [id number] 11:07:00 Test Item Value Reference Range Interpretation Comments ALPHA-1 ANTITRYPSIN (BEAKER) 205.10 mg/dL 90.00-200.00 H (test code = 502) COMPREHENSIVE METABOLIC [id number] 11:06:00 Test Item Value Reference Range Interpretation [...] 347) EGFR (BEAKER) (test 84 mL/min/1.73 ESTIMA WILLIAMS GFR IS code = 1092) sq m NOT ACCURATE CREATININE CLEARANCE IN PREDICTING GLOMERULAR FILTRATION RATE . ESTIMATED GFR I S NOT APPLICABLE FOR DIALYSIS PATIEN TS. BILIRUBIN, [id number] 11:06:00 Test Item Value Reference Range Interpretation [...] = 2590) CBC W/PLT COUNT & AUTO [id number] 10:47:00 Test Item Value Reference Range Interpretation [...] PERCENT (BEAKER) (test code = 2801) PROTHROMBIN [id number] 10:44:00 Test Item Value Reference Range Interpretation [...]
--- NOTE | 2022-08-01 10:27 | RAD REPORT ---
EXAM DESCRIPTION: CT - Abdomen Pelvis Wo Contrast - 08/01/2022 10:00 am CLINICAL HISTORY: Abdominal pain /vomiting COMPARISON: 2018 TECHNIQUE: Computed axial tomography of the abdomen and pelvis was obtained. IV and oral contrast we re not requested. All CT scans are performed using dose optimization technique as appropriate and may include automated exposure control or mA/KV adjustment according to patient size. FINDINGS: The evaluation of solid organs, vessels and bowel is limited secondary to the lack of con trast administration. Cirrhotic liver. Cholecystectomy. Borderline splenomegaly. Pancreas, adrenals and kidneys grossly normal No evidence of diverticulitis. Right testicle lies within the inferior right inguinal region. IMPRESSION: No acute abnormality is displayed.
[2022-08-01 10:58] LABS: Absolute Lymphocytes (CBC) 1.2 K/uL (0.7-4.9); Hematocrit 47.1 % (39.6-49.0); Lymphocytes % 21.6 % (15.3-44.8); MCV 87.4 fL (80-100); MPV 8.2 fL (7.6-11.3); RBC Red Blood Cell Count 5.38 M/uL (4.33-5.43)
[2022-08-01] MEDS ORDERED: OCTREOTIDE 500 MCG in NA CHLORIDE 0.9% 500 ML IV ONE (11:00)
[2022-08-01] MEDS ORDERED: PANTOPRAZOLE INJ 80 MG in NA CHLORIDE 0.9% 250 ML IV ONE (11:00)
[2022-08-01 11:01] LABS: Protime INR 1.19
[2022-08-01] MEDS ORDERED: PANTOPRAZOLE 40 MG INJ ONE (11:03)
[2022-08-01] MEDS ORDERED: NA CHLORIDE 0.9% 1,000 ML ONE (11:03)
[2022-08-01] MEDS ORDERED: ONDANSETRON 4 MG/2 ML VIAL ONE (11:03)
[2022-08-01] MEDS ORDERED: OCTREOTIDE ACETATE 100 MCG/ML ONE (11:03)
[2022-08-01 11:14] LABS: Albumin 4.1 g/dL (3.4-5.0); Bilirubin Total 1.4 mg/dL (0.2-1.0); Potassium 3.4 mEq/L (3.5-5.1); Protein, Total 8.1 g/dL (6.4-8.2)
--- NOTE | 2022-08-01 12:06 | EDPHYS ---
Physician Documentation [facility] Name: Melchor Cisse III Age: 62 yrs Sex: Male : 1960 Arrival Date: 08/01/2022 Time: 09:28 Bed 5 Private MD: Alf Cam ED Physician Irineo Aquino HPI: 08/01 10:04 This 62 yrs old Male presents to ER via Ambulatory with complaints of Abdominal Pain, rn Vomiting. 10:04 The patient presents to the emergency department with nausea, vomiting, abdominal pain, rn of the epigastric area. 10:07 Onset: The symptoms/episode began/occurred this morning. Possible causes: unknown. The rn symptoms are aggravated by nothing. The symptoms are alleviated by nothing. Severity of symptoms: At their worst the symptoms were moderate in the emergency department the symptoms are unchanged. The patient has experienced similar episodes in the past. The patient has been recently seen by a physician:. Pt reports upper abd pain and vomiting, began after starting bowel prep for colonoscopy this AM with Dr. Cody. [place] fine prior to starting bowel prep. No fever. NO trauma. Has cirrhosis and has had esophageal and gastric varices. Reports first emesis did not have blood, but subsequently began to have small amount of blood in emesis. . Historical: - Allergies: 09:48 Iodine; aa5 09:48 Morphine; aa5 09:48 shrimp; aa5 - PMHx: 09:48 Cirrhosis; Crohn's; Hepatitis; HERPES; HIV; HPV; ibs; ulcerative colitis; aa5 - PSHx: 09:48 Cholecystectomy; aa5 - Immunization history:: Adult Immunizations unknown. - Family history:: not pertinent. - Social history:: Smoking status: unknown. - Hospitalizations: : No recent hospitalization is reported. ROS: 10:07 Constitutional: Negative for fever, chills, and weight loss, Eyes: Negative for injury, rn pain, redness, and discharge, Cardiovascular: Negative for chest pain, palpitations, and edema, Respiratory: Negative for shortness of breath, cough, wheezing, and pleuritic chest pain, Abdomen/GI: + abd pain and vomiting Back: Negative for injury and pain, MS/Extremity: Negative for injury and deformity, Skin: Negative for injury, rash, and discoloration, Neuro: + generalized weakness Exam: 10:07 Constitutional: Disheveled male, holding emesis bag and vomiting small amounts of rn blood containing emesis Head/Face: Normocephalic, atraumatic. Cardiovascular: Bradycardic, regular. No pulse deficits. Respiratory: No increased work of breathing, no retractions or nasal flaring. Abdomen/GI: Soft, non-tender Skin: Warm, dry MS/ Extremity: Pulses equal, no cyanosis. Neuro: Awake and alert, GCS 15, normal gait. Vital Signs: 09:47 BP 172 / 74; Pulse 56; Resp 20 S; Temp 97(O); Pulse Ox 100% on R/A; aa5 10:30 BP 184 / 92; Pulse 48; Resp 18; Pulse Ox 99% ; ko1 12:37 BP 178 / 92; Pulse 50; Resp 18; Pulse Ox 98% on R/A; ld1 14:00 BP 136 / 77; Pulse 81; Resp 18; Pulse Ox 97% on R/A; ld1 15:55 BP 110 / 73; Pulse 79; Resp 18; Pulse Ox 95% on R/A; ld1 MDM: 09:42 Patient medically screened. rn 12:03 Differential diagnosis: gastritis, viral gastroenteritis, gastroenteritis, reaction to rn bowel prep, karla-orr, variceal bleeding. Data reviewed: vital signs, nurses notes, lab test result(s), radiologic studies, CT scan, and as a result, I will admit patient. Consideration of Admission/Observation Patient was admitted/placed on observation. Escalation of care including admission/observation considered. Management of patient was discussed with the following: Graduate Rn: Consulted with Dr. Cody, unable to come in and care for patient, requests that Dr. York be involved since he is chyron operator. . Counseling: I had a detailed discussion with the patient and/or guardian regarding: the historical points, exam findings, and any diagnostic results supporting the discharge/admit diagnosis, lab results, radiology results, the need for further work-up and treatment in the hospital. Response to treatment: the patient's symptoms have mildly improved after treatment, and as a result, I will admit patient. 12:03 ED course: Dr. York chyron operator, called for consultation, no answer, left message.. rn 12:22 ED course: Pt feels much better, no longer with emesis, looks better, normal h/h. rn 08/01 09:51 Order name: CBC with Diff; Complete Time: 11:20 rn 08/01 09:51 Order name: CMP; Complete Time: 11:20 rn 08/01 09:51 Order name: Lipase; Complete Time: 11:20 rn 08/01 09:51 Order name: PT-INR; Complete Time: 11:20 rn 08/01 09:51 Order name: Type And Screen; Complete Time: 12:26 rn 08/01 15:40 Order name: Hemoglobin EDMS 08/01 09:51 Order name: CT Abd/Pelvis - Without Contrast; Complete Time: 10:53 rn 08/01 09:51 Order name: IV Saline Lock; Complete Time: 11:09 rn 08/01 09:51 Order name: Labs collected and sent; Complete Time: 11:09 rn Administered Medications: 11:08 Drug: Pantoprazole IVP 40 mg Route: IVP; Site: left antecubital; iw 11:08 Drug: Octreotide IV 50 mcg Route: IV; Rate: calculated rate; Site: left antecubital; iw 11:09 Drug: NS 0.9% IV 1000 ml Route: IV; Rate: 1 bolus; Site: left antecubital; iw 11:09 Drug: Ondansetron IVP 4 mg Route: IVP; Site: left antecubital; iw 11:31 Drug: Pantoprazole IV 8 mg/hr Route: IV; Rate: 25 ml/hr; Site: left antecubital; ld1 12:07 Drug: Octreotide Infusion (50 mcg/hr) - (Octreotide IV 500 mcg, NS 0.9% IV 500 ml) ld1 Route: IV; Rate: 50 ml/hr; Site: right antecubital; Disposition Summary: 08/01/22 12:05 Hospitalization Ordered Hospitalization Status: Inpatient Admission rn Provider: Alf Cam rn Location: Telemetry/MedSurg (Inpatient) rn Condition: Stable rn Problem: new rn Symptoms: have improved rn Bed/Room Type: Standard rn Room Assignment: 212(08/01/22 13:30) eb Diagnosis - Hematemesis rn - GI Bleed/ Gastrointestinal hemorrhage, unspecified rn Forms: - Medication Reconciliation Form rn - SBAR form rn Signatures: Dispatcher [employer] Briana Lundberg RN Irineo Purcell MD MD rn Calderon, Audri RN RN aa5 Sallie Bustillos Lauren, RN RN ld1 Grecia Choi RN RN ko1 Corrections: (The following items were deleted from the chart) 10:10 10:07 Pt reports upper abd pain and vomiting, began after starting bowel prep for rn colonoscopy this AM with Dr. Cody. [place] fine prior to starting bowel prep. No fever. NO trauma. Has cirrhosis and has had esophageal and gastric varices. . rn 13:30 12:05 josie melendez
--- NOTE | 2022-08-01 12:06 | ER ---
Nurse's Notes [facility] Name: Melchor Cisse III Age: 62 yrs Sex: Male : 1960 Arrival Date: 08/01/2022 Time: 09:28 Bed 5 Private MD: Alf Cam Diagnosis: Hematemesis;GI Bleed/ Gastrointestinal hemorrhage, unspecified Presentation: 08/01 09:47 Chief complaint: Patient states: has colonoscopy with Dr. Cody at noon today, aa5 started bowel prep and began vomiting. Vomiting during triage. Coronavirus screen: vomiting. Ebola Screen: Patient denies travel to an Ebola-affected area in the 21 days before illness onset. Onset of symptoms was August 01, 2022. 09:47 Acuity: ANTONIA 3 aa5 09:47 Method Of Arrival: Ambulatory aa5 09:47 Initial Sepsis Screen: Does the patient meet any 2 criteria? No. Patient's initial aa5 sepsis screen is negative. Does the patient have a suspected source of infection? No. Patient's initial sepsis screen is negative. Risk Assessment: Do you want to hurt yourself or someone else? Patient reports no desire to harm self or others. Historical: - Allergies: 09:48 Iodine; aa5 09:48 Morphine; aa5 09:48 shrimp; aa5 - PMHx: 09:48 Cirrhosis; Crohn's; Hepatitis; HERPES; HIV; HPV; ibs; ulcerative colitis; aa5 - PSHx: 09:48 Cholecystectomy; aa5 - Immunization history:: Adult Immunizations unknown. - Family history:: not pertinent. - Social history:: Smoking status: unknown. - Hospitalizations: : No recent hospitalization is reported. Screenin:30 [facility] ED Fall Risk Assessment (Adult) History of falling in the last 3 months, ko1 including since admission No falls in past 3 months (0 pts) Confusion or Disorientation No (0 pts) Intoxicated or Sedated No (0 pts) Impaired Gait No (0 pts) Mobility Assist Device Used No (0 pt) Altered Elimination No (0 pt) Score/Fall Risk Level 0 - 2 = Low Risk Oriented to surroundings, Maintained a safe environment, Educated pt \T\ family on fall prevention, incl call for assistance when getting out of bed, Assessed \T\ reinforced patient's understanding of fall precautions, Provided non-skid footwear, Hourly rounding (assess needs \T\ fall precautionary measures) done, Used ambulatory aids as needed (educated on \T\ assisted with), Used gait belt as appropriate. Abuse screen: Denies threats or abuse. Denies injuries from another. Nutritional screening: No deficits noted. Tuberculosis screening: No symptoms or risk factors identified. Assessment: 10:30 General: Appears in no apparent distress. uncomfortable, ill, Behavior is calm, ko1 cooperative, appropriate for age. Pain: Complains of pain in epigastric area. Neuro: No deficits noted. Cardiovascular: No deficits noted. Respiratory: No deficits noted. GI: Bowel sounds present X 4 quads. Abd is soft X 4 quads. : No deficits noted. EENT: No deficits noted. Derm: No deficits noted. Musculoskeletal: No deficits noted. 12:37 Reassessment: Patient appears in no apparent distress at this time. No changes from ld1 previously documented assessment. 15:56 Reassessment: Patient appears in no apparent distress at this time. No changes from ld1 previously documented assessment. Patient and/or family updated on plan of care and expected duration. Pain level reassessed. Vital Signs: 09:47 BP 172 / 74; Pulse 56; Resp 20 S; Temp 97(O); Pulse Ox 100% on R/A; aa5 10:30 BP 184 / 92; Pulse 48; Resp 18; Pulse Ox 99% ; ko1 12:37 BP 178 / 92; Pulse 50; Resp 18; Pulse Ox 98% on R/A; ld1 14:00 BP 136 / 77; Pulse 81; Resp 18; Pulse Ox 97% on R/A; ld1 15:55 BP 110 / 73; Pulse 79; Resp 18; Pulse Ox 95% on R/A; ld1 ED Course: 09:33 Patient arrived in ED. mr 09:33 Alf Cam MD is Private Physician. mr 09:42 Irineo Aquino MD is Attending Physician. rn 09:47 Arm band placed on. aa5 09:48 Triage completed. aa5 10:02 CT Abd/Pelvis - Without Contrast In Process Unspecified. EDMS 10:30 Patient has correct armband on for positive identification. Bed in low position. Call ko1 light in reach. Side rails up X2. Client placed on continuous cardiac and pulse oximetry monitoring. MILAGROSBP monitoring applied. gambling monitor on. Warm blanket given. 10:50 Initial lab(s) drawn, by me, sent to lab. T\T\S collected, blood band applied to patient. em1 Inserted saline lock: 20 gauge in left antecubital area, using aseptic technique. Blood collected. 10:56 Grecia Choi, RN is Primary Nurse. ko1 11:27 called and left message with Dr. York for patient consultation. eb 11:57 Inserted saline lock: 20 gauge in right antecubital area, using aseptic technique. zm 12:05 Alf Cam MD is Hospitalizing Provider. rn 12:07 Inserted saline lock: 20 gauge in right antecubital area, using aseptic technique. ld1 15:56 No provider procedures requiring assistance completed. Patient admitted, IV remains in ld1 place. Administered Medications: 11:08 Drug: Pantoprazole IVP 40 mg Route: IVP; Site: left antecubital; iw 11:08 Drug: Octreotide IV 50 mcg Route: IV; Rate: calculated rate; Site: left antecubital; iw 11:09 Drug: NS 0.9% IV 1000 ml Route: IV; Rate: 1 bolus; Site: left antecubital; iw 11:09 Drug: Ondansetron IVP 4 mg Route: IVP; Site: left antecubital; iw 11:31 Drug: Pantoprazole IV 8 mg/hr Route: IV; Rate: 25 ml/hr; Site: left antecubital; ld1 12:07 Drug: Octreotide Infusion (50 mcg/hr) - (Octreotide IV 500 mcg, NS 0.9% IV 500 ml) ld1 Route: IV; Rate: 50 ml/hr; Site: right antecubital; Medication: 10:30 VIS not applicable for this client. ko1 Outcome: 12:05 Decision to Hospitalize by Provider. rn 15:56 Admitted to Med/surg accompanied by tech, via wheelchair, room 212, with chart, Report ld1 called to MARISELA Fu 15:56 Condition: stable 15:56 Instructed on the need for admit. 16:21 Patient left the ED. ko1 Signatures: Dispatcher [employer] EDRI Yamila Haas Irene, RN RN iw Irineo Aquino MD MD rn Martinez, Eric em1 Leona Avila, RN RN aa5 Sallie Bustillos Lauren, RN RN ld1 Reba Abraham Kathy, RN RN ko1
[2022-08-01] MEDS: OCTREOTIDE 500 MCG in NA CHLORIDE 0.9% 500 ML IV SCH (14:47)
[2022-08-01] MEDS: PANTOPRAZOLE INJ 80 MG in NA CHLORIDE 0.9% 250 ML IV SCH ×2 (14:47→22:48)
--- NOTE | 2022-08-01 15:46 | P.HP ---
Certification for Inpatient Patient admitted to: Inpatient With expected LOS: >2 Midnights Practitioner: I am a practitioner with admitting privileges, knowledge of patient current condition, hospital course, and medical plan of care. Services: Services provided to patient in accordance with Admission requirements found in Title 42 Section 412.3 of the Code of Federal Regulations Patient History Date of Service: 08/01/22 Primary Care Provider: Tutu Reason for admission: upper gi bleed History of Present Illness: Office patient of mine with a history of Hiv and esophageal varices. He was taking the bowel prep for a scope with Dr. Cody this morning. When he started vomitting blood. The patient just had the same problem and was in [facility]. He was directed to the hospital by Dr. Cody's staff. He states that his last viral load was undectable. Allergies iodine Allergy (Verified 05/17/19 08:11) Nausea/Vomiting morphine Allergy (Verified 05/17/19 08:11) Itching shrimp Allergy (Verified 05/17/19 08:11) Nausea/Vomiting Home Medications: Abacavir/Dolutegravir/Lamivudi [Triumeq Tablet] 1 each PO DAILY 11/20/17 Esomeprazole Mag Trihydrate [Nexium] 40 mg PO DAILY 11/20/17 Hydrocodone Bit/Acetaminophen [Hydrocodon-Acetaminoph 7.5-325] 1 each PO Q6HP PRN 11/20/17 Cyclobenzaprine [Flexeril] 10 mg PO TID PRN 05/17/19 Propranolol HCl 20 mg PO DAILY 05/17/19 clonazePAM [Clonazepam] 1 mg PO BID 05/17/19 Review of Systems Gastrointestinal: Abdominal Pain, Hematochezia Physical Examination - Physical Exam General: Alert, In no apparent distress HEENT: Atraumatic, PERRLA, Mucous membr. moist/pink, EOMI, Sclerae nonicteric Neck: Supple, 2+ carotid pulse no bruit, No LAD, Without JVD or thyroid abnormality Respiratory: Clear to auscultation bilaterally, Normal air movement Cardiovascular: Regular rate/rhythm, Normal S1 S2 Gastrointestinal: Normal bowel sounds, No tenderness, Tenderness (over the epigastric area ) Musculoskeletal: No tenderness Integumentary: No rashes Neurological: Normal gait, Normal speech, Normal strength at 5/5 x4 extr, Normal tone, Normal affect Lymphatics: No axilla or inguinal lymphadenopathy - Studies Laboratory Data (last 24 hrs) 08/01/22 10:50: PT 13.1 H, INR 1.19 08/01/22 10:50: Sodium 137, Potassium 3.4 L, BUN 11, Creatinine 1.20, Glucose 147 H, Total Bilirubin 1.4 H, AST 17, ALT 25, Alkaline Phosphatase 73, Lipase 21 08/01/22 10:50: WBC 5.80, Hgb 16.5, Hct 47.1, Plt Count 172 Assessment and Plan - Problems (Diagnosis) (1) Esoph varice other dis Current Visit: Yes Status: Acute Plan: will admit the patient to the hospital. Dr. Cody is unavalible. Will consult Dr. Burrows. Start IV PPI. Check serial H&H and transfuse as necessary (2) HIV (human immunodeficiency virus infection) Current Visit: Yes Status: Chronic Plan: will have the patient continue his home meds. His sister will bring his home meds. Will order a cd4 and viral load Qualifiers: HIV symptom status: asymptomatic, with no history of HIV-related illness Qualified Code(s): Z21 - Asymptomatic human immunodeficiency virus [HIV] infection status (3) COPD (chronic obstructive pulmonary disease) Current Visit: Yes Status: Acute Plan: currently stable. Will order prn levalbuterol Qualifiers: COPD type: chronic bronchitis Chronic bronchitis type: simple Qualified Code(s): J41.0 - Simple chronic bronchitis Discharge Plan: Home Plan to discharge in: Greater than 2 days - Advance Directives Does patient have a Living Will: No Does patient have a Durable POA for Healthcare: No - Code Status/Comfort Care Code Status Assessed: No Code Status: Full Code Physician Review: Patient Assessed, Agree with Above Assessment and Plan Critical Care: No Time Spent Managing Pts Care (In Minutes): 40
[2022-08-01] MEDS ORDERED: LEVALBUTEROL 0.63 MG/3 ML NEB NEB PRN (16:00)
[2022-08-01 16:52] VITALS: BMI 24.8
[2022-08-01] MEDS: D5.45NS W/KCL 20MEQ 1,000 ML IV SCH (17:03)
[2022-08-01] MEDS: ONDANSETRON 4 MG/2 ML VIAL IV PRN (17:59)
[2022-08-01] MEDS ORDERED: MIDAZOLAM HCL 2 MG/2 ML INJ ONE (20:46)
[2022-08-01] MEDS ORDERED: propofoL 200 MG/20 ML VIAL IV ONE ×2 (20:46→20:47)
[2022-08-01] MEDS ORDERED: LIDOCAINE 1% MPF 5 ML VIAL ONE (20:47)
[2022-08-01] MEDS ORDERED: EPINEPHRINE/PF 1 MG/ML AMP ONE (20:58)
[2022-08-01] MEDS ORDERED: Ringers Lactate 1,000 ML IV ONE (21:01)
[2022-08-01] MEDS: clonazePAM 1 MG TAB PO SCH (22:25)
--- NOTE | 2022-08-01 22:31 | CON ---
Date of Consultation: 08/01/2022 Reason For Consultation: Hematemesis. History Of Present Illness: The patient is a 62-year-old white male with history of HIV, esophageal varices, and gastric varix who presented to hospital with hematemesis. The patient was taking bowel prep earlier this morning [facility]. Cody and started having nausea an d vomiting and began vomiting of bright red blood. The patient has a history of known grade 1 esopha geal varices as per the patient and a gastric varix as well. He had upper GI bleed approximately a m onth ago and was transferred, I believe he said [place]. He was supposed to follow up as per the patient and as per the recommendations at tertiary center in [place], [place] for gastric varix therapy . 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 He also has vijaya turner a history of atrial fibrillation and is on metoprolol with his spanish interpreter, Dr. Shirley and has lilly d a laparoscopic cholecystectomy. Medications: Currently include Triumeq daily I think for HIV, Nexium daily, [place], Flexeril, propran olol, and clonazepam. Allergies: IODINE, MORPHINE, AND SHRIMP. Social History: He is single, never . No children. Positive for tobacco, about a 7th of a p ack per day and no alcohol. Family History: Father is alive and well. Mother of lung cancer and had a history of tobacco, marijuana, and crack as per the patient. Review of Systems: The patient has hematemesis, nausea, and vomiting. Denies abdominal pain, fevers, chills, night swea ts, heat or cold intolerance, diarrhea, constipation, change in bowel habits, change in weight, chest pain, shortness of breath, seizure, syncope, lower extremity edema, muscle aches, joint aches, backa darryl, depression, and anxiety. Physical Examination: Vital Signs: He is 5 feet 11 inches, 178 pounds. BMI of 24.8 kg/sq m. General: He is a well-nourished, well-developed male, lying in bed, in no acute distress. HEENT: Normocephalic, atraumatic. Anicteric. Pupils equal, round, and reactive to light. Extraocu lar movements intact. Oropharynx clear. Neck: Supple. No masses. Respirations: Clear to auscultation bilaterally. Cardiac: Regular rate and rhythm. Gastrointestinal: Positive bowel sounds. Soft, nontender, nondistended. No hepatosplenomegaly. Extremities: No clubbing, cyanosis, or edema. 2+ pulses. Neuro: Alert and oriented x3. Grossly nonfocal. 5/5 motor strength. Sensation intact to light katarzyna ch. Laboratory Data: The patient has a white count of 5.0, hemoglobin 16.5, hematocrit 47.1, MCV of 87, platelet count 172, polys 74%, lymphocytes 22%, and monocytes 4%. PT of 13.1, INR of 1.2. The patie nt has sodium of 137, potassium 3.4, chloride 106, bicarb 26, BUN 11, creatinine of 1.2, glucose 147, calcium 9.6, total bilirubin 1.4, AST of 17, ALT of 25, alkaline phosphatase 73, total protein 8.1, albumin 4.1, globulin 4.0. Lipase 21. HIV DNA PCR pending. CT abdomen and pelvis was negative exce pt for borderline splenomegaly, cirrhotic liver, cholecystectomy changes, and right testicle lies wit hin the inferior right inguinal region. Impression: 1.Hematemesis with known grade 1 esophageal varices and gastric varix with nausea and vomiting after colon prep at 6 or 7 o'clock this morning in preparation for colonoscopy at outpatient [facility]. 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 with good control, esophageal varices grade 1, gastric varix, and laparoscopic cholecystectomy. Recommendations: 1.Check serial H and H and transfuse p.r.n. 2.With the goal of a hemoglobin of 7 with history of esophageal varices. 3.Continue IV fluids. 4.N.p.o. 5.EGD. 6.Continue IV octreotide. 7.Consider IV ceftriaxone in the setting of possible esophageal varices bleeding. YVON/PRAKASHL Voice ID: [id number] Report ID: [id number]
[2022-08-02] MEDS: OCTREOTIDE 500 MCG in NA CHLORIDE 0.9% 500 ML IV SCH ×3 (00:19→20:38)
[2022-08-02] MEDS: PANTOPRAZOLE INJ 80 MG in NA CHLORIDE 0.9% 250 ML IV SCH ×3 (00:47→20:38)
[2022-08-02] MEDS: D5.45NS W/KCL 20MEQ 1,000 ML IV SCH ×3 (03:45→23:38)
[2022-08-02 06:51] LABS: Absolute Lymphocytes (CBC) 2.1 K/uL (0.7-4.9); Hematocrit 37.3 % (39.6-49.0); Lymphocytes % 34.4 % (15.3-44.8); MCV 87.9 fL (80-100); MPV 8.6 fL (7.6-11.3); RBC Red Blood Cell Count 4.25 M/uL (4.33-5.43)
[2022-08-02] MEDS: ONDANSETRON 4 MG/2 ML VIAL IV PRN ×3 (06:54→20:38)
[2022-08-02] MEDS: PROPRANOLOL HCL 10 MG TAB PO SCH (07:59)
[2022-08-02] MEDS: clonazePAM 1 MG TAB PO SCH ×2 (07:59→20:32)
[2022-08-02] MEDS ORDERED: ABACAVIR PO SCH (09:00)
[2022-08-02] MEDS ORDERED: LAMIVUDI PO SCH (09:00)
[2022-08-02] MEDS ORDERED: [UNRECOGNIZED DRUG - OTHER] PO SCH (09:00)
[2022-08-02] MEDS ORDERED: HOME MED 1 EA UNK (Propranolol Hcl [Propranolol Hcl] 20 MG Tablet) PO SCH (09:00)
[2022-08-02] MEDS ORDERED: DOLUTEGRAVIR PO SCH (09:00)
[2022-08-02] MEDS ORDERED: HOME MED 1 EA UNK (Esomeprazole Mag Trihydrate [Nexium] 40 MG Capsule.Dr) PO SCH (09:00)
[2022-08-02] MEDS ORDERED: PANTOPRAZOLE 40MG TABLET PO SCH (09:00)
--- NOTE | 2022-08-02 18:26 | P.PN ---
Subjective Date of Service: 08/02/22 Primary Care Provider: Tutu Chief Complaint: upper gi bleed Subjective: Improving Review of Systems 10-point ROS is otherwise unremarkable Physical Examination - Vital Signs Temperature: 97.7 F Blood Pressure: 129/87 Pulse: 61 Respirations: 14 Pulse Ox (%): 99 - Physical Exam General: Alert, In no apparent distress HEENT: Atraumatic, PERRLA, EOMI Neck: Supple, JVD not distended Respiratory: Clear to auscultation bilaterally, Normal air movement Cardiovascular: Regular rate/rhythm, Normal S1 S2 Gastrointestinal: Normal bowel sounds, No tenderness Musculoskeletal: No tenderness Integumentary: No rashes Neurological: Normal speech, Normal tone, Normal affect Lymphatics: No axilla or inguinal lymphadenopathy Assessment And Plan - Current Problems (Diagnosis) (1) Esoph varice other dis Current Visit: Yes Status: Acute Plan: will admit the patient to the hospital. Dr. Cody is unavalible. Will consult Dr. Burrows. Start IV PPI. Check serial H&H and transfuse as necessary (2) HIV (human immunodeficiency virus infection) Current Visit: Yes Status: Chronic Plan: will have the patient continue his home meds. His sister will bring his home meds. Will order a cd4 and viral load Qualifiers: HIV symptom status: asymptomatic, with no history of HIV-related illness Qualified Code(s): Z21 - Asymptomatic human immunodeficiency virus [HIV] infection status (3) COPD (chronic obstructive pulmonary disease) Current Visit: Yes Status: Acute Plan: currently stable. Will order prn levalbuterol Qualifiers: COPD type: chronic bronchitis Chronic bronchitis type: simple Qualified Code(s): J41.0 - Simple chronic bronchitis Discharge Plan: Home Plan to discharge in: 24 Hours - Code Status/Comfort Care Code Status Assessed: No Physician Review: Patient Assessed, Agree with Above Assessment and Plan Critical Care: No Time Spent Managing PTS Care (In Minutes): 20
[2022-08-03] MEDS: PANTOPRAZOLE INJ 80 MG in NA CHLORIDE 0.9% 250 ML IV SCH ×2 (06:04→16:18)
[2022-08-03] MEDS: OCTREOTIDE 500 MCG in NA CHLORIDE 0.9% 500 ML IV SCH ×2 (06:05→16:20)
[2022-08-03] MEDS: D5.45NS W/KCL 20MEQ 1,000 ML IV SCH ×4 (06:41→20:46)
[2022-08-03] MEDS: clonazePAM 1 MG TAB PO SCH ×2 (08:48→20:39)
[2022-08-03] MEDS: PROPRANOLOL HCL 10 MG TAB PO SCH (08:48)
[2022-08-03] MEDS: ABACAVIR PO SCH (08:49)
[2022-08-03] MEDS: DOLUTEGRAVIR PO SCH (08:49)
[2022-08-03] MEDS: LAMIVUDI PO SCH (08:49)
[2022-08-03] MEDS: [UNRECOGNIZED DRUG - OTHER] PO SCH (08:49)
[2022-08-03] MEDS: ONDANSETRON 4 MG/2 ML VIAL IV PRN ×2 (08:52→15:28)
[2022-08-03] MEDS ORDERED: ACETAMINOPHEN 500 MG TAB PO PRN (11:11)
--- NOTE | 2022-08-03 12:10 | P.PN ---
Subjective Date of Service: 08/03/22 Primary Care Provider: Tutu Chief Complaint: upper gi bleed Subjective: New changes (nausea) Review of Systems 10-point ROS is otherwise unremarkable General: Other (headache) Gastrointestinal: Nausea Physical Examination - Vital Signs Temperature: 98.1 F Blood Pressure: 152/82 Pulse: 67 Respirations: 16 Pulse Ox (%): 98 - Physical Exam General: Alert, In no apparent distress HEENT: Atraumatic, PERRLA, EOMI Neck: Supple, JVD not distended Respiratory: Clear to auscultation bilaterally, Normal air movement Cardiovascular: Regular rate/rhythm, Normal S1 S2 Gastrointestinal: Normal bowel sounds, No tenderness Musculoskeletal: No tenderness Integumentary: No rashes Neurological: Normal speech, Normal tone, Normal affect Lymphatics: No axilla or inguinal lymphadenopathy Assessment And Plan - Current Problems (Diagnosis) (1) Esoph varice other dis Current Visit: Yes Status: Acute Plan: will admit the patient to the hospital. Dr. Cody is unavalible. Will consult Dr. Burrows. Start IV PPI. Check serial H&H and transfuse as necessary (2) HIV (human immunodeficiency virus infection) Current Visit: Yes Status: Chronic Plan: will have the patient continue his home meds. His sister will bring his home meds. Will order a cd4 and viral load Qualifiers: HIV symptom status: asymptomatic, with no history of HIV-related illness Qualified Code(s): Z21 - Asymptomatic human immunodeficiency virus [HIV] infection status (3) COPD (chronic obstructive pulmonary disease) Current Visit: Yes Status: Acute Plan: currently stable. Will order prn levalbuterol Qualifiers: COPD type: chronic bronchitis Chronic bronchitis type: simple Qualified Code(s): J41.0 - Simple chronic bronchitis (4) Nausea Current Visit: Yes Status: Acute Plan: will start him on scheduled doses of phenergan. also will treat the headache with tylenol Discharge Plan: Home Plan to discharge in: 24 Hours - Code Status/Comfort Care Code Status Assessed: No Physician Review: Patient Assessed, Agree with Above Assessment and Plan Critical Care: No Time Spent Managing PTS Care (In Minutes): 20
[2022-08-03] MEDS: PROMETHAZINE 25 MG TABLET PO SCH ×2 (13:00→20:41)
[2022-08-03] MEDS ORDERED: MORPHINE 4 MG/ML SYR IV PRN (15:41)
[2022-08-03] MEDS: HYDROMORPHONE HCL 0.5 MG/0.5 ML INJ IV PRN (17:46)
[2022-08-04] MEDS: PROMETHAZINE 25 MG TABLET PO SCH ×4 (00:35→18:12)
[2022-08-04] MEDS: HYDROMORPHONE HCL 0.5 MG/0.5 ML INJ IV PRN ×2 (00:39→20:53)
[2022-08-04] MEDS: OCTREOTIDE 500 MCG in NA CHLORIDE 0.9% 500 ML IV SCH ×2 (02:31→12:44)
[2022-08-04] MEDS: PANTOPRAZOLE INJ 80 MG in NA CHLORIDE 0.9% 250 ML IV SCH ×2 (02:31→12:45)
[2022-08-04] MEDS: D5.45NS W/KCL 20MEQ 1,000 ML IV SCH ×3 (06:54→22:41)
[2022-08-04] MEDS: clonazePAM 1 MG TAB PO SCH ×2 (08:52→20:49)
[2022-08-04] MEDS: PROPRANOLOL HCL 10 MG TAB PO SCH (08:52)
[2022-08-04] MEDS: [UNRECOGNIZED DRUG - OTHER] PO SCH (08:52)
[2022-08-04] MEDS: ABACAVIR PO SCH (08:52)
[2022-08-04] MEDS: DOLUTEGRAVIR PO SCH (08:52)
[2022-08-04] MEDS: LAMIVUDI PO SCH (08:52)
[2022-08-04] MEDS: ONDANSETRON 4 MG/2 ML VIAL IV PRN (09:26)
[2022-08-04] MEDS ORDERED: METOCLOPRAMIDE 10 MG/2mL INJ IV ONE (10:15)
--- NOTE | 2022-08-04 10:21 | P.PN ---
Subjective Date of Service: 08/04/22 Primary Care Provider: Tutu Chief Complaint: Hematemesis, N/V, gastric varices, gastritis, retained bilious fluid on EGD Subjective: New changes (Continued N/V, unable to tolerate po well. He now reports problems with nausea his entire life. Moderate amount of bilious fluid noted on EGD.) Review of Systems 10-point ROS is otherwise unremarkable Gastrointestinal: Nausea Physical Examination - Vital Signs Temperature: 98.8 F Blood Pressure: 140/80 Pulse: 62 Respirations: 16 Pulse Ox (%): 98 - Physical Exam General: Alert, In no apparent distress, Oriented x3, Cooperative HEENT: Atraumatic, Normocephalic, PERRLA, EOMI Neck: Supple Respiratory: Normal air movement Cardiovascular: Normal pulses Gastrointestinal: Soft and benign, No tenderness, No rebound, No guarding Neurological: Normal speech, Normal strength at 5/5 x4 extr Assessment And Plan - Current Problems (Diagnosis) (1) Hematemesis Current Visit: Yes Status: Acute (2) Nausea & vomiting Current Visit: Yes Status: Acute (3) Gastritis Current Visit: Yes Status: Acute (4) Gastric varices Current Visit: Yes Status: Acute (5) COPD (chronic obstructive pulmonary disease) Current Visit: Yes Status: Acute Qualifiers: COPD type: chronic bronchitis Chronic bronchitis type: simple Qualified Code(s): J41.0 - Simple chronic bronchitis (6) Esoph varice other dis Current Visit: Yes Status: Acute (7) HIV (human immunodeficiency virus infection) Current Visit: Yes Status: Chronic Qualifiers: HIV symptom status: asymptomatic, with no history of HIV-related illness Qualified Code(s): Z21 - Asymptomatic human immunodeficiency virus [HIV] infection status - Plan REC:1) Reglan X1 now 2) gastric emptying study in AM 3) will optimize nausea meds after gastric emptying study 4) continue PPI therapy Physician Review: Patient Assessed, Agree with Above Assessment and Plan
--- NOTE | 2022-08-04 13:39 | P.PN ---
Subjective Date of Service: 08/04/22 Primary Care Provider: Tutu Chief Complaint: Hematemesis, N/V, gastric varices, gastritis, retained bilious fluid on EGD Subjective: No new changes Review of Systems 10-point ROS is otherwise unremarkable Physical Examination - Vital Signs Temperature: 99.0 F Blood Pressure: 108/74 Pulse: 56 Respirations: 16 Pulse Ox (%): 100 - Physical Exam General: Alert, In no apparent distress HEENT: Atraumatic, PERRLA, EOMI Neck: Supple, JVD not distended Respiratory: Clear to auscultation bilaterally, Normal air movement Cardiovascular: Regular rate/rhythm, Normal S1 S2 Gastrointestinal: Normal bowel sounds, No tenderness Musculoskeletal: No tenderness Integumentary: No rashes Neurological: Normal speech, Normal tone, Normal affect Lymphatics: No axilla or inguinal lymphadenopathy Assessment And Plan - Current Problems (Diagnosis) (1) Esoph varice other dis Current Visit: Yes Status: Acute Plan: will admit the patient to the hospital. Dr. Cody is unavalible. Will consult Dr. Burrows. Start IV PPI. Check serial H&H and transfuse as necessary (2) HIV (human immunodeficiency virus infection) Current Visit: Yes Status: Chronic Plan: will have the patient continue his home meds. His sister will bring his home meds. Will order a cd4 and viral load Qualifiers: HIV symptom status: asymptomatic, with no history of HIV-related illness Qualified Code(s): Z21 - Asymptomatic human immunodeficiency virus [HIV] infection status (3) COPD (chronic obstructive pulmonary disease) Current Visit: Yes Status: Acute Plan: currently stable. Will order prn levalbuterol Qualifiers: COPD type: chronic bronchitis Chronic bronchitis type: simple Qualified Code(s): J41.0 - Simple chronic bronchitis (4) Nausea Current Visit: Yes Status: Acute Plan: will start him on scheduled doses of phenergan. also will treat the headache with tylenol (5) Nausea & vomiting Current Visit: Yes Status: Acute Qualifiers: Vomiting type: unspecified Qualified Code(s): R11.2 - Nausea with vomiting, unspecified Discharge Plan: Home Plan to discharge in: 24 Hours - Code Status/Comfort Care Code Status Assessed: No Physician Review: Patient Assessed, Agree with Above Assessment and Plan Critical Care: No Time Spent Managing PTS Care (In Minutes): 20
[2022-08-04 20:46] VITALS: O2SAT 96
[2022-08-05] MEDS: ONDANSETRON 4 MG/2 ML VIAL IV PRN ×2 (00:19→05:19)
[2022-08-05] MEDS: PROMETHAZINE 25 MG TABLET PO SCH ×2 (00:21→07:00)
[2022-08-05] MEDS: HYDROMORPHONE HCL 0.5 MG/0.5 ML INJ IV PRN (00:25)
[2022-08-05] MEDS: D5.45NS W/KCL 20MEQ 1,000 ML IV SCH (03:47)
[2022-08-05 04:15] LABS: Absolute Lymphocytes (CBC) 2.4 K/uL (0.7-4.9); Hematocrit 36.9 % (39.6-49.0); Lymphocytes % 49.5 % (15.3-44.8); MCV 87.7 fL (80-100); MPV 7.9 fL (7.6-11.3); RBC Red Blood Cell Count 4.21 M/uL (4.33-5.43)
[2022-08-05 04:37] LABS: Albumin 2.9 g/dL (3.4-5.0); Bilirubin Total 0.8 mg/dL (0.2-1.0); Phosphorus 3.1 mg/dL (2.5-4.9); Potassium 4.2 mEq/L (3.5-5.1); Protein, Total 5.9 g/dL (6.4-8.2)
[2022-08-05 08:10] VITALS: BP 140/74; TEMP 98.5
[2022-08-05] MEDS: ABACAVIR PO SCH (08:23)
[2022-08-05] MEDS: DOLUTEGRAVIR PO SCH (08:23)
[2022-08-05] MEDS: [UNRECOGNIZED DRUG - OTHER] PO SCH (08:23)
[2022-08-05] MEDS: LAMIVUDI PO SCH (08:23)
[2022-08-05] MEDS: clonazePAM 1 MG TAB PO SCH (08:24)
[2022-08-05] MEDS: PROPRANOLOL HCL 10 MG TAB PO SCH (08:24)
--- NOTE | 2022-08-05 15:18 | P.DS ---
Admission Date: 08/01/22 Discharge Date: 08/05/22 Primary Care Provider: Tutu Disposition: AMA-LEFT AGAINST MEDICAL ADVIC Reason for Admission: Hematemesis, N/V, gastric varices, gastritis, retained bilious fluid on EGD - Problems (1) Esoph varice other dis Status: Acute (2) HIV (human immunodeficiency virus infection) Status: Chronic Qualifiers: HIV symptom status: asymptomatic, with no history of HIV-related illness Qualified Code(s): Z21 - Asymptomatic human immunodeficiency virus [HIV] infection status (3) COPD (chronic obstructive pulmonary disease) Status: Acute Qualifiers: COPD type: chronic bronchitis Chronic bronchitis type: simple Qualified Code(s): J41.0 - Simple chronic bronchitis (4) Nausea Status: Acute (5) Nausea & vomiting Status: Acute Qualifiers: Vomiting type: unspecified Qualified Code(s): R11.2 - Nausea with vomiting, unspecified Brief History of Present Illness: Office patient of [facility] with a history of Hiv and esophageal varices. He was taking the bowel prep for a scope with Dr. Cody this morning. When he started vomitting blood. The patient just had the same problem and was in [facility]. He was directed to the hospital by Dr. Cody's staff. He states that his last viral load was undectable. Hospital Course: Patient was admitted for the esophageal varices. He was scoped by Dr. Burrows. The patient was having nausea and vomitting. However his hb was stable. The patient was vomiting the enter time. He was to have a gastric emptying study. He was still throwing up at the examination. The patient decided to go home and left [facility]. He stated that he was happy with the staff and the care. He just wanted to be home Vital Signs/Physical Exam: Temp Pulse Resp BP Pulse Ox 98.5 F 56 18 140/74 98 08/05/22 08:00 08/05/22 08:00 08/05/22 08:00 08/05/22 08:00 08/05/22 08:00 Laboratory Data at Discharge: WBC 4.80 thou/uL (4.3-10.9) 08/05/22 03:40 Hgb 12.8 g/dL (13.6-17.9) L 08/05/22 03:40 Hct 36.9 % (39.6-49.0) L 08/05/22 03:40 Plt Count 103 thou/uL (152-406) L 08/05/22 03:40 PT 13.1 SECONDS (9.5-12.5) H 08/01/22 10:50 INR 1.19 08/01/22 10:50 Sodium 139 mEq/L (136-145) 08/05/22 03:40 Potassium 4.2 mEq/L (3.5-5.1) 08/05/22 03:40 BUN 8 mg/dL (7-18) 08/05/22 03:40 Creatinine 1.05 mg/dL (0.70-1.30) 08/05/22 03:40 Glucose 100 mg/dL (74-106) 08/05/22 03:40 Phosphorus 3.1 mg/dL (2.5-4.9) 08/05/22 03:40 Magnesium 2.0 mg/dL (1.6-2.4) 08/05/22 03:40 Total Bilirubin 0.8 mg/dL (0.2-1.0) 08/05/22 03:40 AST 35 U/L (15-37) 08/05/22 03:40 ALT 38 U/L (16-61) 08/05/22 03:40 Alkaline Phosphatase 53 U/L (45-117) 08/05/22 03:40 Lipase 21 U/L (13-75) 08/01/22 10:50 Home Medications: Abacavir/Dolutegravir/Lamivudi [Triumeq Tablet] 1 each PO DAILY 11/20/17 Esomeprazole Mag Trihydrate [Nexium] 40 mg PO DAILY 11/20/17 Hydrocodone Bit/Acetaminophen [Hydrocodon-Acetaminoph 7.5-325] 1 each PO Q6HP PRN 11/20/17 Cyclobenzaprine [Flexeril] 10 mg PO TID PRN 05/17/19 Propranolol HCl 20 mg PO DAILY 05/17/19 clonazePAM [Clonazepam] 1 mg PO BID 05/17/19 Diet: Regular Followup: Alf Cam MD [Primary Care Provider] - 1 Week Physician Review: Patient Assessed, Agree with Above Assessment and Plan Time spent managing pt's care (in minutes): 20
== END 2022-08-05 09:18 | disposition left against medical advice (07) | DRG 370 ==
LOC: ER 09:28 → ERHOLD 13:20 → 2ND 14:35
PROVIDERS: ADMIT Internal Medicine; ATTEND Internal Medicine
PROC: 0DJ08ZZ Inspection of Upper Intestinal Tract, Via Natural or Artificial Opening Endoscopic (ICD-10-PCS; principal; 2022-08-01 21:00)
DX: I85.01 Esophageal varices with bleeding (principal); J41.0 Simple chronic bronchitis; I48.0 Paroxysmal atrial fibrillation; K74.60 Unspecified cirrhosis of liver; K29.00 Acute gastritis without bleeding; Z21 Asymptomatic human immunodeficiency virus [HIV] infection status; Z88.5 Allergy status to narcotic agent; Z90.49 Acquired absence of other specified parts of digestive tract; Z53.29 Procedure and treatment not carried out because of patient's decision for other reasons; Z91.013 Allergy to seafood; Z91.048 Other nonmedicinal substance allergy status; Z79.899 Other long term (current) drug therapy
CPT/HCPCS: 36415; 74176; 80048; 80053; 83690; 83735; 84100; 85018; 85025; 85610; 86361; 86850; 86900; 86901; 87538; 99285; C9113; J0171; J1170; J2001; J2250; J2354; J2405; J2704; J2765; J7030; J7040; J7050; J7120; Q0169

== ENCOUNTER 2022-09-26 21:10 | Emergency (ER) | payer OTHER ==
--- OUTSIDE RECORDS SUMMARY | 2022-09-26 21:17 | XMS REPORT | Continuity of Care Document ---
:1960 Author Organization [facility] t Address [address] [place] [address]. [address] [place] [address] Care Team Providers Name Role Phone ISABEL, ASIF Primary Care Physician Unavailable CHERYL KRUEGER Attending Clinician Unavailable SHASHA REVELES Attending Clinician Unavailable SACHIN SINHA Attending Clinician Unavailable Doctor Unassigned, Amelia Attending Clinician Unavailable Irais Vo MD Attending Clinician Derek Donaldson MD Attending Clinician Cheryl Krueger MD Attending Clinician Chasidy HUNTLEY, Jeremie Lanza Attending Clinician Caleb Harris MD Attending Clinician Shasha Reveles MD Attending Clinician Jeaneth Darby MD Attending Clinician [phone] Saba Avina CRNA Attending Clinician QUETA GUPTA Attending Clinician Unavailable Sachin Sinha MD Attending Clinician IRAIS VO Admitting Clinician Unavailable SHASHA REVELES Admitting Clinician Unavailable Payers Payer Name Policy Type Policy Number Effective Date Expiration Date S ource MEDICARE A B [id number] 1994 00:00:00 [place] [id number] 2020 00:00:00 [place] [id number] 2016 00:00:00 [facility] [id number] 2016 MEDICAID 00:00:00 Problems Condition Condition Condition Status Onset Resolution Last Treating Co mments Source Name Details Category Date Date Treatment Clinician Date Asymptomat Asymptomat Disease Recurre [facility] infection, infection, 00:00: Me dical with no with no 00 Center history of history of HIV-relate HIV-relate d illness d illness GIB GIB Disease Active [facility] (gastroint (gastroint 2-08 Ellie kes estinal estinal 00:00: Medical bleeding) bleeding) 00 Cent er Immunity Immunity Disease Active 2018-03 Last [facility] t status status 0-30 Assessmen Lu testing testing 00:00: t & Plan: Medic al 00 [facility] Center g of this note might be different from the original. CDC recommend s that all patients with chronic liver disease, regardles s of etiology, should be immunized to prevent hepatitis A and hepatitis B if they are not already immune. This should be done in addition to other age-appro priate vaccines. We will test for immunity to both hepatitis A and B viruses; vaccine recommend ations will follow. Cirrhosis Cirrhosis Disease Recurre Last [facility] 03-31 [facility] 00:00: t & Plan: Medical 00 [facility] Center g of this note might be [...] Active Last [facility] 03-31 [facility]men [facility] 00:00: t & Plan: Medical 00 [facility] Center g of this note might be different from the original. Patient was treated with Mavyret and achieved SVR in 2019. We will check HCV RNA PCR today. Portal Portal Disease Recurre Last [facility] hypertensi [facility]i [facility] & Plan: [facility] g of this note might be different from the original. Complicat ions of portal venous hypertens ion include gastroeso phageal varices and hypersple nism indicate decompens ation of cirrhosis . These significa ntly increase the risk of . Gastric Gastric Disease Active Last [facility] varices varices Assessmen [facility] t & Plan: [facility] g of this note might [...] Disease Active [facility] t liver liver [facility] enzymes enzymes [facility] Condyloma Condyloma Problem Active Com mon acuminatum acuminatum Sp ger due to due to - [facility] human human St papillomav papillomav [facility] irus (HPV) irus (HPV) [facility] Follow up Follow up Diagnosis Active C ommon [facility] Allergies, Adverse Reactions, Alerts Allergy Allergy Status Severity Reaction(s) Onset Inactive Treating Comm ents Source Name Type Date Date Clinician Iodine Propensi Active Other (See Vomiting [facility] to Comments) 11-18 [facility] adverse 00:00: Medical reaction 00 Sylvester s Morphine Propensi Active Itching Itching [facility] ty to 11-18 and [facility] adverse 00:00: vomiting Medical reaction 00 Sylvester s IODINE Allergy Active Med Other [facility] 11-18 00:00: 00 MORPHINE Allergy Active Med Itching [facility] 11-18 00:00: 00 MORPHINE Adverse Active Info Not Commo n Reaction Available [facility] Iodine Adverse Active Info Not Common Reaction Available [facility] NO KNOWN Drug Active Univers ALLERGIE Class ity of S [facility] Family History Family Member Diagnosis Comments Start Date Stop Date Source Natural father Hearing loss [facility] Natural father Stroke [facility] Natural sister Heart disease [facility] Natural sister Hypertension [facility] Natural mother Cancer [facility] Social History Social Habit Start Date Stop Date Quantity Comments Source History [facility] Alcohol Std Drinks Medica Center History [facility] Alcohol Binge Medical Rian[facility] History of tobacco Cigarette Smoker [facility] use Medical Center History [facility] Transport Non-Med Medical Center Exposure to Not sure University of SARS-CoV-2 (event) [facility] Alcohol intake 2022-05-10 2022-05-[address] [facility] es 00:00:00 00:00:00 non-drinker of Medical Ce nter alcohol (finding) History [facility] 2022-05-09 2022-05-[address] [facility] Housing Homeless 00:00:00 00:00:00 Medical Center Last Year Tobacco Comment 2022-05-09 2022-05-09 tapered 2-3mos; [facility] 00:00:00 00:00:00 totally stopped Medical C enter smoking 1 week ago Cigarettes smoked 2022-05-09 2022-05-[address] [facility] current (pack per 00:00:00 00:00:00 Medical Center day) - Reported Cigarette 2022-05-09 2022-05-[address] [facility] pack-years 00:00:00 00:00:00 Medical Center Tobacco use and 2022-05-09 2022-05-[address] Ellie kes exposure 00:00:00 00:00:00 tobacco non-user Medical Center Alcohol Comment 2022-05-09 2022-05-09 quit [address] [facility] 00:00:00 00:00:00 1996 Medical Center History [facility] 2022-05-09 2022-05-[address] [facility] Transport Med 00:00:00 00:00:[address] History [facility] 2022-05-09 2022-05-[address] [facility] Housing Unable to 00:00:00 00:00:00 Medical Center Pay History [facility] 2022-05-09 2022-05-[address] [facility] Housing Places 00:00:00 00:00:00 Medical Ce nter Lived History [facility] 2019-01-27 2019-01-[address] [facility] Alcohol Frequency 00:00:00 00:00:00 Medical Center Sex Assigned At [birth year] [facility] Ellie cade 00:00:00 00:00:00 Medical Center Smoking Status Start Date Stop Date Source Tobacco smoking consumption [facility] unknown Branch Smokes tobacco daily 2022-05-09 00:00:00 [facility] Medications Ordered Filled Start Stop [...] 50 :00 times Center tablet daily. esomeprazol No [address] e (NEXIUM) [...] hours as needed for Pain . HYDROcodone 2018-03 No 1{tbl} Take [address] [...] for Muscle spasms . Esomeprazol Esomeprazol Yes Williams 1 capsule Common e Magnesium e Magnesium Kovacev [facility] Hydrocodone Hydrocodone Yes Williams 1 tablet Common -Acetaminop -Acetaminop Kovacev as needed [facility] Triumeq Triumeq Yes Williams 1 tablet Commo n Kovacev [facility] Clozapine Clozapine Yes [facility] 1 [facility] No known No Univers medications [facility] No known No Univers medications [facility] Vital Signs Vital Name Observation Time Observation Value Comments Source HEIGHT 2022-05-08 23:00:00 180.3 cm WEIGHT 2022-05-08 23:00:00 80.1 kg HEIGHT 2022-05-08 23:00:00 180.3 cm WEIGHT 2022-05-08 23:00:00 80.1 kg HEIGHT 2020-11-02 13:16:00 180.3 cm WEIGHT 2020-11-02 13:16:00 84.278 kg HEIGHT 2020-11-02 13:16:00 180.3 cm WEIGHT 2020-11-02 13:16:00 84.278 kg Systolic blood 2019-10-08 15:26:00 144 mm[Hg] [facility] Diastolic blood 2019-10-08 15:26:00 96 mm[Hg] [facility] Heart rate 2019-10-08 15:26:00 88 /min Universi ty [facility] Body temperature 2019-10-08 15:26:[address] [facility] Respiratory rate 2019-10-08 15:26:00 18 /min [facility] Body weight 2019-10-08 15:26:00 83.371 kg Universi ty [facility] Systolic blood 2019-10-08 15:26:00 144 mm[Hg] [facility] Diastolic blood 2019-10-08 15:26:00 96 mm[Hg] [facility] Heart rate 2019-10-08 15:26:00 88 /min Universi ty [facility] Body temperature 2019-10-08 15:26:[address] [facility] Respiratory rate 2019-10-08 15:26:00 18 /min [facility] Body weight 2019-10-08 15:26:00 83.371 kg [facility] Heart rate 2022-05-10 09:00:00 74 /min [facility] Respiratory rate 2022-05-10 09:00:00 18 /min [facility] Oxygen saturation in 2022-05-10 09:00:00 96 /min [facility] Arterial blood by Medical Ce nter Pulse oximetry Systolic blood 2022-05-10 08:40:00 134 mm[Hg] [facility] Diastolic blood 2022-05-10 08:40:00 84 mm[Hg] [facility] Body temperature 2022-05-10 08:40:00 35.72 Flor [facility] Body weight 2022-05-10 05:35:00 81.012 kg [facility] BMI 2022-05-10 05:35:00 24.91 kg/m2 [facility] Body height 2022-05-08 23:00:00 180.3 cm [facility] Systolic blood 2021-05-14 11:47:00 133 mm[Hg] [facility] Diastolic blood 2021-05-14 11:47:00 81 mm[Hg] [facility] Heart rate 2021-05-14 11:47:00 66 /min [facility] Body temperature 2021-05-14 11:47:00 36.67 Flor [facility] Respiratory rate 2021-05-14 11:47:00 17 /min [facility] Oxygen saturation in 2021-05-14 11:47:00 99 /min [facility] Arterial blood by Medical Ce nter Pulse oximetry Body height 2021-05-14 09:15:00 180.3 cm [facility] Body weight 2021-05-14 09:15:00 77.701 kg [facility] BMI 2021-05-14 09:15:00 23.89 kg/m2 [facility] Procedures Procedure Date / Time Performing Clinician Source Performed REFERRAL- 2022-09-10 05:01:00 Doctor Unassigned, Miracle Villatoro [facility] REQUEST/RESPONSE Name Medical Branch POCT-GLUCOSE METER 2022-05-10 07:47:00 Cheryl Krueger [facility] CBC W/PLT COUNT & AUTO 2022-05-10 02:54:00 Escudero, [facility] DIFFERENTIAL Center COMPREHENSIVE METABOLIC 2022-05-10 02:54:00 Escudero, [facility] PANEL Center MAGNESIUM 2022-05-10 02:54:00 Escudero, [facility] PHOSPHORUS 2022-05-10 02:54:00 Escudero, [facility] CBC W/PLT COUNT & AUTO 2022-05-10 02:54:00 Escudero, [facility] POCT-GLUCOSE METER 2022-05-09 21:17:00 Cheryl Krueger [facility] EGD 2022-05-09 13:29:00 Jeremie Umaña [facility] (ESOPHAGOGASTRODUODENOSC Center OPY) HEMOGLOBIN AND 2022-05-09 11:34:[address] [facility] HEMATOCRIT Center HEMOGLOBIN AND 2022-05-09 09:15:[address] [facility] Center COMPREHENSIVE METABOLIC 2022-05-09 03:22:00 [facility] MAGNESIUM 2022-05-09 03:22:00 Escudero [facility] PHOSPHORUS 2022-05-09 03:22:00 [facility] CALCIUM, IONIZED 2022-05-09 03:22:[address] [facility] PT/APTT 2022-05-09 03:22:00 [facility] ABORH, MANUAL 2022-05-09 03:22:00 Josephine Blakely [facility] Mamadou Center SARS-COV2/RT-PCR ([facility] & 2022-05-09 00:47:00 Afaq, [facility] Mandie mcdonald [facility] REF LABS) Center HEPATITIS C PCR, 2022-05-08 23:56:00 Afaq, [facility] QUANTITATIVE Center HIV-1 PCR, QUANTITATIVE 2022-05-08 23:56:00 Afaq, [facility] Boatengkay figueroa [facility] TYPE AND SCREEN, 2022-05-08 23:55:00 Afaq, [facility] AUTOMATED Center POCT-GLUCOSE METER 2022-05-08 23:50:00 Afaq, [facility] BASIC METABOLIC PANEL 2022-05-08 23:27:00 Afaq, [facility] CBC W/PLT COUNT & AUTO 2022-05-08 23:27:00 [facility], [facility] PROTHROMBIN TIME/INR 2022-05-08 23:27:00 Afaq, [facility] Jonah Morin [facility] APTT 2022-05-08 23:27:00 Afaq, [facility] FIBRINOGEN 2022-05-08 23:27:00 Afaq, [facility] HEPATIC FUNCTION PANEL 2022-05-08 23:27:00 Afaq, [facility] CBC W/PLT COUNT & AUTO 2022-05-08 23:27:00 Af, [facility] Center REPORT OF PROCEDURE - 2021-05-14 11:18:23 Shasha Reveles I [facility] ENDOSCOPY URL Center TISSUE EXAM 2021-05-14 11:10:00 Shasha Reveles [facility] EGD, WITH VARICEAL 2021-05-14 10:46:[address] [facility] BANDING Center Plan of Care Planned Activity Planned Date Details Comments Source Future Scheduled 2023-05-09 Tobacco Cessation [facility] Test 00:00:00 Counseling and Medical Cente r Screening (12+) [code = Tobacco Cessation Counseling and Screening (12+)] Future Scheduled 2022-11-[address] [facility] Test 00:00:00 (Season Ended) [code = Medic al Center INFLUENZA VACCINE (Season Ended)] Future Scheduled [...] lung Medical [facility] (procedure) [code = 497982330] Future Scheduled 2012 Screening for malignant [facility] Test 00:00:00 neoplasm of lung Medical Rianna ter (procedure) [code = 484696107] Future Scheduled 2012 SHINGLES VACCINES ([address] [facility] Test 00:00:00 2) [code = SHINGLES Medical Center VACCINES (1 of 2)] Future Scheduled 1997 Lipid panel (procedure) [facility] Test 00:00:00 [code = 34846769] Medical Ce nter Future Scheduled 1997 Lipid panel (procedure) [facility] Test 00:00:00 [code = 51023400] Medical Ce nter Future Scheduled 1995-12-01 MEDICARE [...] Lukes Test 00:00:00 2) [code = SHINGLES [facility] VACCINES (1 of 2)] Future Scheduled [...] Lukes Test 00:00:00 [code = CT Colonography [facility] (combo)] Future Scheduled 1962 Screening for malignant [facility] Test 00:00:00 neoplasm of colon Medical Ce nter (procedure) [code = 008024301] Future Scheduled 1962 Screening for malignant [facility] Test 00:00:00 neoplasm of colon Medical Ce nter (procedure) [code = 850406396] Future Scheduled 1962 Screening for malignant [facility] Test 00:00:00 neoplasm of colon Medical Ce nter (procedure) [code = 270628899] Future Scheduled 1962 Screening for malignant [facility] Test 00:00:00 neoplasm of colon Medical Ce nter (procedure) [code = 016355747] Future Scheduled 1960 Sigmoidoscopy [code = [facility] Test 00:00:00 Sigmoidoscopy] Medical Cente r Future Scheduled 1962 CT Colonography (combo) [facility] Test 00:00:00 [code = CT Colonography [facility] (combo)] Future Scheduled 1962 Screening for malignant [facility] Test 00:00:00 neoplasm of colon Medical Ce nter (procedure) [code = 208366798] Future Scheduled 1962 Screening for malignant [facility] Test 00:00:00 neoplasm of colon Medical Ce nter (procedure) [code = 115967097] Future Scheduled 1962 Screening for malignant [facility] Test 00:00:00 neoplasm of colon Medical Ce nter (procedure) [code = 588308118] Future Scheduled 1962 Screening for malignant [facility] Test 00:00:00 neoplasm of colon Medical Ce nter (procedure) [code = 172117986] Future Scheduled 1960 Sigmoidoscopy [code = [facility] Test 00:00:00 Sigmoidoscopy] Medical Cente r Encounters Start End Encounter Admission Attending Care Care Encounter Source Date/Time Date/Time Type Type Clinicians Facility Department ID 2022-05-08 Inpatient ER SHIEH, [facility] ICU [id number] [facility] 22:52:00 CHERYL 2021-04-25 Outpatient [facility] [id number] Common 12:05:40 [id number] [facility] 2021-04-25 Outpatient [facility] [id number] Common 12:03:07 [id number] [facility] 2021-01-07 Outpatient EL JALAL, [facility] Surgery [id number] SLE 14:40:44 SHASHA 2021-01-04 Outpatient JALAL, [facility] Surgery [id number] SLE 11:57:49 JAMIEUN 2022-09-10 2022-09-10 Orders Doctor STEPHENSON [id number] Univers 00:00:00 00:00:00 Only Unassigned, KERI [id number] ity of Amelia [facility] [id number] Gerber as [phone] [place] [id number] Branch 2022-05-08 2022-05-10 Hospital Irais Vo [facility] [id number] 22:52:00 16:02:00 Encounter Derek Donaldson [facility] Robi Cheryl [facility] 2022-05-09 2022-05-09 Surgery Chasidy, [facility] [id number] 13:30:00 14:00:[address] [facility] 2022-05-09 2022-05-09 Anesthesia Caleb Harris [facility] [id number] [facility] 13:31:00 13:53:00 Event Mendez [facility] 2022-05-09 2022-05-09 Travel [facility] [id number] [facility] 00:[facility]:00 00:00:00 [facility] 2021-05-14 2021-05-14 [facility] [id number] 08:51:00 12:04:[address] [facility] 2021-05-14 2021-05-14 Anesthesia Marioalvarado Jeaneth Ochoa [facility] [id number] [facility] 10:51:00 11:22:00 Event Saba Avina [facility] 2021-05-14 2021-05-14 Surgery [facility], [facility] [id number] 10:00:00 10:30:00 [facility] 2021-05-14 2021-05-14 Travel [facility] [id number] [facility] 00:[facility]:00 00:00:00 [facility] 2021-05-07 2021-05-07 [facility] [id number] [facility] 00:00:00 00:00:00 2020-11-24 2020-11-24 Outpatient EL ALONSO, SLE SLE [id number] [facility] 00:00:00 00:00:00 LINE 2020-11-14 2020-11-14 Outpatient [facility] GUPTA[facility] [id number] [facility] 00:00:00 00:00:00 LINE 2020-11-02 2020-11-02 Outpatient EL [facility]H SLE [id number] [facility] 00:00:00 00:00:00 2020-04-07 2020-04-07 Outpatient Ana JAYNA, [facility] [id number] Univers 09:30:00 09:30:00 [facility] 2020-01-14 2020-01-14 Outpatient Ana SINHA, [facility] [id number] Univers 09:30:00 09:30:00 [facility] 2020-01-05 2020-01-05 Outpatient EL SLEH SLE [id number] [facility] 00:00:00 00:00:00 2019-11-09 2019-11-09 Outpatient LEENA REVELES, SLE SLE [id number] [facility] 00:00:00 00:00:00 [facility] 2019-11-03 2019-11-03 Outpatient LEENA REVELES, [facility] [id number] [facility] 00:00:00 00:00:00 [facility] 2019-10-08 2019-10-[address] [facility] [id number] 10:19:10 10:47:58 Visit Sachin Norman [id number] Bradly Sellers [id number] Professio [phone] [address] 2019-10-08 2019-10-[address] [facility] [id number] Univers 10:19:10 10:47:58 Visit Sachin Norman [id number] i ty of [place]ly [place] [id number] [place] Profess[place] [phone] Me dical [address] 2019-10-08 2019-10-08 Outpatient Ana JAYNA, [facility] [id number] Univers 10:45:00 10:45:00 [facility] 2019-09-29 2019-09-29 Outpatient SLEH SLE [id number] [facility] 00:00:00 00:00:00 [id number] 2019-09-29 2019-09-29 Outpatient L[facility] REVELES[facility] [id number] [facility] 00:00:00 00:00:00 SHASHA 2019-07-29 2019-07-29 Outpatient [facility] [id number] SLE 00:00:00 00:00:00 [id number] 2018-03-17 2018-03-17 Outpatient Jas Fernandezningyovani [id number] Common 09:00:00 09:00:00 t Specialty/U Sp ger Specialty rology - [facility] 2017-12-23 2017-12-23 Outpatient Jas Jast [id number] Common 09:15:00 09:15:00 t Specialty/U Sp ger Specialty rology - [facility] 2017-11-25 2017-11-25 Outpatient Jas Jast [id number] Common 14:20:00 14:20:00 t Specialty/U Sp ger Specialty rology - [facility] 2017-11-18 2017-11-18 Outpatient Jimning Jast [id number] Common 10:15:00 10:15:00 t Specialty/U Sp ger Specialty rology - [facility] Results Test Description Test Time Test Comments Results Result Comments Source ALPHA FETOPROTEIN (AFP), TUMOR MARKER 2022-08-14 15:56:40 Test Item Value Reference Range Interpretation Comme nts ALPHA-FETOPROTEIN (BEAKER) (test code = 1094) 5.3 ng/mL <10.0 Director [employer] ID - ADMINHEPATIC FUNCTION [id number] 15:54:41 Test Item Value Reference Range Interpretation Comments TOTAL PROTEIN (BEAKER) (test code = 8.1 gm/dL 6.0-8.3 770) ALBUMIN (BEAKER) (test code = 1145) 4.3 g/dL 3.5-5.0 BILIRUBIN TOTAL (BEAKER) (test code 0.8 mg/dL 0.2-1.2 = 377) BILIRUBIN DIRECT (BEAKER) (test 0.3 mg/dL 0.1-0.5 code = 706) ALKALINE PHOSPHATASE (BEAKER) (test 62 U/L 40-150 code = 346) AST (SGOT) (BEAKER) (test code = 25 U/L 5-34 353) ALT (SGPT) (BEAKER) (test code = 23 U/L 6-55 347) Director [employer] ID - ADMINBASIC METABOLIC [id number] 15:54:36 Test Item Value Reference Range Interpretation Comments SODIUM (BEAKER) 138 meq/L 136-145 (test code = 381) POTASSIUM 3.8 meq/L 3.5-5.1 (BEAKER) (test code = 379) CHLORIDE (BEAKER) 105 meq/L 98-107 (test code = 382) CO2 (BEAKER) 23 meq/L 22-29 (test code = 355) BLOOD UREA 18 mg/dL 7-21 NITROGEN (BEAKER) (test code = 354) CREATININE 0.95 mg/dL 0.57-1.25 (BEAKER) (test code = 358) GLUCOSE RANDOM 82 mg/dL 70-105 (BEAKER) (test code = 652) CALCIUM (BEAKER) 9.7 mg/dL 8.4-10.2 (test code = 697) EGFR (BEAKER) 93 Interpretatio n of eGFR (test code = mL/min/1.73 values Stage De scription 1092) sq m Result G1 Bree l [...] not appl icable for dialysis patien ts Director [employer] ID - ADMINPROTHROMBIN [id number] 14:39:58 Test Item Value Reference Range Interpretation Comments PROTIME (BEAKER) (test code = 14.4 seconds 11.9-14.2 H 759) INR (BEAKER) (test code = 370) 1.19 <=5.90 RECOMMENDED COUMADIN/WARFARIN INR THERAPY RANGESSTANDARD DOSE: 2.0 - 3.0 Includes: PROPHYLAXIS for venous thrombosis, systemic embolization; TREATMENT for venous thrombosis and/or pulmonary embolus.HIGH RISK: Target INR is 2.5-3.5 for patients with mechanical heart valves.CBC W/PLT COUNT & AUTO [id number] 14:32:31 Test Item Value Reference Range Interpretation Comments WHITE BLOOD CELL COUNT (BEAKER) 8.3 K/ L 3.5-10.5 (test code = 775) RED BLOOD CELL COUNT (BEAKER) 5.29 M/ L 4.63-6.08 (test code = 761) HEMOGLOBIN (BEAKER) (test code = 15.9 GM/DL 13.7-17.5 410) HEMATOCRIT (BEAKER) (test code = 45.6 % 40.1-51.0 411) MEAN CORPUSCULAR VOLUME (BEAKER) 86 fL 79-92 (test code = 753) MEAN CORPUSCULAR HEMOGLOBIN 30.1 pg 25.7-32.2 (BEAKER) (test code = 751) MEAN CORPUSCULAR HEMOGLOBIN CONC 34.9 GM/DL 32.3-36.5 (BEAKER) (test code = 752) RED CELL DISTRIBUTION WIDTH 13.7 % 11.6-14.4 (BEAKER) (test code = 412) PLATELET COUNT (BEAKER) (test 151 K/CU MM 150-450 code = 756) MEAN PLATELET VOLUME (BEAKER) 10.8 fL 9.4-12.4 (test code = 754) NUCLEATED RED BLOOD CELLS 0 /100 WBC 0-0 (BEAKER) (test code = 413) NEUTROPHILS RELATIVE PERCENT 53 % (BEAKER) (test code = 429) LYMPHOCYTES RELATIVE PERCENT 37 % (BEAKER) (test code = 430) MONOCYTES RELATIVE PERCENT 7 % (BEAKER) (test code = 431) EOSINOPHILS RELATIVE PERCENT 3 % (BEAKER) (test code = 432) BASOPHILS RELATIVE PERCENT 1 % (BEAKER) (test code = 437) NEUTROPHILS ABSOLUTE COUNT 4.38 K/ L 1.78-5.38 (BEAKER) (test code = 670) LYMPHOCYTES ABSOLUTE COUNT 3.03 K/ L 1.32-3.57 (BEAKER) (test code = 414) MONOCYTES ABSOLUTE COUNT (BEAKER) 0.56 K/ L 0.30-0.82 (test code = 415) EOSINOPHILS ABSOLUTE COUNT 0.25 K/ L 0.04-0.54 (BEAKER) (test code = 416) BASOPHILS ABSOLUTE COUNT (BEAKER) 0.07 K/ L 0.01-0.08 (test code = 417) IMMATURE GRANULOCYTES-RELATIVE 0.20 % 0.00-1.00 PERCENT (RADHA) (test code = 2801) HIV-1 PCR, [id number] 15:54:56 Test Item Value Reference Range Interpretation Comments HIV-1 NUMERIC RESULT (RADHA) (test 157 Cp/mL <20 H code = 2704) This test uses a Real-Time Polymerase Chain Reaction (RT-PCR) methodology to detect a highly conserved region of the HIV-1 gag gene and was performed using the CLOVER AmpliPrep/CLOVER TaqMan HIV-1 test kit version 2.0 ([employer]Reportable range for this assay is 20 - 10,000,000 copies per mL (1.3 - 7.0 Log copies/mL).HEPATITIS C PCR, [id number] 11:12:02 Test Item Value Reference Range Interpretation Comments HCV RESULT COMPONENT HCV RNA not detected HCV RNA not detected (RADHA) (test code = 2699) This test uses a Real-Time Polymerase Chain Reaction (RT-PCR) methodology and was performed using CLOVER Ampliprep/CLOVER TaqMan HCV test kit version 2.0 ([employer]Reportable range for this assay is 15 - 100,000,000 IU per mL (1.18 - 8.00 Log IU/mL).POC-Glucose [id number] 07:59:18 Test Item Value Reference Range Interpretation Comments POC-Glucose Meter (test 72 mg/dL 70-110 : TE STED AT [facility] code = 1538) [address] [facility] [address]: Director Geothermal Operations/Techni nirav ID = [id number] for Andrew Babb a Lab Interpretation (test Normal code = 49565-5) [facility] [id number] 07:59:18 Test Item Value Reference Range Interpretation Comments POC-GLUCOSE METER 72 mg/dL 70-110 : TESTED A T [facility] [address] (BEAKER) (test code = [address], 1538) [facility] 77 [address]: Director Geothermal Operations/Techni nirav ID = [id number] for Kym Jordan COMPREHENSIVE METABOLIC [id number] 04:42:58 Test Item Value Reference Range Interpretation [...] G3b Moderately to s everely 30-44 G4 Sever ly decreased 15-29 G5 Kidney failure <15Repo rted eGFR is based on the CKD-EPI 2021 equation t hat does not use a race coefficientEsti mated GFR is not as accur ate as Creatinine Kimmie piper in predicting glom erular filtration rate . Estimated GFR is not appl icable for dialysis patien ts Director Geothermal Operations ID - LITOOperator ID - LITOOperator ID - LITOOperator ID - LITOOperator ID - LITOOperator ID - LITOOperator ID - LITOOperator ID - LITOOperator ID - LITOOperator ID - LITOOperator ID - LITOOperator ID - LITOOperator ID - LITOOperator ID - LITOOperator ID - LITOOperator ID - [id number] 04:42:58 Test Item Value Reference Range Interpretation Comments MAGNESIUM (BEAKER) (test code = 1.9 mg/dL 1.5-3.0 627) Director Geothermal Operations ID - LITOOperator ID - LITOOperator ID - LITOOperator ID - LEONELA [id number] 04:39:15 Test Item Value Reference Range Interpretation Comments PHOSPHORUS (BEAKER) (test code = 2.6 mg/dL 2.5-4.5 604) Director Geothermal Operations ID - LITOCBC W/PLT COUNT & AUTO [id number] 04:20:03 Test Item Value Reference Range Interpretation [...] PERCENT (BEAKER) (test code = 2801) POCT-GLUCOSE [id number] 21:29:36 Test Item Value Reference Range Interpretation Comments POC-GLUCOSE METER 94 mg/dL 70-110 : TESTED A T [facility] [address] (BEAKER) (test code = [address], 1538) [facility] 77 [address]: Director Geothermal Operations/Techni nirav ID = [id number] for Gracia Melendez HEMOGLOBIN AND [id number] 12:03:22 Test Item Value Reference Range Interpretation Comments HEMOGLOBIN (BEAKER) (test code = 14.4 GM/DL 13.0-16.8 410) HEMATOCRIT (BEAKER) (test code = 40.9 % 36.0-50.0 411) HEMOGLOBIN AND [id number] 09:30:37 Test Item Value Reference Range Interpretation Comments HEMOGLOBIN (BEAKER) (test code = 14.5 GM/DL 13.0-16.8 410) HEMATOCRIT (BEAKER) (test code = 40.8 % 36.0-50.0 411) COMPREHENSIVE METABOLIC [id number] 04:41:38 Test Item Value Reference Range Interpretation [...] not appl icable for dialysis patien ts Director Geothermal Operations ID - [id number] ID - ZSXN99Sgigerkp ID - GWWV39Fmuvlbam ID - XTNK98Zfqmmlot ID - ILNK83Ydzjbobf ID - PWQW36Lrryzwvo ID - TCHW54Kzvwyswd ID - ZDOI41Hrwduxzf ID - UKWG54Qdkjcyam ID - FHKL51Qpfzipdf ID - HEPR59Orlspyjb ID - KRNM80Doqcvdrw ID - ATIL37Kiwqioya ID - IQHN38Yhbypogl ID - SLVU28Lfxynrbc ID - [id number] 04:25:13 Test Item Value Reference Range Interpretation Comments MAGNESIUM (BEAKER) (test code = 1.9 mg/dL 1.5-3.0 627) Director Geothermal Operations ID - [id number] ID - RJCQ80Zyhgtckk ID - JANN10Tdoqpbje ID - [id number] 04:21:54 Test Item Value Reference Range Interpretation Comments PHOSPHORUS (BEAKER) (test code = 4.4 mg/dL 2.5-4.5 604) Director Geothermal Operations ID - [id number]/[id number] 03:45:10 Test Item Value Reference Range Interpretation [...] 2.5-3.5 for patients with mechanical heart valves.CALCIUM, [id number] 03:29:37 Test Item Value Reference Range Interpretation Comments CALCIUM IONIZED (BEAKER) (test 1.15 mmol/L 1.12-1.27 code = 698) PH, BLOOD (BEAKER) (test code = 7.37 1810) SARS-CoV2/RT-PCR (Asymptomatic ONLY)2022-05-09 01:35:46 Test Item Value Reference Interpretation Comments Range SARS-COV2/RT-PCR Negative Negative The SARS-Co V-2 (test code = target nucleic 95705-0) acids are not detected in thi s [...] rapid, real-duke e RT-PCR test intended for e qualitative detection of nucleic acid fr [...] revoked sooner. Fact Sheet for Healthcare Providers: https://www.[employer]/Documents/Xp ert%20Xpress%20SAR S%20CoV-2/Fact%20S heets/302-3802%20S ARS-COV-2%20HEALTH CARE%20PROVIDERS%2 0FACT%20SHEET.pdf Fact Sheet for Healthcare Patients: https://www.[employer]/Documents/Xp ert%20Xpress%20SAR S%20CoV-2/Fact%20S heets/302-3801%20S ARS-COV-2%20PATIEN T%20FACT%20SHEET.p df Lab Interpretation Normal (test code = 82856-1) [facility])2022-05-09 01:35:46 Test Item Value Reference Range Interpretation Comments SARS-COV2/RT-PCR Negative Negative The SARS-Co V-2 target (test code = nucleic acids a re not 8694597) detected in thi s specimen. Negative result [...] revoked sooner. Fact Sheet for Healthcare Providers: https://www.[employer]/Documents/Xpert%20Xpress%20SARS%20CoV-2/Fact%20Sheets/302-3802%98NHED-OVH-5%20 HEALTHCARE%20PROVIDERS%20FACT%20SHEET.pdf Fact Sheet for Healthcare Patients: https://www.[employer]/Documents/Xpert%20Xp ress%20SARS%20CoV-2/Fact%20Sheets/3023801%35MBPH-LSL-7%20PATIENT%20FACT%20SHEET .pdfHEPATIC FUNCTION [id number] 00:28:50 Test Item Value Reference Range Interpretation [...] (test code = 15 U/L 5-50 347) Director Geothermal Operations ID - YDZK99Vpsntusi ID - JPMO58Pauqwxoa ID - RQUQ22Wkvfguey ID - FFVT08Cnzksmjs ID - KQBB59Jecutzyq ID - FQZZ08Rkztzevr ID - LIMG22Qvbheolu ID - IWCV67Gleorors ID - HEQM94Eoxisrkd ID - [id number] METABOLIC [id number] 00:28:45 Test Item Value Reference Range Interpretation [...] eGFR (test code = mL/min/1.73 values Stage De scription 1092) sq m Result G1 Bree l [...] not appl icable for dialysis patien ts Director Geothermal Operations ID - [id number] ID - YMJR64Dmovpidw ID - EEKW90Htvxvkql ID - XGWZ88Hhsbzqjl ID - OKGH77Znreiupy ID - DDSL64Sztnwulv ID - KLTL66Tiefybyd ID - KJPZ78Jhhfpnsk ID - PAYL26Jpckamgo ID - [id number] 00:07:06 Test Item Value Reference Range Interpretation Comments FIBRINOGEN LEVEL 325 mg/dl 200-400 Final Infor mation (BEAKER) (test code = (Auto Output) 658) PROTHROMBIN TIME/[id number] 00:07:06 Test Item Value Reference Range Interpretation [...] is 2.5-3.5 for patients with mechanical heart valves.[id number] 00:07:06 Test Item Value Reference Range Interpretation Comments PARTIAL THROMBOPLASTIN 28.8 seconds 23.0-35.0 Final Information TIME (BEAKER) (test (Auto Ou tput) code = 760) POCT-GLUCOSE [id number] 00:02:28 Test Item Value Reference Range Interpretation Comments POC-GLUCOSE METER 156 mg/dL 70-110 H : TESTED A T [facility] [address] (BEAKER) (test code [address], = 1538) [facility] 77 [address]: Director Geothermal Operations/Techni nirav ID = [id number] for Davidson zuritaRyan CBC W/PLT COUNT & AUTO [id number] 23:32:44 Test Item Value Reference Range Interpretation [...] PERCENT (BEAKER) (test code = 2801) Tissue [id number] 18:28:39 Test Item Value Reference Range Interpretation Comments Case Report (test code Surgical Pathology = 104) Report Case: [id number] Authorizing Provider: Shasha Reveles MD Collected: 05/14/2021 11:10 AM Ordering Location: [facility] Endoscopy Received: 05/14/2021 02:17 PM Services Pathologist: Zulay Castro MD Specimen: Biopsy, Gastric, random biopsies DIAGNOSIS (test code = c2izlSDmRIQin3tnGXLifM 3220) FuZzEwMzNcZnRuYmpcdWMx IHtccnRmMVxlcGljOTYwMV yonnLmLEWnkOZdS6Wmzhun QJxyDU9yFS7ddBqcfEIwyY QlWUUxRcQxk5exe796xDWa g9dzZEBAydswkTi0gNzjU5 8az4P3JtdwV52kzWWrDJN6 XPEeIYGtjKDlWXSkLBP3DB ThlHEhJ1zzHONkWC0zosgb PHwwYYogITWwyPL9LFKrjJ QrE3CfPLTcVDubJSZgkjs1 EeSzRl4bwLFahVucAYduVY CdUKOxWThrISTsSyDqCA1r V4HSAHQVOWfrE4kKEVWYP0 VqW2OYM1uJOVDGLHDZXF1N I8s0AMVdxws6LBRmFDHEMn RPEOrrEH7VRY2PQZ8RAXIf KIILU5SXSLaOUOqpXr2xTZ TFCI2QU8yQLwXDAIPIKkBH WK0OWKIchoc9SWRsZOKRUH fFQGuTEEQGH9YoSWKXXKAS PxMKVPXNPP1EO2TXR4ZODQ 1UN14OPE2PTJAYZFMMYbSd E0YXBL8JREkdRVW0p6iuvK YxXHNzdGUxODAwMFxhbnNp KFMeCritopogRJLmEEB8wf RxBFWjYZnrLOHzXKktSp4s hKMcfTswAqEaTAKvk7hqus ZMulqoySp7t5twVJTkYiF6 hEQpVMsjE0fjccAxoYNlXN TjIAl2kA34KCSwmP8bgOUp KXtwizFqDdT0PJabWVMlIs H5IVXjjJXxRLKeR7dvTLYm GSorGPPvWYsxqDLqGTJ4kL nft8L6fRCftRYrrHcmXkEe OaItDqSDh8HyFYu9qJpyU9 XuRLZxVuC5bOOzNMGwQTfk JICwQAXnldS2bP06MVmuik D4vDKfm6Cgf50vu823kC4m qRZzHQU1ATEmULUknVYpCD YyYVY0KRJrvLEpR2yrXJHy BW4brjtoFRiyEMlhYROciF Z1WNCsnCPiJ5DkRPWwCZaq ROFulpl5ZeFiCk2qcDWamA pfDQnag9lyo6xfgWRnEpl6 OESwKbKhQjuvYGklu3Inr4 uvEDIfej8tADT1uXWwbGnx q5E2aOAbIFFnfHVeFGTwOK 9zdRKcVOOvoE3mpayaQAUn YnJkcmhlYWRccGdicmRyZm 0ysLhwNDY4MMcnR3ohlQ1c DmK2VAmcJ0hlzY7vXMv9AG wsIMXlpTZ7jbX8CBTxwKXj X9EvlR1mCPItKC1lcpx3b8 tqKMG8QXkmUSWaPmW2dpV8 NDBcaGVhZGVyeTcyMFxmb2 77XSM1UeFdBYOre5WwS6Jm yDqiM34slDfsN01tENTwsZ ywxU3qnQdwnO1iWnBgUnPo NDbtqWevUT3iYDLpO0eljC WfTHElLDLzL7thGxEarV4k yOonGKozuiNtAMKnLvf3OJ LbxRGnDIHsNlg8UESiUVNr Z69khdifSRF5nE4ua9zuc7 BpXAtrNSA8KUWdn20mIRvd aoA8MXiiNg21KPsxHKV2JQ qrWQK6xL== CPT Code(s) (test code e8qncXBmVUIuyPK7KuDcUA = 3357) Ulr9vgh6PtnTYjzQMtEHsy nNShhvOeoe94sRR9dE24RE 6aBKSuDbT0WRVtqhQ9Vwf4 ARQoCXYrsHAxA027z0hlj5 sqwiNexTV0vFnaGSPnapma AlQ7MJytYAZhikznKZr5TM mgKYLfsPK1UGYfbFPdR3He LGUpPK5kwsv8CAU1OLsyWI UqKgJ0ALRwrIIfKRNwwQsn WCbqv060MJR1IiFxNMWotk UywXksxQ4aHyNyDXR1YDCl NVxwYXJ9 CLINICAL HISTORY (test r3chpFGmUZWilYT9BzSxXU code = 3356) Tmx3vny8QlxRCfpPQzFCdp tCTnxaDppt58ySL3eF51KI 8dBBWgFhK3OWAuwkA5Vfj9 BOKbOECtfLHoS953o0aic7 kmnmPktMO7pHnjKQUmbiqc TxT9LKcoAMXcffevPAs7TZ ceKNJqxUX9NQCdkIYyO2Il FCXeMB5oces6MMM0MYskPY WcSmK3IEQdvZNzATPygOsm YPzli589WGN1PoWfTUYwrl QdeGbguQ3zTaQrZVHWGXP1 cmljIHZhcmljZXNccGFyfQ == SPECIMEN SOURCE (test j4muhXZyITIqaIT9FgOcDW code = 3377) Juj5ald3HxlVKkjBOcAHyw ePUvmkTrpe34iVI3nI09KS 4wERGvYqE3PSVyltO9Jte5 HBYpWADjhCTkZ679v3zly7 ouqyOjqLT6zLswJDSmuzik GbZ6PAgzFPViieniGXp5MV ghTITubOP2INTqtPEoB5Sx KAIvHF6xzzz3URJ1CHraFO NhOpC7ARLsgUOoNOTpbJqk MMbjw327RPW2VwMeSXHkvl LvvJcwgD6aTaKsCLKEXsJg GzbzaHC1HWNoLQN4aeyaAH GaLL9vg35kaQXmpH== GROSS DESCRIPTION (test d8wieTGpULQdpJC1RnTzYJ code = 3366) Sjo0eev8PugMRabXFdDCey aGUmkmObqd12eSJ1rQ75YR 3fGIPcUkY0GOSwcrV7Fyu6 QQFlQQTshRKsC787d7txi3 ojeoZtgFZ1aCotWEHwebdk AdD7JTynPFPvugapLDk3MR stOPBaoKN6SDAuwCJhC9Dc FMLfMA8vhfp0RZM5JYmnMG XxItH7IWLtoSJuOGOcyJxk WEtms377XML0ExBnOCPhtc GipLtpbS2rRsAwSPGBPtME VXYiwJNzQADilxRzu0FrMK xpbiBsYWJlbGVkIHdpdGgg nKsbJTDyxMkuzfJtK4F4vo EiZC0vXWFvWAWsY4IlPYIp R53ePUDraW0nLNVvPQ8bKT RbPTT8ntehRVATRcRxxsEo B51ut4mxdMMly1HiQsLulI KeEDWdt4VdiQUzHUspbFIq OCLiLvDjkChzj3AdJKClpp iojfwyzU1yk1p9GYGecc0t WLAyGlC4THLoLbL5NLBeVD FmnEN4afDyQxFdhBGfZoRj dFCmChMpA70rVRGCqZBuw6 SxU9nfGJ6hfZUtj4WiTABu BO39KDrpZA60YXzcZT0yQE CxGPIwQ1EhG7U2VR7xJCuj CMPbMUYvrFZqDUtnDPN4Zp 3omQVnYROomyU3z4WxBTyj GMDjKqugaM2zJPdlocFyS0 hIXHBhcn0= MICROSCOPIC DESCRIPTION f9addTIoGYKwgBJ4SeMtAY (test code = 3371) Dqs0uwm9LkqPEexDUrGFxs tTKpisWsfj48gXP4uL18MN 6pVIVmYhF6NABdwyU4Ada8 OKIhUXVmiDRtP746q9jsw5 rwtnLzlBS8wQpgWUHdnrsw JmF7IWeuOTGbrpudUBs9UK ypNDEmxPU0GDHitKMcT0Bh FMTyUW5lqye8XHV7OPstPL KeTbW5WTQbzQDlBOKeuDox RTcmz394ZVD5IpNhAGXocx EhwKcvbH0vLkJcIWWEupMd wVsshAGpU4NjjBVjhqYqVY 8kSIJqb52iCUqzgGXtrHhm FDmbvFU5FTCaKEMmDAxtIE onaVjoi3kjOA4iRO6ooMcd awLkV2takABda0Stpn4vJe 9wSKIciVJqWzOvnFVwYD4n A3Iog3LrYB8kr45vOWRmNV KbDNOkZK9oSQKdyDYpprXi c1UfkB2lYdBbCCYfny3= Gross assessment was [facility] performed at ([facility], = 2777) Department of Pathology, [address] [place] [address], Technical component was [facility] performed at ([facility], = 2778) Department of Pathology, [address] [place] [address], Professional component [facility] was performed at ([facility], code = 2779) Department of Pathology, [address] [place] [address], [facility] [id number] 18:28:39Surgical Pathology Report Case: [id number] Authorizing Provider: Shasha Reveles MD Collected: 05/14/2021 11:10 AM Ordering Location: [facility] Endoscopy Received: 05/14/2021 02:17 PM Services Pathologist: Zulay Castro MD Specimen: Biopsy, Gastric, random biopsies A. STOMACH, SITE NOT SPECIFIED, BIOPSY: - ANTRAL AND OXYNTIC MUCOSA WITH NO PATHOLOGIC ALTERATION - NEGATIVE FOR HELICOBACTER MICROORGANISMS ON ROUTINE STAINS Signing Pathologist Direct Phone Line: [phone] signed by Zulay Castro MD on 05/15/2021 at 6:28 [id number] varicesA. Biopsy, gastric, randomA. Received in formalin [...] Helicobacter microorganisms are seen on routine stains. [facility], Department of Pathology, [address] [place] [address], [facility] of [facility], [address] [place] [address], [facility], Department of Pathology, [address] [place] [address], PNSVL FETOPROTEIN (AFP), TUMOR [id number] 14:50:00 Test Item Value Reference Range Interpretation Comments ALPHA-FETOPROTEIN (BEAKER) (test 5.6 ng/mL <10.0 code = 1094) Director Geothermal Operations ID - BETH MPROTHROMBIN TIME/[id number] 14:30:00 Test Item Value Reference Range Interpretation Comments PROTIME (BEAKER) 13.8 seconds 11.9-14.2 (test code = 759) INR (BEAKER) (test 1.08 See_Comment [Automat ed message] code = 370) The system [employer] generated this result transmitted ref erence range: <=5.90. The reference range was not used to int erpret this result as normal/abnormal . RECOMMENDED COUMADIN/WARFARIN INR THERAPY RANGESSTANDARD DOSE: 2.0 - 3.0 Includes: PROPHYLAXIS for venous thrombosis, systemic embolization; TREATMENT for venous thrombosis and/or pulmonary embolus.HIGH RISK: Target INR is 2.5-3.5 for patients with mechanical heart valves.MR, ABDOMEN, [id number] 15:36:00 REFERRING: DR CLAUDIA BOURNEINAL REPORT EXAM: [...] MDReport Verified Date/Time: 11/09/2019 15:36:50 Reading Location: [address] Reading Room ANTI-NUCLEAR ANTIBODY (BAHMAN)2019-02-01 11:23:00 Test Item Value Reference Range Interpretation Comments ANTI-NUCLEAR ANTIBODY (BAHMAN) (BEAKER) Positive Negative A (test code = 418) Test performed by IFA method.BAHMAN TITER AND [id number] 11:23:00 Test Item Value Reference Range Interpretation Comments BAHMAN TITER (BEAKER) (test code = :160 1541) BAHMAN PATTERN (BEAKER) (test code = Speckled 1781) HEPATITIS C PCR, [id number] 12:50:00 Test Item Value Reference Range Interpretation Comments HCV RESULT COMPONENT HCV RNA not detected HCV RNA not detected (BEAKER) (test code = 2699) This test uses a Real-Time Polymerase Chain Reaction (RT-PCR) methodology and was performed using [employer] Ampliprep/CLOVER TaqMan HCV test kit version 2.0 ([employer]Reportable range for this assay is 15 - 100,000,000 IU per mL (1.18 - 8.00 Log IU/mL).[id number] 11:58:00 Test Item Value Reference Range Interpretation Comments FERRITIN (BEAKER) (test code = 361) 179 ng/mL 5-275 HEPATITIS A ANTIBODY, [id number] 11:19:00 Test Item Value Reference Range Interpretation Comments HEPATITIS A IGG ANTIBODY (BEAKER) Reactive Nonreactive A (test code = 2797) ALPHA FETOPROTEIN (AFP), TUMOR [id number] 11:16:00 Test Item Value Reference Range Interpretation Comments ALPHA-FETOPROTEIN (BEAKER) (test 7.0 ng/mL <10.0 code = 1094) [id number] 11:07:00 Test Item Value Reference Range Interpretation Comments ALPHA-1 ANTITRYPSIN (BEAKER) 205.10 mg/dL 90.00-200.00 H (test code = 502) COMPREHENSIVE METABOLIC [id number] 11:06:00 Test Item Value Reference Range Interpretation [...] NOT APPLICABLE FOR DIALYSIS PATIEN TS. BILIRUBIN, [id number] 11:06:00 Test Item Value Reference Range Interpretation [...] = 2590) CBC W/PLT COUNT & AUTO [id number] 10:47:00 Test Item Value Reference Range Interpretation [...] PERCENT (BEAKER) (test code = 2801) PROTHROMBIN TIME/[id number] 10:44:00 Test Item Value Reference Range Interpretation [...]
[2022-09-26] MEDS ORDERED: FAMOTIDINE 20 MG/2 ML VIAL IV ONE (21:46)
[2022-09-26] MEDS ORDERED: NA CHLORIDE 0.9% 1,000 ML ONE ×2 (21:46→22:44)
[2022-09-26] MEDS ORDERED: ONDANSETRON 4 MG/2 ML VIAL ONE (21:46)
[2022-09-26 22:00] LABS: Absolute Lymphocytes (CBC) 4.2 K/uL (0.7-4.9); Hematocrit 54.9 % (39.6-49.0); MPV 9.1 fL (7.6-11.3); RBC Red Blood Cell Count 6.23 M/uL (4.33-5.43)
[2022-09-26] MEDS ORDERED: FENTANYL CITR 100 MCG/2 ML ONE (22:02)
[2022-09-26 22:13] LABS: Albumin 4.6 g/dL (3.4-5.0); Potassium 3.7 mEq/L (3.5-5.1)
[2022-09-26] MEDS ORDERED: PROMETHAZINE INJ 25 MG/ML AMP ONE (22:50)
[2022-09-26 23:00] LABS: Urine Bacteria None Seen /HPF (<20); Urine Bilirubin NEGATIVE (Negative); Urine Blood 1+ (Negative); Urine Clarity Turbid (Clear); Urine Color Yellow (Yellow); Urine Glucose NEGATIVE (Negative); Urine Mucus 1+ /HPF (None Seen); Urine Protein 1+ (Negative); Urine Urobilinogen Normal (Normal)
[2022-09-27] MEDS ORDERED: FENTANYL CITR 100 MCG/2 ML ONE (00:43)
[2022-09-27] MEDS ORDERED: DICYCLOMINE HCL 10 MG CAP ONE ×2 (00:43→00:45)
--- NOTE | 2022-09-27 01:17 | EDPHYS ---
Physician Documentation [facility] Name: Melchor Cisse III Age: 62 yrs Sex: Male : 1960 Arrival Date: 09/26/2022 Time: 21:10 Bed 6 Private MD: ED Physician Romeo Cali HPI: 09/27 00:48 This 62 yrs old Male presents to ER via Ambulatory with complaints of Diarrhea. kb 00:48 The patient presents to the emergency department with nausea, vomiting, diarrhea, kb abdominal pain. The patient has not experienced similar symptoms in the past. The patient has not recently seen a physician. 00:49 Onset: The symptoms/episode began/occurred 5 day(s) ago. Possible causes: unknown. The kb symptoms are aggravated by nothing. The symptoms are alleviated by nothing. Associated signs and symptoms: Pertinent positives: abdominal pain, diarrhea, nausea, vomiting. Severity of symptoms: At their worst the symptoms were moderate in the emergency department the symptoms are unchanged. Historical: - Allergies: 09/26 21:29 Iodine; lg3 21:29 Morphine; lg3 21:29 shrimp; lg3 - PMHx: 21:29 Cirrhosis; Crohn's; Hepatitis; HERPES; HIV; HPV; ibs; ulcerative colitis; lg3 - PSHx: 21:29 Cholecystectomy; rectal; lg3 - Immunization history:: Adult Immunizations up to date, Client reports receiving the 2nd dose of the Covid vaccine. - Social history:: Smoking status: Patient reports the use of cigarette tobacco products, smokes one-half pack cigarettes per day, Patient uses street drugs, marijuana, Patient/guardian denies using alcohol. ROS: 09/27 00:49 Constitutional: Negative for fever, chills, and weight loss. kb Abdomen/GI: Positive for abdominal pain, nausea, vomiting, and diarrhea. All other systems are negative. Exam: 00:49 Constitutional: This is a well developed, well nourished patient who is awake, alert, kb and in no acute distress. Head/Face: Normocephalic, atraumatic. ENT: Moist Mucous membranes Cardiovascular: Regular rate and rhythm with a normal S1 and S2. No gallops, murmurs, or rubs. No pulse deficits. Respiratory: Respirations even and unlabored. No increased work of breathing. Talking in full sentences Skin: Warm, dry with normal turgor. Normal color. MS/ Extremity: Pulses equal, no cyanosis. Neurovascular intact. Full, normal range of motion. Neuro: Awake and alert, GCS 15, oriented to person, place, time, and situation. Moves all extremities. Normal gait. 00:49 Abdomen/GI: Inspection: abdomen appears normal, Bowel sounds: normal, Palpation: soft, in all quadrants, mild abdominal tenderness, in all quadrants. Vital Signs: 09/26 21:26 BP 150 / 104; Pulse 77; Resp 19 S; Temp 97.9(O); Pulse Ox 100% on R/A; Weight 73.48 kg lg3 (R); Height 5 ft. 11 in. (R); 09/27 00:13 Pulse 104; Resp 16; Pulse Ox 100% on R/A; kd3 00:14 BP 154 / 86; kd3 09/26 21:26 Body Mass Index 22.59 (73.48 kg, 180.34 cm) lg3 MDM: 09/26 21:30 Patient medically screened. kb 09/27 00:49 Differential diagnosis: Nonspecific abd pain, gastritis, pancreatitis, diverticulitis, kb viral gastroenteritis, gastroenteritis. Data reviewed: vital signs, nurses notes. Historians other than the Patient: Spouse/Significant Other: . 01:14 Consideration of Admission/Observation Escalation of care including kb admission/observation considered. admission considered, but symptoms have improved after treatment. Tolerating po intake, nontoxic in appearance, in no apparent distress. . Counseling: I had a detailed discussion with the patient and/or guardian regarding: the historical points, exam findings, and any diagnostic results supporting the discharge/admit diagnosis, lab results, radiology results, the need for outpatient follow up, a family practitioner, a wholesaler, to return to the emergency department if symptoms worsen or persist or if there are any questions or concerns that arise at home. 01:24 ED course: Pt ambulated out of ED with steady gait without assist. . kb 09/26 21:34 Order name: Urinalysis w/ reflexes; Complete Time: 23:13 kb 09/26 21:53 Order name: Comprehensive Metabolic Panel; Complete Time: 22:16 EDNJ 09/26 21:53 Order name: Lipase; Complete Time: 22:16 EDNJ 09/26 21:53 Order name: CBC with Automated Diff; Complete Time: 22:12 EDMS 09/26 21:49 Order name: CT Abd/Pelvis - Without Contrast kb 09/26 21:34 Order name: IV Saline Lock; Complete Time: 21:43 kb 09/26 21:34 Order name: Labs collected and sent; Complete Time: 21:43 kb 09/27 00:56 Order name: PO challenge; Complete Time: 01:17 kb Administered Medications: 09/26 21:44 Drug: NS 0.9% IV 1000 ml Route: IV; Rate: 1 bolus; Site: left antecubital; kd3 09/27 01:25 Follow up: Response: No adverse reaction; IV Status: Completed infusion; IV Intake: kd3 1000ml 09/26 21:44 Drug: Famotidine IVP 20 mg Route: IVP; Site: left antecubital; kd3 09/27 01:25 Follow up: Response: No adverse reaction kd3 09/26 21:44 Drug: Ondansetron IVP 4 mg Route: IVP; Site: left antecubital; kd3 09/27 01:25 Follow up: Response: No adverse reaction kd3 09/26 21:55 Drug: fentaNYL (PF) IVP 50 mcg Route: IVP; Site: left antecubital; kd3 09/27 01:25 Follow up: Response: No adverse reaction; Pain is decreased 3 09/26 22:47 Drug: NS 0.9% IV 1000 ml Route: IV; Rate: 1000 ml; Site: left antecubital; kd3 09/27 01:25 Follow up: Response: No adverse reaction; IV Status: Completed infusion; IV Intake: kd3 900ml 09/26 22:47 Drug: Promethazine IM 25 mg Route: IM; Site: right gluteus; kd3 09/27 01:24 Follow up: Response: No adverse reaction; Nausea is decreased kd3 00:39 Drug: fentaNYL (PF) IVP 50 mcg Route: IVP; Site: left antecubital; kd3 01:24 Follow up: Response: No adverse reaction; Pain is decreased kd3 00:39 Drug: Dicyclomine PO 20 mg Route: PO; kd3 01:24 Follow up: Response: No adverse reaction; Pain is decreased kd3 Disposition: 01:17 Co-signature as Attending Physician, Romeo Cali MD I agree with the assessment sp4 and plan of care. I reviewed the patient's care provided by Advanced Practice Provider \T\ agree w/ the diagnosis \T\ care plan. I personally saw the pt \T\ performed a substantive portion of the visit, incldng all aspects of the (History/Exam/Medical Decision Making). Disposition Summary: 09/27/22 01:16 Discharge Ordered Location: Home kb Condition: Stable kb Diagnosis - Nausea with vomiting, unspecified kb - Diarrhea, unspecified kb Followup: kb - With: Emergency Department - When: As needed - Reason: Worsening of condition Followup: kb - With: Private Physician - When: 2 - 3 days - Reason: Recheck today's complaints, Continuance of care, Re-evaluation by your physician Discharge Instructions: - Discharge Summary Sheet kb - Food Choices to Help Relieve Diarrhea, Adult kb - Nausea and Vomiting, Adult, [id number] kb - Diarrhea, Adult, [id number] kb Forms: - Medication Reconciliation Form kb - Thank You Letter kb - Antibiotic Education kb - Prescription Opioid Use kb - [email or web address] kb Prescriptions: - promethazine 25 mg Rectal suppository - insert 1 suppository by RECTAL route every 6 hours As needed; 12 suppository; kb Refills: 0, Product Selection Permitted - dicyclomine 20 mg Oral Tablet - take 1 tablet by ORAL route every 6 hours As needed; 20 tablet; Refills: 0, kb Product Selection Permitted Signatures: Dispatcher [employer] Jesi Burciaga, THAC MANAGER OF CASE-Yana Vang RN RN lg3 Radha Russo RN RN kd3 Romeo Cali MD MD sp4 Corrections: (The following items were deleted from the chart) 09/26 21:31 21:29 Social history: Smoking status: Patient reports the use of cigarette tobacco lg3 products, smokes one-half pack cigarettes per day, Patient/guardian denies using alcohol, street drugs, lg3
--- NOTE | 2022-09-27 01:17 | ER ---
Nurse's Notes [facility] Name: Melchor Cisse III Age: 62 yrs Sex: Male : 1960 Arrival Date: 09/26/2022 Time: 21:10 Bed 6 Private MD: Diagnosis: Nausea with vomiting, unspecified;Diarrhea, unspecified Presentation: 09/26 21:26 Chief complaint: Patient states: vomiting , diarrhea, cold sweats abdominal pain X5 lg3 days. Coronavirus screen: Client denies travel out of the [place] in the last 14 days. At this time, the client does not indicate any symptoms associated with coronavirus-19. Ebola Screen: No symptoms or risks identified at this time. Initial Sepsis Screen: Does the patient meet any 2 criteria? No. Patient's initial sepsis screen is negative. Does the patient have a suspected source of infection? No. Patient's initial sepsis screen is negative. Risk Assessment: Do you want to hurt yourself or someone else? Patient reports no desire to harm self or others. Onset of symptoms was September 22, 2022. 21:26 Method Of Arrival: Ambulatory lg3 21:26 Acuity: ANTONIA 3 lg3 Triage Assessment: 21:29 General: Appears in no apparent distress. uncomfortable, Behavior is calm, cooperative. lg3 Pain: Complains of pain in abdomen. EENT: No deficits noted. No signs and/or symptoms were reported regarding the EENT system. Neuro: No deficits noted. Jason Agitation-Sedation Scale (RASS): 0 - Alert and Calm Level of Consciousness is awake, alert, obeys commands, Oriented to person, place, time, situation. Cardiovascular: No deficits noted. Denies chest pain, shortness of breath, Capillary refill < 3 seconds Clubbing of nail beds is absent JVD is absent Patient's skin is warm and dry. Respiratory: No deficits noted. Airway is patent Respiratory effort is even, unlabored, Respiratory pattern is regular, symmetrical. GI: Abdomen is flat, non-distended, Pt is actively vomiting bile. : No deficits noted. No signs and/or symptoms were reported regarding the genitourinary system. Derm: Skin is intact, Skin is diaphoretic, Skin is pale, Skin temperature is cool. Musculoskeletal: No deficits noted. No signs and/or symptoms reported regarding the musculoskeletal system. Circulation, motion, and sensation intact. Range of motion: intact in all extremities. Historical: - Allergies: 21: Iodine; lg3 21:29 Morphine; lg3 21: shrimp; lg3 - PMHx: 21:29 Cirrhosis; Crohn's; Hepatitis; HERPES; HIV; HPV; ibs; ulcerative colitis; lg3 - PSHx: 21:29 Cholecystectomy; rectal; lg3 - Immunization history:: Adult Immunizations up to date, Client reports receiving the 2nd dose of the Covid vaccine. - Social history:: Smoking status: Patient reports the use of cigarette tobacco products, smokes one-half pack cigarettes per day, Patient uses street drugs, marijuana, Patient/guardian denies using alcohol. Screenin/30 00:[address] [facility] ED Fall Risk Assessment (Adult) History of falling in the last 3 months, kd3 including since admission No falls in past 3 months (0 pts) Confusion or Disorientation No (0 pts) Intoxicated or Sedated No (0 pts) Impaired Gait No (0 pts) Mobility Assist Device Used No (0 pt) Altered Elimination No (0 pt) Score/Fall Risk Level 0 - 2 = Low Risk Maintained a safe environment. Abuse screen: Denies threats or abuse. Denies injuries from another. Nutritional screening: No deficits noted. Tuberculosis screening: No symptoms or risk factors identified. Assessment: 00:20 General: Appears uncomfortable, Behavior is calm, cooperative. Pain: Complains of pain kd3 in abdomen. Neuro: Level of Consciousness is awake, alert, obeys commands, Oriented to person, place, time, situation. Cardiovascular: Patient's skin is warm and dry. Respiratory: Airway is patent Trachea midline Respiratory effort is even, unlabored, Respiratory pattern is regular, symmetrical. GI: Reports nausea, vomiting improved. Vital Signs: 09/26 21:26 BP 150 / 104; Pulse 77; Resp 19 S; Temp 97.9(O); Pulse Ox 100% on R/A; Weight 73.48 kg lg3 (R); Height 5 ft. 11 in. (R); 09/27 00:13 Pulse 104; Resp 16; Pulse Ox 100% on R/A; kd3 00:14 BP 154 / 86; kd3 09/26 21:26 Body Mass Index 22.59 (73.48 kg, 180.34 cm) 3 ED Course: 09/26 21:11 Patient arrived in ED. ag3 21:29 Triage completed. lg3 21:29 Arm band placed on right wrist. lg3 21:30 [facility]C [facility] kb 21:30 Romeo Cali MD is Attending Physician. kb 21:33 Radha Russo, MARISELA is Primary Nurse. kd3 21:51 Initial lab(s) drawn, by me, sent to lab. Inserted saline lock: 20 gauge in left jw7 antecubital area, using aseptic technique. Blood collected. 23:05 CT Abd/Pelvis - Without Contrast In Process Unspecified. EDMS 09/27 00:21 Patient has correct armband on for positive identification. Client placed on continuous kd3 cardiac and pulse oximetry monitoring. NIBP monitoring applied. Warm blanket given. Assisted with urinal. Administered Medications: 09/26 21:44 Drug: NS 0.9% IV 1000 ml Route: IV; Rate: 1 bolus; Site: left antecubital; 3 09/27 01:25 Follow up: Response: No adverse reaction; IV Status: Completed infusion; IV Intake: kd3 1000ml 09/26 21:44 Drug: Famotidine IVP 20 mg Route: IVP; Site: left antecubital; kd3 09/27 01:25 Follow up: Response: No adverse reaction 3 09/26 21:44 Drug: Ondansetron IVP 4 mg Route: IVP; Site: left antecubital; kd3 09/27 01:25 Follow up: Response: No adverse reaction 3 09/26 21:55 Drug: fentaNYL (PF) IVP 50 mcg Route: IVP; Site: left antecubital; kd3 09/27 01:25 Follow up: Response: No adverse reaction; Pain is decreased kd3 09/26 22:47 Drug: NS 0.9% IV 1000 ml Route: IV; Rate: 1000 ml; Site: left antecubital; kd3 09/27 01:25 Follow up: Response: No adverse reaction; IV Status: Completed infusion; IV Intake: kd3 900ml 09/26 22:47 Drug: Promethazine IM 25 mg Route: IM; Site: right gluteus; kd3 09/27 01:24 Follow up: Response: No adverse reaction; Nausea is decreased kd3 00:39 Drug: fentaNYL (PF) IVP 50 mcg Route: IVP; Site: left antecubital; kd3 01:24 Follow up: Response: No adverse reaction; Pain is decreased kd3 00:39 Drug: Dicyclomine PO 20 mg Route: PO; kd3 01:24 Follow up: Response: No adverse reaction; Pain is decreased kd3 Medication: 00:21 VIS not applicable for this client. kd3 Intake: 01:25 IV: 900ml; Total: 900ml. kd3 01:25 IV: 1000ml; Total: 1900ml. kd3 Outcome: 01:16 Discharge ordered by . kb 01:25 Patient left the ED. kd3 Signatures: Dispatcher [employer] EDJesi Ayala, ZAC NUNEZ-Yessi Holly Lacie, RN RN aura3 Radha Russo RN RN kd3 Loren Bland jw7 Corrections: (The following items were deleted from the chart) 09/26 21:31 21:29 Social history: Smoking status: Patient reports the use of cigarette tobacco lg3 products, smokes one-half pack cigarettes per day, Patient/guardian denies using alcohol, street drugs, lg3
[2022-09-27 01:45] VITALS: TEMP 97.9; O2SAT 100
[2022-09-27 01:52] VITALS: BP 154/86
--- NOTE | 2022-09-27 12:15 | RAD REPORT ---
EXAM DESCRIPTION: CT - Abdomen Pelvis Wo Contrast - 09/27/2022 6:02 am CLINICAL HISTORY: 62 year-old male with abdominal pain, diarrhea and cold sweats. COMPARISON: None. TECHNIQUE: CT of the abdomen and pelvis was performed without intravenous or oral contrast. Multipla katherin reformatted images were provided. This exam was performed according to our departmental dose opti mization program which includes use of automated exposure control, adjustment of the mA and/or kV acc ording to patient size and/or use of iterative reconstruction technique. FINDINGS: Evaluation of solid organ pathology is limited secondary to lack of intravenous contrast. Within these limitations, the following observations are made. Chest: Evaluation through the lung bases reveals no focal opacity, pleural effusion or pneumothorax. Heart size is within normal limits. No pericardial effusion. Abdomen and pelvis: Nodular morphology of the liver compatible with cirrhosis. Periesophageal and splenic varices. The liver, gallbladder, pancreas, spleen, bilateral kidneys and bilateral adrenal glands are within n ormal limits. The vessels are normal in caliber. No abdominopelvic lymph nodes are noted to be pathologically enlarged by CT measurement criteria. The bowel is within normal limits without abnormal bowel wall thickness or bowel dilation. Unformed s tool present throughout the large and small bowel compatible with liquid fecal content/diarrhea, rais ing the question of enteritis. Thickened appearance of the bladder wall may be secondary to incomplete distention, however can be se en in the setting of infectious or inflammatory process. Please correlate with laboratory values. No free air. No free abdominopelvic fluid collections. The appendix is within normal limits. The osseous structures demonstrate degenerative change and endplate deformities of the L2 and T11 holly tebral levels suggestive of Schmorl's nodes. Mild diffuse disc bulge at the L4-5 and L5-S1.. Nonspeci fic partial bony fusion of the bilateral sacroiliac joints. IMPRESSION: 1. No specific acute intra-abdominal findings are noted to suggest etiology of the pat ient's abdominal pain. 2. Unformed stool present throughout the large and small bowel compatible with liquid fecal content /diarrhea, raising the question of enteritis. 3. Nodular morphology of the liver compatible with cirrhosis. 4. Periesophageal and splenic varices. 5. Thickened appearance of the bladder wall may be secondary to incomplete distention, however can be seen in the setting of infectious or inflammatory process. Please correlate with laboratory values . Electronically signed by: Shannan Shoemaker MD 09/26/2022 11:36 PM CDT Due to temporary technical issues with the PACS/Fluency reporting system, reports are being signed by the in house radiologist without review as a courtesy to ensure prompt reporting. The interpreting r adiologist is fully responsible for the content of the report.
== END 2022-09-27 01:25 | disposition home or self-care (01) ==
LOC: ER 21:10
DX: R11.2 Nausea with vomiting, unspecified (principal); R19.7 Diarrhea, unspecified; F17.210 Nicotine dependence, cigarettes, uncomplicated; Z88.5 Allergy status to narcotic agent; Z91.013 Allergy to seafood; Z91.048 Other nonmedicinal substance allergy status; Z21 Asymptomatic human immunodeficiency virus [HIV] infection status
CPT/HCPCS: 96361; 85025; 81001; 36415; 83690; 80053; 74176; 96375; 96372; 96374; 99284; J2550; J3010 ×2; J2405; J7030 ×2

== ENCOUNTER 2023-02-17 03:35 | Emergency (ER) | payer OTHER ==
--- OUTSIDE RECORDS SUMMARY | 2023-02-17 03:40 | XMS REPORT | Continuity of Care Document ---
:1960 Author Organization [facility] t Address [address] [place] [address]. [address] [place] [address] Care Team Providers Name Role Phone ISABEL ASIF Primary Care Physician Unavailable CHERYL KRUEGER Attending Clinician Unavailable SHASHA REVELES Attending Clinician Unavailable SHAWANDA RODRIGEZ Attending Clinician Unavailable CALIXTO VUONG Attending Clinician Unavailable JOHN PLAZA Attending Clinician Unavailable SYLWIA KRISHNAMURTHY Attending Clinician Unavailable Shawanda Rodrigez MD Attending Clinician Sylwia Krishnamurthy MD Attending Clinician Calixto Vuong MD Attending Clinician Doctor Unassigned, Ulysses Attending Clinician Unavailable SACHIN SINHA Attending Clinician Unavailable Alf Cam Attending Clinician Abdirizak HUNTLEY, Shasha Ortega Attending Clinician Mich Triplett MD Attending Clinician Sybil Aguillon MD, Andrey Attending Clinician [phone] Natalia Mike Attending Clinician Unavailable Tavo HUNTLEY, Irais Mckenzie Attending Clinician Derek Donaldson MD Attending Clinician Cheryl Krueger MD Attending Clinician Chasidy HUNTLEY, Jeremie Lanza Attending Clinician Steven HUNTLEY, Caleb Simms Attending Clinician Mehnaz HUNTLEY, Jeaneth Ochoa Attending Clinician [phone] Saba Avina CRNA Attending Clinician QUETA GUPTA Attending Clinician Unavailable Bharath HUNTLEY, Sachin Abdullahi Attending Clinician IRAIS VO Admitting Clinician Unavailable SHASHA REVELES Admitting Clinician Unavailable Payers Payer Name Policy Type Policy Number Effective Date Expiration Date S khalif MEDICARE A B [id number] 1994 00:00:00 [place]ICAID OF [place] [id number] 2020 00:00:00 MEDICAID [place] [id number] 2016 00:00:00 MEDICARE PART A \\T\\ [id number] 1994 B 00:00:00 [facility] [id number] 2022 MMP 00:00:00 [facility] [id number] 2022 STAR PLUS 00:00:00 Problems Condition Condition Condition Status Onset Resolution Last Treating Co mments Source Name Details Category Date Date Treatment Clinician Date Elevated Elevated Disease Active Unive rs blood-pres blood-pres 12-13 it y of sure sure 00:00: [place] reading reading 00 Medical without without Branch diagnosis diagnosis of of hypertensi hypertensi on on Condyloma Condyloma Disease Active Uni vers acuminatum acuminatum 12-05 it y of in male in male 00:00: [place] 00 Medical Branch Tachycardi Tachycardi Disease Active U nivers a a 12-05 ity of 00:00: [place] 00 Medical Branch Asymptomat Asymptomat Disease Recurre [facility] n[facility] 05[facility] infection, infection, 00:00: Me dical with no with no Center history of history of HIV-relate HIV-relate d illness d illness GIB GIB Disease Active [facility] (gastroint (gastroint 2-08 [facility]ie k[facility] estinal estinal 00:00: Medical bleeding) bleeding) 00 Cent er Screening Screening Disease Active 2018-03 [facility] malignant malignant 00:00: t & Plan: M edical neoplasm neoplasm 00 [facility] g of this note might be different from the original. Cirrhosis , regardles s of etiology, is a risk factor for developme nt of hepatocel lular carcinoma . Thus, we recommend surveilla nce imaging and alphafeto protein every 6 months. We will get MRI abdomen with contrast and AFP. Cirrhosis Cirrhosis Disease Recurre Last I St n[facility] 03-[facility] 00:00: t & Plan: Medical [address] [place] [address] g of this note might be different [...] s were reviewed. Hepatitis Hepatitis Disease Active 1998- Last [facility] C C 03-31 [facility] 00:00: t & Plan: Medical 00 [facility] g of this note might be different from the original. Patient was treated with Mavyret and achieved SVR in 2019. We will check HCV RNA PCR today. Portal Portal Disease Recurre Last [facility] hypertensi hypertensi nce [facility] on on t & Plan: [facility] g of this note might be different from the original. Complicat ions of portal venous hypertens ion include gastroeso phageal varices and hypersple nism indicate decompens ation of cirrhosis . These significa ntly increase the risk of . Gastric Gastric Disease Active Last [facility] varices varices [facility] t & Plan: [facility] g of this note might be [...] Disease Active [facility] liver liver [facility] enzymes enzymes [facility] Condyloma Condyloma Problem Active Com mon acuminatum acuminatum Sp ger due to due to - [facility] human [facility] papillomav papillomav Ellie kes irus (HPV) irus (HPV) [facility] Follow up Follow up Diagnosis Active [facility] Allergies, Adverse Reactions, Alerts Allergy Allergy Status Severity Reaction(s) Onset Inactive Treating Comm ents Source Name Type Date Date Clinician Iodine Propensi Active Anaphylaxis Uni vers ty to 12-05 ity of adverse 00:00: [place] reaction Medical [facility] Morphine Propensi Active Anaphylaxis 0 U nivers ty to 12-05 ity of adverse 00:00: [place] reaction Medical [facility] MORPHINE DRUG Active Anaphylaxis Uni vers INGREDI 12-05 ity of 00:00: [place] [facility] IODINE DRUG Active Anaphylaxis 0 Unive rs INGREDI 12-05 ity of 00:00: [place] 00 [facility] Iodine Propensi Active Other (See Vomiting [facility] ty to Comments) 11-18 [facility] adverse 00:00: Medical reaction 00 [place] Morphine Propensi Active Itching Itching [facility] ty to 11-18 and [facility] adverse 00:00: vomiting Medical reaction 00 [place] IODINE Allergy Active Med Other [facility] 11-18 00:00: 00 MORPHINE Allergy Active Med Itching [facility] 11-18 00:00: 00 NO KNOWN Drug Active Univers ALLERGIE Class ity of S [facility] MORPHINE Adverse Active Info Not Commo n Reaction Available [facility] Iodine Adverse Active Info Not Common Reaction Available [facility] Family History Family Member Diagnosis Comments Start Date Stop Date Source Natural father Stroke [facility] Natural father Hearing loss [facility] Natural father Stroke [facility] Natural mother Cancer [facility] Natural sister Heart disease [facility] Natural sister Hypertension [facility] Social History Social Habit Start Date Stop Date Quantity Comments Source History of tobacco Cigarette Smoker University of use [facility] Exposure to Not sure University of SARS-CoV-2 (event) [facility] Gender identity Universit y [facility] History SDOK [facility] Alcohol Std Drinks Medica l Center History SDOK [facility] Alcohol Binge Medical [address] History [facility] Transport Non-Med Medical Center Sexual orientation [facility] Tobacco use and 2022-12-05 2022-12-05 Smokeless Universit y of exposure 00:00:00 00:00:00 tobacco non-user [facility] Alcohol intake 2022-10-07 2022-10-[address] [facility] es 00:00:00 00:00:00 non-drinker of Medical Ce nter alcohol (finding) History of Social 2022-10-07 2022-10-[address] [facility] function 00:00:00 00:00:00 [facility] Center Cigarettes smoked 2022-08-14 2022-08-[address] [facility] current (pack per 00:00:00 00:00:00 Medical Center day) - Reported Cigarette 2022-08-14 2022-08-[address] [facility] pack-years 00:00:00 00:00:00 [facility] Center Tobacco Comment 2022-08-14 2022-08-14 tapered 2-3mos; [facility] 00:00:00 00:00:00 totally stopped Medical C enter smoking 1 week ago History [facility] 2022-05-09 2022-05-[address] [facility] Housing Homeless 00:00:00 00:00:00 Medical Center Last Year History [facility] 2022-05-09 2022-05-[address] [facility] Transport Med 00:00:00 00:00:[address] History [facility] 2022-05-09 2022-05-[address] [facility] Housing Unable to 00:00:00 00:00:00 Medical Center Pay History [facility] 2022-05-09 2022-05-[address] [facility] Housing Places 00:00:00 00:00:00 Medical Ce nter Lived Alcohol Comment 2022-05-09 2022-05-[address] [facility] 00:00:00 00:00:00 [facility] History [facility] 2019-01-27 2019-01-27 1 [facility] Alcohol Frequency 00:00:00 00:00:00 [facility] Center Sex Ass[birth year] At [birth year] [facility] Ellie blakes 00:00:00 00:00:00 [facility] Center Smoking Status Start Date Stop Date Source Tobacco smoking [facility] xa consumption unknown Medical Bran ch Ex-smoker 2022-12-05 00:00:00 2022-12-05 [place] o f [place] 00:00:00 Medical Branch Smokes tobacco daily 2022-08-14 00:00:00 [facility] Medications Ordered Filled Start Stop Current Ordering Indication Dosage Frequency Signature Comments Components Source Medication Medication Date Date Medication? Clinician (SIG) Name Name METOPROLOL 2022- No Take by Uni vers SUCCINATE 12-13 mouth. ity of ORAL 08:15: 00:00 [place] 54 :00 Medical Branch METOPROLOL 2022- No Take by Uni vers SUCCINATE 12-13 mouth. ity of ORAL 08:15: 00:00 [place] 54 :00 Medical Branch METOPROLOL 2022- No Take by Uni vers SUCCINATE 12-13 mouth. ity of ORAL 08:15: 00:00 [place] 54 :00 Medical Branch metoprolol 2023- Yes [id number] 50mg Take 1 U nivers tartrate 50 12-13 tablet by it y of mg tablet 00:00: 04:59 mouth in [place] 00 :00 the Medical morning Branch and 1 tablet in the evening. metoprolol 2023- Yes [id number] 50mg Take 1 U nivers tartrate 50 12-13 tablet by it y of mg tablet 00:00: 04:59 mouth in [place] 00 :00 the Medical morning Branch and 1 tablet in the evening. metoprolol 2023- Yes [id number] 50mg Take 1 U nivers tartrate 50 12-13 tablet by it y of mg tablet 00:00: 04:59 mouth in [place] 00 :00 the Medical morning Branch and 1 tablet in the evening. imiquimod 5 Yes [id number] 1{packe Apply 1 Univers % cream 12-06} Each to ity of 00:00: area(s) [place] [address] every Medical Friday, [place] Friday and Friday. Cream should be applied prior to normal sleeping hours and left on the skin for 6 to 10 hours, after which the cream should be removed by washing the area with mild soap and water. imiquimod 5 0 Yes [id number] 1{packe Apply 1 Univers % cream 9-08 t} Each to ity of 00:00: area() [place] [address] every [facility] Friday, Branch Friday and Friday. Cream should be applied prior to normal sleeping hours and left on the skin for 6 to 10 hours, after which the cream should be removed by washing the area with mild soap and water. imiquimod 5 0 Yes [id number] 1{packe Apply 1 Univers % cream 9-08 t} Each to ity of 00:00: [facility]() [place] [address] every [facility] Friday, Branch Friday and Friday. Cream should be applied prior to normal sleeping hours and left on the skin for 6 to 10 hours, after which the cream should be removed by washing the area with mild soap and water. imiquimod 5 0 Yes [id number] 1{packe Apply 1 Univers % cream 9-08 t} Each to ity of 00:00: [facility]() [place] [address] every [facility] Friday, [place] Friday and Friday. Cream should be applied prior to normal sleeping hours and left on the skin for 6 to 10 hours, after which the cream should be removed by washing the area with mild soap and water. imiquimod 5 0 Yes [id number] 1{packe Apply 1 Univers % cream 9-08 t} Each to ity of 00:00: [facility]() [place] [address] every [facility] Friday, [place] Friday and Friday. Cream should be applied prior to normal sleeping hours and left on the skin for 6 to 10 hours, after which the cream should be removed by washing the area with mild soap and water. imiquimod 5 0 Yes [id number] 1{packe Apply 1 Univers % cream 9-08 t} Each to ity of 00:00: [facility]() [place] [address] every [facility] Friday, Branch Friday and Friday. Cream should be applied prior to normal sleeping hours and left on the skin for 6 to 10 hours, after which the cream should be removed by washing the area with mild soap and water. abacavir-do 2022-0 Yes 1{tbl} Take 1 Un keven lutegravir- 9-07 tablet by ity of lamivudine 08:25: mouth in [place] (TRIUMEQ) 08 the Medical 600-50-300 morning. Branc h mg per tablet abacavir-do 2022-0 Yes 1{tbl} Take 1 Un keven lutegravir- 9-07 tablet by ity of lamivudine 08:25: mouth in [place] (TRIUMEQ) 08 the Medical 600-50-300 morning. Branc h mg per tablet abacavir-do 2022-0 Yes 1{tbl} Take 1 Un keven lutegravir- 9-07 tablet by ity of lamivudine 08:25: mouth in [place] (TRIUMEQ) 08 the Medical 600-50-300 morning. Branc h mg per tablet abacavir-do 2022-0 Yes 1{tbl} Take 1 Un keven lutegravir- 9-07 tablet by ity of lamivudine 08:25: mouth in [place] (TRIUMEQ) 08 the Medical 600-50-300 morning. Branc h mg per tablet abacavir-do 2022-0 Yes 1{tbl} Take 1 Un keven lutegravir- 9-07 tablet by ity of lamivudine 08:25: mouth in [place] (TRIUMEQ) 08 the Medical 600-50-300 morning. Branc h mg per tablet abacavir-do 2022-0 Yes 1{tbl} Take 1 Un keven lutegravir- 9-07 tablet by ity of lamivudine 08:25: mouth in [place] (TRIUMEQ) 08 the Medical 600-50-300 morning. Branc h mg per tablet abacavir-do 2022-0 Yes 1{tbl} Take 1 Un keven lutegravir- 9-05 tablet by ity of lamivudine 14:55: mouth in [place] (TRIUMEQ) 39 the Medical 600-50-300 morning. Branc h mg per tablet abacavir-do 2022-0 Yes 1{tbl} Take 1 Un keven lutegravir- 9-05 tablet by ity of lamivudine 14:55: mouth in [place] (TRIUMEQ) 39 the Medical 600-50-300 morning. Branc h mg per tablet tamsulosin 2023-0 Yes [id number] .4mg Take 1 U nivers 0.4 mg 24 9-05 capsule by ity of hr capsule 00:00: mouth in [place] 00 the Medical morning. Branch trospium 20 2023-0 Yes [id number] 20mg Take 1 Univers mg tablet 9-05 tablet by ity o f 00:00: mouth in [place] 00 the Medical morning Branch and 1 tablet in the evening. tamsulosin 2023-0 Yes [id number] .4mg Take 1 U nivers 0.4 mg 24 9-05 capsule by ity of hr capsule 00:00: mouth in [place] 00 the Medical morning. Branch trospium 20 2023-0 Yes [id number] 20mg Take 1 Univers mg tablet 9-05 tablet by ity o f 00:00: mouth in [place] 00 the Medical morning Branch and 1 tablet in the evening. tamsulosin 2023-0 Yes [id number] .4mg Take 1 U nivers 0.4 mg 24 9-05 capsule by ity of hr capsule 00:00: mouth in [place] 00 the Medical morning. Branch trospium 20 2023-0 Yes [id number] 20mg Take 1 Univers mg tablet 9-05 tablet by ity o f 00:00: mouth in [place] 00 the Medical morning Branch and 1 tablet in the evening. tamsulosin 2023-0 Yes [id number] .4mg Take 1 U nivers 0.4 mg 24 9-05 capsule by ity of hr capsule 00:00: mouth in [place] 00 the Medical morning. Branch trospium 20 2023-0 Yes [id number] 20mg Take 1 Univers mg tablet 9-05 tablet by ity o f 00:00: mouth in [place] 00 the Medical morning Branch and 1 tablet in the evening. tamsulosin 2023-0 Yes [id number] .4mg Take 1 U nivers 0.4 mg 24 9-05 capsule by ity of hr capsule 00:00: mouth in [place] 00 the Medical morning. Branch trospium 20 2023-0 Yes [id number] 20mg Take 1 Univers mg tablet 9-05 tablet by ity o f 00:00: mouth in [place] 00 the Medical morning Branch and 1 tablet in the evening. tamsulosin 2023-0 Yes [id number] .4mg Take 1 U nivers 0.4 mg 24 9-05 capsule by ity of hr capsule 00:00: mouth in [place] 00 the Medical morning. Branch trospium 20 3-0 Yes [id number] 20mg Take 1 Univers mg tablet 9-05 tablet by ity o f 00:00: mouth in [place] 00 the Medical morning Branch and 1 tablet in the evening. tamsulosin 2023-0 Yes [id number] .4mg Take 1 U nivers 0.4 mg 24 9-05 capsule by ity of hr capsule 00:00: mouth in [place] 00 the Medical morning. Branch trospium 20 3-0 Yes [id number] 20mg Take 1 Univers mg tablet 9-05 tablet by ity o f 00:00: mouth in [place] 00 the Medical morning Branch and 1 tablet in the evening. tamsulosin 3-0 Yes [id number] .4mg Take 1 U nivers 0.4 mg 24 9-05 capsule by ity of hr capsule 00:00: mouth in [facility] as 00 the Medical morning. Branch trospium 20 3-0 Yes [id number] 20mg Take 1 Univers mg tablet 9-05 tablet by ity o f 00:00: mouth in [place] 00 the Medical morning Branch and 1 tablet in the evening. buPROPion 2022-0 Yes Univers HCL, 8-03 ity of smoking 00:00: [place] deter, 150 00 Medical mg Tb12 Branch buPROPion 2022-0 Yes Univers HCL, 8-03 ity of smoking 00:00: [place] deter, 150 00 Medical mg Tb12 Branch buPROPion 2022-0 Yes Univers HCL, 8-03 ity of smoking 00:00: [place] deter, 150 00 Medical mg Tb12 Branch buPROPion 3-0 Yes Univers HCL, 8-03 ity of smoking 00:00: [place] deter, 150 00 Medical mg Tb12 Branch buPROPion 3-0 Yes Univers HCL, 8-03 ity of smoking 00:00: [place] deter, 150 00 Medical mg Tb12 Branch buPROPion 3-0 Yes Univers HCL, 8-03 ity of smoking 00:00: [place] deter, 150 00 Medical mg Tb12 Branch buPROPion 3-0 Yes Univers HCL, 8-03 ity of smoking 00:00: [place] deter, 150 00 Medical mg Tb12 Branch buPROPion 2023-0 Yes Univers HCL, 8-03 ity of smoking 00:00: [place] deter, 150 00 Medical mg Tb12 Branch omeprazole 0 Yes Univers 40 mg 7-30 ity of capsule 00:00: [place] [facility] Branch omeprazole 2022-0 Yes Univers 40 mg 7-30 ity of capsule 00:00: [place] [facility] Branch omeprazole 2022-0 Yes Univers 40 mg 7-30 ity of capsule 00:00: [address] Branch omeprazole 2022-0 Yes Univers 40 mg 7-30 ity of capsule 00:00: [address] Branch omeprazole 2022-0 Yes Univers 40 mg 7-30 ity of capsule 00:00: [address] Branch omeprazole 2022-0 Yes Univers 40 mg 7-30 ity of capsule 00:00: [address] omeprazole 2022-0 Yes Univers 40 mg 7-30 ity of capsule 00:00: [address] omeprazole 2022-0 Yes Univers 40 mg 7-30 ity of capsule 00:00: [address] Branch abacavir-do Yes [address] lutegravir- 7-10 daily [facility] lamivudine 13:42: Medical (TRIUME) 51 Center 600-50-300 mg Tab pantoprazol 0 Yes 40mg QD Take [address] [facility] 7-10 tablet (40 [facility] (PROTONIX) 00:00: mg total) Me dical 40 MG 00 by mouth Center tablet daily. metoclopram 2022- No 5mg Take [address] haja 7-10 07-20 tablet (5 [facility] (Reglan) 5 00:00: 23:59 mg total) M edical MG tablet 00 :00 by mouth 4 Cent er (four) times daily as needed for up to 10 days. pantoprazol 2022-0 2022- No 40mg Take [address] e 7-10 07-10 packet (40 [facility] (Protonix) 00:00: 00:00 mg total) M edical [address] 00 :00 by mouth Center granules every for morning suspension before breakfast. abacavir-do 0 Yes [address] lutegravir- 2-10 daily [facility] lamivudine 16:02: Medical (TRIUMEQ) 51 Center 600-50-300 mg Tab metoprolol 0 2022- No 50mg Q.5D Take [address] tartrate 2-10 02-10 by mouth 2 Luke s (LOPRESSOR) 09:21: 00:00 (two) Medi agatha 50 MG 50 :00 times Center tablet daily. metoprolol 2022-0 2022- No 50mg Q.5D Take [address] tartrate 2-10 02-10 by mouth 2 Luke s (LOPRESSOR) 09:21: 00:00 (two) Medi agatha 50 MG 50 :00 times Center tablet daily. esomeprazol 2022-2022- No [address] e (NEXIUM) 2-10 02-10 twice [facility] 40 MG 09:16: 00:00 daily Medical capsule 37 :00 Center esomeprazol 2022-2022- No [address] [facility] (NEXIUM) 2-10 -10 twice [facility] 40 MG 09:16: 00:00 daily Medical capsule 37 :00 Center propranoloL 2022-0 Yes 20mg Q.5D Take [address] (INDERAL) 2-10 tablet (20 Luke s 20 MG 00:00: mg total) Medical tablet 00 by mouth 2 Center (two) times daily. ondansetron 2022-0 Yes 4mg Take [address] (ZOFRAN-ODT 2-10 tablet (4 Sal es ) 4 MG 00:00: mg total) Medica l disintegrat 00 by mouth Cent er ing tablet every 8 (eight) hours as needed for Nausea. pantoprazol 2022-0 Yes 40mg QD Take [address] [facility] 2-10 tablet (40 [facility] (PROTONIX) 00:00: mg total) Me dical 40 MG 00 by mouth Center tablet daily. propranoloL 2022-0 Yes 20mg Q.5D Take [address] (INDERAL) 2-10 tablet (20 Luke s 20 MG 00:00: mg total) Medical tablet 00 by mouth 2 Center (two) times daily. ondansetron 3-0 Yes 4mg Take [address] (ZOFRAN-ODT 2-10 tablet (4 Sal es ) 4 MG 00:00: mg total) Medica l disintegrat 00 by mouth Cent er ing tablet every 8 (eight) hours as needed for Nausea. pantoprazol 2022-2022- No 40mg QD Take [address] e 2-10 07-10 tablet (40 [facility] (PROTONIX) 00:00: 00:00 mg total) M edical 40 MG 00 :00 by mouth Center tablet daily. abacavir-do Yes [...] Medic al 00 times Center daily. clonazePAM 2018-03- No 1mg Q.5D Take [address] (KLONOPIN) 0-14 02-10 by mouth 2 Ellie kes 1 MG tablet 00:00: 00:00 (two) Medi agatha 00 :00 times Center daily. clonazePAM 2018-03 No 1mg [...] tablet 00 times Center daily . propranolol 2018-03- No 20mg Q.5D Take [address] (INDERAL) 0-10 02-10 by mouth 2 Sal es 20 MG 00:00: 00:00 (two) Medical tablet 00 :00 times Center daily . propranolol 2018-03- No 20mg Q.5D Take 20 mg [facility] [...] St -acetaminop 0-01 02-10 tablet by Ellie neal (NORCO 00:00: 00:00 mouth Medic al 7.5-325) 00 :00 every 8 Center 7.5-325 mg (eight) per tablet hours as needed for Pain . HYDROcodone 2018-03- No 1{tbl} Take [address] -acetaminop 0-01 02-10 tablet by Ellie neal (NORCO 00:00: 00:00 mouth Medic al 7.5-325) [...] spasms . No known No [facility] No [facility] medications [facility] Esomeprazol Esomeprazol Yes [facility] 1 capsule Common e Magnesium e Magnesium [facility] Hydrocodone Hydrocodone Yes [facility] 1 tablet Common -Acetaminop -Acetaminop Kovacev as needed [facility] Triumeq Triumeq Yes Williams 1 tablet Commo n [facility] Clozapine Clozapine Yes Williams 1 tablet C ommon [facility] Vital Signs Vital Name Observation Time Observation Value Comments Source HEIGHT 2022-05-08 23:00:00 180.3 cm WEIGHT 2022-05-08 23:00:00 80.1 kg Systolic blood 2022-12-13 12:58:00 128 mm[Hg] Univer sity of pressure [place] [facility] Diastolic blood 2022-12-13 12:58:00 84 mm[Hg] Unive rsity of pressure [place] [facility] Heart rate 2022-12-13 12:58:00 69 /min Universi ty of [place] [facility] Body temperature 2022-12-13 12:58:00 37.22 Flor Univ ersity of [place] [facility] Respiratory rate 2022-12-13 12:58:00 16 /min Univ ersity of [place] [facility] Body height 2022-12-13 12:58:00 180.3 cm Universi ty of [place] [facility] Body weight 2022-12-13 12:58:00 76.159 kg Universi ty of [place] [facility] BMI 2022-12-13 12:58:00 23.42 kg/m2 Universi ty of [place] [facility] Oxygen saturation in 2022-12-13 12:58:00 98 /min University of Arterial blood by [facility] Pulse oximetry Branch Systolic blood 2022-12-05 13:22:00 131 mm[Hg] Univer sity of pressure [place] [facility] Diastolic blood 2022-12-05 13:22:00 86 mm[Hg] Unive rsity of pressure [place] [facility] Heart rate 2022-12-05 13:22:00 73 /min Universi ty of [place] [facility] Respiratory rate 2022-12-05 13:22:00 18 /min Univ ersity of [place] [facility] Body weight 2022-12-05 13:22:00 74.39 kg Universi ty of [place] [facility] BMI 2022-12-05 13:22:00 22.87 kg/m2 Universi ty of [place] [facility] Oxygen saturation in 2022-12-05 13:22:00 98 /min University of Arterial blood by [place] [facility] Pulse oximetry Branch Systolic blood 2022-12-03 19:41:00 123 mm[Hg] Univer sity of pressure [place] [facility] Diastolic blood 2022-12-03 19:41:00 83 mm[Hg] Unive rsity of pressure [place] [facility] Heart rate 2022-12-03 19:41:00 77 /min Universi ty of [place] [facility] Body temperature 2022-12-03 19:41:00 36.17 Flor Univ ersity of [facility] Respiratory rate 2022-12-03 19:41:00 18 /min [facility] Body height 2022-12-03 19:41:00 180.3 cm [facility] Body weight 2022-12-03 19:41:00 75.297 kg [facility] BMI 2022-12-03 19:41:00 23.15 kg/m2 [facility] Oxygen saturation in 2022-12-03 19:41:00 96 /min [facility] Arterial blood by [facility] Pulse oximetry Branch HEIGHT 2022-05-08 23:00:00 180.3 cm WEIGHT 2022-05-08 23:00:00 80.1 kg HEIGHT 2022-05-08 23:00:00 180.3 cm WEIGHT 2022-05-08 23:00:00 80.1 kg HEIGHT 2020-11-02 13:16:00 180.3 cm WEIGHT 2020-11-02 13:16:00 84.278 kg HEIGHT 2020-11-02 13:16:00 180.3 cm WEIGHT 2020-11-02 13:16:00 84.278 kg Systolic blood 2019-10-08 15:26:00 144 mm[Hg] [facility] Diastolic blood 2019-10-08 15:26:00 96 mm[Hg] [facility] Heart rate 2019-10-08 15:26:00 88 /min [facility] Body temperature 2019-10-08 15:26:00 36.5 Flor [facility] Respiratory rate 2019-10-08 15:26:00 18 /min [facility] Body weight 2019-10-08 15:26:00 83.371 kg [facility] Systolic blood 2019-10-08 15:26:00 144 mm[Hg] [facility] Diastolic blood 2019-10-08 15:26:00 96 mm[Hg] [facility] Heart rate 2019-10-08 15:26:00 88 /min [facility] Body temperature 2019-10-08 15:26:00 36.5 Flor [facility] Respiratory rate 2019-10-08 15:26:00 18 /min [facility] Body weight 2019-10-08 15:26:00 83.371 kg [facility] Systolic blood 2022-10-07 11:45:00 135 mm[Hg] [facility] Diastolic blood 2022-10-07 11:45:00 100 mm[Hg] [facility] Heart rate 2022-10-07 11:45:00 99 /min [facility] Respiratory rate 2022-10-07 11:45:00 16 /min [facility] Oxygen saturation in 2022-10-07 11:45:00 96 /min [facility] Arterial blood by Medical Ce nter Pulse oximetry Body temperature 2022-10-07 11:25:00 36.39 Flor [facility] Body height 2022-10-07 08:41:00 180.3 cm [facility] Body weight 2022-10-07 08:41:00 71.305 kg [facility] BMI 2022-10-07 08:41:00 21.92 kg/m2 [facility] Heart rate 2022-05-10 09:00:00 74 /min [facility] Respiratory rate 2022-05-10 09:00:00 18 /min [facility] Oxygen saturation in 2022-05-10 09:00:00 96 /min [facility] Arterial blood by Medical Ce [facility]ter Pulse oximetry Systolic blood 2022-05-10 08:40:00 134 mm[Hg] [facility] Diastolic blood 2022-05-10 08:40:00 84 mm[Hg] [facility] Body temperature 2022-05-10 08:40:00 35.72 Flor [facility] Body weight 2022-05-10 05:35:00 81.012 kg [facility] BMI 2022-05-10 05:35:00 24.91 kg/m2 [facility] Body height 2022-05-08 23:00:00 180.3 cm [facility] Systolic blood 2021-05-14 11:47:00 133 mm[Hg] [facility] Diastolic blood 2021-05-14 11:47:00 81 mm[Hg] [facility] Heart rate 2021-05-14 11:47:00 66 /min [facility] Body temperature 2021-05-14 11:47:00 36.67 Flor [facility] Respiratory rate 2021-05-14 11:47:00 17 /min [facility] Oxygen saturation in 2021-05-14 11:47:00 99 /min [facility] Arterial blood by Medical Ce [facility]ter Pulse oximetry Body height 2021-05-14 09:15:00 180.3 cm [facility] Body weight 2021-05-14 09:15:00 77.701 kg [facility] BMI 2021-05-14 09:15:00 23.89 kg/m2 [facility] Procedures Procedure Date / Time Performing Clinician Source Performed POCT URINALYSIS AUTO 2022-12-03 20:35:00 Calixto Vuong [facility] ASSIGNMENT OF BENEFITS 2022-12-03 19:35:55 Doctor Unassigned, No [facility] Name Medical Branch REFERRAL- 2022-10-10 05:01:00 Doctor Unassigned, No [facility] REQUEST/RESPONSE Name [facility] REPORT OF PROCEDURE - 2022-10-07 11:23:07 Shasha Reveles I [facility] ENDOSCOPY URL Center TISSUE EXAM 2022-10-07 11:05:00 Shasha Reveles [facility] ENDOSCOPY, UPPER GI 2022-10-07 10:47:00 Shasha Reveles [facility] TRACT, WITH BIOPSY Center REFERRAL- 2022-09-10 05:01:00 Doctor Unassigned, No [facility] REQUEST/RESPONSE Name [facility] Branch CBC W/PLT COUNT & AUTO 2022-08-14 13:57:00 Shasha Reveles [facility] BASIC METABOLIC PANEL 2022-08-14 13:57:00 Shasha Reveles [facility] HEPATIC FUNCTION PANEL 2022-08-14 13:57:00 Shasha Reveles [facility] CBC W/PLT COUNT & AUTO 2022-08-14 13:57:00 Shasha Reveles [facility] PROTHROMBIN TIME/INR 2022-08-14 13:57:00 Shasha Reveles [facility] ALPHA FETOPROTEIN (AFP), 2022-08-14 13:57:00 Shasha Reveles [facility] TUMOR MARKER Center POCT-GLUCOSE METER 2022-05-10 07:47:00 Cheryl Krueger [facility] CBC W/PLT COUNT & AUTO 2022-05-10 02:54:00 Escudero [facility] COMPREHENSIVE METABOLIC 2022-05-10 02:54:00 Escudero, [facility] MAGNESIUM 2022-05-10 02:54:00 Escudero [facility] PHOSPHORUS 2022-05-10 02:54[facility] W/[facility]T [facility] & AUTO 2022-05-10 02:54[facility] PO[facility]-GLUCOSE METER 2022-05-09 21:17:00 Cheryl Krueger [facility] EGD 2022-05-09 13:29:00 Jeremie Umaña [facility] (ESOPHAGOGASTRODUODENOSC Center OPY) HEMOGLOBIN AND 2022-05-09 11:34:00 Walter Sharma [facility] HEMATOCRIT Center HEMOGLOBIN AND 2022-05-09 09:15:00 Malikaa Ayesa [facility] HEMATOCRIT Center COMPREHENSIVE METABOLIC 2022-05-09 03:22:00 Escudero [facility] MAGNESIUM 2022-05-09 03:22:00 Escudero, [facility] PHOSPHORUS 2022-05-09 03:22[facility], IONIZED 2022-05-09 03:22:00 ZacharyWalter Angelica [facility] PT/APTT 2022-05-09 03:22:00 Walter Sharma [facility] ABORH, MANUAL 2022-05-09 03:22:00 Josephine Blakely [facility] Mamadou Center SARS-COV2/RT-PCR ([facility] & 2022-05-09 00:47:00 Afaq, Irais espinoza [facility] REF LABS) Center HEPATITIS C PCR, 2022-05-08 23:56:00 [facility], [facility] QUANTITATIVE Center HIV-1 PCR, QUANTITATIVE 2022-05-08 23:56:00 Afaq, Irais figueroa [facility] TYPE AND SCREEN, 2022-05-08 23:55:00 Afaq, [facility] AUTOMATED Center POCT-GLUCOSE METER 2022-05-08 23:50:00 Afaq, [facility] BASIC METABOLIC PANEL 2022-05-08 23:27:00 Afaq, [facility] Boatengheer [facility] CBC W/PLT COUNT & AUTO 2022-05-08 23:27:00 Afaq, [facility] PROTHROMBIN TIME/INR 2022-05-08 23:27:00 Afaq, Irais Morin [facility] APTT 2022-05-08 23:27:00 Afaq, [facility] FIBRINOGEN 2022-05-08 23:27:00 Afaq, [facility] Jonah [facility] HEPATIC FUNCTION PANEL 2022-05-08 23:27:00 Afaq, [facility] CBC W/PLT COUNT & AUTO 2022-05-08 23:27:00 Afaq, [facility] REPORT OF PROCEDURE - 2021-05-14 11:18:23 Shasha Reveles I [facility] ENDOSCOPY URL Center TISSUE EXAM 2021-05-14 11:10:00 Shasha Reveles [facility] EGD, WITH VARICEAL 2021-05-14 10:46:00 Shasha Reveles [facility] BANDING Center Plan of Care Planned Activity Planned Date Details Comments Source Future Scheduled 2023-05-[address] [facility] Test 00:00:00 [facility] r Screening (12+) [code = Tobacco Cessation Counseling and Screening (12+)] Future Scheduled 2023-05-[address] [facility] Test 00:00:00 [facility]ing and Medical Cente r Screening (12+) [code = Tobacco Cessation Counseling and Screening (12+)] Future Scheduled 2022-11-[address] [facility] Test 00:00:00 (Season Ended) [code = [facility] INFLUENZA VACCINE (Season Ended)] Future Scheduled 2022-11-29 Influenza Vaccine (#1) [facility] 00:[facility]00 [code = Influenza Medical Ce nter Vaccine (#1)] Future Scheduled 2022-03-[address] [...] lung Medical [facility] (procedure) [code = 792564195] Future Scheduled 2012 Screening for malignant [facility] Test 00:00:00 neoplasm of lung Medical Rianna ter (procedure) [code = 332523592] Future Scheduled 2012 SHINGLES VACCINES ([address] [facility] Test 00:00:00 2) [code = SHINGLES [facility] Center VACCINES (1 of 2)] Future Scheduled 2012 Screening for malignant [facility] Test 00:00:00 neoplasm of lung Medical Rian[facility] (procedure) [code = 873853176] Future Scheduled 1997 Lipid panel (procedure) [facility] Test 00:00:00 [code = 54297436] Medical Ce nter Future Scheduled 1997 Lipid panel (procedure) [facility] Test 00:00:00 [code = 47761792] Medical Ce nter Future Scheduled 1997 Lipid panel (procedure) [facility] Test 00:00:00 [code = 83626560] Medical Ce nter Future Scheduled 1995-12-01 MEDICARE [...] VACCINES (1 - Tdap)] Future Scheduled 1981 DTAP/TDAP/TD VACCINES [facility] 00:00:00 (1 - Tdap) [code = Medical C enter DTAP/TDAP/TD VACCINES (1 - Tdap)] Future Scheduled 1981 SHINGLES VACCINES ([address] [facility] Test 00:00:00 2) [facility] of 2)] Future Scheduled [address] [...] YRS (1 - PCV)] Future Scheduled 1968 Pneumococcal Vaccine: [facility] 00:00:00 0-64 Years (1 - PCV) Medical Center [code = Pneumococcal Vaccine: 0-64 Years (1 - PCV)] Future Scheduled 1967 COVID-19 VACCINE (#1) [facility] Test 00:00:00 [code = CT Colonography [facility] (combo)] Future Scheduled 1962 Screening for malignant [facility] Test 00:00:00 neoplasm of colon Medical Ce nter (procedure) [code = 485923848] Future Scheduled 1962 Screening for malignant [facility] Test 00:00:00 neoplasm of colon Medical Ce nter (procedure) [code = 457771983] Future Scheduled 1962 Screening for malignant [facility] Test 00:00:00 neoplasm of colon Medical Ce nter (procedure) [code = 444538765] Future Scheduled 1962 Screening for malignant [facility] Test 00:00:00 neoplasm of colon Medical Ce nter (procedure) [code = 664979411] Future Scheduled 1962 Sigmoidoscopy [code = [facility] 00:[facility]:00 Sigmoidoscopy] Medical Colline r Future Scheduled 1962 CT Colonography (combo) [facility] Test 00:00:00 [code = CT [facility] (combo)] Future Scheduled 1962 Screening for malignant [facility] Test 00:00:00 neoplasm of colon Medical Ce nter (procedure) [code = 568360646] Future Scheduled 1962 Screening for malignant [facility] Test 00:00:00 neoplasm of colon Medical Ce nter (procedure) [code = 505045178] Future Scheduled 1962 Screening for malignant [facility] Test 00:00:00 neoplasm of colon Medical Ce nter (procedure) [code = 942587949] Future Scheduled 1962 Screening for malignant [facility] Test 00:00:00 neoplasm of colon Medical Ce nter (procedure) [code = 258317889] Future Scheduled 1962 Sigmoidoscopy [code = [facility] 00:[facility]:00 Sigmoidoscopy] Medical Colline r Future Scheduled 1962 CT Colonography (combo) [facility] Test 00:00:00 [code = CT Colonography [facility] (combo)] Future Scheduled 1962 Screening for malignant [facility] Test 00:00:00 neoplasm of colon Medical Ce nter (procedure) [code = 635989665] Future Scheduled 1962 Screening for malignant [facility] Test 00:00:00 neoplasm of colon Medical Ce nter (procedure) [code = 605386415] Future Scheduled 1962 Screening for malignant [facility] Test 00:00:00 neoplasm of colon Medical Ce nter (procedure) [code = 035770503] Future Scheduled 1962 Screening for malignant [facility] Test 00:00:00 neoplasm of colon Medical Ce nter (procedure) [code = 432368620] Future Scheduled 1962 Sigmoidoscopy [code = [facility] 00:[facility] Sigmoidoscopy] Medical Cente r Encounters Start End Encounter Admission Attending Care Care Encounter Source Date/Time Date/Time Type Type Clinicians Facility Department ID 2022-05-08 Inpatient ER PAGE KRUEGER Medical ICU [id number] SLSL 22:52:00 CHERYL 2021-04-25 Outpatient [facility] [id number] Common 12:05:40 [id number] [facility] 2021-04-25 Outpatient [facility] [id number] Common 12:03:07 [id number] [facility] 2021-01-07 Outpatient EL ABDIRIZAK, [facility] Surgery [id number] SLE 14:40:44 PRASUN 2021-01-04 Outpatient JAEDNA, [facility] Surgery [id number] SLEH 11:57:49 PRASUN 2023-03-14 2023-03-14 [facility] [id number] Univers 08:00:00 08:00:00 [facility] 2023-01-14 2023-01-14 Out[facility] [id number] Univers 10:30:00 10:30:00 JOHN montalvo [facility] 2023-01-08 2023-01-08 Outpatient [facility] [id number] Univers 00:00:00 00:00:00 [facility] 2023-01-02 2023-01-02 Outpatient Ana [facility] [id number] Univers 08:45:00 08:45:00 SYLWIA alvarado [facility] 2022-12-13 2022-12-13 Outpatient Ana [facility] [id number] Univers 08:00:00 08:37:26 [facility] 2022-12-13 2022-12-13 [facility] [id number] Univers 08:00:00 08:37:26 Visit Shawanda MIKE [id number] i ty of WOMEN'S 4.2.7.2.686 [facility] [id number] [facility] 059 Branch 2022-12-05 2022-12-05 Out[facility] [id number] Univers 10:15:00 10:15:00 SYLWIA paulino [facility] 2022-12-05 2022-12-05 Office [facility] BEN[facility]TEZ [id number] Univers 08:45:00 09:21:48 Visit Sylwia MIKE [id number] it y of WOMEN'S [id number] [facility] [id number] [facility] [address] 2022-12-03 2022-12-03 [facility] [id number] Univers 15:00:00 15:04:08 [facility] 2022-12-03 2022-12-03 [facility] [id number] Univers 15:00:00 15:04:08 Visit Calixto BRIDGETTE 350.1.13.10 it y of WOMEN'S 4.2.7.2.686 [facility] [id number] [facility] 204 Branch 2022-12-03 2022-12-03 Orders Doctor STEPHENSON [id number] Univers 00:00:00 00:00:00 Only Unassigned, KERI 350.1.13.10 ity of [place] [facility] [id number] Gerber as [phone] [address] 2022-11-19 2022-11-19 [facility] [id number] Univers 10:30:00 10:30:00 [facility] 2022-10-10 2022-10-10 Orders Doctor SACHIN [id number] Univers 00:00:00 00:00:00 Only Unassigned, KERI 350.1.13.10 ity of [place] HOSPITAL [id number] Gerber as [phone] [address] 2022-10-08 2022-10-08 Letter SACHIN Cam [id number] Univers 00:00:00 00:00:00 (Out) Alf Morin KERI 350.1.13.10 i ty of HOSPITAL 4.2.7.2.686 Gerber as [id number] [facility] 043 Branch 2022-10-07 2022-10-07 Hospital [facility] [id number] 08:17:00 12:55:00 Encounter [facility] 2022-10-07 2022-10-[address] [facility] [id number] 10:47:00 11:27:00 Event Colette Crowefort worthpriscilla [facility] 2022-10-07 2022-10-07 Surgery [facility] [id number] 10:06:00 10:36:00 [facility] 2022-10-07 2022-10-07 [facility] [id number] 00:00:00 00:00:00 Only [facility] 2022-10-07 2022-10-07 Travel [facility] [id number] [facility] 00:[facility]00 00:00:00 [facility] 2022-09-10 2022-09-10 Orders Doctor STEPHENSON 1.2.840.114 [id number] Univers 00:00:00 00:00:00 Only Unassigned, KERI 350.1.13.10 ity of [place] HOSPITAL [id number] Gerber as [phone] [facility] 009 Branch 2022-08-15 2022-08-15 Telephone [facility] [id number] 00:00:00 00:00:00 [facility] 2022-08-14 2022-08-14 [facility] [id number] 12:00:00 12:30:00 Visit [facility] 2022-05-08 2022-05-10 Hospital ER Tavo Barrerasingh Jonah [facility] [id number] 22:52:00 16:02:00 Encounter Derek Donaldson rayo [facility] 2022-05-08 2022-05-10 [facility] Irais oV [facility] [id number] [facility] 22:52:00 16:02:00 Encounter [facility]onal[facility]on [facility]o [facility] 2022-05-09 2022-05-09 Surgery [facility], [facility] [id number] 13:30:00 14:00:00 [facility] 2022-05-09 2022-05-09 Surgery [facility], [facility] [id number] 13:30:00 14:00:00 [facility] 2022-05-09 2022-05-[address] [facility] [id number] [facility] 13:31:00 13:53:00 Event [facility] 2022-05-09 2022-05-[address] [facility] [id number] [facility] 13:31:00 13:53:00 Event [facility] 2022-05-09 2022-05-09 Travel [facility] [id number] [facility] 00:00:00 00:00:00 [facility] 2022-05-09 2022-05-09 Travel [facility] [id number] [facility] 00:00:00 00:00:00 [facility] 2021-05-14 2021-05-14 [facility] [id number] 08:51:00 12:04:00 Encounter Shasha [facility] 2021-05-14 2021-05-[address] [facility] [id number] [facility] 10:51:00 11:22:00 Event Saba Avina [facility] 2021-05-14 2021-05-14 [facility] [id number] 10:00:00 10:30:00 [facility] 2021-05-14 2021-05-14 Travel [facility] [id number] [facility] 00:00:00 00:00:00 [facility] 2021-05-07 2021-05-07 Outpatient EL [facility]H [facility] [id number] [facility] 00:00:00 00:00:00 2020-11-24 2020-11-24 Outpatient EL GUPTA, [facility]H [facility] [id number] [facility] 00:00:00 00:00:00 LINE 2020-11-14 2020-11-14 Outpatient EL GUPTA, SLEH [facility] [id number] [facility] 00:00:00 00:00:00 LINE 2020-11-02 2020-11-02 Outpatient EL SLEH [facility] [id number] [facility]H 00:00:00 00:00:00 2020-04-07 2020-04-07 Outpatient Ana SINHA [facility] [id number] Univers 09:30:00 09:30:00 [facility] 2020-01-14 2020-01-14 Outpatient Ana SINHA [facility] [id number] Univers 09:30:00 09:30:00 [facility] 2020-01-05 2020-01-05 Outpatient EL SLEH [facility]H [id number] [facility]H 00:00:00 00:00:00 2019-11-09 2019-11-09 Outpatient LEENA REVELES [facility] [id number] SLEH 00:00:00 00:00:00 SHASHA 2019-11-03 2019-11-03 Outpatient EL ABDIRIZAK [facility] [id number] SLEH 00:00:00 00:00:00 SHASHA 2019-10-08 2019-10-08 [facility] [id number] [id number] Univers 10:19:10 10:47:58 Visit Sachin Norman 350.1.13.10 i ty of Bradly Sellers [id number] Arlet schaffer Professio [id number] [address] 2019-10-08 2019-10-08 [facility] 1.2.840.114 [id number] 10:19:10 10:47:58 Visit Sachin Norman 350.1.13.10 Bradly Sellesr 4.2.7.2.686 Carlos [id number] [address] 2019-10-08 2019-10-08 [facility] [id number] Univers 10:45:00 10:45:00 SACHIN alvarado [facility] 2019-09-29 2019-09-29 Outpatient SLE SLE [id number] SLEH 00:00:00 00:00:00 [id number] 2019-09-29 2019-09-29 Outpatient LEENA REVELES, [facility] SLE [id number] SLEH 00:00:00 00:00:00 JAMIEUN 2019-07-29 2019-07-29 Outpatient SLE SLE [id number] SLEH 00:00:00 00:00:00 [id number] 2018-03-17 2018-03-17 Out[facility] [id number] Common 09:00:00 09:00:00 t Specialty/U Sp ger Specialty rology - [facility]Urology Clinic [facility] 2017-12-23 2017-12-23 Outpatient [facility] [id number] Common 09:15:00 09:15:00 t Specialty/U Sp ger Specialty rology - [facility]rology Clinic [facility] 2017-11-25 2017-11-25 Outpatient [facility] [id number] Common 14:20:00 14:20:00 t Specialty/U Sp ger Specialty rology - [facility]rology Clinic [facility] 2017-11-18 2017-11-18 Outpatient [facility] [id number] Common 10:15:00 10:15:00 t Specialty/U Sp ger Specialty rology - [facility] Clinic [facility] Results Test Description Test Time Test Comments Results Result Comments Source POCT URINALYSIS, INSTRUMENT 2022-12-03 20:36:00 Test Item Value Reference Range Interpretation Comme nts POCT U SP GRAV (test code = 3255) 1.020 mg/dl 1.005-1.025 POCT PH U (test code = 3254) 6.0 mg/dl 5-8 POCT U LEUK EST (test code = 3263) negative Negative - Negative POCT U NIT (test code = 3262) negative Negative - Negative POCT U PROT (test code = 3259) negative Negative - Negative POCT U GLU (test code = 3256) negative Negative - Negative POCT U KETONE (test code = 3258) negative Negative - Negative POCT U UROBILI (test code = 3260) 0.2 mg/dl 0.2-1 POCT U BILI (test code = 3261) negative Negative - Negative POCT U BLD (test code = 3257) negative Negative - Negative POCT U COLOR (test code = 3266) yellow POCT U APPEAR (test code = 3267) clear [facility], [id number] 20:36:00 Test Item Value Reference Range Interpretation Comments POCT U SP GRAV (test code = 1.020 mg/dl 1.005-1.025 3255) POCT PH U (test code = 3254) 6.0 mg/dl 5-8 POCT U LEUK EST (test code = negative Negative - Negative 3263) POCT U NIT (test code = 3262) negative Negative - Negative POCT U PROT (test code = negative Negative - Negative 3259) POCT U GLU (test code = 3256) negative Negative - Negative POCT U KETONE (test code = negative Negative - Negative 3258) POCT U UROBILI (test code = 0.2 mg/dl 0.2-1 3260) POCT U BILI (test code = negative Negative - Negative 3261) POCT U BLD (test code = 3257) negative Negative - Negative POCT U COLOR (test code = yellow 3266) POCT U APPEAR (test code = clear 3267) [facility] [id number] 18:21:10 Test Item Value Reference Range Interpretation Comments Case Report (test code Surgical Pathology = 104) Report Case: [id number] Authorizing Provider: Shasha Reveles MD Collected: 10/07/2022 11:05 AM Ordering Location: [facility] OT ENDOSCOPY Received: 10/07/2022 02:52 PM SERVICES Pathologist: Ambrose Aguilar MD Specimen: Biopsy, Mid-esophagus, biopsy DIAGNOSIS (test code = [id number] 3220) FuZzEwMzNcZnRuYmpcdWMx IHtccnRmMVxlcGljMTAyMD mlGG0pmVvroGn8tPluGDOw hbB1eDSrPTulw0dzHTM0h9 qvbiosIZVxSJozPf5poOEw aZgeVeBoOBWuRXv2hD65KE EodN4jbIVsJYl6DBMtnNSu fsBhPoUxJALsbLUhjHX7YP EvRS9dqvduLWejGSjnXFFj rkP2QKWmuPBlR1CzLUDvZU 6ydrghBAC4OUodCLGtAPH3 ZiLzDCQcj1Wdcuw6NrRsiM FyZFxwbGFpblxmczIwIEVT O1ALUAhPRuotGKnSSQVFVZ 7IX0wmjYWlHR6iKQZRLHRZ XV9HSwSLJRxBMWCNOWGYPT dJVEggTUlMRCBSRUFDVElW YVSXCJFGN5AFFHfxRPOqAT SuFRuUH2YHMJHMGUEBJ5BT Jh3TWHsDXgBRX9CbQ8XZGy lbAMRtEUNiNMyWPM9JADiU UiBFUElUSEVMSVVNLCBEWV NUINKZRKXeG8JaR6LBY6sY M57ABF9ISPWOUBDUTDLirv xpBUY4a5wosDGsQQHsqDHn ODAwMFxhbnNpXGRlZmxhbm ppCTMrRYX5kzYlTYLxTYdc ZIWzATvqRr7rxAHkjHipPy BgVTBut6uvkiHWzixvbCj2 i2pwVZSpJwN4mAEjJXbiZ4 uyndInjPDjPANoAUl1sO64 EXWhfA4kjRFqYGnuvyOoLp G1HWxaJMSpPkP6KNOwuTHi GTEzW1vpNFAqPBeoXXObHH rizCMoDQA9eRgzn7Y7hXNh aGVldHtcZjBcZnMyMiBOb3 KqOWw2dAslR1IzKFZrVcQ8 bHQgUGFyYWdyYXBoIEZvbn C1lP45XKipgsL8rHZth7Kz n58tf059lO1ofMMwGVD7VP LqUNZsuEIpOQAcWQH1UMUe pXLwL6zfEPCoAE4nciqqBR nbDBkbJXXzkYU5YYHiyMZs X4NeYURiYCivRSNmvba1Kx CoAl0unPUznCjeAXmhp6uq s2ljnZAwCfc9AVRjZoIcBc yzOWoex1Cxu0kxALYxma7n FIO6nELeiQdow2B6lBCaEH RieXFpADYfRU9thKMoOEWx oY2mhpqmPZIaMaOeaztmKV IukAgttbZdGt5hmKjtVZR2 LUkzO8gvcU1hAyD8VRrtM1 wffZ9lPDs2GUkqOABjpOI7 tyG7MLIfzUZwX5MvhS8tAT YwNO5qpbv3g8ivSWL7EVys RIWiXfD5ewF2HQMugOWrCL CalMhdFRdns416REE3NwFc AINid7DxW8AyzPfvK79gtL ypT44tFJPgqFhxmI9ftXgw zB1jXlBwKmGpZTkzeNgeLI 4fQYYgR2dxfRBhJZLlTNZy T1ppIhLxrE9bgRhjYOszgf IvPJJvCki7NAIvyKMkXNKd Fut6VIKeSDNrD53hwhzcRN A6kX8my3ial5AwSHgvQIP1 TYOgi68eUKttttX9CYrgBo 46YXreULB7PRlsIYP1qC== CPT Code(s) (test code o3fxbWOtAOCexCYvKBEyQ6 = 3357) xvkeXsSZFjhZXtD2Hfdgqr PYifDZ0pDY8ggFfedBMveQ ErPTMkJzAzy4qob138hJAp u8fwWZJVirwirJc9tHujD2 3ou4K6IcjkF90xzFRmQPG9 KEVtJQSwzPMeSHQqEUZ5IE FbrFYxF1xhZVEaWA6awqgn YCmhOZkqYBUlyJF1CWOmhV SaS1TuGPDeCOpbLQPldpw4 UjQpHq4kkTTfoDxpDXnbCM JkXHBsYWluXGZzMjAgODgz MDVccGFyfQ== CLINICAL HISTORY (test f4dvgBEeNFWvbNWhJYMcZ9 code = 3356) avykYjWZUfgOTnS5Ldlehd MIepVQ1aKH9obLawdEOwvE UxXRYtUfYut4xwl047pLIb i5plMUXHhetrkEz4zWlnN8 3qf1P7TuhtI84ieWBsXHT8 VXXxIMPzjIFjFXOtHDY8EE UbnGEcR1ciFEAvAV8dsxja FRueBQvjFESbzZV0JZDifW XwN1ZvJCZxSLiwOWIfcvb9 CjFjRa4hkBTdrChjBBadXP JkXHBsYWluXGZzMjAgRXNv fAixV3GrtCS9UNMyD5ArAU dpdGhvdXQgYmxlZWRpbmdc cGFyfQ== SPECIMEN SOURCE (test q9wvlHFgLYChaMHxYCBsM7 code = 8177) xyeySzQYQdvKPaM1Ydqsbr DGepFY1pOJ6dcDktbKQbiZ UlFMEpUpZzc6ogb360kXSm c2bxHYJFvdbdaAj8rYgzI8 9uf2M6CqzyV53jpSQwCYM2 XXVuDWQksOJhMBZuVGP4FP RstDOiZ0xzQQQdTU1agxhd NKeaLOwsROQagKA3XMPhxO UnS8QuWVCaLBsrOMSmndt4 DwJwWj0tzFCcjUsfDMwvXI JkXHBsYWluXGZzMjAgTWlk MCCyo9UfCQy6s3hkNQN2 GROSS DESCRIPTION (test d2ptmUBiIOKneGDVOEPpEF code = 9550809161) RmUO4ibReduGk3kLqwBAKs knL4fWWpUZmfz5rgSDG9g2 eqvkUAOyzsBIOcMC0kWFii RXExLX6qPiTpGCObVbPrKB BhcGVydzEyMjQwXHBhcGVy jMJ0PTCwGS9zabfcMSftZL mbJHVaclX5FSPtwGTkE5Eo PIPnPE4eccisYAN2KHKSZn qfHg0soTRjrIgoMwZyNxDq YXJzZXQwXGZuaWwgQXJpYW l2tL7FQtstJ54oq7U3Gwz1 DIOrXZIyH9FqBH9cREZiaB MmG25EMqibHWE4TABUVeyv BmwiyUdlz5TceMGbZXAiPK xcaWQgNTEwMDAgXFxkYiBP EtPgJsQkZUM8JpFsMBQbAZ f4BOepQdYSIQS2EHK2YWbd YQv0WMlgHBuueRGrNWPgCO IfHAKkCZzopiQ7h4ypKOCz mYXwWXJ5ABjfq4ycYWkmVY J4BBRuDzNoOAXiBL7XQbNw HZOnDCAwUZP3RqJ0IIt7BM ACLrIjUbIdMrBoJQZ2FPCn TBr8KWw4SSaSPyR2HlSlDQ H4XIxeCGR0TqYeUYa7QIDj XFxzcyAzIFxcZmwgXFxuY3 1ccGFyZCANClxwbGFpblxm jtRjEOZsEHLds4PscVxqQI wrRTHhv9BkCVh1f6txGVMu DQpccGFyZCANClxwbGFpbl etgvArRLa0heQtGGHyiMWI CJM9QW9sTUMNMxvbkCFdHL JyoGqvHFotvB5uST5CDBXu IEqddsQmZXFkP1DxgmEoRH qpQPMvyo9adFijYXfrYbRo HDQun6n5cEI1tZNiiGE7fJ NzlOhxOkGrZT2ssCVkLA7s XVnzZEhlzuCxp2XvXP74aU EnnnMdtsAeJQX3YnQrDWot MDObsGVeTZOfdFwkL4XlJA Bak6FbpNMhIOZlVMDzrRYu LXdoaXRlIHNvZnQgdGlzc3 LrGACgMKcoCQ85zwZxBD8m rV3yKGocHCWgmeHeFmKuvR OrIhEhUC91SNCyVAY5rFij xNRcfkNhp6JvwUe2aLIiMT tfILLcwQ8ksQ3uUHYpKKKx ciANClxwYXIgDQpMYXVyeW 3hJmUzi5ZezRGrHR2GPBKe IwBiLPKhZ1lfUVPcIQ1TGT JxPJzbgrShGF4RBOQduSRB AYV1AR9kQSypCLIoY6ByA6 HvdmX2k9mifHjsp5AkjDTv KF4ddIHuBL1QUODcikLnRI p9 MICROSCOPIC DESCRIPTION a6ugqMYnMZQixUKuJRJfI2 (test code = 3371) wqgtUnIGTyaOSjL2Wsxynb HCkgYL4oBO4kxKzxcUJwiN FtRJIdTkGmk4hso292gRAb g6gmXRUSzkgcsCu8lKpuW7 8lo4K3PzecN82awLQjDBN0 BBTsYWUovMPyPYVhMCF6ZW OtwRMzR9sdBZDaSW0kdtqg JLqoVBqgTILczXK0OVXvxU GmM3CwUKTsJEefHTXhlth9 WeIoVy8dsAHcmDfmNVxzVS JkXHBsYWluXGZzMjAgUGVy Jz3dcZCjNKHwzd9= Gross assessment was [facility] performed at ([facility], = 2777) Department of Pathology, [address] [place] [address], Technical component was [facility] performed at ([facility], = 6680) Department of Pathology, [address] [place] [address] 87[address], Professional component [facility] was performed at ([facility], code = 2779) Department of Pathology, [address] [place] [address], [facility] [id number] 18:21:10Surgical Pathology Report Case: [id number] Authorizing Provider: Shasha Reveles MD Collected: 10/07/2022 11:05 AM Ordering Location: [facility] ENDOSCOPY Received: 10/07/2022 02:52 PM SERVICES Pathologist: Ambrose Aguilar MD Specimen: Biopsy, Mid- esophagus, biopsy ESOPHAGUS, MID, BIOPSY- SQUAMOUS EPITHELIUM WITH MILD REACTIVE CHANGES - INCREASED EOSINOPHILS NOT SEEN- GLANDULAR EPITHELIUM, DYSPLASIA OR CARCINOMA NOT SEEN Signing Pathologist Direct Phone Line: [phone] signed by Ambrose Aguilar MD on 10/09/2022 at 6:21 [id number] varices without bleedingMid esophagusA. Biopsy, Mid- esophagusReceived in formalin labeled with the patient's name, medical record number and "midesophagus biopsy" are 2 allison-white soft tissue fragments ranging in size from 0.3-0.4 cm, which are submitted in toto in A1.[facility], [facility] of [facility]ology, [address] [place] [address], [facility], [address] [place] [address], [facility], Department of Pathology, [address] [place] [address], KUSMI FETOPROTEIN (AFP), TUMOR [id number] 15:56:40 Test Item Value Reference Range Interpretation Comments ALPHA-FETOPROTEIN (BEAKER) (test 5.3 ng/mL <10.0 code = 1094) [employer] ID - ADMINHEPATIC FUNCTION [id number] 15:54:41 Test Item Value Reference Range Interpretation [...] (test code = 23 U/L 6-55 347) [employer] ID - ADMINBASIC METABOLIC [id number] 15:54:36 Test Item Value Reference Range Interpretation [...] eGF R is based on the CKD-EPI 202 equation that d oes not use a race coefficientEsti mated GFR is not as accur ate as Creatinine Kimmie veronique in predicting glom erular filtration rate . Estimated GFR is not appl icable for dialysis patien ts [employer] ID - ADMINPROTHROMBIN TIME/[id number] 14:39:58 Test Item Value Reference Range Interpretation [...] mechanical heart valves.CBC W/PLT COUNT & AUTO [id number] 14:32:31 Test Item Value Reference Range Interpretation [...] 417) IMMATURE GRANULOCYTES-RELATIVE 0.20 % 0.00-1.00 PERCENT (BEAKER) (test code = 2801) HIV-1 PCR, [id number] 15:54:56 Test Item Value Reference Range Interpretation Comments HIV-1 NUMERIC RESULT (BEAKER) (test 157 Cp/mL <20 H code = 9491) This test uses a Real-Time Polymerase Chain Reaction (RT-PCR) methodology to detect a highly conserved region of the HIV-1 gag gene and was performed using the [employer] AmpliPrep/[employer]OVER TaqMan HIV-1 test kit version 2.0 ([employer]Reportable range for this assay is 20 - 10,000,000 copies per mL (1.3 - 7.0 Log copies/mL).HEPATITIS C PCR, [id number] 11:12:02 Test Item Value Reference Range Interpretation Comments HCV RESULT COMPONENT HCV RNA not detected HCV RNA not detected (BEAKER) (test code = 2783) This test uses a Real-Time Polymerase Chain Reaction (RT-PCR) methodology and was performed using [employer] Ampliprep/[employer]OVER TaqMan HCV test kit version 2.0 ([employer]Reportable range for this assay is 15 - 100,000,000 IU per mL (1.18 - 8.00 Log IU/mL).POC-Glucose [id number] 07:59:18 Test Item Value Reference Range Interpretation Comments POC-Glucose Meter (test 72 mg/dL 70-110 : TE STED AT [facility] code = 1538) [address] 099478: [employer]/Techni nirav ID = [id number] for Andrew Babb Lab Interpretation (test Normal code = 68492-7) [facility] [id number] 07:59:18 Test Item Value Reference Range Interpretation Comments POC-Glucose Meter (test 72 mg/dL 70-110 : TE STED AT [facility] code = 1538) [address] 099478: [employer]/Techni nirav ID = [id number] for Andrew Babb Lab Interpretation (test Normal code = 70736-0) [facility]-GLUCOSE [id number] 07:59:18 Test Item Value Reference Range Interpretation Comments POC-GLUCOSE METER 72 mg/dL 70-110 : TESTED A T [facility] 1317 (BEAKER) (test code = [facility], 1538) [facility] 77 478: [employer]/Techni nirav ID = [id number] for Kym Jordan COMPREHENSIVE METABOLIC [id number] 04:42:58 Test Item Value Reference Range Interpretation [...] not appl icable for dialysis patien ts [employer] ID - LITOOperator ID - LITOOperator ID - LITOOperator ID - LITOOperator ID - LITOOperator ID - LITOOperator ID - LITOOperator ID - LITOOperator ID - LITOOperator ID - LITOOperator ID - LITOOperator ID - LITOOperator ID - LITOOperator ID - LITOOperator ID - LITOOperator ID - [id number] 04:42:58 Test Item Value Reference Range Interpretation Comments MAGNESIUM (BEAKER) (test code = 1.9 mg/dL 1.5-3.0 627) [employer] ID - LITOOperator ID - LITOOperator ID - LITOOperator ID - LEONELA [id number] 04:39:15 Test Item Value Reference Range Interpretation Comments PHOSPHORUS (BEAKER) (test code = 2.6 mg/dL 2.5-4.5 604) [employer] ID - LITOCBC W/PLT COUNT & AUTO [id number] 04:20:03 Test Item Value Reference Range Interpretation [...] PERCENT (BEAKER) (test code = 2801) POCT-GLUCOSE [id number] 21:29:36 Test Item Value Reference Range Interpretation Comments POC-GLUCOSE METER 94 mg/dL 70-110 : TESTED A T [facility] [address] (BEAKER) (test code = [address], 1538) [facility] 77 478: [employer]ge/Techni nirav ID = [id number] for Gracia Melendez HEMOGLOBIN AND [id number] 12:03:22 Test Item Value Reference Range Interpretation Comments HEMOGLOBIN (BEAKER) (test code = 14.4 GM/DL 13.0-16.8 410) HEMATOCRIT (BEAKER) (test code = 40.9 % 36.0-50.0 411) HEMOGLOBIN AND [id number] 09:30:37 Test Item Value Reference Range Interpretation Comments HEMOGLOBIN (BEAKER) (test code = 14.5 GM/DL 13.0-16.8 410) HEMATOCRIT (BEAKER) (test code = 40.8 % 36.0-50.0 411) COMPREHENSIVE METABOLIC [id number] 04:41:38 Test Item Value Reference Range Interpretation [...] not appl icable for dialysis patien ts [employer] ID - OPXZ86Lyuzsrld ID - GHEO20Nculqxvg ID - RRRY81Tbmctelr ID - ZDYC04Blytjhsg ID - FTYS90Xovynqqy ID - JPAT07Wzjcwyai ID - SSFI66Lpglvown ID - MMAO75Rmbqbdtu ID - NNIJ41Amtfbahz ID - RZPN60Fqiinwld ID - KUTJ32Urqtuvir ID - ZZCU82Urhbaiaq ID - LFRN61Oyewjtua ID - QYEI36Kytsupmg ID - XJOI59Bmoyzhql ID - [id number] 04:25:13 Test Item Value Reference Range Interpretation Comments MAGNESIUM (BEAKER) (test code = 1.9 mg/dL 1.5-3.0 627) [employer] ID - ZJYA48Rjfldyqs ID - YZGO38Zjktpywo ID - MYVF21Efyoehcw ID - ZNMP04 [id number] 04:21:54 Test Item Value Reference Range Interpretation Comments PHOSPHORUS (BEAKER) (test code = 4.4 mg/dL 2.5-4.5 604) [employer] ID - NLSK03AV/RQBZ7142-58-07 03:45:10 Test Item Value Reference Range Interpretation [...] 2.5-3.5 for patients with mechanical heart valves.CALCIUM, [id number] 03:29:37 Test Item Value Reference Range Interpretation Comments CALCIUM IONIZED (BEAKER) (test 1.15 mmol/L 1.12-1.27 code = 698) PH, BLOOD (BEAKER) (test code = 7.37 1810) SARS-CoV2/RT-PCR (Asymptomatic ONLY)2022-05-09 01:35:46 Test Item Value Reference Interpretation Comments Range SARS-COV2/RT-PCR Negative Negative The SARS-Co V-2 (test code = target nucleic 44603-6) acids are not detected in thi s [...] revoked sooner. Fact Sheet for Healthcare Providers: https://www.[employer]/Documents/Xp ert%20Xpress%20SAR S%20CoV-2/Fact%20S heets/302-3802%20S ARS-COV-2%20HEALTH CARE%20PROVIDERS%2 0FACT%20SHEET.pdf Fact Sheet for Healthcare Patients: https://www.[employer]/Documents/Xp ert%20Xpress%20SAR S%20CoV-2/Fact%20S heets/302-3801%20S ARS-COV-2%20PATIEN T%20FACT%20SHEET.p df Lab Interpretation Normal (test code = 73502-6) [facility]2022-05-09 01:35:46 Test Item Value Reference Interpretation Comments Range SARS-COV2/RT-PCR Negative Negative The SARS-Co V-2 (test code = target nucleic 42047-9) acids are not detected in thi s [...] om SARS-CoV-2 in a nasopharyngeal swab specimen colle williams from individual s suspected of COVID-19 [...] revoked sooner. Fact Sheet for Healthcare Providers: https://www.[employer]/Documents/Xp ert%20Xpress%20SAR S%20CoV-2/Fact%20S heets/302-3802%20S ARS-COV-2%20HEALTH CARE%20PROVIDERS%2 0FACT%20SHEET.pdf Fact Sheet for Healthcare Patients: https://www.[employer]/Documents/Xp ert%20Xpress%20SAR S%20CoV-2/Fact%20S heets/302-3801%20S ARS-COV-2%20PATIEN T%20FACT%20SHEET.p df Lab Interpretation Normal (test code = 89274-5) [facility] ([facility])2022-05-09 01:35:46 Test Item Value Reference Range Interpretation Comments SARS-COV2/RT-PCR Negative Negative The SARS-Co V-2 target (test code = nucleic acids a re not 1884752) detected in thi s specimen. Negative result [...] revoked sooner. Fact Sheet for Healthcare Providers: https://www.[employer]/Documents/Xpert%20Xpress%20SARS%20CoV-2/Fact%20Sheets/302-3802%36PLRB-QNH-1%20 HEALTHCARE%20PROVIDERS%20FACT%20SHEET.pdf Fact Sheet for Healthcare Patients: https://www.[employer]/Documents/Xpert%20Xp ress%20SARS%20CoV-2/Fact%20Sheets/302-3801%22SQMG-MPJ-7%20PATIENT%20FACT%20SHEET .pdfHEPATIC FUNCTION [id number] 00:28:50 Test Item Value Reference Range Interpretation [...] (test code = 15 U/L 5-50 347) [employer] ID - ZOQJ96Stouqtyz ID - DRVZ52Pfxtyovm ID - EUDP72Mpjbpnzj ID - RQIS28Kjqhxuzy ID - GHRG81Sfzamyat ID - OFTT68Tniavzsp ID - UNLE16Bircmznr ID - UNRV53Qxczghpu ID - QXUQ31Awthvpfh ID - GNBC98JQVXW METABOLIC [id number] 00:28:45 Test Item Value Reference Range Interpretation [...] not appl icable for dialysis patien ts [employer] ID - DGEH43Hdgshfbi ID - SSWS66Rurrldun ID - QJTU61Oiggajhr ID - FNDS33Ugxvlcgk ID - ELNU77Tjkcenvw ID - UQYW03Btmahzpw ID - PEHF25Dhcfrlvt ID - CZUZ20Ogfscvfp ID - BJZL41Aezarnlr ID - [id number] 00:07:06 Test Item Value Reference Range Interpretation Comments FIBRINOGEN LEVEL 325 mg/dl 200-400 Final Infor mation ([employer]) (test code = (Auto Output) 658) PROTHROMBIN TIME/[id number] 00:07:06 Test Item Value Reference Range Interpretation [...] is 2.5-3.5 for patients with mechanical heart valves.[id number] 00:07:06 Test Item Value Reference Range Interpretation Comments PARTIAL THROMBOPLASTIN 28.8 seconds 23.0-35.0 Final Information TIME ([employer]) (test (Auto Ou tput) code = 760) POCT-GLUCOSE [id number] 00:02:28 Test Item Value Reference Range Interpretation Comments POC-GLUCOSE METER 156 mg/dL 70-110 H : TESTED A T [facility] [address] (BEAKER) (test code [address], = 1538) [facility] [place] [address]: [employer]ge/Techni nirav ID = [id number] for Garc Ryan zurita CBC W/PLT COUNT & AUTO [id number] 23:32:44 Test Item Value Reference Range Interpretation [...] PERCENT (BEAKER) (test code = 2801) Tissue [id number] 18:28:39 Test Item Value Reference Range Interpretation Comments Case Report (test code Surgical Pathology = 104) Report Case: [id number] Authorizing Provider: Shasha Reveles MD Collected: 05/14/2021 11:10 AM Ordering Location: [facility] Endoscopy Received: 05/14/2021 02:17 PM Services Pathologist: Zulay Castro MD Specimen: Biopsy, Gastric, random biopsies DIAGNOSIS (test code = g7iihGTnJITky8jpOEApnC 3220) FuZzEwMzNcZnRuYmpcdWMx IHtccnRmMVxlcGljOTYwMV ntmvFdCCXvnQQlE3Uznmyg JAkzLP0tCB0roKoetJEgdW UiMZLjQoOnq2sca266lWZd h4xbYOXRgwgwlDp6zQudF7 1tb1B7IhttT15xeLOkZHR9 VNVmTMXbvORqELJaKVD2VJ FykQAfT0rxYRIvLG6ypxdl MAtjAIwfPWFeaPT7UFSwjW EhA4WoJBQyQYyuGVLpiuo3 GbVfJf5ivXZflMscJEdcRC PtAUMlKUgeVHQoEmLhXS5e H4IOSNTJDDwnY8zEZSODJ3 XkA3QBB3yVLFIKDBYZKR0A J9h7EDHmwaz9WXMzYPXLNg ZJWYpcWD9ANI5XRU3TEOSo FIEZH9XVHCkJCAbdDq9bQI WRJZ5CY0eBCzLVGUYKXbFV SQ9QMNLraef8UUFyHYMKLW fNBOiDJABCX5HwIUVDLIPG BuSQTLINSC6MA3HWK1QQAT 3UG30IIT4WNYGVBZQLPdCb Q6VXOS4ZRMyzBFY2d3wtdM YxXHNzdGUxODAwMFxhbnNp IKZiYptpubogSBIeMVH2od OhPJLoNBjsGYJuTAmpSl5l zSZaeLicAvIlMOJaq2tolc JUvmifePn9d2juKDYlErO0 vWWlOOmjF2hqwjByiLKdLP StVJa7kH33NPEcnT0ysJZf JLorwtPvKaJ3GFtxPADuTv E9ITGqnZBiOPSsI1txQVTf BFohSFXvXOpxwKDxQOP4fA tdt7O4cQQqnWSooPqmSkRo AnJjRsLAz2WlFRt6fOvlU8 PhJEUpAtK1fAWpIBKeBHfr HZJkGWXfuuE0eM58LZuzqe J6dWGae3Cix62qk203zQ1h rESbMWY9PTZzFLPxlDJoCY NlARE5DZFuzKRkM2lsHKJr OA1iorddLQxhZSbcZXKuqU V5CGOwhXWwH8PpYEMpQSti NJNmbvj1ZeXyPu5usFHtfW emXEiyf5zam0woeOOzYty5 MTShHxHyQxodEWfst8Wwt8 ewVHLpoh5lXDC5rPBktXcg g6Q0sXIrPJVyyVCxFAIoEE 0hmHQcIHLfvJ4vlkpqNKAe YnJkcmhlYWRccGdicmRyZm 2gwHiyZIU2YVwaU1ujoC1w JiH9BOcaN0oxeG1yKSz0LA boDOJbgZK5dnC1TOXofDYe C4StrB1tLXKjZV3yhdy1y1 wmHEV4ELbsNGJiNmP7gnM5 NDBcaGVhZGVyeTcyMFxmb2 12XNX0GwEjWLGlo2QgL5If yTdgZ33jxMmaH89bVAJfoP ewjO3unVaugV6uYrXiXhLo ARtntDqmXR0tAUJlB1katR CiADWqUGEhN5mpJvDxuC7v dUhdFBhdklXgSIGaAln8TO BqgBGmMSOfEbr9UGIbIBSr Z67shqduVXR7rC4rv6ttz5 RjAEarKFM0MOTyf43dJJad ppM0UAyqOw20RJhaEPT1YX yaMOP9iR== CPT Code(s) (test code x4mpbTJzSTLxhQE0YyAwAX = 3357) Scb8gyr4WbaEUoqMWtTJjb mRSguyXhfs41nYR3pT20YE 5fRENzPaS7LKCsadY9Mfb1 VHFlXHPacWAbS323m7xpq8 ufxaPkdDE1xJdkMFEubxvr RmR1JGgqHMWelfkkVIo9IG qaTOAduCV3OBUjqKCfC2Hi TXWtJG3alqm8KYF8DMdpEX CgWsZ5TYJjkLToMENpnQvj OJvme406ZFJ8PjWnZQIvnx TooWvpaP0vBvPbWCG4QGBe NVxwYXJ9 CLINICAL HISTORY (test b9snzSMfMIUfpHB6HpJgMO code = 3356) Ulo2ocg5AchYSxqPYdFQdx vSScqhOkoz51nHE1bM03OV 3yEVKwGtD0SXDnplV2Vcz4 RKIkDJElzXPfH213t6ybn8 pmixWzjXW8jRplRXAbzjfq ZqQ5DMxoLOOqibhmFMz2RT oxIFPlkED2MWOkeIVsQ1Zx UXRhKM1kzpr7VGB5XAnpMR BqRqP1XDOndHBzZPSihKch JJdtf777NTS6BtYnTIUkdv XmoQbixJ2rVuVqPLPHZDL9 cmljIHZhcmljZXNccGFyfQ == SPECIMEN SOURCE (test h4xywLAnIJZudJZ9AhYwHI code = 3377) Myi9ahe4DqmAGshVYzKJhi aZAxvzFeex00hRT2tW09ZF 6pCXIxEsJ4BMDakeD8Oux4 GUPoMUSurIXpI725t2zbg0 uvzxDmsRR3wXjdIHBelrfm OmT0IDnoGXKoukutIBe6QT nqHXSbzSD7IJGfnPDpX7Um GVUuPZ6cteu6URR9HCufZW VpQlW6KAWfkFTtLSHalQxk ILmho437DNH8XxCnJTQbee DgjBxanF9mXdGnRBTCJhVn AchhqEM2VVQxIAM3aeefPZ JsXA1jo49ecYTxuM== GROSS DESCRIPTION (test n2ebqAScCRRdeAU1ZdQjTW code = 3366) Crn2qeu9IuuUCvwVDhXPak zDApbzQjty37wZH8pN73CN 1nGCRyZsC9JOOkpiR5Zqk7 FTBmOBZwwRQlU910p2bnv6 rfoeBopCE6zXtvVABgppeh NbK4IMczQOQlqjxzBBb9EB nuKKAogAW3TWHswAZsX5Ts WJDqIH3uira8FCI2UXpyIL YnWiP1TOPmrLLgKSCszPrr VTnjm442UWU6TiYkEQUnaq CmqHghmB5lPeSkCYWXKuAR UYTrfCUgGTIgvqXlc2CwIJ xpbiBsYWJlbGVkIHdpdGgg dXtzYZUoiMogsdKqT1X9wu KoKF6fGYKdPLJqX1MzOKUx O85cVZAudJ7fMJZdDG3nUF OwAGD0vpxnYRTICxPnnlXt Z29sf6uhuRXyh5WwQbJyjV MlWVLjl6DikNPwSHnpmTNg WXLyJcIbvGiyj9NyEPAwhm gkopuzfJ6ph0j4MOGyqm5q ETXpOyO6VNNoBdU7ZQJyCE FcdEA1iaZfIhBuyTSaLdYf zZHoRmDnI32fQTLQhLEqr1 OlP1wrKB7yhGVms7TePATd NE11ALndSS01CRbiPK6dCH WbFJInP9FxI7P5VG1qTEhj AHIiTMXtdMMbVJlyFJN9Kz 1grJFxSIZocwY8l2ZwJJyo OJTqMmwyiT0gZXldjoVjA4 hIXHBhcn0= MICROSCOPIC DESCRIPTION j6dsxDOiENRctPU5BjGvIW (test code = 3371) Tll2fav1WygSPzfKOlUBjl cYJbhkWjfm59jMA1fS16SI 9mQRVcAcY4NYZrxbD5Ncq9 ZZTxMDImoEBdP642z2ctz2 plcbBguET1yCkjANEycxke KsL8GLapIXBpxsieGKu2ZA ztTZLdeKQ2PUFwgXKaA5Ky NRJjIX1ofqo2JJN8QBliXI HcChG1INIvbOUrNSNarUhf SOvdu492MFS5GsAlLXXmdx RdaVshzF3tJkYlEGOIgnFq qIdelSCuH7AxjLRvenVmPD 0xLQLtu57zOUdxpUDiiMqt HUiweHB8MIHgKNQqCYslCA jazWlot9nkEO6bCU3peDep yiYiP8uzzZCgk7Phzc7aMj 0dCRFgfUSzJyXdiXRdSQ2r T0Mdy9HnQK0wq10bHFXmHR TbVVDxNR2yRBEypHJoveVu u6CtwX4aGxLiWIMpaw0= Gross assessment was [facility] performed at ([facility], = 2777) Department of Pathology, [address] [place] [address], Technical component was [facility] performed at ([facility], = 2778) Department of Pathology, [address] [place] [id number], Professional component [facility] was performed at ([facility], code = 2779) Department of Pathology, [address] [place] [address], [facility] [id number] 18:28:39Surgical Pathology Report Case: [id number] Authorizing Provider: Shasha Reveles MD Collected: 05/14/2021 11:10 AM Ordering Location: [facility] Endoscopy Received: 05/14/2021 02:17 PM Services Pathologist: Zulay Castro MD Specimen: Biopsy, Gastric, random biopsies A. STOMACH, SITE NOT SPECIFIED, BIOPSY: - ANTRAL AND OXYNTIC MUCOSA WITH NO PATHOLOGIC ALTERATION - NEGATIVE FOR HELICOBACTER MICROORGANISMS ON ROUTINE STAINS Signing Pathologist Direct Phone Line: [phone] signed by Zulay Castro MD on 05/15/2021 at 6:28 [id number] varicesA. Biopsy, gastric, randomA. Received in formalin [...] Helicobacter microorganisms are seen on routine stains. [facility], Department of Pathology, [address] [place] [address], [facility], Department of Pathology, [address] [place] [address], [facility], Department of Pathology, [address] [place] [address], SLEIH FETOPROTEIN (AFP), TUMOR [id number] 14:50:00 Test Item Value Reference Range Interpretation Comments ALPHA-FETOPROTEIN (BEAKER) (test 5.6 ng/mL <10.0 code = 1094) [employer]ge ID - BETH MPROTHROMBIN [id number] 14:30:00 Test Item Value Reference Range Interpretation Comments PROTIME (BEAKER) 13.8 seconds 11.9-14.2 (test code = 759) INR (BEAKER) (test 1.08 See_Comment [Automat ed message] code = 370) The system [employer] generated this result transmitted ref erence range: <=5.90. The reference range was not used to int erpret this result as normal/abnormal . RECOMMENDED COUMADIN/WARFARIN INR THERAPY RANGESSTANDARD DOSE: 2.0 - 3.0 Includes: PROPHYLAXIS for venous thrombosis, systemic embolization; TREATMENT for venous thrombosis and/or pulmonary embolus.HIGH RISK: Target INR is 2.5-3.5 for patients with mechanical heart valves.MR, ABDOMEN, [id number] 15:36:00 [facility] MRI of the abdomen WITHOUT [...] spleen is enlarged to 14.3 cm with [place] bodies. PANCREAS: No focal masses or ductal [...] and gastric fundal varices. Signed: Heather Burns [facility] Verified Date/Time: 11/09/2019 15:36:50 Reading Location: [address] Reading Room ANTI-NUCLEAR ANTIBODY (BAHMAN)2019-02-01 11:23:00 Test Item Value Reference Range Interpretation Comments ANTI-NUCLEAR ANTIBODY (BAHMAN) (BEAKER) Positive Negative A (test code = 418) Test performed by IFA method.BAHMAN TITER AND [id number] 11:23:00 Test Item Value Reference Range Interpretation Comments BAHMAN TITER (BEAKER) (test code = :160 1541) BAHMAN PATTERN (BEAKER) (test code = Speckled 1781) HEPATITIS C PCR, [id number] 12:50:00 Test Item Value Reference Range Interpretation Comments HCV RESULT COMPONENT HCV RNA not detected HCV RNA not detected (BEAKER) (test code = 2699) This test uses a Real-Time Polymerase Chain Reaction (RT-PCR) methodology and was performed using [employer] Ampl[employer]OVER TaqMan HCV test kit version 2.0 ([employer]Reportable range for this assay is 15 - 100,000,000 IU per mL (1.18 - 8.00 Log IU/mL).[id number] 11:58:00 Test Item Value Reference Range Interpretation Comments FERRITIN (BEAKER) (test code = 361) 179 ng/mL 5-275 HEPATITIS A ANTIBODY, [id number] 11:19:00 Test Item Value Reference Range Interpretation Comments HEPATITIS A IGG ANTIBODY (BEAKER) Reactive Nonreactive A (test code = 2797) ALPHA FETOPROTEIN (AFP), TUMOR [id number] 11:16:00 Test Item Value Reference Range Interpretation Comments ALPHA-FETOPROTEIN (BEAKER) (test 7.0 ng/mL <10.0 code = 1094) [id number] 11:07:00 Test Item Value Reference Range Interpretation Comments ALPHA-1 ANTITRYPSIN (BEAKER) 205.10 mg/dL 90.00-200.00 H (test code = 502) COMPREHENSIVE METABOLIC [id number] 11:06:00 Test Item Value Reference Range Interpretation [...] NOT APPLICABLE FOR DIALYSIS PATIEN TS. BILIRUBIN, [id number] 11:06:00 Test Item Value Reference Range Interpretation [...] = 2590) CBC W/PLT COUNT & AUTO [id number] 10:47:00 Test Item Value Reference Range Interpretation [...] PERCENT (BEAKER) (test code = 2801) PROTHROMBIN TIME/[id number] 10:44:00 Test Item Value Reference Range Interpretation [...]
[2023-02-17] MEDS ORDERED: DIPHENHYDRAMINE 50 MG/ML VIAL ONE (04:31)
[2023-02-17] MEDS ORDERED: METOCLOPRAMIDE 10 MG/2mL INJ ONE (04:31)
[2023-02-17] MEDS ORDERED: NA CHLORIDE 0.9% 1,000 ML ONE (04:31)
[2023-02-17 05:12] LABS: Absolute Lymphocytes (CBC) 2.1 K/uL (0.7-4.9); Hematocrit 41.4 % (39.6-49.0); Lymphocytes % 23.2 % (15.3-44.8); MCV 88.7 fL (80-100); MPV 8.7 fL (7.6-11.3); Platelets 196 thou/uL (152-406); RBC Red Blood Cell Count 4.67 M/uL (4.33-5.43)
[2023-02-17 05:43] LABS: Albumin 3.8 g/dL (3.4-5.0); Bilirubin Total 0.9 mg/dL (0.2-1.0); Potassium 3.4 mEq/L (3.5-5.1); Protein, Total 7.5 g/dL (6.4-8.2)
--- NOTE | 2023-02-17 05:57 | ER ---
Nurse's Notes [facility] Name: Melchor Cisse III Age: 62 yrs Sex: Male : 1960 Arrival Date: 02/17/2023 Time: 03:35 Bed 4 Private MD: Diagnosis: Left sided colitis;Hypokalemia Presentation: 02/17 03:53 Chief complaint: Patient states: vomiting and diarrhea for 5 hours. Coronavirus screen: as6 At this time, the client does not indicate any symptoms associated with coronavirus-19. Ebola Screen: No symptoms or risks identified at this time. Initial Sepsis Screen: Does the patient meet any 2 criteria? No. Patient's initial sepsis screen is negative. Does the patient have a suspected source of infection? No. Patient's initial sepsis screen is negative. Risk Assessment: Do you want to hurt yourself or someone else? Patient reports no desire to harm self or others. Onset of symptoms was February 16, 2023 at 23:00. 03:53 Method Of Arrival: Wheelchair as6 03:53 Acuity: ANTONIA 3 as6 Triage Assessment: 03:55 General: Appears ill, slender, Behavior is cooperative, restless. Pain: Complains of as6 pain in abdomen. GI: Reports lower abdominal pain, upper abdominal pain, diarrhea, nausea, vomiting. Historical: - Allergies: 03:54 Iodine; as6 03:54 Morphine; as6 03:54 shrimp; as6 - PMHx: 03:54 Cirrhosis; Crohn's; Hepatitis; HERPES; HIV; HPV; ibs; ulcerative colitis; prostate as6 cancer (rectal ); AIDS (rectal ); - PSHx: 03:54 Cholecystectomy; rectal; as6 - Immunization history:: Adult Immunizations not up to date. - Social history:: Smoking status: Patient denies any tobacco usage or history of. - Code Status:: Full code. Screenin:24 [facility] ED Fall Risk Assessment (Adult) History of falling in the last 3 months, nw1 including since admission No falls in past 3 months (0 pts) Confusion or Disorientation No (0 pts) Intoxicated or Sedated No (0 pts) Impaired Gait No (0 pts) Mobility Assist Device Used No (0 pt) Altered Elimination No (0 pt) Score/Fall Risk Level 0 - 2 = Low Risk Oriented to surroundings, Maintained a safe environment, Educated pt \T\ family on fall prevention, incl call for assistance when getting out of bed, Assessed \T\ reinforced patient's understanding of fall precautions, Provided non-skid footwear, Hourly rounding (assess needs \T\ fall precautionary measures) done. Abuse screen: Denies threats or abuse. Denies injuries from another. Nutritional screening: No deficits noted. Tuberculosis screening: No symptoms or risk factors identified. Assessment: 04:22 Reassessment: Patient states symptoms have not improved. General: Appears la4 uncomfortable, ill, Behavior is cooperative. Pain: Complains of pain in left upper quadrant Pain does not radiate. Pain currently is 6 out of 10 on a pain scale. Quality of pain is described as aching, crampy, sharp, Pain began. Cardiovascular: No deficits noted. Heart tones S1 S2 Capillary refill < 3 seconds is brisk Pulses are all present. Edema is absent. Rhythm is sinus tachycardia. Respiratory: No deficits noted. Airway is patent Trachea midline Respiratory effort is even, unlabored, Respiratory pattern is regular, symmetrical, Breath sounds are clear bilaterally. GI: Abdomen is flat, non-distended, Last BM was February 16, 2023. Bowel sounds hyperactive in right upper quadrant and left upper quadrant Abd is soft and non tender X 4 quads. Reports upper abdominal pain, Patient currently denies diarrhea. Musculoskeletal: No deficits noted. No signs and/or symptoms reported regarding the musculoskeletal system. 05:36 Reassessment: Pt ambulated to restroom without assistance, assistance or devices. All nw1 these things offered and patient declined. Vital Signs: 03:53 BP 159 / 104; Pulse 79; Resp 20 S; Temp 97.7(O); Pulse Ox 100% on R/A; Weight 70.31 kg as6 (R); Height 5 ft. 11 in. (R); Pain 6/10; 04:22 BP 170 / 95; Pulse 62; Resp 18; Pulse Ox 99% on R/A; la4 06:02 BP 166 / 102; Pulse 76; Resp 18; Temp 98.8; Pulse Ox 100% on R/A; la4 06:44 BP 166 / 89; Pulse 82; Resp 16; Temp 98.7; Pulse Ox 98% on R/A; la4 03:53 Body Mass Index 21.62 (70.31 kg, 180.34 cm) as6 03:53 Pain Scale: Adult as6 Vitals: 06:44 Cardiac Rhythm Assessment Regular Sinus rhythm. la4 Thania Coma Score: 04:24 Eye Response: spontaneous(4). Motor Response: obeys commands(6). Verbal Response: nw1 oriented(5). Total: 15. 06:02 Eye Response: spontaneous(4). Motor Response: obeys commands(6). Verbal Response: la4 oriented(5). Total: 15. 06:44 Eye Response: spontaneous(4). Motor Response: obeys commands(6). Verbal Response: la4 oriented(5). Total: 15. ED Course: 03:38 Patient arrived in ED. jj6 03:39 Braxton Smith MD is Attending Physician. ec2 03:54 Triage completed. as6 03:55 Arm band placed on. as6 04:12 Guerline Garces RN is Primary Nurse. nw1 04:21 Primary Nurse role handed off by Guerline Garces RN la4 04:21 Maik Casas RN is Primary Nurse. la4 04:21 Influenza Screen (a \T\ B) Sent. nw1 04:21 COVID-19 SARS RT PCR Sent. nw1 04:21 CBC with Diff Sent. nw1 04:21 CMP Sent. nw1 04:21 Lipase Sent. nw1 04:21 Urinalysis w/ reflexes Sent. nw1 04:22 Awaiting lab results. la4 04:22 Thermoregulation: warm blanket given to patient. la4 04:24 Patient has correct armband on for positive identification. Placed in gown. Bed in low nw1 position. Call light in reach. Side rails up X2. Adult w/ patient. Provided Education on: POC. Client placed on continuous cardiac and pulse oximetry monitoring. NIBP monitoring applied. court monitor on. Pulse ox on. Door closed. Noise minimized. Warm blanket given. Verbal reassurance given. 04:24 No provider procedures requiring assistance completed. Inserted saline lock: 18 gauge nw1 in right forearm, using aseptic technique. Blood collected. 05:27 Abdomen In Process Unspecified. EDMS 05:35 Influenza Screen (a \T\ B) Sent. nw1 05:35 COVID-19 SARS RT PCR Sent. nw1 05:35 Lipase Sent. nw1 05:35 CMP Sent. nw1 06:44 Patient did not have IV access during this emergency room visit. intact, bleeding la4 controlled, No redness/swelling at site. Pressure dressing applied. Administered Medications: 04:20 Drug: metoCLOPramide IVP 10 mg IVP once; over 1 to 2 minutes Route: IVP; Site: right nw1 forearm; 05:35 Follow up: Response: No adverse reaction nw1 04:20 Drug: diphenhydrAMINE IVP 50 mg IVP once Route: IVP; Site: right forearm; nw1 05:35 Follow up: Response: No adverse reaction nw1 04:21 Drug: NS 0.9% IV 1000 ml IV at 1 bolus Per protocol; 1000 mL bolus Route: IV; Rate: 1 nw1 bolus; Site: right forearm; 05:35 Follow up: Response: No adverse reaction nw1 06:01 Drug: Potassium Chloride PO 40 mEq PO once Route: PO; la4 06:07 Follow up: Response: Adverse reaction, Physician notified; pt states the medication la4 makes him medication nauseated. 06:06 Drug: Ciprofloxacin PO 500 mg PO once Route: PO; la4 Medication: 04:24 VIS not applicable for this client. nw1 Intake: Outcome: 05:56 Discharge ordered by . ec2 06:44 Discharged to home ambulatory, via wheelchair, la4 06:44 Condition: stable 06:44 Discharge instructions given to patient, family, Instructed on discharge instructions, follow up and referral plans. medication usage, foods high in potassium 06:49 Patient left the ED. la4 Signatures: Dispatcher [employer] EDLindsay Queen6 Chuy Calero RN RN as6 Braxton Smith MD MD ec2 Maik Casas RN RN la4 Guerline Garces, RN RN nw1
--- NOTE | 2023-02-17 05:57 | EDPHYS ---
Physician Documentation [facility] Name: Melchor Cisse III Age: 62 yrs Sex: Male : 1960 Arrival Date: 02/17/2023 Time: 03:35 Bed 4 Private MD: ED Physician Braxton Smith HPI: 02/17 04:03 This 62 yrs old Male presents to ER via Wheelchair with complaints of ec2 Nausea/Vomiting. 04:03 Evaluation of abdominal pain with associated nausea, vomiting as well as loose stools. ec2 Patient reports a history of cirrhosis, reports no abdominal distention. Reports no fevers. States he has been having some cough. Patient reports his symptoms started earlier yesterday. . Historical: - Allergies: 03:54 Iodine; as6 03:54 Morphine; as6 03:54 shrimp; as6 - PMHx: 03:54 Cirrhosis; Crohn's; Hepatitis; HERPES; HIV; HPV; ibs; ulcerative colitis; prostate as6 cancer (rectal ); AIDS (rectal ); - PSHx: 03:54 Cholecystectomy; rectal; as6 - Immunization history:: Adult Immunizations not up to date. - Social history:: Smoking status: Patient denies any tobacco usage or history of. - Code Status:: Full code. ROS: 04:03 Constitutional: as per hpi ec2 Exam: 04:03 Constitutional: GEN: NAD Head: atraumatic Eyes: EOMI Ears: External ears are ec2 normal. CV: regular rate LUNGS: no respiratory distress ABD: non-distended, tender in the epigastrium, no guarding, not rigid SKIN: no evidence of rashes MSK: no evidence of trauma NEURO: moves all extremities equally Vital Signs: 03:53 BP 159 / 104; Pulse 79; Resp 20 S; Temp 97.7(O); Pulse Ox 100% on R/A; Weight 70.31 kg as6 (R); Height 5 ft. 11 in. (R); Pain 6/10; 04:22 BP 170 / 95; Pulse 62; Resp 18; Pulse Ox 99% on R/A; la4 06:02 BP 166 / 102; Pulse 76; Resp 18; Temp 98.8; Pulse Ox 100% on R/A; la4 06:44 BP 166 / 89; Pulse 82; Resp 16; Temp 98.7; Pulse Ox 98% on R/A; la4 03:53 Body Mass Index 21.62 (70.31 kg, 180.34 cm) as6 03:53 Pain Scale: Adult as6 Beaver Coma Score: 04:24 Eye Response: spontaneous(4). Motor Response: obeys commands(6). Verbal Response: nw1 oriented(5). Total: 15. 06:02 Eye Response: spontaneous(4). Motor Response: obeys commands(6). Verbal Response: la4 oriented(5). Total: 15. 06:44 Eye Response: spontaneous(4). Motor Response: obeys commands(6). Verbal Response: la4 oriented(5). Total: 15. MDM: 03:58 Patient medically screened. ec2 04:03 Data reviewed: vital signs. ED course: Patient arrives today for evaluation of ec2 abdominal pain with associated nausea, vomiting, diarrhea. Examination remarkable for nontoxic individual who is tender in the epigastrium and also retching. Will obtain lab work, CT abdomen pelvis, treat the patient's symptoms with crystalloid, Reglan, morphine as well as Benadryl. Currently considering process such as gastroenteritis, pancreatitis, small bowel obstruction.. 05:36 ED course: On reassessment patient with improving symptoms, improved abdominal pain and ec2 nausea. Patient no longer actively retching.. 05:49 ED course: CBC is reassuring. Metabolic profile with hypokalemia noted with potassium ec2 of 3.4. Lipase within normal ranges. Flu and COVID-negative. Will supplement potassium. . 05:50 ED course: CT abdomen pelvis shows colitis, wall bladder wall thickening noted, ec2 possible UTI. Patient with splenomegaly, patient is known cirrhotic. . 05:54 ED course: On reassessment patient with improving symptoms. Will discharge home and ec2 have him follow-up with primary care doctor. Return precautions given. Ultimately we will add on antibiotics for ciprofloxacin that will cover both UTI and possible GI pathology.. 02/17 04:03 Order name: CBC with Diff; Complete Time: 05:29 ec2 02/17 04:03 Order name: CMP; Complete Time: 05:48 ec2 02/17 04:03 Order name: Lipase; Complete Time: 05:48 ec2 02/17 04:03 Order name: Influenza Screen (a \T\ B); Complete Time: 05:48 ec2 02/17 04:03 Order name: COVID-19 SARS RT PCR; Complete Time: 05:48 ec2 02/17 05:16 Order name: Abdomen EDMS 02/17 04:03 Order name: IV Saline Lock; Complete Time: 04:21 ec2 02/17 04:03 Order name: Labs collected and sent; Complete Time: 04:21 ec2 Administered Medications: 04:20 Drug: metoCLOPramide IVP 10 mg IVP once; over 1 to 2 minutes Route: IVP; Site: right nw1 forearm; 05:35 Follow up: Response: No adverse reaction nw1 04:20 Drug: diphenhydrAMINE IVP 50 mg IVP once Route: IVP; Site: right forearm; nw1 05:35 Follow up: Response: No adverse reaction nw1 04:21 Drug: NS 0.9% IV 1000 ml IV at 1 bolus Per protocol; 1000 mL bolus Route: IV; Rate: 1 nw1 bolus; Site: right forearm; 05:35 Follow up: Response: No adverse reaction nw1 06:01 Drug: Potassium Chloride PO 40 mEq PO once Route: PO; la4 06:07 Follow up: Response: Adverse reaction, Physician notified; pt states the medication la4 makes him medication nauseated. 06:06 Drug: Ciprofloxacin PO 500 mg PO once Route: PO; la4 Disposition Summary: 02/17/23 05:56 Discharge Ordered Notes: Location: Home ec2 Condition: Stable ec2 Diagnosis - Left sided colitis ec2 - Hypokalemia ec2 Followup: ec2 - With: Private Physician - When: - Reason: Re-evaluation by your physician Discharge Instructions: - Discharge Summary Sheet ec2 - Potassium Content of Foods ec2 - Colitis ec2 Forms: - Work release form ec2 - Medication Reconciliation Form ec2 - Thank You Letter ec2 - Antibiotic Education ec2 - Prescription Opioid Use ec2 - Patient Portal Instructions ec2 - Leadership Thank You Letter ec2 Prescriptions: - Cipro 500 mg Oral tablet - take 1 tablet ORAL route every 12 hours for 5 days; 10 tablet; Refills: 0, ec2 Product Selection Permitted Signatures: Dispatcher [employer] Chuy Silva RN RN as6 Braxton Smith MD MD ec2 Maik Casas RN RN la4 Guerline Garces, RN RN nw1 Corrections: (The following items were deleted from the chart) 04:04 04:03 Evaluation of abdominal pain with associated nausea, vomiting as well as loose ec2 stools. Patient reports a history of cirrhosis, reports no abdominal distention. Reports no fevers. States he has been having some cough.. ec2 05:16 04:04 Abdomen Pelvis W Con+CT.RAD.BRZ ordered. EDMS EDMS
[2023-02-17] MEDS ORDERED: POTASSIUM 25 MEQ EFFERV TAB ONE (06:08)
[2023-02-17 07:00] VITALS: BP 166/89; TEMP 98.7; O2SAT 98
--- NOTE | 2023-02-17 10:41 | RAD REPORT ---
EXAM DESCRIPTION: CT - Abdomen Pelvis Wo Contrast - 02/17/2023 6:28 am CLINICAL HISTORY: ABD PAIN COMPARISON: None Available. TECHNIQUE: CT of the abdomen and pelvis without IV contrast. Evaluation of the solid organs and vasc ulature is suboptimal due to lack of IV contrast. This exam was performed according to our department al dose-optimization program, which includes automated exposure control, adjustment of the mA and/or kV according to patient size and/or use of iterative reconstruction technique. FINDINGS: Lung Bases: The visualized lung bases are clear. Bones: Multilevel loss of intervertebral disc height with endplate spondylosis and facet arthropathy. Only level posterior disc bulges. Mild osteoarthritic change of the hips. Partial fusion of the sacr oiliac joints. Abdomen: Liver: Nodular contour of the liver. Gallbladder: Prior cholecystectomy. Spleen, Pancreas, and Adrenal Glands: Splenomegaly. The pancreas and adrenal glands are unremarkabl e. Kidneys: The kidneys have normal size without evidence of hydronephrosis. No obstructing ureteral agatha culi. Vasculature: Aortoiliac atherosclerosis. IVC is unremarkable. Stomach: The stomach and duodenum have normal course. Other: No free intraperitoneal air. No free fluid. Pelvis: Bladder: Wall thickening of the urinary bladder. Bowel: No dilated loops of large or small bowel. Long segment wall thickening with adjacent inflamm atory change of the descending, transverse, descending, and sigmoid colon. Appendix: Normal appendix. Pelvis: Enlarged prostate. IMPRESSION: 1. Long segment wall thickening with adjacent inflammatory change of the descending, t ransverse, descending, and sigmoid colon. These findings could be seen with nonspecific colitis. 2. Wall thickening of the urinary bladder. This could be seen with cystitis or chronic bladder outl et obstruction. 3. Enlarged prostate. 4. Nodular contour of the liver with splenomegaly. These findings could be seen with cirrhosis and portal hypertension. Electronically signed by: Mateo Ramirez DO 02/17/2023 05:37 AM SENIOR MANU[employer]URING SUPERVISOR M Due to temporary technical issues with the PACS/Fluency reporting system, reports are being signed by the in house radiologist without review as a courtesy to ensure prompt reporting. The interpreting r adiologist is fully responsible for the content of the report.
== END 2023-02-17 06:49 | disposition home or self-care (01) ==
LOC: ER 03:35
DX: K51.50 Left sided colitis without complications (principal); E87.6 Hypokalemia; Z11.52 Encounter for screening for COVID-19; Z21 Asymptomatic human immunodeficiency virus [HIV] infection status; Z88.5 Allergy status to narcotic agent; Z91.013 Allergy to seafood; Z91.048 Other nonmedicinal substance allergy status
CPT/HCPCS: 85025; 36415; 83690; 80053; 87635; 87804 ×2; 74176; 96375; 96374; 99285; J2765; J1200; J7030

== ENCOUNTER 2023-02-23 11:01 | Emergency (ER) | payer OTHER ==
--- OUTSIDE RECORDS SUMMARY | 2023-02-23 11:07 | XMS REPORT | Continuity of Care Document ---
:1960 Author Organization [facility] [place] [facility] t Address [address] [place] [address]. [address] [place] [address] Care Team Providers Name Role Phone PCP, PATIENT DOES NOT HAVE A Primary Care Physician UnavailCHERYL Biggs Attending Clinician Unavailable SHASHA REVELES Attending Clinician Unavailable SHAWANDA RODRIGEZ Attending Clinician Unavailable CALIXTO VUONG Attending Clinician Unavailable JOHN PLAZA Attending Clinician Unavailable SYLWIA KRISHNAMURTHY Attending Clinician Unavailable Shawanda Rodrigez MD Attending Clinician Sylwia Krishnamurthy MD Attending Clinician Calixto Vuong MD Attending Clinician Doctor Unassigned, [place] Attending Clinician Unavailable SACHIN SINHA Attending Clinician Unavailable Alf Cam Attending Clinician Abdirizak HUNTLEY, Shasha Ortega Attending Clinician Mich Triplett MD Attending Clinician Sybil Aguillon MD, Andrey Attending Clinician [phone] Natalia Mike Attending Clinician Unavailable Irais Vo MD Attending Clinician [phone] Derek Donaldson MD Attending Clinician Robi HUNTLEY, Cheryl Morin Attending Clinician Chasidy HUNTLEY, Jeremie Sweeney Attending Clinician Caleb Harris MD Attending Clinician Jeaneth Darby MD Attending Clinician [phone] Saba Avina CRNA Attending Clinician QUETA GUPTA Attending Clinician Unavailable Bharath HUNTLEY, Sachin Abdullahi Attending Clinician IRAIS VO Admitting Clinician Unavailable SHASHA REVELES Admitting Clinician Unavailable Payers Payer Name Policy Type Policy Number Effective Date Expiration Date S khalif MEDICARE A B [id number] 1994 00:00:00 [place]ID [place] [id number] 2020 00:00:00 MEDICAID [place] [id number] 2016 00:00:00 MEDICARE PART A \\T\\ [id number] 1994 B 00:00:00 [facility] [id number] 2022 MMP 00:00:00 [facility] [id number] 2022 STAR PLUS 00:00:00 Problems Condition Condition Condition Status Onset Resolution Last Treating Co mments Source Name Details Category Date Date Treatment Clinician Date Elevated Elevated Disease Active Unive rs blood-pres blood-pres 9-15 it y of sure sure 00:00: [place] reading reading 00 Medical without without Branch diagnosis diagnosis of of hypertensi hypertensi on on Condyloma Condyloma Disease Active Uni vers acuminatum acuminatum 12-05 it y of in male in male 00:00: [place] 00 Medical Branch Tachycardi Tachycardi Disease Active U nivers a a 12-05 ity of 00:00: [place] 00 Medical Branch Asymptomat Asymptomat 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 Cirrhosis , regardles s of etiology, is a risk factor for developme nt of hepatocel lular carcinoma . Thus, we recommend surveilla nce imaging and alphafeto protein every 6 months. We will get MRI abdomen with contrast and AFP. Cirrhosis Cirrhosis Disease Recurre Last [facility] 03-31 [facility] 00:00: t & Plan: Medical [address] [place] [address] g of this note might be different [...] Active [facility] & Plan: Medical [address] [facility] g of this note might be different from the original. Patient was treated with Mavyret and achieved SVR in 2019. We will check HCV RNA PCR today. 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 Complicat ions of portal venous hypertens ion include gastroeso phageal varices and hypersple nism indicate decompens ation of cirrhosis . These significa ntly increase the risk of . Gastric Gastric Disease Active Last [facility] varices varices [facility] t & Plan: [facility] g of this note might [...] Disease Active [facility] t liver liver [facility] enzymes enzymes [facility] Allergies, Adverse Reactions, Alerts Allergy Allergy Status Severity Reaction(s) Onset Inactive Treating Comm ents Source Name Type Date Date Clinician Iodine Propensi Active Anaphylaxis Uni vers ty to 12-05 ity of adverse 00:00: [place] reaction [facility] Morphine Propensi Active Anaphylaxis U nivers ty to 12-05 ity of adverse 00:00: [place] reaction [facility] MORPHINE DRUG Active Anaphylaxis Uni vers INGREDI 12-05 ity of 00:00: [place] [facility] IODINE DRUG Active Anaphylaxis Unive rs INGREDI 12-05 ity of 00:00: [place] 00 [facility] IODINE Allergy Active Med Other [facility] 11-18 00:00: 00 MORPHINE Allergy Active Med Itching [facility] 11-18 00:00: 00 Iodine Propensi Active Other (See Vomiting [facility] ty to Comments) 11-18 [facility] adverse 00:00: Medical reaction 00 [place] [facility] Morphine Propensi Active Itching Itching [facility] ty to 11-18 and [facility] adverse 00:00: vomiting Medical reaction 00 [place] [facility] MORPHINE Adverse Active Info Not Commo n Reaction Available [facility] Iodine Adverse Active Info Not Common Reaction Available [facility] NO KNOWN Drug Active Univers ALLERGIE Class ity of S [facility] Family History Family Member Diagnosis Comments Start Date Stop Date Source Natural father Stroke [facility] Natural father Hearing loss [facility] Natural father Stroke [facility] Natural mother Cancer [facility] Natural sister Heart disease [facility] Natural sister Hypertension [facility] Social History Social Habit Start Date Stop Date Quantity Comments Source History of tobacco Cigarette Smoker University of use [facility] Exposure to Not sure University of SARS-CoV-2 (event) [facility] Gender identity Universit y of [facility] History SDTN [facility] Alcohol Std Drinks Medica l Center History SDOH [facility] Alcohol Binge Medical Rian[address] History [facility] Transport Non-Med Medical Center Sexual orientation [facility] Tobacco use and 2022-12-05 2022-12-05 Smokeless Universit y of exposure 00:00:00 00:00:00 tobacco non-user [facility] Alcohol intake 2022-10-07 2022-10-[address] [facility] 00:00:00 00:00:00 non-drinker of Medical Ce nter alcohol (finding) History of Social 2022-10-07 2022-10-[address] [facility] function 00:00:00 00:00:00 [facility] Cigarettes smoked 2022-08-14 2022-08-[address] [facility] current (pack per 00:00:00 00:00:00 Medical Center day) - Reported Cigarette 2022-08-14 2022-08-[address] [facility] pack-years 00:00:00 00:00:00 [facility] Tobacco Comment 2022-08-14 2022-08-14 tapered 2-3mos; [facility] 00:00:00 00:00:00 totally stopped Medical C enter smoking 1 week ago History [facility] 2022-05-09 2022-05-[address] [facility] Housing Homeless 00:00:00 00:00:00 Medical Center Last Year History [facility] 2022-05-09 2022-05-[address] [facility] Transport Med 00:00:00 00:00:[address] History [facility] 2022-05-09 2022-05-[address] [facility] Housing Unable to 00:00:00 00:00:00 Medical Center Pay History [facility] 2022-05-09 2022-05-[address] [facility] Housing Places 00:00:00 00:00:00 Medical Ce nter Lived Alcohol Comment 2022-05-09 2022-05-[address] [facility] 00:00:00 00:00:00 [facility] History [facility] 2019-01-27 2019-01-27 1 MIKAYLA Thakkar Alcohol Frequency 00:00:00 00:00:00 [facility] Sex Assigned At [birth year] [facility] [address] Ellie cade 00:00:00 00:00:00 [facility] Smoking Status Start Date Stop Date Source Tobacco smoking University [facility] xa consumption unknown Medical Bran ch Ex-smoker 2022-12-05 00:00:00 2022-12-05 [place] o f [place] 00:00:00 Medical Branch Smokes tobacco daily 2022-08-14 00:00:00 [facility] Medications Ordered Filled Start Stop Current Ordering Indication Dosage Frequency Signature Comments Components Source Medication Medication Date Date Medication? Clinician (SIG) Name Name METOPROLOL 2022- No Take by Uni vers SUCCINATE 12-13 mouth. ity of ORAL 08:15: 00:00 [place] 54 :00 Medical Branch METOPROLOL 2022- No Take by Uni vers SUCCINATE 12-13 mouth. ity of ORAL 08:15: 00:00 [place] 54 :00 Medical Branch METOPROLOL 2022- No Take by Uni vers SUCCINATE 12-13 mouth. ity of ORAL 08:15: 00:00 [place] 54 :00 Medical Branch metoprolol 2023- Yes [id number] 50mg Take 1 U nivers tartrate 50 12-13 tablet by it y of mg tablet 00:00: 04:59 mouth in [place] 00 :00 the Medical morning Branch and 1 tablet in the evening. metoprolol 2023- Yes [id number] 50mg Take 1 U nivers tartrate 50 12-13 tablet by it y of mg tablet 00:00: 04:59 mouth in [place] 00 :00 the Medical morning Branch and 1 tablet in the evening. metoprolol 2023- Yes [id number] 50mg Take 1 U nivers tartrate 50 12-13 tablet by it y of mg tablet 00:00: 04:59 mouth in [place] 00 :00 the Medical morning Branch and 1 tablet in the evening. imiquimod 5 Yes [id number] 1{packe Apply 1 Univers % cream 12-06} Each to ity of 00:00: area(s) [place] [address] every [facility] Friday, Branch Friday and Friday. Cream should be applied prior to normal sleeping hours and left on the skin for 6 to 10 hours, after which the cream should be removed by washing the area with mild soap and water. imiquimod 5 0 Yes [id number] 1{packe Apply 1 Univers % cream 9-08 t} Each to ity of 00:00: [facility]() [place] [address] every [facility] Friday, Branch Friday and Friday. Cream should be applied prior to normal sleeping hours and left on the skin for 6 to 10 hours, after which the cream should be removed by washing the area with mild soap and water. imiquimod 5 0 Yes [id number] 1{packe Apply 1 Univers % cream 9-08 t} Each to ity of 00:00: [facility]() [place] [address] every [facility] Friday, Branch Friday and Friday. Cream should be applied prior to normal sleeping hours and left on the skin for 6 to 10 hours, after which the cream should be removed by washing the area with mild soap and water. imiquimod 5 0 Yes [id number] 1{packe Apply 1 Univers % cream 9-08 t} Each to ity of 00:00: [facility]() [address] Friday, Branch Friday and Friday. Cream should be applied prior to normal sleeping hours and left on the skin for 6 to 10 hours, after which the cream should be removed by washing the area with mild soap and water. imiquimod 5 0 Yes [id number] 1{packe Apply 1 Univers % cream 9-08 t} Each to ity of 00:00: [facility]() [place] [address] every [facility] Friday, Branch Friday and Friday. Cream should be applied prior to normal sleeping hours and left on the skin for 6 to 10 hours, after which the cream should be removed by washing the area with mild soap and water. imiquimod 5 0 Yes [id number] 1{packe Apply 1 Univers % cream 9-08 t} Each to ity of 00:00: [facility]() [place] [address] every [facility] Friday, Branch Friday and Friday. Cream should [...] h mg per tablet tamsulosin 2023-0 Yes [id number] .4mg Take 1 U nivers 0.4 mg 24 9-05 capsule by ity of hr capsule 00:00: mouth in [place] 00 the Medical morning. Branch trospium 20 3-0 Yes [id number] 20mg Take 1 Univers mg tablet 9-05 tablet by ity o f 00:00: mouth in [place] 00 the Medical morning Branch and 1 tablet in the evening. tamsulosin 2023-0 Yes [id number] .4mg Take 1 U nivers 0.4 mg 24 9-05 capsule by ity of hr capsule 00:00: mouth in [place] 00 the Medical morning. Branch trospium 20 3-0 Yes [id number] 20mg Take 1 Univers mg tablet 9-05 tablet by ity o f 00:00: mouth in [place] 00 the Medical morning Branch and 1 tablet in the evening. tamsulosin 2023-0 Yes [id number] .4mg Take 1 U nivers 0.4 mg 24 9-05 capsule by ity of hr capsule 00:00: mouth in [place] 00 the Medical morning. Branch trospium 20 3-0 Yes [id number] 20mg Take 1 Univers mg tablet 9-05 tablet by ity o f 00:00: mouth in [place] 00 the Medical morning Branch and 1 tablet in the evening. tamsulosin 2023-0 Yes [id number] .4mg Take 1 U nivers 0.4 mg 24 9-05 capsule by ity of hr capsule 00:00: mouth in [place] 00 the Medical morning. Branch trospium 20 3-0 Yes [id number] 20mg Take 1 Univers mg tablet 9-05 tablet by ity o f 00:00: mouth in [place] 00 the Medical morning Branch and 1 tablet in the evening. tamsulosin 2023-0 Yes [id number] .4mg Take 1 U nivers 0.4 mg 24 9-05 capsule by ity of hr capsule 00:00: mouth in [place] 00 the Medical morning. Branch trospium 20 2023-0 Yes [id number] 20mg Take 1 Univers mg tablet 9-05 tablet by ity o f 00:00: mouth in [place] 00 the Medical morning Branch and 1 tablet in the evening. tamsulosin 2023-0 Yes [id number] .4mg Take 1 U nivers 0.4 mg 24 9-05 capsule by ity of hr capsule 00:00: mouth in [facility] as 00 the Medical morning. Branch trospium 20 2023-0 Yes [id number] 20mg Take 1 Univers mg tablet 9-05 tablet by ity o f 00:00: mouth in [place] 00 the Medical morning Branch and 1 tablet in the evening. tamsulosin 2023-0 Yes [id number] .4mg Take 1 U nivers 0.4 mg 24 9-05 capsule by ity of hr capsule 00:00: mouth in [place] 00 the Medical morning. Branch trospium 20 2023-0 Yes [id number] 20mg Take 1 Univers mg tablet 9-05 tablet by ity o f 00:00: mouth in [place] 00 the Medical morning Branch and 1 tablet in the evening. tamsulosin 2023-0 Yes [id number] .4mg Take 1 U nivers 0.4 mg 24 9-05 capsule by ity of hr capsule 00:00: mouth in [facility] as 00 the Medical morning. Branch trospium 20 3-0 Yes [id number] 20mg Take 1 Univers mg tablet 9-05 tablet by ity o f 00:00: mouth in [place] 00 the Medical morning Branch and 1 tablet in the evening. buPROPion 3-0 Yes Univers HCL, 8-03 ity [...] Univers HCL, 8-03 ity of smoking 00:00: [place] deter, 150 00 Medical mg [facility] Branch omeprazole 2022-0 Yes Univers 40 mg 7-30 ity of capsule 00:00: [place] 00 [facility] omeprazole 2022-0 Yes Univers 40 mg 7-30 ity of capsule 00:00: [address] omeprazole 2022-0 Yes Univers 40 mg 7-30 ity of capsule 00:00: [address] omeprazole 2022-0 Yes Univers 40 mg 7-30 ity of capsule 00:00: [address] omeprazole 2022-0 Yes Univers 40 mg 7-30 ity of capsule 00:00: [address] omeprazole 2022-0 Yes Univers 40 mg 7-30 ity of capsule 00:00: [address] omeprazole 2022-0 Yes Univers 40 mg 7-30 ity of capsule 00:00: [address] omeprazole 2022-0 Yes Univers 40 mg 7-30 ity of capsule 00:00: [address] abacavir-do 2022-0 Yes [address] lutegravir- 7-10 daily [facility] lamivudine 13:42: Medical (TRIUMEQ) 51 Center 600-50-300 mg Tab abacavir-do 2022-0 Yes [address] lutegravir- 7-10 daily [facility] lamivudine 13:42: Medical (TRIUMEQ) 51 Center 600-50-300 mg Tab pantoprazol 3-0 Yes 40mg QD Take [address] e 7-10 tablet (40 [facility] (PROTONIX) 00:00: mg total) Me dical 40 MG 00 by mouth Center tablet daily. pantoprazol 2022-0 Yes 40mg QD Take [address] e 7-10 tablet (40 [facility] (PROTONIX) 00:00: mg total) Me dical 40 MG 00 by mouth Center tablet daily. metoclopram 3-0 3- No 5mg Take [address] haja 7-10 07-20 tablet (5 [facility] (Reglan) 5 00:00: 23:59 mg total) M edical MG tablet 00 :00 by mouth 4 Cent er (four) times daily as needed for up to 10 days. metoclopram 2022-0 2022- No 5mg Take [address] haaj - 07-20 tablet (5 [facility] (Reglan) 5 00:00: 23:59 mg total) M edical MG tablet 00 :00 by mouth 4 Cent er (four) times daily as needed for up to 10 days. pantoprazol 2022- No 40mg Take [address] [facility] [facility] 7- 07-10 packet (40 [facility] (Protonix) 00:00: 00:00 mg total) M edical [address] 00 :00 by mouth Center granules every for morning suspension before breakfast. pantoprazol 2022- No 40mg Take [address] [facility] 7- 07-10 packet (40 [facility] (Protonix) 00:00: 00:00 mg total) M edical [address] 00 :00 by mouth Center granules every for morning suspension before breakfast. abacavir-do Yes [address] lutegravir- 2-10 daily [facility] lamivudine 16:02: Medical (TRIUMEQ) 51 Center 600-50-300 mg Tab metoprolol 2022- No 50mg Q.5D Take [address] tartrate 2-10 -10 by mouth 2 Luke s (LOPRESSOR) 09:21: 00:00 (two) Medi agatha 50 MG 50 :00 times Center tablet daily. metoprolol 2022- No 50mg Q.5D Take [address] tartrate 2-10 02-10 by mouth 2 Luke s (LOPRESSOR) 09:21: 00:00 (two) Medi agatha 50 MG 50 :00 times Center tablet daily. metoprolol 2022- No 50mg Q.5D Take 50 [...] daily Medical capsule 37 :00 Center esomeprazol 2023-0 2023- No [address] e (NEXIUM) 2-10 02-10 twice [facility] 40 MG 09:16: 00:00 daily Medical capsule 37 :00 Center propranoloL 2023-0 Yes 20mg Q.5D Take [address] (INDERAL) 2-10 tablet (20 Luke s 20 MG 00:00: mg total) Medical tablet 00 by mouth 2 Center (two) times daily. ondansetron 2023-0 Yes 4mg Take [address] (ZOFRAN-ODT 2-10 tablet (4 Sal es ) 4 MG 00:00: mg total) Medica l disintegrat 00 by mouth Cent er ing tablet every 8 (eight) hours as needed for Nausea. pantoprazol 2023-0 Yes 40mg QD Take [address] e 2-10 tablet (40 [facility] (PROTONIX) 00:00: mg total) Me dical 40 MG 00 by mouth Center tablet daily. propranoloL 2023-0 Yes 20mg Q.5D Take [address] (INDERAL) 2-10 tablet (20 Luke s 20 MG 00:00: mg total) Medical tablet 00 by mouth 2 Center (two) times daily. ondansetron 2023-0 Yes 4mg Take [address] (ZOFRAN-ODT 2-10 tablet (4 Sal es ) 4 MG 00:00: mg total) Medica l disintegrat 00 by mouth Cent er ing tablet every 8 (eight) hours as needed for Nausea. propranoloL 2023-0 Yes 20mg Q.5D Take [address] (INDERAL) 2-10 tablet (20 Luke s 20 MG 00:00: mg total) Medical tablet 00 by mouth 2 Center (two) times daily. ondansetron 2023-0 Yes 4mg Take [address] (ZOFRAN-ODT 2-10 tablet (4 Sal es ) 4 MG 00:00: mg total) Medica l disintegrat 00 by mouth Cent er ing tablet every 8 (eight) hours as needed for Nausea. pantoprazol 2023-0 2023- No 40mg QD Take [address] e 2-10 07-10 tablet (40 [facility] (PROTONIX) 00:00: 00:00 mg total) M edical 40 MG 00 :00 by mouth Center tablet daily. pantoprazol 2023-0 2023- No 40mg QD Take [address] [...] 00 :00 times Center daily . propranolol 2018-03 No [...] I St -acetaminop 0-01 tablet by Sal neal (NORCO 00:00: mouth Medica l 7.5-325) 00 [...] as needed for Muscle spasms . cyclobenzap 2019-0 2023- No 10mg Take [address] rine 11-23 02-10 by mouth 3 [facility] (FLEXERIL) 00:00: 00:00 (three) Med ical 10 MG 00 :00 times Center tablet daily as needed for Muscle spasms . cyclobenzap 2022- No 10mg Take [address] rine 8 02-10 by mouth 3 [facility] (FLEXERIL) 00:00: 00:00 (three) Med ical 10 MG 00 :00 times Center tablet daily as needed for Muscle spasms . Esomeprazol Esomeprazol Yes [facility] 1 capsule Common e Magnesium e Magnesium Kov[facility]v [facility] Hydrocodone Hydrocodone Yes [place] 1 tablet Common -Acetaminop -Acetaminop Kovacev as needed [facility] Triumeq Triumeq Yes [place] 1 tablet Commo n Kov[facility]v [facility] No known No Univers medications [facility] No known No Univers medications [facility] Clozapine Clozapine Yes [place] 1 tablet C ommon [facility] Vital Signs Vital Name Observation Time Observation Value Comments Source HEIGHT 2022-05-08 23:00:00 180.3 cm WEIGHT 2022-05-08 23:00:00 80.1 kg Systolic blood 2022-12-13 12:58:00 128 mm[Hg] [facility] Diastolic blood 2022-12-13 12:58:00 84 mm[Hg] [facility] 2022-12-13 12:58:00 69 /min [facility] Body temperature 2022-12-13 12:58:00 37.22 [facility] Respiratory rate 2022-12-13 12:58:00 16 /min [facility] Body height 2022-12-13 12:58:00 180.3 cm [facility] Body weight 2022-12-13 12:58:00 76.159 kg [facility] BMI 2022-12-13 12:58:00 23.42 kg/m2 [facility] Oxygen saturation in 2022-12-13 12:58:00 98 /min University of Arterial blood by [facility] Pulse oximetry Branch Systolic blood 2022-12-05 13:22:00 131 mm[Hg] Univer sity of pressure [place] [facility] Diastolic blood 2022-12-05 13:22:00 86 mm[Hg] Unive rsity of pressure [place] [facility] Heart rate 2022-12-05 13:22:00 73 /min Universi ty of [place] [facility] Respiratory rate 2022-12-05 13:22:00 18 /min Univ ersity of [place] [facility] Body weight 2022-12-05 13:22:00 74.39 kg Universi ty of [place] [facility] BMI 2022-12-05 13:22:00 22.87 kg/m2 Universi ty of [place] [facility] Oxygen saturation in 2022-12-05 13:22:00 98 /min University of Arterial blood by [facility] Pulse oximetry Branch Systolic blood 2022-12-03 19:41:00 123 mm[Hg] Univer sity of pressure [place] [facility] Diastolic blood 2022-12-03 19:41:00 83 mm[Hg] Unive rsity of pressure [place] [facility] Heart rate 2022-12-03 19:41:00 77 /min Universi ty of [place] [facility] Body temperature 2022-12-03 19:41:00 36.17 Flor Univ ersity of [place] [facility] Respiratory rate 2022-12-03 19:41:00 18 /min Univ ersity of [place] [facility] Body height 2022-12-03 19:41:00 180.3 cm Universi ty of [place] [facility] Body weight 2022-12-03 19:41:00 75.297 kg [facility]i [facility] [place] [facility] BMI 2022-12-03 19:41:00 23.15 kg/m2 [facility]i [facility] [place] [facility] Oxygen saturation in 2022-12-03 19:41:00 96 /min University of Arterial blood by [facility] Pulse oximetry Branch HEIGHT 2022-05-08 23:00:00 180.3 cm WEIGHT 2022-05-08 23:00:00 80.1 kg HEIGHT 2022-05-08 23:00:00 180.3 cm WEIGHT 2022-05-08 23:00:00 80.1 kg HEIGHT 2020-11-02 13:16:00 180.3 cm WEIGHT 2020-11-02 13:16:00 84.278 kg HEIGHT 2020-11-02 13:16:00 180.3 cm WEIGHT 2020-11-02 13:16:00 84.278 kg Systolic blood 2019-10-08 15:26:00 144 mm[Hg] Univer sity of pressure [facility] Diastolic blood 2019-10-08 15:26:00 96 mm[Hg] Unive rsity of pressure [facility] Heart rate 2019-10-08 15:26:00 88 /min Universi ty of [facility] Body temperature 2019-10-08 15:26:00 36.5 Flor Univ ersity of [facility] Respiratory rate 2019-10-08 15:26:00 18 /min Univ ersity of [facility] Body weight 2019-10-08 15:26:00 83.371 kg Universi ty of [facility] Systolic blood 2019-10-08 15:26:00 144 mm[Hg] Univer sity of pressure [facility] Diastolic blood 2019-10-08 15:26:00 96 mm[Hg] Unive rsity of pressure [facility] Heart rate 2019-10-08 15:26:00 88 /min Universi ty of [facility] Body temperature 2019-10-08 15:26:00 36.5 Flor Univ ersity of [facility] Respiratory rate 2019-10-08 15:26:00 18 /min Univ ersity of [facility] Body weight 2019-10-08 15:26:00 83.371 kg [facility] Systolic blood 2022-10-07 11:45:00 135 mm[Hg] [facility] Diastolic blood 2022-10-07 11:45:00 100 mm[Hg] [facility] Heart rate 2022-10-07 11:45:00 99 /min [facility] Respiratory rate 2022-10-07 11:45:00 16 /min [facility] Oxygen saturation in 2022-10-07 11:45:00 96 /min [facility] Arterial blood by Medical Ce nter Pulse oximetry Body temperature 2022-10-07 11:25:00 36.39 Flor [facility] Body height 2022-10-07 08:41:00 180.3 cm [facility] Body weight 2022-10-07 08:41:00 71.305 kg [facility] BMI 2022-10-07 08:41:00 21.92 kg/m2 [facility] Heart rate 2022-05-10 09:00:00 74 /min [facility] Respiratory rate 2022-05-10 09:00:00 18 /min [facility] Oxygen saturation in 2022-05-10 09:00:00 96 /min [facility] Arterial blood by Medical Ce nter Pulse oximetry Systolic blood 2022-05-10 08:40:00 134 mm[Hg] [facility] Diastolic blood 2022-05-10 08:40:00 84 mm[Hg] [facility] Body temperature 2022-05-10 08:40:00 35.72 Flor [facility] Body weight 2022-05-10 05:35:00 81.012 kg [facility] BMI 2022-05-10 05:35:00 24.91 kg/m2 [facility] Body height 2022-05-08 23:00:00 180.3 cm [facility] Systolic blood 2021-05-14 11:47:00 133 mm[Hg] [facility] Diastolic blood 2021-05-14 11:47:00 81 mm[Hg] [facility] Heart rate 2021-05-14 11:47:00 66 /min [facility] Body temperature 2021-05-14 11:47:00 36.67 Flor [facility] Respiratory rate 2021-05-14 11:47:00 17 /min [facility] Oxygen saturation in 2021-05-14 11:47:00 99 /min [facility] Arterial blood by Medical Ce nter Pulse oximetry Body height 2021-05-14 09:15:00 180.3 cm [facility] Body weight 2021-05-14 09:15:00 77.701 kg [facility] BMI 2021-05-14 09:15:00 23.89 kg/m2 [facility] Procedures Procedure Date / Time Performing Clinician Source Performed POCT URINALYSIS AUTO 2022-12-03 20:35:00 Calixto Vuong [facility] Medical [place] ASSIGNMENT OF BENEFITS 2022-12-03 19:35:55 Doctor Unassigned, No [facility] Name Medical Branch REFERRAL- 2022-10-10 05:01:00 Doctor Unassigned, No [facility] REQUEST/RESPONSE Name Medical Branch REPORT OF PROCEDURE - 2022-10-07 11:23:07 Shasha Reveles [facility] ENDOSCOPY URL Center TISSUE EXAM 2022-10-07 11:05:00 Shasha Reveles [facility] ENDOSCOPY, UPPER GI 2022-10-07 10:47:00 Shasha Reveles [facility] TRACT, WITH BIOPSY Center REFERRAL- 2022-09-10 05:01:00 Doctor Unassigned, No [facility] REQUEST/RESPONSE Name Medical Branch BASIC METABOLIC PANEL 2022-08-14 13:57:00 Shasha Reveles [facility] HEPATIC FUNCTION PANEL 2022-08-14 13:57:00 Shasha Reveles [facility] CBC W/PLT COUNT & AUTO 2022-08-14 13:57:00 Shasha Reveles [facility] PROTHROMBIN TIME/INR 2022-08-14 13:57:00 Shasha Reveles [facility] ALPHA FETOPROTEIN (AFP), 2022-08-14 13:57:00 Shasha Reveles [facility] TUMOR MARKER Center CBC W/PLT COUNT & AUTO 2022-08-14 13:57:00 Shasha Reveles [facility] POCT-GLUCOSE METER 2022-05-10 07:47:00 Cheryl Rosenbaum [facility] CBC W/PLT COUNT & AUTO 2022-05-10 02:54:00 Tamika Escudero [facility] DIFFERENTIAL Center COMPREHENSIVE METABOLIC 2022-05-10 02:54:00 Kena Tamika [facility] Medical PANEL Center MAGNESIUM 2022-05-10 02:54:00 Escudero, [facility] PHOSPHORUS 2022-05-10 02:54:00 Escudero [facility] CBC W/PLT COUNT & AUTO 2022-05-10 02:54:00 Escudero [facility] Center POCT-GLUCOSE METER 2022-05-09 21:17:00 Cheryl Rosenbaum [facility] EGD 2022-05-09 13:29:00 Jeremie Umaña [facility] (ESOPHAGOGASTRODUODENOSC Center OPY) HEMOGLOBIN AND 2022-05-09 11:34:00 [facility] HEMATOCRIT [place] HEMOGLOBIN AND 2022-05-09 09:15:00 Malika [facility] HEMATOCRIT [place] COMPREHENSIVE METABOLIC 2022-05-09 03:22:00 Escudero [facility] PANEL Center MAGNESIUM 2022-05-09 03:22:00 Kena [facility] PHOSPHORUS 2022-05-09 03:22:00 [facility], IONIZED 2022-05-09 03:22:00 [facility] PT/APTT 2022-05-09 03:22:00 [facility] ABORH, MANUAL 2022-05-09 03:22:00 Josephine Blakely [facility] Mamadou [place] SARS-COV2/RT-PCR ([facility] & 2022-05-09 00:47:00 Afaq, Irais [facility] REF LABS) [facility] HEPATITIS C PCR, 2022-05-08 23:56:00 Afaq, [facility] QUANTITATIVE [facility] HIV-1 PCR, QUANTITATIVE 2022-05-08 23:56:00 Afaq, [facility] TYPE AND SCREEN, 2022-05-08 23:55:00 Afaq, [facility] POCT-GLUCOSE METER 2022-05-08 23:50:00 Afaq, Irais Gaxiola [facility] BASIC METABOLIC PANEL 2022-05-08 23:27:00 Afaq, Irais Gaxiola C [facility] CBC W/PLT COUNT & AUTO 2022-05-08 23:27:00 Afaq, Irais Gaxiola [facility] DIFFERENTIAL [facility] PROTHROMBIN TIME/INR 2022-05-08 23:27:00 Afaq, Irais Gaxiola [facility] I [facility] APTT 2022-05-08 23:27:00 Afaq, Irais Beltráner [facility] FIBRINOGEN 2022-05-08 23:27:00 Afaq, Irais Gaxiola [facility] HEPATIC FUNCTION PANEL 2022-05-08 23:27:00 Afaq, Irais Beltráner [facility] CBC W/PLT COUNT & AUTO 2022-05-08 23:27:00 Afaq, Irais Gaxiola [facility] DIFFERENTIAL [facility] REPORT OF PROCEDURE - 2021-05-14 11:18:23 Shasha Reveles [facility] ENDOSCOPY URL Center TISSUE EXAM 2021-05-14 11:10:00 Shasha Reveles [facility] EGD, WITH VARICEAL 2021-05-14 10:46:00 Shasha Reveles [facility] BANDING [place] Plan of Care Planned Activity Planned Date [...] [facility] 00:00:00 (Season Ended) [code = [facility] Center INFLUENZA VACCINE (Season Ended)] Future Scheduled 2022-11-29 Influenza Vaccine (#1) [facility]00 [code = Influenza Medical Ce nter Vaccine (#1)] Future Scheduled 2022-11-29 Influenza Vaccine (#1) C [...] lung [facility] (procedure) [code = 017493096] Future Scheduled 2012 Screening for malignant [facility] Test 00:00:00 neoplasm of lung [facility] (procedure) [code = 564933811] Future Scheduled 2012 Screening for malignant [facility] Test 00:00:00 neoplasm of lung [facility] (procedure) [code = 946049278] Future Scheduled 2012 SHINGLES VACCINES ([address] [facility] Test 00:00:00 2) [code = SHINGLES Medical Center VACCINES (1 of 2)] Future Scheduled 2012 Screening for malignant [facility] Test 00:00:00 neoplasm of lung [facility] (procedure) [code = 608967039] Future Scheduled 1997 Lipid panel (procedure) [facility] Test 00:00:00 [code = 21990240] Medical Ce nter Future Scheduled 1997 Lipid panel (procedure) [facility] Test 00:00:00 [code = 97537814] Medical Ce nter Future Scheduled 1997 Lipid panel (procedure) [facility] Test 00:00:00 [code = 19949137] Medical Ce nter Future Scheduled 1997 Lipid panel (procedure) [facility] Test 00:00:00 [code = 20641329] Medical Ce nter Future Scheduled 1995-12-01 MEDIC[address] [...] [facility] 00:00:00 2) [code = [facility] VACCINES (1 of 2)] Future Scheduled 1974 [...] 0-64 Years (1 - PCV)] Future Scheduled 1968 PNEUMOCOCCAL [...] [facility] [address] VACCINE (#1)] Future Scheduled 1967 COVID-19 VACCINE (#1) CH [...] colon Medical Ce nter (procedure) [code = 440813667] Future Scheduled 1962 Screening for malignant [facility] Test 00:00:00 neoplasm of colon Medical Ce nter (procedure) [code = 507749537] Future Scheduled 1962 Screening for malignant [facility] Test 00:00:00 neoplasm of colon Medical Ce nter (procedure) [code = 758207537] Future Scheduled 1962 Screening for malignant [facility] Test 00:00:00 neoplasm of colon Medical Ce nter (procedure) [code = 213351136] Future Scheduled 1962 Sigmoidoscopy [code = [facility] 00:[facility]:00 Sigmoidoscopy] Medical Cente r Future Scheduled 1962 CT Colonography (combo) [facility] Test 00:00:00 [code = CT Colonography [facility] (combo)] Future Scheduled 1962 Screening for malignant [facility] Test 00:00:00 neoplasm of colon Medical Ce nter (procedure) [code = 705219640] Future Scheduled 1962 Screening for malignant [facility] Test 00:00:00 neoplasm of colon Medical Ce nter (procedure) [code = 296636242] Future Scheduled 1962 Screening for malignant [facility] Test 00:00:00 neoplasm of colon Medical Ce nter (procedure) [code = 838280146] Future Scheduled 1962 Screening for malignant [facility] Test 00:00:00 neoplasm of colon Medical Ce nter (procedure) [code = 670586059] Future Scheduled 1962 Sigmoidoscopy [code = [facility] 00:00:00 Sigmoidoscopy] Medical Cente r Future Scheduled 1962 CT Colonography (combo) [facility] 00:00:00 [code = CT Colonography [facility] (combo)] Future Scheduled 1962 Screening for malignant [facility] Test 00:00:00 neoplasm of colon Medical Ce nter (procedure) [code = 695847836] Future Scheduled 1962 Screening for malignant [facility] Test 00:00:00 neoplasm of colon Medical Ce nter (procedure) [code = 536448322] Future Scheduled 1962 Screening for malignant [facility] Test 00:00:00 neoplasm of colon Medical Ce nter (procedure) [code = 803312768] Future Scheduled 1962 Screening for malignant [facility] Test 00:00:00 neoplasm of colon Medical Ce nter (procedure) [code = 852250315] Future Scheduled 1962 Sigmoidoscopy [code = [facility] 00:00:00 Sigmoidoscopy] Medical Bette figueroa Future Scheduled 1962 CT Colonography (combo) [facility] Test 00:00:00 [code = CT Colonography [facility] (combo)] Future Scheduled 1962 Screening for malignant [facility] Test 00:00:00 neoplasm of colon Medical Ce nter (procedure) [code = 169591107] Future Scheduled 1962 Screening for malignant [facility] Test 00:00:00 neoplasm of colon Medical Ce nter (procedure) [code = 895429139] Future Scheduled 1962 Screening for malignant [facility] Test 00:00:00 neoplasm of colon Medical Ce nter (procedure) [code = 797168187] Future Scheduled 1962 Screening for malignant [facility] Test 00:00:00 neoplasm of colon Medical Ce nter (procedure) [code = 504250532] Future Scheduled 1962 Sigmoidoscopy [facility]code = [facility] 00:[facility]:00 Sigmoidoscopy] Medical Bette figueroa Encounters Start End Encounter Admission Attending Care Care Encounter Source Date/Time Date/Time Type Type Clinicians Facility Department ID 2022-05-08 Inpatient ER SHIEH, [facility] [id number] [facility] 22:52:00 CHERYL 2021-04-25 Outpatient STLMLC ST[facility] [id number] Common 12:05:40 [id number] [facility] 2021-04-25 [facility] [id number] Common 12:03:07 [id number] [facility] 2021-01-07 Outpatient LEENA REVELES [facility] [id number] [facility] 14:40:44 PRASUN 2021-01-04 Outpatient JALAL, [facility] Surgery [id number] [facility] 11:57:49 PRASUN 2023-03-14 2023-03-14 [facility] [id number] Univers 08:00:00 08:00:00 SHAWANDA montalvo [facility] 2023-01-14 2023-01-14 Outpatient Ana PLAZA [facility] [id number] Univers 10:30:00 10:30:00 JOHNLALO montalvo [facility] 2023-01-08 2023-01-08 Outpatient [facility] [id number] Univers 00:00:00 00:00:00 SHAWANDA montalvo [facility] 2023-01-02 2023-01-02 Outpatient [facility] [id number] Univers 08:45:00 08:45:00 SYLWIA alvarado [facility] 2022-12-13 2022-12-13 Outpatient Ana [facility] [id number] Univers 08:00:00 08:37:26 SHAWANDA montalvo [facility] 2022-12-13 2022-12-13 Office [facility] [id number] Univers 08:00:00 08:37:26 Visit Shawandaderrek MIKE [id number] i ty of WOMEN'S 4.2.7.2.686 [facility] [id number] [place] [id number] Branch 2022-12-05 2022-12-05 Outpatient [facility] [id number] Univers 10:15:00 10:15:00 SYLWIACHARLIE alvarado [facility] 2022-12-05 2022-12-05 [facility] [id number] Univers 08:45:00 09:21:48 Visit Sylwia MIKE [id number] it y of W[id number] [id number] [facility] 408 Branch 2022-12-03 2022-12-03 Outpatient R [facility] [id number] Univers 15:00:00 15:04:08 [facility] ity [facility] 2022-12-03 2022-12-03 Office [facility] [id number] Univers 15:00:00 15:04:08 Visit Calixto MIKE 350.1.13.10 it [place] [id number] [facility] 204 Branch 2022-12-03 2022-12-03 Orders Doctor STEPHENSON [id number] Univers 00:00:00 00:00:00 Only UnassignedKERI 350.1.13.10 ity of [place] [facility] [id number] Gerber as [phone] [facility] 009 [place] 2022-11-19 2022-11-19 Outpatient R [facility] [id number] Univers 10:30:00 10:30:00 CALIXTO ity [facility] 2022-10-10 2022-10-10 Orders Doctor STEPHENSON [id number] Univers 00:00:00 00:00:00 Only UnassignedKERI 350.1.13.10 ity of [place] [facility] [id number] Gerber as [phone] [facility] 009 [place] 2022-10-08 2022-10-08 Letter SACHIN Cam [id number] Univers 00:00:00 00:00:00 (Out) Alf SAAVEDRA 350.1.13.10 i ty of HOSPITAL [id number] Gerber as [phone] [facility] 043 Branch 2022-10-07 2022-10-07 [facility] [id number] 08:17:00 12:55:00 Encounter [facility] 2022-10-07 2022-10-07 [facility] [id number] 08:17:00 12:55:00 Encounter [facility] 2022-10-07 2022-10-07 Anesthesia IoanaMich laughlin [facility] [id number] 10:47:00 11:27:00 Event [facility] 2022-10-07 2022-10-07 Anesthesia IoanaMich laughlin [facility] [id number] 10:47:00 11:27:00 Event [facility] 2022-10-07 2022-10-07 Surgery [facility] [id number] 10:06:00 10:36:00 [facility] 2022-10-07 2022-10-07 Surgery [facility] [id number] 10:06:00 10:36:00 [facility] 2022-10-07 2022-10-07 Orders [facility] [id number] 00:00:00 00:00:00 Only [facility] 2022-10-07 2022-10-07 Travel [facility] [id number] [facility] 00:00:00 00:00:00 [facility] 2022-10-07 2022-10-07 Orders [facility] [id number] 00:00:00 00:00:00 Only [facility] 2022-10-07 2022-10-07 Travel [facility] [id number] [facility] 00:00:00 00:00:00 [facility] 2022-09-10 2022-09-10 Orders Doctor STEPHENSON [id number] Univers 00:00:00 00:00:00 Only Unassigned, KERI 350.1.13.10 ity of [place] [facility] [id number] Gerber as [id number] [place] [address] Branch 2022-08-15 2022-08-15 Telephone Rashid [facility] [id number] 00:00:00 00:00:00 [facility] 2022-08-15 2022-08-15 [facility] [id number] [facility] 00:[facility]00 00:00:00 [facility] 2022-08-14 2022-08-14 Office [facility] [id number] 12:00:00 12:30:00 Visit [facility] 2022-08-14 2022-08-14 [facility] [id number] 12:00:00 12:30:00 Visit [facility] 2022-05-08 2022-05-[address] [facility] [id number] [facility] 22:52:00 16:02:00 Encounter Derek Donaldson [facility] 2022-05-08 2022-05-10 [facility] [id number] [facility] 22:52:00 16:02:00 Encounter Derek Donaldson rayo Ty [facility] 2022-05-09 2022-05-09 Surgery [facility] [id number] 13:30:00 14:00:00 [facility] 2022-05-09 2022-05-09 [facility] [id number] 13:30:00 14:00:00 [facility] 2022-05-09 2022-05-09 Anesthesia Caleb Harris [facility] [id number] [facility] 13:31:00 13:53:00 Event [facility] 2022-05-09 2022-05-09 Anesthesia Caleb Harris [facility] [id number] [facility] 13:31:00 13:53:00 Event [facility] 2022-05-09 2022-05-09 Travel [facility] [id number] [facility] 00:00:00 00:00:00 [facility] 2022-05-09 2022-05-09 Travel [facility] [id number] [facility] 00:00:00 00:00:00 [facility] 2021-05-14 2021-05-14 Hospital EL Ramirookpatricia, [facility] [id number] 08:51:00 12:04:00 Encounter [facility] 2021-05-14 2021-05-14 Anesthesia Jeaneth Darby [facility] [id number] [facility] 10:51:00 11:22:00 Event Saba Av[facility] 2021-05-14 2021-05-14 [facility] [id number] 10:00:00 10:30:00 [facility] 2021-05-14 2021-05-14 Travel [facility] [id number] [facility] 00:00:00 00:00:00 [facility] 2021-05-07 2021-05-07 Outpatient EL SLEH SLE [id number] [facility] 00:00:00 00:00:00 2020-11-24 2020-11-24 Outpatient EL GUPTA, SLEH SLE [id number] [facility] 00:00:00 00:00:00 LINE 2020-11-14 2020-11-14 Outpatient EL GUPTA, SLEH [facility]H [id number] [facility] 00:00:00 00:00:00 LINE 2020-11-02 2020-11-02 Outpatient EL SLEH [facility]H [id number] [facility] 00:00:00 00:00:00 2020-04-07 2020-04-07 Outpatient SUZIE MAIER [facility] [id number] Univers 09:30:00 09:30:00 SACHIN paulino [facility] 2020-01-14 2020-01-14 Outpatient Ana SINHA [facility] [id number] Univers 09:30:00 09:30:00 SACHIN paulino [facility] 2020-01-05 2020-01-05 Outpatient LEENA [facility] SLE [id number] [facility] 00:00:00 00:00:00 2019-11-09 2019-11-09 Outpatient LEENA REVELES [facility] [id number] [facility] 00:00:00 00:00:00 PRASUN 2019-11-03 2019-11-03 Outpatient LEENA REVELES [facility] SLE [id number] [facility]H 00:00:00 00:00:00 [facility] 2019-10-08 2019-10-08 [facility] [id number] 10:19:10 10:47:58 Visit Sachin Norman 350.1.13.10 Bradly Sellers [id number] Professio [id number] [address] 2019-10-08 2019-10-08 [facility] [id number] Univers 10:19:10 10:47:58 Visit Sachin Norman 350.1.13.10 i ty of [place].2.[place] [phone] Me dical [address] 2019-10-08 2019-10-08 Outpatient Ana SINHA [facility] [id number] Univers 10:45:00 10:45:00 SACHIN alvarado [facility] 2019-09-29 2019-09-29 Outpatient SLEH SLEH [id number] SLEH 00:00:00 00:00:00 [id number] 2019-09-29 2019-09-29 Outpatient LEENA REVELES [facility] [id number] [facility]H 00:00:00 00:00:00 PRASUN 2019-07-29 2019-07-29 Outpatient SLEH SLEH [id number] SLEH 00:00:00 00:00:00 [id number] 2018-03-17 2018-03-17 Outpatient [facility] [id number] Common 09:00:00 09:00:00 t Specialty/U Sp ger Specialty rology - [facility] 2017-12-23 2017-12-23 [facility] [id number] Common 09:15:00 09:15:00 t Specialty/U Sp ger Specialty rology - [facility] 2017-11-25 2017-11-25 [facility] [id number] Common 14:20:00 14:20:00 t Specialty/U Sp ger Specialty rology - [facility] 2017-11-18 2017-11-18 [facility]patient [facility] [id number] Common 10:15:00 10:15:00 t Specialty/U Sp ger Specialty rology - [facility] Results Test Description Test Time Test [...] U APPEAR (test code = 3267) clear [facility] URINALYSIS, [id number] 20:36:00 Test Item Value Reference Range Interpretation [...] U APPEAR (test code = clear 3267) General acute hospital [id number] 18:21:10 Test Item Value Reference Range Interpretation Comments Case Report (test code Surgical Pathology = 104) Report Case: [id number] Authorizing Provider: Shasha Reveles MD Collected: 10/07/2022 11:05 AM Ordering Location: [facility] ENDOSCOPY Received: 10/07/2022 02:52 PM SERVICES Pathologist: Ambrose Aguilar MD Specimen: Biopsy, Mid-esophagus, biopsy DIAGNOSIS (test code = [id number] 3220) FuZzEwMzNcZnRuYmpcdWMx IHtccnRmMVxlcGljMTAyMD wtWB3fbAktcGu0wGcsOWBh saN5tHUvLYlmb2hnBDD1h4 bfavgsOKYqPHgsFn7qrUSk dOwaPwStSFHxLNd4bF61IE GdoD8ryHNmNSq8PYFfaPBo heFeHcMkOFWkbKXkxDY2DF CmQK7bjtvvKGntYQswVZIz rzI3PFIjbBKoX0WiULWdKM 2avwldRBD7PLkbCBTaFNN2 XjMsMETlu3Qilnp3JmAsoE FyZFxwbGFpblxmczIwIEVT A2EXEMsCNuzlREpZEGZHWZ 6FE0ninCVhZX0dIQKIRVDA FI7VEdUKZUoOYFTESTNNMZ dJVEggTUlMRCBSRUFDVElW TTENPZIDU6KQYHmeOAZbDD NiXNtQT3GXWOEKCRASE1JJ Tr0FLXtRKpYKA0GlX5PZKf gzSCFdRJGoSIkSUS3PBBxR UiBFUElUSEVMSVVNLCBEWV NTIBFMJCPpX9WjK0WVI4oD J22NUH0RJGWISDGLETHdjj jaCTK4u2trkPHxKMQapPSk ODAwMFxhbnNpXGRlZmxhbm zcURQvIIK9weAeVJToSLne PREcRJhaQg5rzPDuzBhaYq NzTJPhz7xocsNZdttyjFo8 o5anWOOdUbP7lGRtEEfzD6 xbuiRrzVDrTXVkOPh2rM19 VGQfbL9osGMoKPbuyeIsYc Y9PXusHSBgBxB6XCYwqPYr YVWgG7veGPVoFIhcLJVqRE ceoUBoGQJ1zPwtx1R5nJZx aGVldHtcZjBcZnMyMiBOb3 GmGVw0tBqnR3CwUPPgZyX0 bHQgUGFyYWdyYXBoIEZvbn F7rE06HRaccwQ2qXQvx0Vh b73kp245xH6ioMYoIIH8TB ViREQgnGZbJJDnZYI7XVIh lULlY7nsZFPjHR2bpczkJV ssTEijOWLznND3KHJkmNTr L2OmBQFbLBqiGXHegsk7Yd JhLt6geZZihTweNOsut7ht l6omwYZpUac4AAKfDpDnSo xwQOhim2Bhy7taMDUxur0i QRX1iUKdaRawm6Y3sZJaUX VjqFBzRREgKP3xyIKfWFDn qK7zvrntTWKkLlDkfzbcYD KokHxouaPyMh6ccNrbMIV6 GIlvC6jsgN4eIiM1MCjjO0 xygS1gDWo6XQdhDAAmsRY1 qlL2EQJjsRYpE7DvsG1sEW FzCT9drxe2d5jaWFX5KEdf WJCpXgN9djN2HBAqaLNnJW LzcXyaPEmkm505FYX4LuEx NJKpg2YzG7WlgNtpV88ypD bsC57mNCPyaIkqoB9ecZew gQ1hAnAjBmIvRPawkBcuZD 4hUDBcK4edrOLoXCDmSAJl U3pyPbGzyF5coCpjLHxygy FkFZYrTyq9IMGlkEUeUWTh Hsf8ZRKfVTAsT62bckvvWH O3sW3ly7xyf0TjSOuuBZJ9 FZPbj82wHPujhmS6GRcbYz 15GHwwTWS7PPqqCYJ9fZ== CPT Code(s) (test code p0klzUCkUSLrqFZrKMRdK6 = 3357) ighzXdQGLwhUEpX1Oeexic MOtdUO0xLE6pwKmbeZWmjW CkKMHaJwGly9wqz024lTKj k7jcTOJOnolrvMf8aStsH0 0rm3B4OssoH55gjFVoLKH2 PVOkZAOnsWIpDCVeCNV3LO TxkKUoS9rlPDMoKA4swwnz KFbfZGxoLHHagHV1WBSfmI OsU1XaDLQaRDnqOKAtshg6 HeSkIu9flKFuzPdyTFppGK JkXHBsYWluXGZzMjAgODgz MDVccGFyfQ== CLINICAL HISTORY (test u6sdcHNhBDPyuWVrURCzJ0 code = 3356) donpXzYJSepIBhE6Qgccni UXdlBB4kCH9ljReaxYZndG PyCFLuYwGdb7uab430lXFn b3edBENInvizpGm1uVfaM6 5vp2F6AeukH35wkDHxULV5 HSRmXWFhyURuUOKyIUM8PK SkrZXvU0uyPJTnEM5uvuje JAdnVSjyZHUlzFF4ACOtlM NfJ7NxQKBxBQsiHCDgzwp4 FtXzAi9iyUCalZfhRYslAA JkXHBsYWluXGZzMjAgRXNv wMydK0DhfVA6ACOdI0ZzHT dpdGhvdXQgYmxlZWRpbmdc cGFyfQ== SPECIMEN SOURCE (test i2flePPmHSYwnVYbSKOsS0 code = 3377) rljpKyMIZqwKOxS8Ryoxtk OKtzZV8uIR4wbGhjdJAlwG DqOGRzRhMoj2lip730rGBa f6foTXMLjxmtlFl9qMzoI9 2rv0Q1EkhcP67zkPPrDSH0 GJUhRYHrzSAaEABmIRV4OG WtcCWfP8zwGORaPA0qlcsi SEufMIoiAMVizDE6ERSzzO PqE8NbJTTuVExcFYZxpbw4 VaHtPm8gtDFewTcwSWcbJS JkXHBsYWluXGZzMjAgTWlk OWTwu7LuYVc0i8dlLXT8 GROSS DESCRIPTION (test z8pqxDJsPWUwpAPRFFIxXT code = [id number]) GeYE1fzAfhfVt4oFssHSTg mmL3mZDqAZvxj4sdUHB4r3 lqwfMFOybqYYIuVW4wLDdw QAOoQP5xAqHgNRDpNqItIB BhcGVydzEyMjQwXHBhcGVy wRK9KSOaXV3cawlmCYyfST nmORCcwuC4SDAanGWgD8So DEKwYX6qqahiPVT4LVPSVb zjXz7nbYYzxMdyAkRfRpXv YXJzZXQwXGZuaWwgQXJpYW a8jF0CNtweE86dt2Q4Bba5 GJPsBBIfB3ZiWW6tQPBhxD SsM52QUuliOBU9VIEUEyrp ZetsyHasr8VsgVKjLCRaGZ xcaWQgNTEwMDAgXFxkYiBP QoZlGzJwGUP7NiHnVZWyVQ k1GZqcVxUSTMG3HUN1SCms WVj9RYblQCvtxQKwKHIgWK EbIBWfDTpcvkX3x4ptVUQh dDXoCGH9EQzeg5umLDzlLP Q7MBHaXhZcPPEnAY6KQcNr UHUvLFVmKLG5WdH9AMi6YB ZIJsWuLdHoVhHgFVJ3DNDj TMh7ABy5SNfWOaF6PtJeXT L6TXyrFYM9VsGfBLm1PHEx XFxzcyAzIFxcZmwgXFxuY3 1ccGFyZCANClxwbGFpblxm bqWaIGClVIGbd6CajLofPT ikQWXtm6PoQCc9m8tlKOGp DQpccGFyZCANClxwbGFpbl rodmSqJEj9wiSgACUsjJKA JOJ1RE0tMVQXZluspOAjPV YahTopTYmxkN1tNI6OTAZt VMwapsWhURNcD7CpitJdVS fxERZrsr8gzOpyHOojDjYv UPXav8c6nGA2pACohTV0aA LmbDeyPsBrCK2bsYZqWS7z RUpfVJfjgiFnm2EuEP67vR QexjMscyEjETA0BnXbCTog ETDboKEhJGYywZlzU5FcJT Biu8OroPZoTPVuTQZskIJv LXdoaXRlIHNvZnQgdGlzc3 CaFTKfRPqlHM82rnHuPU7d cE6eSDliMCUntoPlVwYmmV CgSbFbWG28CMKqILW6gMpw bLBaizYzg7NhqNw1nMQbYO deQKAgaK3fpP9zOJKhMGMt ciANClxwYXIgDQpMYXVyeW 0aLaRfs8IdzHYkPK6FBOPq DtMaTCTbR7apPEJiVY9LKW EcMRqhzgBnPZ1PTNAepVTQ LES1XC4vISlsAYCfL9KlY9 HxdcG1h0dynYsbe8JlxSVn VL6etIVoXP6LXPSqpiQnSW p9 MICROSCOPIC DESCRIPTION p3trfPJkUUTkhUBfJAOsP2 (test code = 3371) trvvFxCABaxCOhC1Xmkoxk CGzeVB0uGD5ngPmjbCYqyH IaUFMnJrOnt8eve047kGNt q4dnTBVKvparaVp8mAjmP0 2ce3J8HffzH62qxRGlQMP1 KXRkFAStjWVaMPScEFE1OI VhdMXxB1idFYFgPP4owevf EKsbMOduFXXvxON8LVAirH AcP3RcEIKpFOveMWHzvkq0 WaJbNe9exMBbhKadZAlkBK JkXHBsYWluXGZzMjAgUGVy Ra4xhEJvPSUnrn1= Gross assessment was [facility] performed at ([facility], = 2777) Department of Pathology, [address] [place] [address], Technical component was [facility] performed at ([facility], = 2778) Department of Pathology, [address] [place] [address], Professional component [facility] was performed at ([facility], code = 2779) Department of Pathology, [address] [place] [address], [facility] [id number] 18:21:10 Test Item Value Reference Range Interpretation Comments Case Report (test code Surgical Pathology = 104) Report Case: [id number] Authorizing Provider: Shasha Reveles MD Collected: 10/07/2022 11:05 AM Ordering Location: [facility] Received: 10/07/2022 02:52 PM SERVICES Pathologist: Ambrose Aguilar MD Specimen: Biopsy, Mid-esophagus, biopsy DIAGNOSIS (test code = w6ildTNcTLSfa3alDFMjnB 3220) FuZzEwMzNcZnRuYmpcdWMx IHtccnRmMVxlcGljMTAyMD mrTS7osNltpDc5rZmyFINc nyC4gNQrSTuri0emHNX2a4 bjuvdqTCIyTUvqUk1ffUFt xGvzBpZnQACjQNh5oN51HK IfdI2yxZGfURm2SBCsnLEh vnKjMvKrVSCtcOQayWM6IH LdAQ5yofshQJupVNygFKMf qeN7MIJghBOqB0LaRERoXQ 7kjikuPJV3RZhtLCZrKCT5 GiVaANJef9Pqkho7VbGzuU FyZFxwbGFpblxmczIwIEVT J3UUKFzUCvyvDWlYVLKZFF 9SA4zmnOJiYJ5dFNQSXWWW LI3NTgZABHdUCKRBARBYYP dJVEggTUlMRCBSRUFDVElW PZSSPOAFI5LTUWkiAHJoHF RrDGaTS3HNKZUBLCHYD2LR Qb6EILrHOdYGD2ReY2ZIYj xzNZYcMAOoYQkKIS0MKSiR UiBFUElUSEVMSVVNLCBEWV HQYFDULTHxW2HiV2DMO2lS J74MVI1HUZJOWNSVHKMrxk lnHXG7l2aykJPgVORtrEEu ODAwMFxhbnNpXGRlZmxhbm bwCQZoOZA4qfXqUJBqPGre ZQQfTKiuCi7shYXafGawAf LvXBVsw9lpbwMLujhzbFj0 e7nsWCZpCqD5sUJdJBhwF1 darxLwmWXyFIKeAXk0dW31 DBGerV3biSFxOSpbtmTsGr C6AQweUAQzErC7XKYhbSIo EPDiX8acZDPfTAwxPONgTU hjeWYjDWF1rKnaq4R6dMKe aGVldHtcZjBcZnMyMiBOb3 AaWFo6hDloY7TdWCQuXsS9 bHQgUGFyYWdyYXBoIEZvbn J2mG54DKdyboX5wJIoh2Go n70uv506oC1vlZGiXYM1ZV FqYCMxzYJcCLVfXJJ7MYPg oNUcZ8ffPGMkDH5ixjwlTW nrFRklHTLorGS6TFSzvZCl Z7MzOVMqCXqmXDJurff6Xd PfZi3msSLgmNxyLZqff5od j3tfdAEoKxt1HJQzMhQoWc hmNXeiv2Rjf4bpBJXegl0k VXA6yUYzeOmbd1A3fRZnTQ AgeJQlZUTkTI4ziQKdOPOn aD6ktjouCKSpUkFgyrmcIK OodVxaakUtOj8yrUsaADH2 WUwfD9rgwH1tKsT3HTlaF7 ozaQ6gFMu3KXfzEIAlnCB6 oxD9ATKvoZCrQ9AumP5cXT LzUQ5xhfm0n5qyWTZ4SNsd TPUlDzP6yyD2WBHwdNNvQZ SrcCldMYkdf794AUI5WaIf YXMns0KdD4OzvHbzI16frB wwF58wQSEpdZpjoD3pfUfk vK8rTyRdWbYvXMvfyQhaFK 6mFCSpY2uooSZhPHNnYICf E2aiQcBxnD6ysQavVIdldl VmBYZpDzx2ONYcqICcVOXk Rzz6GKZqSARyB48jkbbqBM N7lU2wf3uoj6SmIAcyYJM9 KTWlb34gJPtqzbS3YJedMt 90OWiaJFS0RMigCKK7tB== CPT Code(s) (test code x1txoVFvETNwzVRtVAAnA0 = 3357) yifuZbKQXnkXQaD9Yvrzjs SWqzQN6hGA7rrNstvXKxxK VmGOPhKzBvs2hum821dBFi e1tzLYPLsmkjaAt4nShsG0 6pe9Q0OeckE48tuHPtOON6 XQLmEOOsjGXlIWJeBWL9XJ WigRNwZ1hrOPSrCQ1iayjt SFuuBBmxTAFtmBT0SMWpaR XjP4PjIYWpZLpxNGJetbi9 YuFiWa2teLNxqQdkHZleLA JkXHBsYWluXGZzMjAgODgz MDVccGFyfQ== CLINICAL HISTORY (test h7uaeZGqOKRldRRxWKPrH5 code = 1204) lqwyTnQCQdkRClY5Zwnzht YLctOG8cHW6mqUcjxYLfmR AdYPOpJeUwu7wyt536hNGp g7boOHPWnhjasMp1eQzbY5 0gk5L5UhqwG35qsYRdCYN3 IXUeHGKpePVfRFRkCWX2CJ HuiRVbR9cdLEUkRV0cbmxo DCvcHUfvULTuzMV1LPHsaJ CgA9AgYPDgVNsyHJKemwq2 BdIsXo7qgETvdUizMMogFX JkXHBsYWluXGZzMjAgRXNv eMtdB7EenLK5MQXeD4BtCH dpdGhvdXQgYmxlZWRpbmdc cGFyfQ== SPECIMEN SOURCE (test p7krbHAmKYPpvSDjKFEoU8 code = 3377) znmwTpSDPmwBLdS7Zxqraz PRpkCR3fLK7ntVxivJItkZ LxTHIoAoCqj8swz134bKEf s8ryKNIEcigklWs5jPpqZ2 8ul1P4HbrfV98naEArCHU3 OWCdIXJysVIaNMOfSMQ7BW AlcJEhI5bbYMRxYF8xodrx ARphJCcfJHJosYL1IOXeaD LeR9XaIKCgNLdsBGOsfew1 ChKiTe9dpXHhiPxaXZdmHC JkXHBsYWluXGZzMjAgTWlk GXVgn5RdSUd5n4jcPDF9 GROSS DESCRIPTION (test m7bacUSmBKFzeBNJXKThED code = [id number]) KuPX4jzRcxcId9pOvkYIMb bpM5rSNwYYhgk2ilXJA9z9 xcstSAEhzrYYFjUA8dTCmy NWIiWR3fOnPyOYKgXyWmQU BhcGVydzEyMjQwXHBhcGVy gSZ9KXNxWQ5sjbmjCOebCZ cgPXMqziZ2JKLvnHRzE7Yz FLPfJH3sruuuUPH7UWAEJg nlOs9jiJQldIqkDuZfFtRd YXJzZXQwXGZuaWwgQXJpYW w4vP4NLicwE11cz9B6Yeo7 NBYrXUYrB0WgHZ3uIZQatN PyA36EGjtnNAZ9UIUELrih AjiwvRweh1OpoKStAHYtYO xcaWQgNTEwMDAgXFxkYiBP LmMwMtSnEMU3KoOkEMXmOY j1NBugUrFRRCZ3YNZ6LTkx SQl2JHsuDJmenSHbNVOlEB BsILHlYQvyvoG5u2uhFGFw sUKuOOG6WSsrw4qtRYrdOM W7EEWlPlZnTEMwMB7KEuGh DGPqBQEbUXO3ZwO1RIk2EY BJRdIfVpSvWiZnSPM0RYEd EWo0PDh9MSvGGiH0GeBqAW R0AEpuUYU3SuRvEQt3BBRa XFxzcyAzIFxcZmwgXFxuY3 1ccGFyZCANClxwbGFpblxm uaJsNJHuTMEdy7UqdFsvFT ysSQSye5QyXUn2t4psONAd DQpccGFyZCANClxwbGFpbl aaqyWvUWa8smGlEAXauEXY ORY9PN1jWMDGWcevtEOtAC OebTklXHnyxA2lYJ2CBYFp QXdhgyDgFTGqF3SzyjSlRM zpEHZynm2unXjiPBxcObBe KVLng7j9fVO9cJExsNR1wB SbcKpoUkQyXL6lfXDtSX6d KNftVFvlegKlg4CmAN28oN VcrlZhvbJpDPD0ErCpYMbk JUUghLZcSSNhjGwkI9MgZX Btw1SyeMHtUIXxUYCrvZPa LXdoaXRlIHNvZnQgdGlzc3 UvEAAkMFelDR32bwBpDC0m dL5hSVopQEVgheMsNxUdgY JrGwRcBH73VIDqVQU4wJcv yUGrzdMal1IcaCv7uGBsMC aaUNQjmV6raA7hGAMcTASl ciANClxwYXIgDQpMYXVyeW 4hYiYvs6MgoGRcJM8ZVCHw ZeMzDZNoM9eoHDHtJP7EBX IhJTzeobCcEM1TDDCrfNAY YCM7TT6bVSljWHGxE5AgH9 DjshZ2h0yyvHvsw8FnxTTf AV2ohCRyOZ0VRNDkxuEqKT p9 MICROSCOPIC DESCRIPTION k1amcPAqEQCmgXGeTHZkQ6 (test code = 3371) qnjvRoCMFxiHHpD7Lzojtd YHbhZD2gSM9irQlavZXwfD BhMYUgLxTmj4qtz421gENe j5siVPJXupebgIi4hMkdV1 1et5D2CeknH03ygDQmMNN8 PDYoQSVvqPKxIYPcTZW8YV LhaPYpT1jeKLXaVY9djbkg QQsvQRrfXERdtTD5PBUmxV AeS9RgYXUvFLuaQAUqgnb4 PhXzHd2jvODrsWczUCgsKT JkXHBsYWluXGZzMjAgUGVy Wg2wcWLwQOElud2= Gross assessment was [facility] performed at ([facility], = 2777) Department of Pathology, [address] [place] [address], Technical component was [facility] performed at ([facility], = 2778) Department of Pathology, [address] [place] [address], Professional component [facility] was performed at ([facility], code = 2779) Department of Pathology, [address] [place] [address], [facility] Center[facility] [id number] 18:21:10Surgical Pathology Report Case: [id number] Authorizing Provider: Shasha Reveles MD Collected: 10/07/2022 11:05 AM Ordering Location: [facility] Received: 10/07/2022 02:52 PM SERVICES Pathologist: Ambrose Aguilar MD Specimen: Biopsy, Mid- esophagus, biopsy ESOPHAGUS, MID, BIOPSY- SQUAMOUS EPITHELIUM WITH MILD REACTIVE CHANGES - INCREASED EOSINOPHILS NOT SEEN- GLANDULAR EPITHELIUM, DYSPLASIA OR CARCINOMA NOT SEEN Signing Pathologist Direct Phone Line: [phone] signed by Ambrose Aguilar MD on 10/09/2022 at 6:21 [id number] varices without bleedingMid esophagusA. Biopsy, Mid- esophagusReceived in formalin labeled with the patient's name, medical record number and "midesophagus biopsy" are 2 allison-white soft tissue fragments ranging in size from 0.3-0.4 cm, which are submitted in toto in A1.[facility], Department of Pathology, [address] [place] [address], [facility], Department of Pathology, [address] [place] [address], [facility], Department of Pathology, [address] [place] [address], ATYWU FETOPROTEIN (AFP), TUMOR [id number] 15:56:40 Test Item Value Reference Range Interpretation Comments ALPHA-FETOPROTEIN (BEAKER) (test 5.3 ng/mL <10.0 code = 1094) Co Founder And Chief Strategy Officer ID - ADMINHEPATIC FUNCTION [id number] 15:54:41 Test Item Value Reference Range Interpretation [...] (test code = 23 U/L 6-55 347) Co Founder And Chief Strategy Officer ID - ADMINBASIC METABOLIC [id number] 15:54:36 Test Item Value Reference Range Interpretation [...] not appl icable for dialysis patien ts Co Founder And Chief Strategy Officer ID - ADMINPROTHROMBIN TIME/[id number] 14:39:58 Test Item Value Reference Range Interpretation [...] mechanical heart valves.CBC W/PLT COUNT & AUTO [id number] 14:32:31 Test Item Value Reference Range Interpretation [...] (BEAKER) (test code = 2801) HIV-1 PCR, [id number] 15:54:56 Test Item Value Reference Range Interpretation Comments HIV-1 NUMERIC RESULT (BEAKER) (test 157 Cp/mL <20 H code = 0979) This test uses a Real-Time Polymerase Chain Reaction (RT-PCR) methodology to detect a highly conserved region of the HIV-1 gag gene and was performed using the CLOVER AmpliPrep/CLOVER TaqMan HIV-1 test kit version 2.0 ([employer]Reportable range for this assay is 20 - 10,000,000 copies per mL (1.3 - 7.0 Log copies/mL).HEPATITIS C PCR, [id number] 11:12:02 Test Item Value Reference Range Interpretation Comments HCV RESULT COMPONENT HCV RNA not detected HCV RNA not detected (RADHA) (test code = 2699) This test uses a Real-Time Polymerase Chain Reaction (RT-PCR) methodology and was performed using [employer] Ampliprep/CLOVER TaqMan HCV test kit version 2.0 ([employer]).Reportable range for this assay is 15 - 100,000,000 IU per mL (1.18 - 8.00 Log IU/mL).POC-Glucose [id number] 07:59:18 Test Item Value Reference Range Interpretation Comments POC-Glucose Meter (test 72 mg/dL 70-110 : TE STED AT [facility] code = 1538) [address] [place] [address]: Co Founder And Chief Strategy Officer/Techni nirav ID = [id number] for Yelling, [place] a Lab Interpretation (test Normal code = 69764-1) [facility] [place] [id number] 07:59:18 Test Item Value Reference Range Interpretation Comments POC-Glucose Meter (test 72 mg/dL 70-110 : TE STED AT [facility] code = 1538) [address] [place] [address]: Co Founder And Chief Strategy Officer/Techni nirav ID = [id number] for Yelling, [place] a Lab Interpretation (test Normal code = 62341-8) [facility] Center[facility]ucose [id number] 07:59:18 Test Item Value Reference Range Interpretation Comments POC-Glucose Meter (test 72 mg/dL 70-110 : TE STED AT [facility] code = 1538) [address] [place] [address]: Co Founder And Chief Strategy Officer/Techni nirav ID = [id number] for Yelling, [place] a Lab Interpretation (test Normal code = 81926-4) [facility]-GLUCOSE [id number] 07:59:18 Test Item Value Reference Range Interpretation Comments POC-GLUCOSE METER 72 mg/dL 70-110 : TESTED A T [facility] [address] (BEAKER) (test code = [address], 1538) [facility] [place] [address]: Co Founder And Chief Strategy Officer/Techni nirav ID = [id number] for Kym Jordan COMPREHENSIVE METABOLIC [id number] 04:42:58 Test Item Value Reference Range Interpretation [...] high >=90 G2 Mildly decreased 60-89 G3a Mild ly to moderately 45-5 9 G3b Moderately to [...] not appl icable for dialysis patien ts Co Founder And Chief Strategy Officer ID - LITOOperator ID - LITOOperator ID - LITOOperator ID - LITOOperator ID - LITOOperator ID - LITOOperator ID - LITOOperator ID - LITOOperator ID - LITOOperator ID - LITOOperator ID - LITOOperator ID - LITOOperator ID - LITOOperator ID - LITOOperator ID - LITOOperator ID - [id number] 04:42:58 Test Item Value Reference Range Interpretation Comments MAGNESIUM (BEAKER) (test code = 1.9 mg/dL 1.5-3.0 627) Co Founder And Chief Strategy Officer ID - LITOOperator ID - LITOOperator ID - LITOOperator ID - LEOENLA [id number] 04:39:15 Test Item Value Reference Range Interpretation Comments PHOSPHORUS (BEAKER) (test code = 2.6 mg/dL 2.5-4.5 604) Co Founder And Chief Strategy Officer ID - LITOCBC W/PLT COUNT & AUTO [id number] 04:20:03 Test Item Value Reference Range Interpretation [...] PERCENT (BEAKER) (test code = 2801) POCT-GLUCOSE [id number] 21:29:36 Test Item Value Reference Range Interpretation Comments POC-GLUCOSE METER 94 mg/dL 70-110 : TESTED A T [facility] [address] (BEAKER) (test code = [address], 1538) [facility] [address]: Co Founder And Chief Strategy Officer/Techni nirav ID = [id number] for Gracia Melendez HEMOGLOBIN AND [id number] 12:03:22 Test Item Value Reference Range Interpretation Comments HEMOGLOBIN (BEAKER) (test code = 14.4 GM/DL 13.0-16.8 410) HEMATOCRIT (BEAKER) (test code = 40.9 % 36.0-50.0 411) HEMOGLOBIN AND [id number] 09:30:37 Test Item Value Reference Range Interpretation Comments HEMOGLOBIN (BEAKER) (test code = 14.5 GM/DL 13.0-16.8 410) HEMATOCRIT (BEAKER) (test code = 40.8 % 36.0-50.0 411) COMPREHENSIVE METABOLIC [id number] 04:41:38 Test Item Value Reference Range Interpretation [...] not appl icable for dialysis patien ts Co Founder And Chief Strategy Officer ID - KBYB16Auxfwhmw ID - DNYR63Nbvueydx ID - OYZP86Nvigzbzz ID - AUCV35Awgdqujs ID - NQIJ79Dedhtjki ID - ELUT32Hwzpgwoq ID - ERTY94Ghzvulwz ID - XNAB76Vbqibxtj ID - ZZTQ94Gnhtavne ID - IZQO51Zkzmosbf ID - MHGB54Neufplph ID - BWDO68Ayyjqzzd ID - FWKC73Oidojonb ID - PLBM41Vzgjpgma ID - KVLR59Ylzsgkqy ID - [id number] 04:25:13 Test Item Value Reference Range Interpretation Comments MAGNESIUM (BEAKER) (test code = 1.9 mg/dL 1.5-3.0 627) Co Founder And Chief Strategy Officer ID - IZTB12Rhtzjceo ID - RVJG99Zuiurnme ID - UMUM44Airrompz ID - [id number] 04:21:54 Test Item Value Reference Range Interpretation Comments PHOSPHORUS (BEAKER) (test code = 4.4 mg/dL 2.5-4.5 604) Co Founder And Chief Strategy Officer ID - [id number]/[id number] 03:45:10 Test Item Value Reference Range Interpretation [...] 2.5-3.5 for patients with mechanical heart valves.CALCIUM, [id number] 03:29:37 Test Item Value Reference Range Interpretation Comments CALCIUM IONIZED (BEAKER) (test 1.15 mmol/L 1.12-1.27 code = 698) PH, BLOOD (BEAKER) (test code = 7.37 1810) SARS-CoV2/RT-PCR (Asymptomatic ONLY)2022-05-09 01:35:46 Test Item Value Reference Interpretation Comments Range SARS-COV2/RT-PCR Negative Negative The SARS-Co V-2 (test code = target nucleic 48000-8) acids are not detected in thi s [...] revoked sooner. Fact Sheet for Healthcare Providers: https://www.[employer]/Documents/Xp ert%20Xpress%20SAR S%20CoV-2/Fact%20S heets/302-3802%20S ARS-COV-2%20HEALTH CARE%20PROVIDERS%2 0FACT%20SHEET.pdf Fact Sheet for Healthcare Patients: https://www.[employer]/Documents/Xp ert%20Xpress%20SAR S%20CoV-2/Fact%20S heets/302-3801%20S ARS-COV-2%20PATIEN T%20FACT%20SHEET.p df Lab Interpretation Normal (test code = 42894-3) [facility]22-[facility]-09 01:35:46 Test Item Value Reference Interpretation Comments Range SARS-COV2/RT-PCR Negative Negative The SARS-Co V-2 (test code = target nucleic 76992-3) acids are not detected in thi s [...] revoked sooner. Fact Sheet for Healthcare Providers: https://www.[employer]/Documents/Xp ert%20Xpress%20SAR S%20CoV-2/Fact%20S heets/302-3802%20S ARS-COV-2%20HEALTH CARE%20PROVIDERS%2 0FACT%20SHEET.pdf Fact Sheet for Healthcare Patients: https://www.[employer]/Documents/Xp ert%20Xpress%20SAR S%20CoV-2/Fact%20S heets/302-3801%20S ARS-COV-2%20PATIEN T%20FACT%20SHEET.p df Lab Interpretation Normal (test code = 18760-7) [facility]2022-05-09 01:35:46 Test Item Value Reference Interpretation Comments Range SARS-COV2/RT-PCR Negative Negative The SARS-Co V-2 (test code = target nucleic 98187-3) acids are not detected in thi s [...] om SARS-CoV-2 in a nasopharyngeal swab specimen [facility] s suspected of COVID-19 by the ir healthcare provider. VERNELL (test code = This test has been VRENELL) authorized by FDA under an EUA for [...] revoked sooner. Fact Sheet for Healthcare Providers: https://www.[employer]/Documents/Xp ert%20Xpress%20SAR S%20CoV-2/Fact%20S heets/302-3802%20S ARS-COV-2%20HEALTH CARE%20PROVIDERS%2 0FACT%20SHEET.pdf Fact Sheet for Healthcare Patients: https://www.[employer]/Documents/Xp ert%20Xpress%20SAR S%20CoV-2/Fact%20S heets/302-3801%20S ARS-COV-2%20PATIEN T%20FACT%20SHEET.p df Lab Interpretation Normal (test code = 68820-8) [facility])2022-05-09 01:35:46 Test Item Value Reference Range Interpretation Comments SARS-COV2/RT-PCR Negative Negative The SARS-Co V-2 target (test code = nucleic acids a re not 1448060) detected in thi s specimen. Negative result [...] revoked sooner. Fact Sheet for Healthcare Providers: https://www.[employer]/Documents/Xpert%20Xpress%20SARS%20CoV-2/Fact%20Sheets/3023802%33DHZF-HOM-8%20 HEALTHCARE%20PROVIDERS%20FACT%20SHEET.pdf Fact Sheet for Healthcare Patients: https://www.[employer]/Documents/Xpert%20Xp ress%20SARS%20CoV-2/Fact%20Sheets/3023801%81LNGQ-OSQ-0%20PATIENT%20FACT%20SHEET .pdfHEPATIC FUNCTION [id number] 00:28:50 Test Item Value Reference Range Interpretation [...] (test code = 15 U/L 5-50 347) Co Founder And Chief Strategy Officer ID - [id number] ID - [id number] ID - DZVU20Bgnyeqbf ID - PSGE00Drlbprdp ID - DWNZ06Xjizlujj ID - BRVL54Cbqiizng ID - PYUB77Dqbiskug ID - SHLJ74Kgitygke ID - SSMU26Brphbahm ID - [id number] METABOLIC [id number] 00:28:45 Test Item Value Reference Range Interpretation [...] not appl icable for dialysis patien ts Co Founder And Chief Strategy Officer ID - [id number] ID - AMVB60Nhtdudwf ID - LYLC05Aghiyzzf ID - YFUU82Olarlcrq ID - RWBH52Mvkgvbkl ID - KKYF94Bbzcybgf ID - FLCN18Ymcmtbxc ID - OBSQ50Knzpgedi ID - JCZY95Xlulbqql ID - [id number] 00:07:06 Test Item Value Reference Range Interpretation Comments FIBRINOGEN LEVEL 325 mg/dl 200-400 Final Infor mation (BEAKER) (test code = (Auto Output) 658) PROTHROMBIN TIME/[id number] 00:07:06 Test Item Value Reference Range Interpretation [...] is 2.5-3.5 for patients with mechanical heart valves.[id number] 00:07:06 Test Item Value Reference Range Interpretation Comments PARTIAL THROMBOPLASTIN 28.8 seconds 23.0-35.0 Final Information TIME (BEAKER) (test (Auto Ou tput) code = 760) POCT-GLUCOSE [id number] 00:02:28 Test Item Value Reference Range Interpretation Comments POC-GLUCOSE METER 156 mg/dL 70-110 H : TESTED A T SLSL 1317 (BEAKER) (test code [facility] [address], = 1538) [facility] 77 478: Co Founder And Chief Strategy Officer/Techni nirav ID = [id number] for Ryan Del Rosario CBC W/PLT COUNT & AUTO [id number] 23:32:44 Test Item Value Reference Range Interpretation [...] PERCENT (BEAKER) (test code = 2801) Tissue [id number] 18:28:39 Test Item Value Reference Range Interpretation Comments Case Report (test code Surgical Pathology = 104) Report Case: [id number] Authorizing Provider: Shasha Reveles MD Collected: 05/14/2021 11:10 AM Ordering Location: [facility] Endoscopy Received: 05/14/2021 02:17 PM Services Pathologist: Zulay Castro MD Specimen: Biopsy, Gastric, random biopsies DIAGNOSIS (test code = v4hkjSPcSIIpc3llQMEvrP 3220) FuZzEwMzNcZnRuYmpcdWMx IHtccnRmMVxlcGljOTYwMV zodxJeSGQcmMCvV2Tpmxfk VDayXK0pPY6btJskxGNcsX YrGCHrOoUgy9tzq469fFSc k4gzPJGXshkzsKl0jNovG3 5zk5N4JvkmI00ymBYdUZV5 FZDiVRLakFHgYMLeTZI2XR RsvKOqM9kpWFVhZQ8jzzql SJahZPxsXHRouHO6AAJtlL NuP8RsQFLgESzpIYNbvnz0 VjAwEa8jwWUggJcjOZnfQY BiFOPwHVfjUWRqDqLkLL5d G0QIKBPGBDodR5eQHXUGD4 HwM1IIO9eWYCDPMGYLVM0X O8l7AEHzsat5LQKlYGYEPw CBAPfdOC9DZT5IWN3IUZXa ZGJCO1NDTQbJJUpfNt2lTZ DTNN7JD6kPIrTMOWSPFyVF GJ7LCQRgkmr9BYXiEVRPVY zRKAuFKEEFN8UnYRLBDOEK FgGPDSGTXI1DL7NVS5IVIA 9GU94WPW1YOYWOAZAWSqBz M0FUQK2EBWnuICU0h0cobP YxXHNzdGUxODAwMFxhbnNp OJLmAemzxsnvOVNbWTD9ia IxVMTgTMtiFHIyONjpPc2l iNIlyDabOrMiYTYus0nhtn GLkwkvcEv1v1rqMVUnBhF2 iGQsOCtgC9pmstYnfBIoOT ApQVt0gI53EKBagZ7qmERt MTfbbsYfGrV6XKfaLFWbWl W0OOVpeEXsNNMyF6idRYMl SXhpZYTvWIeqdVUgXMT4yS rvl6R9sKVxzFTisJjaTvFg UzPfWlIXq4GlDSz1gEfjV7 KpRQNeMeU8oCLsLQYvOSng NCTpSPVakiZ3pG51FDfylo S4iIXvm2Znw28pe065eO6d mKTuLBG3WLNgDJRiaZEpUJ DcQEA7RWKymEKwS8qvWBEg RC6rycqbEApoKCjvBDOmjP E5KGAmfZTxM4FzNNFvBWpp KDSuesh1QnCyCo8tcRDsfS flCJpmu2wew5rklGDfPzv0 YBYmMkAlOyvzPCfyq3Ywr6 jaIKWppz5vQSM8mPEaeImg w5I8tEDmQWZrkGQvSMYvTP 8bpQKiZVIxnT5elobcJACn YnJkcmhlYWRccGdicmRyZm 8csJmwNMJ0FLknN9wkvH8s BkK3GPltY2hwvI1zJTj7XV fgMOChoRQ0vfY3JLMakOSa B2GxrR3kHIRjOP3pwgo6n1 utIWT0LWbkLRJkDlX7ieD8 NDBcaGVhZGVyeTcyMFxmb2 06LBN9UqQkCPMjl3OrO4Ms wTnlZ08klDdgW47bTYGhlR fzxS0jzBfpzN4yIdYwQrVq AVixuKqeSC6zTEOoK2vuuW RwWRJvHLWrV4qpUxRrsZ2i sTmpPXygtkUdUARoJia0VA SvwXMuIQQyGak8MODwSMCd T73samytXGT7vW6dv1asj0 TwFLysEDU2OKQtd37tGPep xzT0FFghYt44CEgyTFO9SO fhMJZ5jK== CPT Code(s) (test code h5wneOMrDOHchDW6JyJsQA = 0527) Qiw7upu3MsqASfxFEnEBtt xVLrufSvxv21gJE6iW56LV 2gREAmBbX9BGVywlU7Lfo2 XAExAQGfuNDdP273s5ake1 kjmvGvaUT2gZroLJIwvpzh EvN5GHzmWOPgfhcaFKg2OK hyRPCziBF8YYCwiDEzD1Ch TOMeVM4krwy3PIE0XRroUW MkDfN1QUTmkLJiKUPpmElk QSeqf082SGW1IeNgFGHygt StnGixaG5lRkJqRVG4RORr NVxwYXJ9 CLINICAL HISTORY (test l5exxANhIJCcsPU3QwWrJV code = 3356) Zae7het2CrwVWbaYDgVLed iXAeftMrbv91bWR8rJ80HP 6eWZXwEjX2YKBccqI6Fbz2 BDPoUZDlvGDuY737f6vsg1 bsqfDrpJW8oNbqRGQcphiu AwE9EFtpEEFicdieHPm1NV oeRVThyXR8FHIsqJBlM6Gh VIVfGY1wmmi9LLT1UMayML PkMvO1QJJwuPGmBFYyiDle UAdnt427PYI2YxBnWQHije TunLuiaG9oLcIjVBFJTTC6 cmljIHZhcmljZXNccGFyfQ == SPECIMEN SOURCE (test f2pfbGIyGUNfyYA0HdQfCC code = 3377) Ouf2ggx9PopQVrqIIrNQes iBDdfjTubr69vNQ1rH85CJ 0uIHUyNxW5URKqyjS3Gdz1 PVSuROQzyFSeY554v9svf6 rrdfFwkZX4zLmnWZYdhfvt AoR0LEjpLOYvsasnCCc9YT oeWFWoxFT2HPBxmXIyN2Es LCCmSU6icae4TFD9YYoxWX SoLmA6KOSilOEmLGRycOcx CVjak013EJJ2KzTjOZJstc UyzVeyzE4dRnGePILWRlHy GigjvVO2RJZzMQC1kmftMK OaYP5oa65zhPBxpL== GROSS DESCRIPTION (test e8grcLRlBRHavDT1JtXgEN code = 3366) Pcq7qwp6UmaXLzvTMqAYrn eMKhqaKpau50eTL7aD41QI 0mYIQoGuT0NEEcrxV8Lhu2 XVFfCGQviRJyG980u4nki6 hyooOgfGB0vKotWTLwcmyx XgO9EJurDAKlbgftJMw7TJ olUAIhiIN6NRVugDWoP1On IPZxDE0nhhk8XUH8ZQzbPD TfKtS3BEKssMMmXZYwwUdo OBwsn925RGM9FpHtFWDhum NwmPllaP6vBjHdTOALMgYM WXDdhMCbEJScqwJgf3NeFO xpbiBsYWJlbGVkIHdpdGgg dItaHFPypLxogcPcK1V3py JdLA3zKSKmYHNoF7XzFDJg M64rFLJwkY7dUZUoJY9vVH TeLFT4cgysJJQZQsAysfAv Q91gb0wfgWVse4KmTzVodQ VmDXWxc6BqfLWsIWshfBBm DYEpOhDuaHclw9WiQDHaxa yjhswwbE4cn8w7GHWpnp6d GIPfXtL7XEEpGmU3GWVhLL SdbWD6pwHhKfEngJGiPlFr qMOgPiXyD48hFUVMcXPxf7 OvY1jrIN1ngWFkm2PcYURv EF69PPbpXC56RMarNS3eVV PjIJRvW7MtO1H5WA1aPVuk NYDxPZCliNQvMMtvNOD1Wj 8naSWzCBPxojO1i9CcIDnj IXUpIdtgvK1eMCghtyClK4 hIXHBhcn0= MICROSCOPIC DESCRIPTION u5rolILzFKDpdQW4SgJuHN (test code = 3371) Raw7tkb7NdfATqyBRpZPrq oVKkghOcll99eHC1jR71NQ 8hOLIdPiF5BVLmeoX2Cch4 OWEdDBHoqITmX814c7wvc8 pyqxYyeKH1vXewLZBrnwdh LlD5EGamRLIbsutlZVh6IP nvIVWoxAF5ZVNtnOAsO5Pf HUVuTC2xtsl8OVO3XFokFD HxKpZ3NMXzaHMwRJUgxQne HKwwn741HMQ7BvLrPPJwma YtsYsrpG2mFrLiNFIXgkUa vYdpcJBcL7TpeIPecdPfAZ 0bOGKhi48wLKneiZLagJmt LVsvbAH6BRQhCMOwABfmKL jdpTlzv5tfUV7jKB3caEdi ulXfH5eegUKmo5Orwe3lOz 5cXJRijAUmHiOntZDdLA3q F1Lgi2AjJT1wq04lIWJhUA YyYAUkJJ6iJLAcgUPgwiXj g9DbtI8pCrZkXVDiam9= Gross assessment was [facility] performed at ([facility], = 2777) Department of Pathology, [address] [place] [address], Technical component was [facility] performed at ([facility], = 1287) Department of Pathology, [address] [place], [place] [id number], Professional component [facility] was performed at [facility], code = 2779) Department of Pathology, [address] [place] [address], [facility] [id number] 18:28:39Surgical Pathology Report Case: [id number] Authorizing Provider: Shasha Reveles MD Collected: 05/14/2021 11:10 AM Ordering Location: [facility] Endoscopy Received: 05/14/2021 02:17 PM Services Pathologist: Zulay Castro MD Specimen: Biopsy, Gastric, random biopsies A. STOMACH, SITE NOT SPECIFIED, BIOPSY: - ANTRAL AND OXYNTIC MUCOSA WITH NO PATHOLOGIC ALTERATION - NEGATIVE FOR HELICOBACTER MICROORGANISMS ON ROUTINE STAINS Signing Pathologist Direct Phone Line: [phone] signed by Zulay Castro MD on 05/15/2021 at 6:28 [id number] varicesA. Biopsy, gastric, randomA. Received in formalin [...] Helicobacter microorganisms are seen on routine stains. [facility], Department of Pathology, [address] [place] [address], [facility]ology, [address] [place] [address], [facility], [facility] of [facility]ology, [address] [place] [address], ZKZAA FETOPROTEIN (AFP), TUMOR [id number] 14:50:00 Test Item Value Reference Range Interpretation Comments ALPHA-FETOPROTEIN (BEAKER) (test 5.6 ng/mL <10.0 code = 1094) Co Founder And Chief Strategy Officer ID - BETH MPROTHROMBIN TIME/[id number] 14:30:00 Test Item Value Reference Range Interpretation Comments PROTIME (BEAKER) 13.8 seconds 11.9-14.2 (test code = 759) INR (BEAKER) (test 1.08 See_Comment [Automat ed message] code = 370) The system [employer] generated this result transmitted ref erence range: <=5.90. The reference range was not used to int erpret this result as normal/abnormal . RECOMMENDED COUMADIN/WARFARIN INR THERAPY RANGESSTANDARD DOSE: 2.0 - 3.0 Includes: PROPHYLAXIS for venous thrombosis, systemic embolization; TREATMENT for venous thrombosis and/or pulmonary embolus.HIGH RISK: Target INR is 2.5-3.5 for patients with mechanical heart valves.MR, ABDOMEN, [id number] 15:36:00 [facility]FERR[facility]: [facility]: MRI of the abdomen [...] MDReport Verified Date/Time: 11/09/2019 15:36:50 Reading Location: [address] Transitional Reading Room ANTI-NUCLEAR ANTIBODY (BAHMAN)2019-02-01 11:23:00 Test Item Value Reference Range Interpretation Comments ANTI-NUCLEAR ANTIBODY (BAHMAN) (BEAKER) Positive Negative A (test code = 418) Test performed by IFA method.BAHMAN TITER AND [id number] 11:23:00 Test Item Value Reference Range Interpretation Comments BAHMAN TITER (BEAKER) (test code = :160 1541) BAHMAN PATTERN (BEAKER) (test code = Speckled 1781) HEPATITIS C PCR, [id number] 12:50:00 Test Item Value Reference Range Interpretation Comments HCV RESULT COMPONENT HCV RNA not detected HCV RNA not detected (BEAKER) (test code = 2699) This test uses a Real-Time Polymerase Chain Reaction (RT-PCR) methodology and was performed using [employer]OVER Ampliprep/CLOVER TaqMan HCV test kit version 2.0 ([employer]).Reportable range for this assay is 15 - 100,000,000 IU per mL (1.18 - 8.00 Log IU/mL).[id number] 11:58:00 Test Item Value Reference Range Interpretation Comments FERRITIN (BEAKER) (test code = 361) 179 ng/mL 5-275 HEPATITIS A ANTIBODY, [id number] 11:19:00 Test Item Value Reference Range Interpretation Comments HEPATITIS A IGG ANTIBODY (BEAKER) Reactive Nonreactive A (test code = 2797) ALPHA FETOPROTEIN (AFP), TUMOR [id number] 11:16:00 Test Item Value Reference Range Interpretation Comments ALPHA-FETOPROTEIN (BEAKER) (test 7.0 ng/mL <10.0 code = 1094) [id number] 11:07:00 Test Item Value Reference Range Interpretation Comments ALPHA-1 ANTITRYPSIN (BEAKER) 205.10 mg/dL 90.00-200.00 H (test code = 502) COMPREHENSIVE METABOLIC [id number] 11:06:00 Test Item Value Reference Range Interpretation [...] NOT APPLICABLE FOR DIALYSIS PATIEN TS. BILIRUBIN, [id number] 11:06:00 Test Item Value Reference Range Interpretation [...] (BEAKER) 52 % 20-55 (test code = 2594) CBC W/PLT COUNT & AUTO [id number] 10:47:00 Test Item Value Reference Range Interpretation [...] PERCENT (BEAKER) (test code = 2801) PROTHROMBIN TIME/[id number] 10:44:00 Test Item Value Reference Range Interpretation Comments PROTIME (RADHA) (test code = 14.1 seconds 11.9-14.2 759) INR (RADHA) (test code = 370) 1.2 <=5.9 Effective 08/26/2018: PT Reference Range ChangeNew: 11.9-14.2 Previous: 11.7- 14.7RECOMMENDED COUMADIN/WARFARIN INR THERAPY RANGESSTANDARD DOSE: 2.0-3.0 Includes: PROPHYLAXIS for venous thrombosis, systemic embolization; TREATMENT for venous thrombosis and/or pulmonary embolus.HIGH RISK: Target INR is 2.5-3.5 for patients wiht mechanical heart valves. Notes Date/Time Note Provider Source 2022-12-13 08:00:00 [id number]:00:00 Addended by: [facility] SHAWANDA ALVAREZ on: 12/13/2022 09:19 AM Modules accepted: Orders [id number] [id number]:19:13Addendum [id number] [id number] for patient kgng70258-3QwjsSUZYXONWRJ[address] Tj[id number] ZQKMQQXGWVNSWRNG7428-32-00L39:19:131.2.840 .[id number]|1.2.840.400176.1.13.104. [id number]
[2023-02-23] MEDS ORDERED: IBUPROFEN 200 MG TAB PO ONE (11:47)
[2023-02-23] MEDS ORDERED: IBUPROFEN 400 MG TAB ONE (11:47)
--- NOTE | 2023-02-23 13:18 | RAD REPORT ---
EXAM DESCRIPTION: RAD - Foot Left 3 View - 02/23/2023 12:20 pm CLINICAL HISTORY: PAIN COMPARISON: Foot Left 3 View dated 02/19/2011 TECHNIQUE: Left foot, 3 views. FINDINGS: Mildly displaced fractures along the proximal metadiaphysis of the fourth and fifth proxim al phalanges. Surrounding soft tissue swelling. No dislocation or periosteal reaction. No air or foreign body in the soft tissues. IMPRESSION: Mildly displaced fractures along the proximal metadiaphysis of the fourth and fifth prox imal phalanges.
--- NOTE | 2023-02-23 14:14 | ER ---
Nurse's Notes [facility] Name: Melchor Cisse III Age: 62 yrs Sex: Male : 1960 Arrival Date: 02/23/2023 Time: 11:01 Bed 11 Private MD: Diagnosis: Displaced fracture of proximal phalanx of left lesser toe(s), initial encounter for closed fracture-TOES 4 AND 5 Presentation: 02/23 11:10 Chief complaint: Patient states: STATES HIT LEFT FOOT ON WALL LAST NIGHT WHILE CHASING db AFTER SISTERS DOG. Coronavirus screen: Vaccine status: Patient reports receiving the 2nd dose of the covid vaccine. Client denies travel out of the [place] in the last 14 days. At this time, the client does not indicate any symptoms associated with coronavirus-19. Ebola Screen: Patient negative for fever greater than or equal to 101.5 degrees Fahrenheit, and additional compatible Ebola Virus Disease symptoms Patient denies exposure to infectious person. Patient denies travel to an Ebola-affected area in the 21 days before illness onset. No symptoms or risks identified at this time. Initial Sepsis Screen: Does the patient meet any 2 criteria? Does the patient have a suspected source of infection? No. Patient's initial sepsis screen is negative. Risk Assessment: Do you want to hurt yourself or someone else? Patient reports no desire to harm self or others. Onset of symptoms was February 23, 2023. 11:10 Method Of Arrival: Ambulatory db 11:10 Acuity: ANTONIA 3 db Triage Assessment: 11:13 General: Appears in no apparent distress. comfortable, Behavior is calm, cooperative. db Pain: Complains of pain in left foot. Neuro: Level of Consciousness is awake, alert, obeys commands, Oriented to person, place, time, situation. Musculoskeletal: Circulation, motion, and sensation intact. Capillary refill < 3 seconds. Injury Description: Bruise sustained to left foot. Historical: - Allergies: 11:12 Iodine; db 11:12 shrimp; db 11:12 Morphine; db - PMHx: 11:12 Crohn's; Cirrhosis; HERPES; HIV; AIDS (HIV); Hepatitis; HPV; Prostate Cancer (rectal ); db ibs; ulcerative colitis; - PSHx: 11:12 Cholecystectomy; rectal; db - Immunization history:: Adult Immunizations unknown. - Social history:: Smoking status: Patient/guardian denies using tobacco, Stopped _ months ago 9. Screenin:18 [facility] ED Fall Risk Assessment (Adult) History of falling in the last 3 months, db including since admission Yes- single mechanical fall (1 pt) Confusion or Disorientation No (0 pts) Intoxicated or Sedated No (0 pts) Impaired Gait No (0 pts) Mobility Assist Device Used No (0 pt) Altered Elimination No (0 pt) Score/Fall Risk Level 0 - 2 = Low Risk Oriented to surroundings, Maintained a safe environment. Abuse screen: Denies threats or abuse. Denies injuries from another. Nutritional screening: No deficits noted. Tuberculosis screening: No symptoms or risk factors identified. Assessment: 11:17 Reassessment: Patient appears in no apparent distress at this time. Patient and/or db family updated on plan of care and expected duration. Pain level reassessed. Patient is alert, oriented x 3, equal unlabored respirations, skin warm/dry/pink. General: Appears in no apparent distress. comfortable, Behavior is calm, cooperative, appropriate for age. Neuro: Level of Consciousness is awake, alert, obeys commands, Oriented to person, place, time, situation. Musculoskeletal: Circulation, motion, and sensation intact. Capillary refill < 3 seconds, Range of motion: intact in all extremities, Reports pain in left foot. 12:11 Reassessment: Patient appears in no apparent distress at this time. Patient and/or db family updated on plan of care and expected duration. Pain level reassessed. Patient is alert, oriented x 3, equal unlabored respirations, skin warm/dry/pink. Pain: Complains of pain in left foot. 12:11 Reassessment: CALLED RADIOLOGY FOR XRAY. NO ANSWER. db Vital Signs: 11:10 BP 141 / 104; Pulse 90; Resp 18; Temp 98.5(O); Pulse Ox 97% ; Weight 76.2 kg; Height 5 db ft. 11 in. ; Pain 7/10; 12:10 BP 143 / 83; Pulse 76; Resp 16; Pulse Ox 99% on R/A; db 11:10 Body Mass Index 23.43 (76.20 kg, 180.34 cm) db 11:10 Pain Scale: Adult db ED Course: 11:04 Patient arrived in ED. mg5 11:12 Triage completed. db 11:13 Arm band placed on Patient placed in an exam room. db 11:15 Shalini Navarrete, RN is Primary Nurse. db 11:26 Oliver Mehta MD is Attending Physician. shawn 11:36 ICE APPLIED TO LEFT FOOT. db 12:12 Patient has correct armband on for positive identification. Bed in low position. Call db light in reach. Side rails up X 1. Pulse ox on. NIBP on. 12:21 Foot Left 3 View XRAY In Process Unspecified. EDMS 14:11 Conrad Tran MD is Referral Physician. shawn 14:24 Ortho shoe applied to left foot. em1 Administered Medications: 11:36 Drug: Ibuprofen PO 600 mg PO once Route: PO; db Outcome: 14:13 Discharge ordered by . shawn 14:25 Patient left the ED. em1 Signatures: Dispatcher [employer] EDIL Oliver Mehta MD MD cha Martinez, Eric em1 Shalini Navarrete, RN RN Nicci Savage mg5 Corrections: (The following items were deleted from the chart) 11:13 11:12 PMHx: AIDS (rectal ); db db
--- NOTE | 2023-02-23 14:14 | EDPHYS ---
Physician Documentation [facility] Name: Melchor Cisse III Age: 62 yrs Sex: Male : 1960 Arrival Date: 02/23/2023 Time: 11:01 Bed 11 Private MD: ANGE Physician Oliver Mehta HPI: 02/23 11:29 This 62 yrs old Male presents to ER via Ambulatory with complaints of Foot shawn Injury. Historical: - Allergies: 11:12 Iodine; db 11:12 shrimp; db 11:12 Morphine; db - PMHx: 11:12 Crohn's; Cirrhosis; HERPES; HIV; AIDS (HIV); Hepatitis; HPV; Prostate Cancer (rectal ); db ibs; ulcerative colitis; - PSHx: 11:12 Cholecystectomy; rectal; db - Immunization history:: Adult Immunizations unknown. - Social history:: Smoking status: Patient/guardian denies using tobacco, Stopped _ months ago 9. ROS: 14:07 Constitutional: Negative for fever, chills, and weight loss, Eyes: Negative for injury, shawn pain, redness, and discharge, ENT: Negative for injury, pain, and discharge, Neck: Negative for injury, pain, and swelling, Cardiovascular: Negative for chest pain, palpitations, and edema, Respiratory: Negative for shortness of breath, cough, wheezing, and pleuritic chest pain, Abdomen/GI: Negative for abdominal pain, nausea, vomiting, diarrhea, and constipation, Back: Negative for injury and pain, : Negative for injury, bleeding, discharge, and swelling, Skin: Negative for injury, rash, and discoloration, Neuro: Negative for headache, weakness, numbness, tingling, and seizure, Psych: Negative for depression, anxiety, suicide ideation, homicidal ideation, and hallucinations, Allergy/Immunology: Negative for hives, rash, and allergies, Endocrine: Negative for neck swelling, polydipsia, polyuria, polyphagia, and marked weight changes, Hematologic/Lymphatic: Negative for swollen nodes, abnormal bleeding, and unusual bruising, 14:07 MS/extremity: Positive for injury or acute deformity, contusion, decreased range of motion, pain, swelling, tenderness, of the dorsum of left foot, left fourth toe and left fifth toe, Exam: 14:07 Constitutional: This is a well developed, well nourished patient who is awake, alert, shawn and in no acute distress. Head/Face: Normocephalic, atraumatic. Eyes: Pupils equal round and reactive to light, extra-ocular motions intact. Lids and lashes normal. Conjunctiva and sclera are non-icteric and not injected. Cornea within normal limits. Periorbital areas with no swelling, redness, or edema. ENT: Nares patent. No nasal discharge, no septal abnormalities noted. Tympanic membranes are normal and external auditory canals are clear. Oropharynx with no redness, swelling, or masses, exudates, or evidence of obstruction, uvula midline. Mucous membranes moist. Neck: Trachea midline, no thyromegaly or masses palpated, and no cervical lymphadenopathy. Supple, full range of motion without nuchal rigidity, or vertebral point tenderness. No Meningismus. Chest/axilla: Normal chest wall appearance and motion. Nontender with no deformity. No lesions are appreciated. Cardiovascular: Regular rate and rhythm with a normal S1 and S2. No gallops, murmurs, or rubs. Normal PMI, no JVD. No pulse deficits. Respiratory: Lungs have equal breath sounds bilaterally, clear to auscultation and percussion. No rales, rhonchi or wheezes noted. No increased work of breathing, no retractions or nasal flaring. Abdomen/GI: Soft, non-tender, with normal bowel sounds. No distension or tympany. No guarding or rebound. No evidence of tenderness throughout. Back: No spinal tenderness. No costovertebral tenderness. Full range of motion. Male : Normal genitalia with no discharge or lesions. Skin: Warm, dry with normal turgor. Normal color with no rashes, no lesions, and no evidence of cellulitis. Neuro: Awake and alert, GCS 15, oriented to person, place, time, and situation. Cranial nerves II-XII grossly intact. Motor strength 5/5 in all extremities. Sensory grossly intact. Cerebellar exam normal. Normal gait. Psych: Awake, alert, with orientation to person, place and time. Behavior, mood, and affect are within normal limits. 14:07 Musculoskeletal/extremity: ROM: intact in all extremities, full active range of motion, full passive range of motion, limited active range of motion due to pain, limited passive range of motion due to pain, Circulation is intact in all extremities. Sensation intact. Compartment Syndrome exam of affected extremity: is normal. Joints: Tendon exam: specific tendon testing normal through active and passive range of motion DVT Exam: No signs of deep vein thrombosis. negative Homans' sign noted on exam, no appreciated bluish discoloration, no erythema, no increased warmth, pain, swelling, tenderness, Vital Signs: 11:10 BP 141 / 104; Pulse 90; Resp 18; Temp 98.5(O); Pulse Ox 97% ; Weight 76.2 kg; Height 5 db ft. 11 in. ; Pain 7/10; 12:10 BP 143 / 83; Pulse 76; Resp 16; Pulse Ox 99% on R/A; db 11:10 Body Mass Index 23.43 (76.20 kg, 180.34 cm) db 11:10 Pain Scale: Adult db MDM: 11:26 Patient medically screened. shawn 14:07 Differential diagnosis: fracture. Data reviewed: vital signs, nurses notes. shawn Consideration of Admission/Observation Escalation of care including admission/observation considered. I considered the following discharge prescriptions or medication management in the emergency department Medications were administered in the Emergency Department. See MAR. Independent interpretation of the following test(s) in the Emergency Department X-Ray: My interpretation is 4TH AND 5TH PROX PHALYNX FRACTURES. 02/23 11:29 Order name: Foot Left 3 View XRAY; Complete Time: 14:05 [facility] 02/23 11:29 Order name: Ice pack; Complete Time: 11:36 [facility] 02/23 14:05 Order name: Misc. Order: BRITTANY TAPE 4 AND 5; Complete Time: 14:24 [facility] 02/23 14:05 Order name: Post-op shoe; Complete Time: 14:24 [facility] Administered Medications: 11:36 Drug: Ibuprofen PO 600 mg PO once Route: PO; db Disposition Summary: 02/23/23 14:13 Discharge Ordered Notes: Location: Home shawn Problem: new shawn Symptoms: have improved shawn Condition: Stable shawn Diagnosis - Displaced fracture of proximal phalanx of left lesser toe(s), initial encounter for shawn closed fracture - TOES 4 AND 5 Followup: shawn - With: Private Physician - When: 2 - 3 days - Reason: Recheck today's complaints, Continuance of care, Re-evaluation by your physician Followup: shawn - With: Conrad Tran MD - When: 2 - 3 days - Reason: Recheck today's complaints, Re-evaluation by your physician Discharge Instructions: - Discharge Summary Sheet shawn - Toe Fracture shawn - Toe Fracture, Pxnp-dv-Llwn shawn - Toe Fracture Rehab shawn Forms: - Medication Reconciliation Form shawn - Thank You Letter shawn - Antibiotic Education shawn - Prescription Opioid Use shawn - Patient Portal Instructions shawn - Leadership Thank You Letter shawn Prescriptions: - acetaminophen-codeine 300-30 mg Oral tablet - take 2 tablet ORAL route every 6 hours; 20 tablet; Refills: 0, Product [facility] Selection Permitted Signatures: Dispatcher [employer] EDOliver Vasquez MD MD cha Benton, Danielle, RN RN db Corrections: (The following items were deleted from the chart) 11:13 11:12 PMHx: AIDS (rectal ); db db
[2023-02-23 14:31] VITALS: TEMP 98.5
[2023-02-23 14:32] VITALS: BP 143/83; O2SAT 99
== END 2023-02-23 14:25 | disposition home or self-care (01) ==
LOC: ER 11:01
DX: S92.512A Displaced fracture of proximal phalanx of left lesser toe(s), initial encounter for closed fracture (principal); Z88.5 Allergy status to narcotic agent; Z91.013 Allergy to seafood; Z91.048 Other nonmedicinal substance allergy status
CPT/HCPCS: 99283

== ENCOUNTER 2023-10-19 04:54 | Emergency (ER) | payer OTHER ==
[2023-10-19] MEDS ORDERED: KETOROLAC 30 MG/ML INJ ONE (05:04)
[2023-10-19] MEDS ORDERED: FENTANYL CITR 100 MCG/2 ML ONE (05:05)
[2023-10-19 05:23] LABS: Absolute Basophils 0.1 K/uL (0-0.5); Absolute Eosinophils 0.3 K/uL (0-0.5); Absolute Lymphocytes (CBC) 2.1 K/uL (0.7-4.9); Absolute Monocytes 0.5 K/uL (0.1-1.3); Absolute Neutrophil 4.5 K/uL (1.8-8.0); Eosinophils % 3.6 % (0-4.4); Hematocrit 42.1 % (39.6-49.0); Hemoglobin 14.7 g/dL (13.6-17.9); Lymphocytes % 28.1 % (15.3-44.8); MCH 31.1 pg (27.0-35.0); MCHC 34.8 g/dL (32.0-36.0); MCV 89.4 fL (80-100); MPV 7.8 fL (7.6-11.3); Monocytes % 6.6 % (3.3-12.3); Neutrophils % 60.7 % (41.7-73.7); Nucleated Red Blood Cells % 0.2 % (0-0); Platelets 166 thou/uL (152-406); RBC Red Blood Cell Count 4.71 M/uL (4.33-5.43); Red Cell Distribution Width 13.7 % (12.1-15.2)
[2023-10-19 05:43] LABS: Albumin 3.6 g/dL (3.4-5.0); Anion Gap 8.5 mEq/L (5.0-15.0); Bilirubin Total 0.6 mg/dL (0.2-1.0); Globulin 3.7 g/dL (2.3-3.5); Potassium 3.5 mEq/L (3.5-5.1); Protein, Total 7.3 g/dL (6.4-8.2)
--- NOTE | 2023-10-19 06:28 | RAD REPORT ---
EXAM DESCRIPTION: CTAbdomen Pelvis Wo Contrast - 10/19/2023 5:29 am CLINICAL HISTORY: FLANK PAIN COMPARISON: Abdomen Pelvis Wo Contrast dated 02/17/2023; Abdomen Pelvis Wo Contrast dated 023; Abdomen Pelvis Wo Contrast dated 08/01/2022; Stone Protocol dated 09/13/2017 TECHNIQUE: CT of the abdomen and pelvis was performed. All CT scans are performed using dose optimization technique as appropriate and may include automated exposure control or mA/KV adjustment according to patient size. FINDINGS: Lower chest: No acute abnormality. 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 Liver: Cirrhotic liver morphology. Biliary: Cholecystectomy Stomach: No significant focal abnormality. Duodenum: No significant focal abnormality. Pancreas: No significant abnormality. Spleen: No significant abnormality. Adrenal: No suspicious lesions. Kidney/ureter: No hydronephrosis. No renal calculi. Retroperitoneum: No retroperitoneal adenopathy. Vascular: No aneurysm. Atherosclerosis . Bowel: No significant focal abnormality. Normal appendix. Peritoneum: No ascites or free air. Bladder: Grossly unremarkable. Reproductive: No adnexal masses. Bones: No acute fracture. Mild disc height loss at L5-S1. Chronic superior endplate deformity at T11 and L2. Other: n/a IMPRESSION: No acute intra-abdominal or pelvic finding. No urinary tract calculi identified.
[2023-10-19 06:52] LABS: Specific Gravity 1.016 (1.005-1.030); Sqamous Epithelial None Seen /HPF (None Seen); Urine Bacteria None Seen /HPF (<20); Urine Bilirubin NEGATIVE (Negative); Urine Blood Negative (Negative); Urine Clarity Clear (Clear); Urine Color Light-Yellow (Yellow); Urine Culture Reflex Order NOT NEEDED; Urine Glucose NEGATIVE (Negative); Urine Ketones NEGATIVE (Negative); Urine Microscopic Reflex YN ORDER UMIC; Urine Mucus Slight /HPF (None Seen); Urine Nitrite NEGATIVE (Negative); Urine Protein NEGATIVE (Negative); Urine RBC <5 /HPF (None Seen); Urine Urobilinogen Normal (Normal); Urine WBC <5 /HPF (<5)
[2023-10-19] MEDS ORDERED: DIAZEPAM 10 MG/2 ML INJ SYRINGE ONE (06:53)
--- NOTE | 2023-10-19 06:56 | EDPHYS ---
Physician Documentation [facility] Name: Melchor Cisse III Age: 63 yrs Sex: Male : 1960 Arrival Date: 10/19/2023 Time: 04:54 Bed 7 Private MD: ED Physician Braxton Smith HPI: 10/18 05:10 This 63 yrs old Male presents to ER via Unassigned with complaints of Flank ec2 Pain. 05:10 Patient arrives today for left leg pain radiating from the left flank into the left ec2 scrotum. Some nausea, some vomiting. No history of kidney stones. Reports no urinary problems. Reports history of HIV as well as herpes.. Historical: - Allergies: 04:55 Iodine; jw7 04:55 Morphine; jw7 04:55 shrimp; jw7 - PMHx: 04:55 AIDS (HIV); Cirrhosis; Crohn's; Hepatitis; HERPES; HIV; HPV; ibs; Prostate Cancer jw7 (rectal ); ulcerative colitis; - PSHx: 04:55 Cholecystectomy; rectal; jw7 - Immunization history:: Adult Immunizations up to date. - Infectious Disease History:: Denies. - Social history:: Smoking status: Patient reports the use of cigarette tobacco products, smokes one pack cigarettes per day. Patient/guardian denies using alcohol, street drugs, IV drugs. ROS: 05:10 Constitutional: as per hpi ec2 Exam: 05:10 Constitutional: GEN: NAD Head: atraumatic Eyes: EOMI Ears: External ears are ec2 normal. CV: regular rate LUNGS: no respiratory distress ABD: non-distended, soft, tender to left abdomen, left flank TTP. SKIN: no evidence of rashes MSK: no evidence of trauma NEURO: moves all extremities equally Vital Signs: 04:55 BP 184 / 96; Pulse 68; Resp 20 S; Temp 97.3(O); Pulse Ox 100% on R/A; Weight 71.67 kg; jw7 Height 5 ft. 11 in. ; Pain 10; 05:46 BP 174 / 84; Pulse 52; Resp 18 S; Pulse Ox 99% on R/A; jw7 06:30 BP 175 / 96; Pulse 63; Resp 17 S; Pulse Ox 96% on R/A; jw7 07:59 BP 174 / 92; Pulse 60; Resp 17; Pulse Ox 96% on R/A; ll1 04:55 Body Mass Index 22.04 (71.67 kg, 180.34 cm) jw7 04:55 Pain Scale: Adult jw7 MDM: 04:56 Patient medically screened. ec2 05:10 Data reviewed: vital signs. ED course: Patient arrives today for evaluation of left ec2 flank pain. Examination remarkable for abdominal findings as above. Obtain lab work, urine studies, CT imaging. Differential includes ureteral stone, pyelonephritis, diverticulitis.. 06:10 ED course: Metabolic profile reassuring with appropriate lecture lites and renal ec2 function. CBC is reassuring. Lipase within normal ranges. Pending CT abdomen pelvis. . 06:39 ED course: CT abdomen pelvis shows no acute intra-abdominal process.. ec2 06:54 ED course: Urine noninfectious appearing. Will discharge home. Return precautions ec2 given.. 10/18 04:56 Order name: CBC with Diff; Complete Time: 06:10 ec2 10/18 04:56 Order name: CMP; Complete Time: 06:10 ec2 10/18 04:56 Order name: Lipase; Complete Time: 06:10 ec2 10/18 04:56 Order name: Urinalysis w/ reflexes; Complete Time: 06:54 ec2 10/18 04:56 Order name: CT Abd/Pelvis - Without Contrast; Complete Time: 06:39 ec2 10/18 04:56 Order name: IV Saline Lock; Complete Time: 05:00 ec2 10/18 04:56 Order name: Labs collected and sent; Complete Time: 05:47 ec2 Administered Medications: 05:05 Drug: TORadol - Ketorolac IVP 15 mg IVP once Route: IVP; Site: left antecubital; yb 05:47 Follow up: Response: No adverse reaction; Marked relief of symptoms; Pain is decreased jw7 05:05 Drug: fentaNYL (PF) IVP 50 mcg IVP once Route: IVP; Site: left antecubital; yb 05:47 Follow up: Response: No adverse reaction; Marked relief of symptoms; Pain is decreased jw7 06:56 Drug: Diazepam IVP 5 mg IVP once Route: IVP; Site: left antecubital; jw7 07:59 Follow up: Response: No adverse reaction; Pain is decreased; RASS: Alert and Calm (0) ll1 Disposition Summary: 10/19/23 06:54 Discharge Ordered Notes: Location: Home ec2 Condition: Stable ec2 Diagnosis - Lower abdominal pain, unspecified ec2 Followup: ec2 - With: Private Physician - When: - Reason: Re-evaluation by your physician Discharge Instructions: - Discharge Summary Sheet ec2 - Abdominal Pain, Adult ec2 - Muscle Strain, [id number] ec2 Forms: - Medication Reconciliation Form ec2 - Antibiotic Education ec2 - Prescription Opioid Use ec2 - Patient Portal Instructions ec2 - Leadership Thank You Letter ec2 Prescriptions: - methocarbamol 500 mg Oral tablet - take 1 tablet ORAL route 4 times per day; 15 tablet; Refills: 0, Product ec2 Selection Permitted Signatures: Dispatcher [employer] EDMS Loren Bland RN RN jw7 Braxton Smith MD MD ec2 Kym Bhatt RN RN yb Holli Moore RN ll1 Corrections: (The following items were deleted from the chart) 04:57 04:57 Abdomen Pelvis Wo Con+CT.RAD.BRZ ordered. EDMS EDMS 06:45 06:10 Rendon ordered. ec2 ec2
--- NOTE | 2023-10-19 06:56 | ER ---
Nurse's Notes [facility] Name: Melchor Cisse III Age: 63 yrs Sex: Male : 1960 Arrival Date: 10/19/2023 Time: 04:54 Bed 7 Private MD: Diagnosis: Lower abdominal pain, unspecified Presentation: 10/18 04:55 Chief complaint: Chief complaint: Patient states: "Yesterday I started having left jw7 side/back pain that wraps around to my abdomen and radiates to my crotch and left leg.". 04:55 Method Of Arrival: EMS: [facility] jw7 04:55 Coronavirus screen: At this time, the client does not indicate any symptoms associated jw7 with coronavirus-19. Ebola Screen: No symptoms or risks identified at this time. Initial Sepsis Screen: Does the patient meet any 2 criteria? No. Patient's initial sepsis screen is negative. Does the patient have a suspected source of infection? No. Patient's initial sepsis screen is negative. Risk Assessment: Do you want to hurt yourself or someone else? Patient reports no desire to harm self or others. Onset of symptoms was October 18, 2023. Care prior to arrival: Medication(s) given: Normal saline infusion, 500 mL, zofran 4 mg, Toradol 30mg IV initiated. 18 GA, in the left antecubital area. 04:55 Acuity: ANTONIA 3 jw7 Triage Assessment: 04:55 General: Appears in no apparent distress. uncomfortable, Behavior is calm, cooperative, jw7 appropriate for age, restless. Pain: Complains of pain in left mid back Pain radiates to abdomen, groin and left leg Pain currently is 10 out of 10 on a pain scale. Quality of pain is described as sharp, shooting, stabbing, Pain began 1 day ago. Is continuous. EENT: No deficits noted. No signs and/or symptoms were reported regarding the EENT system. Neuro: Level of Consciousness is awake, alert, obeys commands, Oriented to person, place, time, situation, Appropriate for age. Cardiovascular: Heart tones S1 S2 present Capillary refill < 3 seconds Clubbing of nail beds is absent JVD is absent Patient's skin is warm and dry. Respiratory: Airway is patent Trachea midline Respiratory effort is even, unlabored, Respiratory pattern is regular, symmetrical. GI: Abdomen is flat, non-distended, Bowel sounds present X 4 quads. Abd is soft Abdomen is tender to palpation. : No deficits noted. No signs and/or symptoms were reported regarding the genitourinary system. Derm: Skin is intact, is healthy with good turgor, Skin is dry, Skin is normal, Skin temperature is warm. Musculoskeletal: Circulation, motion, and sensation intact. Range of motion: intact in all extremities. Historical: - Allergies: 04:55 Iodine; jw7 04:55 Morphine; jw7 04:55 shrimp; jw7 - PMHx: 04:55 AIDS (HIV); Cirrhosis; Crohn's; Hepatitis; HERPES; HIV; HPV; ibs; Prostate Cancer jw7 (rectal ); ulcerative colitis; - PSHx: 04:55 Cholecystectomy; rectal; jw7 - Immunization history:: Adult Immunizations up to date. - Infectious Disease History:: Denies. - Social history:: Smoking status: Patient reports the use of cigarette tobacco products, smokes one pack cigarettes per day. Patient/guardian denies using alcohol, street drugs, IV drugs. Screenin:55 Abuse screen: Denies threats or abuse. Denies injuries from another. jw7 04:55 [facility] ED Fall Risk Assessment (Adult) History of falling in the last 3 months, jw7 including since admission No falls in past 3 months (0 pts) Confusion or Disorientation No (0 pts) Intoxicated or Sedated No (0 pts) Impaired Gait No (0 pts) Mobility Assist Device Used No (0 pt) Altered Elimination No (0 pt) Score/Fall Risk Level 0 - 2 = Low Risk Oriented to surroundings, Maintained a safe environment, Educated pt \\T\\ family on fall prevention, incl call for assistance when getting out of bed. Nutritional screening: No deficits noted. Tuberculosis screening: No symptoms or risk factors identified. Assessment: 04:55 General: See Triage Assessment. jw7 05:46 Reassessment: Patient appears in no apparent distress at this time. Patient and/or jw7 family updated on plan of care and expected duration. Pain level reassessed. Patient is alert, oriented x 3, equal unlabored respirations, skin warm/dry/pink. Patient states symptoms have improved. 06:45 Reassessment: Patient appears in no apparent distress at this time. No changes from jw7 previously documented assessment. Patient and/or family updated on plan of care and expected duration. Pain level reassessed. Patient is alert, oriented x 3, equal unlabored respirations, skin warm/dry/pink. 07:59 Reassessment: No changes from previously documented assessment. Patient and/or family ll1 updated on plan of care and expected duration. Pain level reassessed. Patient is alert, oriented x 3, equal unlabored respirations, skin warm/dry/pink. Vital Signs: 04:55 BP 184 / 96; Pulse 68; Resp 20 S; Temp 97.3(O); Pulse Ox 100% on R/A; Weight 71.67 kg; jw7 Height 5 ft. 11 in. ; Pain 10/10; 05:46 BP 174 / 84; Pulse 52; Resp 18 S; Pulse Ox 99% on R/A; jw7 06:30 BP 175 / 96; Pulse 63; Resp 17 S; Pulse Ox 96% on R/A; jw7 07:59 BP 174 / 92; Pulse 60; Resp 17; Pulse Ox 96% on R/A; ll1 04:55 Body Mass Index 22.04 (71.67 kg, 180.34 cm) jw7 04:55 Pain Scale: Adult jw7 ED Course: 04:55 Arm band placed on. jw7 04:55 Patient has correct armband on for positive identification. Bed in low position. Call jw7 light in reach. Side rails up X2. Provided Education on: use of call light. 04:56 Patient arrived in ED. ec2 04:56 Braxton Smith MD is Attending Physician. ec2 05:00 Maintain EMS IV. Dressing intact. Good blood return noted. Site clean \\T\\ dry. Gauge \\T\\ jw 7 site: 18G LAC. 05:30 CT Abd/Pelvis - Without Contrast In Process Unspecified. EDMS 05:42 Triage completed. jw7 07:59 No provider procedures requiring assistance completed. IV discontinued, intact, ll1 bleeding controlled, No redness/swelling at site. Pressure dressing applied. Administered Medications: 05:05 Drug: TORadol - Ketorolac IVP 15 mg IVP once Route: IVP; Site: left antecubital; 05:47 Follow up: Response: No adverse reaction; Marked relief of symptoms; Pain is decreased jw7 05:05 Drug: fentaNYL (PF) IVP 50 mcg IVP once Route: IVP; Site: left antecubital; yb 05:47 Follow up: Response: No adverse reaction; Marked relief of symptoms; Pain is decreased jw7 06:56 Drug: Diazepam IVP 5 mg IVP once Route: IVP; Site: left antecubital; jw7 07:59 Follow up: Response: No adverse reaction; Pain is decreased; RASS: Alert and Calm (0) 1 Medication: 08:00 VIS not applicable for this client. 1 Outcome: 06:54 Discharge ordered by . ec2 08:00 Discharged to home via wheelchair, 1 08:00 Condition: stable 08:00 Discharge instructions given to patient, Instructed on discharge instructions, follow up and referral plans. no drinking with medication, no driving heavy equipment, medication usage, Demonstrated understanding of instructions, follow-up care, medications, Prescriptions given X 1, 08:00 Patient left the ED. ll1 Signatures: Dispatcher [employer] Holli Lucio RN RN ll1 Loren Bland RN RN jw7 Braxton Smith MD MD ec2 Kym Bhatt RN RN yb
[2023-10-23 14:25] VITALS: BP 174/92; TEMP 97.3; O2SAT 96
== END 2023-10-19 08:00 | disposition home or self-care (01) ==
LOC: ER 04:54
DX: R10.30 Lower abdominal pain, unspecified (principal); K50.90 Crohn's disease, unspecified, without complications; K74.60 Unspecified cirrhosis of liver; K75.9 Inflammatory liver disease, unspecified; F17.210 Nicotine dependence, cigarettes, uncomplicated; Z21 Asymptomatic human immunodeficiency virus [HIV] infection status; Z85.46 Personal history of malignant neoplasm of prostate; Z88.5 Allergy status to narcotic agent; Z88.8 Allergy status to other drugs, medicaments and biological substances; Z91.013 Allergy to seafood
CPT/HCPCS: 85025; 81001; 36415; 83690; 80053; 74176; 96375; 96374; 99284; J3360; J3010

== ENCOUNTER 2023-10-19 08:20 | Emergency (ER) | payer OTHER ==
[2023-10-19] MEDS ORDERED: PROMETHAZINE INJ 25 MG/ML AMP ONE (08:57)
[2023-10-19] MEDS ORDERED: PANTOPRAZOLE 40 MG INJ ONE (08:57)
[2023-10-19] MEDS ORDERED: NA CHLORIDE 0.9% 1,000 ML ONE (08:57)
[2023-10-19 09:15] LABS: Absolute Lymphocytes (CBC) 1.5 K/uL (0.7-4.9); Absolute Monocytes 0.2 K/uL (0.1-1.3); Absolute Neutrophil 5.7 K/uL (1.8-8.0); Basophils % 0.6 % (0-1.3); Eosinophils % 0.4 % (0-4.4); Hematocrit 44.7 % (39.6-49.0); Hemoglobin 15.2 g/dL (13.6-17.9); Lymphocytes % 19.7 % (15.3-44.8); MCH 30.7 pg (27.0-35.0); MCHC 34.1 g/dL (32.0-36.0); MPV 7.8 fL (7.6-11.3); Monocytes % 2.7 % (3.3-12.3); Neutrophils % 76.6 % (41.7-73.7); Nucleated Red Blood Cells % 0.1 % (0-0); Platelets 173 thou/uL (152-406); RBC Red Blood Cell Count 4.96 M/uL (4.33-5.43); Red Cell Distribution Width 13.3 % (12.1-15.2)
[2023-10-19 09:38] LABS: Albumin 3.6 g/dL (3.4-5.0); Albumin/Globulin Ratio 0.9 (1.1-1.8); Anion Gap 7.8 mEq/L (5.0-15.0); Bilirubin Total 0.6 mg/dL (0.2-1.0); Globulin 3.9 g/dL (2.3-3.5); Potassium 3.8 mEq/L (3.5-5.1); Protein, Total 7.5 g/dL (6.4-8.2); Troponin High Sensitivity 6.1 pg/mL (<58.9)
--- NOTE | 2023-10-19 10:43 | ER ---
Nurse's Notes [facility] Name: Melchor Cisse III Age: 63 yrs Sex: Male : 1960 Arrival Date: 10/19/2023 Time: 08:20 Bed 7 Private MD: Diagnosis: Nausea with vomiting, unspecified;Lower abdominal pain, unspecified Presentation: 10/18 08:25 Chief complaint: Patient states: left leg pain since Friday, n/v since midnight. pt kc6 reports abdominal cramping. pt actively vomiting shortly after discharge and states he is still not feeling well. 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 Coronavirus screen: At this time, the client does not indicate any symptoms associated with coronavirus-19. Ebola Screen: No symptoms or risks identified at this time. Initial Sepsis Screen: Does the patient meet any 2 criteria? No. Patient's initial sepsis screen is negative. Does the patient have a suspected source of infection? No. Patient's initial sepsis screen is negative. Risk Assessment: Do you want to hurt yourself or someone else? Patient reports no desire to harm self or others. Onset of symptoms was October 19, 2023. 08:25 Method Of Arrival: Wheelchair kc6 08:25 Acuity: ANTONIA 3 kc6 Triage Assessment: 08:28 General: Appears in no apparent distress. uncomfortable, well groomed, well developed, kc6 Behavior is calm, cooperative, appropriate for age. Pain: Complains of pain in left leg and abdomen Quality of pain is described as crampy, sharp, shooting. EENT: No signs and/or symptoms were reported regarding the EENT system. Neuro: Level of Consciousness is awake, alert, obeys commands, Oriented to person, place, time, situation, Appropriate for age. Cardiovascular: Capillary refill < 3 seconds. Respiratory: Airway is patent Trachea midline Respiratory effort is even, unlabored, Respiratory pattern is regular, symmetrical. GI: Abdomen is flat, non-distended, Pt is actively vomiting dark fluid Bowel sounds present X 4 quads. Reports cramping, nausea, vomiting. : No signs and/or symptoms were reported regarding the genitourinary system. Derm: No signs and/or symptoms reported regarding the dermatologic system. Skin is intact, is healthy with good turgor, Skin is dry, Skin is pale, Skin temperature is warm. Musculoskeletal: No signs and/or symptoms reported regarding the musculoskeletal system. Circulation, motion, and sensation intact. Capillary refill < 3 seconds, Range of motion: intact in all extremities. Historical: - Allergies: 08:28 Iodine; kc6 08:28 Morphine; kc6 08:28 shrimp; kc6 - PMHx: 08:28 AIDS (HIV); Cirrhosis; Crohn's; Hepatitis; HERPES; HIV; HPV; ibs; Prostate Cancer kc6 (rectal ); ulcerative colitis; - PSHx: 08:28 Cholecystectomy; rectal; kc6 - Immunization history:: Adult Immunizations unknown. - Infectious Disease History:: Denies. - Social history:: Smoking status: unknown. Screenin:30 [facility] ED Fall Risk Assessment (Adult) History of falling in the last 3 months, kc6 including since admission No falls in past 3 months (0 pts) Confusion or Disorientation No (0 pts) Intoxicated or Sedated No (0 pts) Impaired Gait No (0 pts) Mobility Assist Device Used No (0 pt) Altered Elimination No (0 pt) Score/Fall Risk Level 0 - 2 = Low Risk. Abuse screen: Denies threats or abuse. Denies injuries from another. Nutritional screening: No deficits noted. Tuberculosis screening: No symptoms or risk factors identified. Assessment: 08:33 Reassessment: please see triage. 6 09:54 Reassessment: Patient appears in no apparent distress at this time. No changes from [facility] previously documented assessment. Patient and/or family updated on plan of care and expected duration. Pain level reassessed. Patient is alert, oriented x 3, equal unlabored respirations, skin warm/dry/pink. Patient states feeling better. Patient states symptoms have improved. 11:09 Reassessment: Patient appears in no apparent distress at this time. No changes from 6 previously documented assessment. Patient and/or family updated on plan of care and expected duration. Pain level reassessed. Patient is alert, oriented x 3, equal unlabored respirations, skin warm/dry/pink. Patient states feeling better. Patient states symptoms have improved. Vital Signs: 08:25 BP 184 / 111; Pulse 54; Resp 18 S; Pulse Ox 100% on R/A; Weight 71.67 kg (R); Height 5 kc6 ft. 11 in. (R); 08:38 BP 204 / 105; kc6 09:54 BP 192 / 99; Pulse 50; Resp 16 S; Pulse Ox 99% on R/A; kc6 10:20 BP 177 / 102; Pulse 52; Resp 16 S; Pulse Ox 99% on R/A; kc6 08:25 Body Mass Index 22.04 (71.67 kg, 180.34 cm) kc6 ED Course: 08:25 Patient arrived in ED. kc6 08:28 Triage completed. kc6 08:28 Arm band placed on. kc6 08:30 Patient has correct armband on for positive identification. Bed in low position. Call kc6 light in reach. Side rails up X 1. Pulse ox on. NIBP on. Warm blanket given. Pillow given. 08:31 Karla Hsu MD is Attending Physician. sd2 08:38 Tamar Flores RN is Primary Nurse. kc6 08:54 Inserted saline lock: 20 gauge in right antecubital area, using aseptic technique. kc6 Blood collected. Flushed with 10 mL NS. 11:09 No provider procedures requiring assistance completed. IV discontinued, intact, kc6 bleeding controlled, No redness/swelling at site. Pressure dressing applied. Administered Medications: 09:09 Drug: NS 0.9% IV 1000 ml IV at 1 bolus Per protocol; 1000 mL bolus Route: IV; Rate: 1 kc6 bolus; Site: right antecubital; 10:20 Follow up: Response: No adverse reaction; IV Status: Completed infusion; IV Intake: kc6 1000ml 09:09 Drug: Promethazine IVP 25 mg IVP once Route: IVP; Site: right antecubital; kc6 09:50 Follow up: Response: No adverse reaction; Nausea is decreased; Vomiting decreased kc6 09:09 Drug: Pantoprazole IVP 40 mg IVP once Route: IVP; Site: right antecubital; kc6 09:50 Follow up: Response: No adverse reaction kc6 Medication: 11:09 VIS not applicable for this client. kc6 Intake: 10:20 IV: 1000ml; Total: 1000ml. kc6 Outcome: 10:43 Discharge ordered by . sd2 11:09 Discharged to home via wheelchair, with family, kc6 11:09 Condition: improved 11:09 Discharge instructions given to patient, Instructed on discharge instructions, follow up and referral plans. Demonstrated understanding of instructions, follow-up care, 11:09 Patient left the ED. kc6 Signatures: Karla Hsu MD MD sd2 Tamar Flores RN RN kc6 Corrections: (The following items were deleted from the chart) 08:31 08:28 Pain: Complains of pain in abdomen Quality of pain is described as crampy, kc6 kc6 08:33 08:28 GI: Abdomen is flat, non-distended, Bowel sounds present X 4 quads. Reports kc6 cramping, nausea, vomiting, kc6 08:39 08:25 Chief complaint: Patient states: left leg pain since Friday, n/v since kc6 midnight. pt reports abdominal cramping. kc6
--- NOTE | 2023-10-19 10:44 | EDPHYS ---
Physician Documentation [facility] Name: Melchor Cisse III Age: 63 yrs Sex: Male : 1960 Arrival Date: 10/19/2023 Time: 08:20 Bed 7 Private MD: ED Physician Karla Hsu HPI: 10/18 09:19 This 63 yrs old Male presents to ER via Wheelchair with complaints of Nausea/Vomiting, sd2 Leg Pain. 09:19 63-year-old male presents with chief complaint of nausea and vomiting as well as left sd2 lower extremity pain. He was just recently discharged from our facility with a negative workup including labs and a CT scan. He reports that his vomiting has worsened as well as continued lower abdominal pain and that he is normally on home Phenergan for this. He denies any fever or other new symptoms at this time.. Historical: - Allergies: 08:28 Iodine; kc6 08:28 Morphine; kc6 08:28 shrimp; kc6 - PMHx: 08:28 AIDS (HIV); Cirrhosis; Crohn's; Hepatitis; HERPES; HIV; HPV; ibs; Prostate Cancer kc6 (rectal ); ulcerative colitis; - PSHx: 08:28 Cholecystectomy; rectal; kc6 - Immunization history:: Adult Immunizations unknown. - Infectious Disease History:: Denies. - Social history:: Smoking status: unknown. ROS: 09:19 Constitutional: Negative for fever, chills, and weight loss, Eyes: Negative for injury, sd2 pain, redness, and discharge, Cardiovascular: Negative for chest pain, palpitations, and edema, Respiratory: Negative for shortness of breath, cough, wheezing. 09:19 MS/Extremity: Negative for injury and deformity, Skin: Negative for injury, rash, and discoloration, Neuro: Negative for headache, numbness and tingling. 09:19 Abdomen/GI: Positive for abdominal pain, nausea and vomiting, Negative for diarrhea, black/tarry stool, Exam: 09:19 Constitutional: This is a well developed, well nourished patient who is awake, alert, sd2 and in no acute distress. Head/Face: Normocephalic, atraumatic. Eyes: EOMI, normal conjunctiva bilaterally Chest/axilla: Normal chest wall appearance and motion. Nontender with no deformity. Cardiovascular: Regular rate and rhythm with a normal S1 and S2. No gallops, murmurs, or rubs. 2+ distal pulses. Respiratory: Lungs have equal breath sounds bilaterally, clear to auscultation and percussion. No rales, rhonchi or wheezes noted. No increased work of breathing, no retractions or nasal flaring. 09:19 Abdomen/GI: Soft, tenderness to palpation of the lower abdomen, no guarding or rebound Skin: Warm, dry with normal turgor. Normal color with no rashes, no lesions, and no evidence of cellulitis. MS/ Extremity: Pulses equal, no cyanosis. Neurovascular intact. Full, normal range of motion. Tenderness to palpation noted of the left lower thigh area consistent with muscular tightness and spasm Psych: Awake, alert, with orientation to person, place and time. Behavior, mood, and affect are within normal limits. 09:19 ECG was reviewed by the Attending Physician. Sinus bradycardia, rate 58, no STEMI sd2 criteria or significant ST-T wave changes Vital Signs: 08:25 BP 184 / 111; Pulse 54; Resp 18 S; Pulse Ox 100% on R/A; Weight 71.67 kg (R); Height 5 kc6 ft. 11 in. (R); 08:38 BP 204 / 105; kc6 09:54 BP 192 / 99; Pulse 50; Resp 16 S; Pulse Ox 99% on R/A; kc6 10:20 BP 177 / 102; Pulse 52; Resp 16 S; Pulse Ox 99% on R/A; kc6 08:25 Body Mass Index 22.04 (71.67 kg, 180.34 cm) 6 MDM: 08:31 Patient medically screened. sd2 09:19 Differential diagnosis: Nonspecific abd pain, gastritis, cholecystitis, pancreatitis, sd2 appendicitis, diverticulitis, viral gastroenteritis, gastroenteritis, Among others. Data reviewed: vital signs, nurses notes, old medical records, Prior ER visit lab test result(s), EKG, radiologic studies. I considered the following discharge prescriptions or medication management in the emergency department Medications were administered in the Emergency Department. See MAR. Care significantly affected by the following chronic conditions: HIV, cirrhosis, Crohn's, hepatitis. 10:35 Test considered but Not performed: CT: previously performed today, repeat not sd2 indicated. Counseling: I had a detailed discussion with the patient and/or guardian regarding the historical points, exam findings, and any diagnostic results supporting the discharge/admit diagnosis, lab results, the need for outpatient follow up, to return to the emergency department if symptoms worsen or persist or if there are any questions or concerns that arise at home. Response to treatment: the patient's symptoms have markedly improved after treatment. ED course: Tolerating PO. Benign abdominal exam. Labs reassuring. No significant anemia and gastroccult negative. Pt advised of results and need for follow up and continued home medications. Verbalizes understanding of discharge plan and strict return precautions.. 10/18 08:51 Order name: CBC with Diff; Complete Time: 09:49 sd2 10/18 08:51 Order name: CMP; Complete Time: 09:49 sd2 10/18 08:51 Order name: Troponin High Sensitivity; Complete Time: 09:49 sd2 10/18 08:51 Order name: Lipase; Complete Time: 09:49 sd2 10/18 09:10 Order name: Gastric Occult Blood; Complete Time: 10:26 kc6 10/18 08:51 Order name: EKG - Nurse/Tech; Complete Time: 09:09 sd2 10/18 08:51 Order name: Gastrocult; Complete Time: 09:53 sd2 Administered Medications: 09:09 Drug: NS 0.9% IV 1000 ml IV at 1 bolus Per protocol; 1000 mL bolus Route: IV; Rate: 1 kc6 bolus; Site: right antecubital; 10:20 Follow up: Response: No adverse reaction; IV Status: Completed infusion; IV Intake: kc6 1000ml 09:09 Drug: Promethazine IVP 25 mg IVP once Route: IVP; Site: right antecubital; kc6 09:50 Follow up: Response: No adverse reaction; Nausea is decreased; Vomiting decreased kc6 09:09 Drug: Pantoprazole IVP 40 mg IVP once Route: IVP; Site: right antecubital; kc6 09:50 Follow up: Response: No adverse reaction kc6 Disposition Summary: 10/19/23 10:43 Discharge Ordered Notes: Location: Home sd2 Problem: an acute exacerbation sd2 Symptoms: have improved sd2 Condition: Stable sd2 Diagnosis - Nausea with vomiting, unspecified sd2 - Lower abdominal pain, unspecified sd2 Followup: sd2 - With: Private Physician - When: 2 - 3 days - Reason: Recheck today's complaints, Continuance of care, Re-evaluation by your physician Discharge Instructions: - Discharge Summary Sheet sd2 - Abdominal Pain, Adult sd2 - Nausea and Vomiting, Adult sd2 Forms: - Medication Reconciliation Form sd2 - Antibiotic Education sd2 - Prescription Opioid Use sd2 - Patient Portal Instructions sd2 - Leadership Thank You Letter sd2 Signatures: Dispatcher [employer] Karla Herrera MD MD sd2 Tamar Flores RN RN kc6
--- NOTE | 2023-10-20 16:33 | EKG ---
Test Date: 2023-10-19 Test Time: 09:01:13 Surgery Specialist: AYLIN MEASUREMENT RESULTS: Intervals: Rate: 58 RI: 170 QRSD: 88 QT: 444 QTc: 435 [place]: P: 76 RI: 170 QRS: 86 T: 81 INTERPRETIVE STATEMENTS: Sinus bradycardia with sinus arrhythmia Otherwise normal ECG Compared to ECG 06/30/2021 08:10:16 Sinus rhythm no longer present Electronically Signed On 10-20-23 16:29:12 CDT by Jesus Liz
[2023-10-23 14:30] VITALS: BP 177/102; O2SAT 99
== END 2023-10-19 11:09 | disposition home or self-care (01) ==
LOC: ER 08:20
DX: R11.2 Nausea with vomiting, unspecified (principal); R10.30 Lower abdominal pain, unspecified; K50.90 Crohn's disease, unspecified, without complications; K75.9 Inflammatory liver disease, unspecified; K74.60 Unspecified cirrhosis of liver; Z21 Asymptomatic human immunodeficiency virus [HIV] infection status; Z85.46 Personal history of malignant neoplasm of prostate; Z88.5 Allergy status to narcotic agent; Z88.8 Allergy status to other drugs, medicaments and biological substances; Z91.013 Allergy to seafood
CPT/HCPCS: 96361; 93005; 85025; 36415; 83986; 82271; 84484; 83690; 80053; 96375; 96374; 99284; J2550; J2470; J7030